=== PATIENT | male | born 1935 | race Caucasian/White ===

== ENCOUNTER 2016-11-06 23:42 | Inpatient (IN) | payer OTHER, BC ==
[2016-11-07] MEDS ORDERED: SODIUM CHLORIDE 0.9% 1000 ML INFUS.BAG IV ONE (00:18)
[2016-11-07] MEDS ORDERED: morphine CARPU-JECT 4 MG/1 ML DISP.SYRIN IVPUSH ONE ×2 (00:31→06:18)
--- NOTE | 2016-11-07 00:31 | PDOC ---
Attending Attestation - Resident Resident Name: Edgar Trejo - HPI HPI: 11/07/16 06:45 Pt presents to the ED complaining of a history of severe atraumatic lower back pain. Denies fever or other associated symptoms. - Physicial Exam PE: 11/07/16 06:53 Neurologically intact. + midback paraspinal tenderness. - Medical Decision Making 11/07/16 06:56 Pt presents to the ED complaining of atraumatic back pain. Initial concern for aortic disease--CT non con that shows evidence of Discitis and osteomyletitis. Case discussed with Dr. Rowe who recommends admission to medicine and 4 sets of blood cultures. Will hold off on antibiotics for now. Will get MRI with and without contrast.
--- NOTE | 2016-11-07 00:46 | PDOC ---
History of Present Illness - General Chief Complaint: Pain, Acute Stated Complaint: BACK PAIN Time Seen by Provider: 11/06/16 23:58 History Source: Patient Exam Limitations: No Limitations - History of Present Illness Initial Comments: 11/07/16 00:36 The patient is a 81M with a PMH of an enlarged prostate, HTN, and HLD who presents to the ED with worsening back pain. The patient has an indwelling huizar catheter secondary to his enlarged prostate and refusal to surgically correct it. The patient states that 3 weeks ago he had his catheter changed and noticed heavy bleeding from his urethra. The urethral bleeding stopped but then he began to notice bleeding from his rectum. He states that both of these issues resolved but today he has back pain that is located in his midline and R side that radiates up to his neck. He describes the pain as a spasm and worsens with movement. Allergies: None Social: Does not smoke, drink, or use recreational drugs Surg: noncontributory Past History - Past Medical History Allergies/Adverse Reactions: Allergies Allergy/AdvReac Type Severity Reaction Status Date / Time No Known Allergies Allergy Verified 11/06/16 23:51 Home Medications: Ambulatory Orders Docusate Sodium [Colace -] 100 mg PO TID capsule 05/27/15 Levofloxacin [Levaquin -] 250 mg PO DAILY #5 tablet 05/27/15 Atorvastatin Ca [Lipitor] 10 mg PO HS 11/07/16 Norvasc - 11/07/16 Plavix - 11/07/16 Anemia: No Asthma: No Cancer: No Cardiac Disorders: No CVA: No COPD: No CHF: No Dementia: No Diabetes: No GI Disorders: No Disorders: No HTN: No Hypercholesterolemia: Yes HIV: Yes (BPH) Liver Disease: No Seizures: No Thyroid Disease: No - Psycho/Social/Smoking Cessation Hx Anxiety: No Suicidal Ideation: No Smoking History: Unknown if ever smoked Have you smoked in the past 12 months: Yes Number of Cigarettes Smoked Daily: 2 If you are a former smoker, when did you quit?: 5 weeks ago Cigars Per Day: 2 Information on smoking cessation initiated: No 'Breaking Loose' booklet given: 11/03/13 Hx Alcohol Use: No Drug/Substance Use Hx: No Substance Use Type: Alcohol Hx Substance Use Treatment: No Review of Systems - Review of Systems Able to Perform ROS?: Yes Is the patient limited Romanian proficient: No Constitutional: No: Chills, Fever Respiratory: No: Shortness of Breath Cardiac (ROS): No: Chest Pain ABD/GI: No: Abdominal Distended, Constipated, Diarrhea, Other (Abd pain) : Yes: Other (Indwelling cath). No: Burning, Dysuria, Discharge, Frequency, Pain, Urgency *Physical Exam - Vital Signs Last Vital Signs Temp Pulse Resp BP Pulse Ox 97.5 F L 104 H 14 154/99 97 11/06/16 23:51 11/06/16 23:51 11/06/16 23:51 11/06/16 23:51 11/06/16 23:51 - Physical Exam General Appearance: Yes: Nourished, Appropriately Dressed, Mild Distress Respiratory/Chest: positive: Lungs Clear, Normal Breath Sounds. negative: Chest Tender, Respiratory Distress Cardiovascular: positive: Regular Rhythm, Regular Rate, S1, S2 Gastrointestinal/Abdominal: positive: Flat, Soft, Protuberent. negative: Tender , Tenderness Male Genitalia: positive: other (Uncircumcised penis with discharge on huizar catheter) Musculoskeletal: positive: CVA Tenderness (R), Muscle Spasm (Nonreproducible). negative: CVA Tenderness (L) Extremity: negative: Swelling, Calf Tenderness Integumentary: positive: Normal Color, Dry, Warm Neurologic: positive: Fully Oriented, Alert, Normal Mood/Affect ED Treatment Course - LABORATORY CBC & Chemistry Diagram: 11/07/16 01:08 11/07/16 01:08 Medical Decision Making - Medical Decision Making 11/07/16 00:48 Patient is a 81M with a PMH of enlarged prostate with an indwelling catheter who presents for 2 days of back spasms which radiates to his neck. The patient has no pulsatile mass in his abdomen and has a tender R CVA. I will send his urine for analysis with basic labs. 11/07/16 02:21 UA is indicative of a UTI. He also has an elevated WBC count. 11/07/16 06:29 CT showed suspicion for osteo. Dr. Laboy was called and will admit the patient to medicine and treat the patient. 11/07/16 07:44 Patient discussed with hospitalist resident, Dr. Mathias and they have accepted admission. *DC/Admit/Observation/Transfer Diagnosis at time of Disposition: Osteomyelitis Qualifiers: Osteomyelitis type: unspecified type Osteomyelitis location: other site Qualified Code(s): M86.9 - Osteomyelitis, unspecified - Discharge Dispostion Condition at time of disposition: Stable Admit: Yes - Attestations Physician Attestion: 11/07/16 07:46 I, Dr. Edgar Trejo, attest that this document has been prepared under my direction and personally reviewed by me in its entirety. I further attest, that it accurately reflects all work, treatment, procedures and medical decision -making performed by me.
[2016-11-07 01:16] LABS: URINE APPEARANCE SLCLOUDY; URINE BILIRUBIN NEGATIVE (NEGATIVE); URINE BLOOD 2+ (NEGATIVE); URINE COLOR DKYELLOW; URINE GLUCOSE (UA) NEGATIVE (NEGATIVE); URINE KETONE 1+ (NEGATIVE); URINE NITRITE POSITIVE (NEGATIVE); URINE UROBILINOGEN NEGATIVE mg/dL (0.2-1.0)
[2016-11-07 01:17] LABS: BASOPHIL 0.2 % (0-2.0); EOSINOPHIL 0.1 % (0-4.5); MCH 28.4 pg (25.7-33.7); MCHC 32.3 g/dl (32.0-35.9); MEAN PLT VOLUME 8.1 fl (7.5-11.1); NEUTROPHILS 90.1 % (42.8-82.8); PLATELET COUNT 324 K/MM3 (134-434); RDW 13.9 % (11.9-15.9); WHITE BLOOD COUNT 13.9 K/mm3 (4.0-10.0)
[2016-11-07 01:25] LABS: URINE LEUK ESTERASE 3+ (NEGATIVE); URINE PROTEIN 1+ (NEGATIVE)
[2016-11-07 01:29] LABS: URINE BACTERIA MODERATE /hpf (NONE SEEN); URINE MUCUS RARE; URINE RBC 9 /hpf (0-3); URINE WBC 231 /hpf (3-5)
[2016-11-07] MEDS ORDERED: morphine CARPU-JECT 4 MG/1 ML DISP.SYRIN ONE ×2 (01:30→06:44)
[2016-11-07 01:44] LABS: ALBUMIN 2.9 g/dl (3.4-5.0); ALK PHOS 78 U/L (45-117); ANION GAP 14 (8-16); BILIRUBIN,TOTAL 1.1 mg/dL (0.2-1.0); CALCIUM 9.3 mg/dL (8.5-10.1); CO2 23 mmol/L (21-32); GLUCOSE,RANDOM 105 mg/dL (74-106); SGOT/AST 14 U/L (15-37); SGPT/ALT 20 U/L (12-78); TOT PROT 7.5 g/dl (6.4-8.2)
[2016-11-07 03:05] LABS: URINE APPEARANCE CLOUDY; URINE BILIRUBIN NEGATIVE (NEGATIVE); URINE BLOOD 2+ (NEGATIVE); URINE COLOR YELLOW; URINE GLUCOSE (UA) NEGATIVE (NEGATIVE); URINE KETONE 1+ (NEGATIVE); URINE NITRITE POSITIVE (NEGATIVE); URINE UROBILINOGEN NEGATIVE mg/dL (0.2-1.0)
[2016-11-07 03:29] LABS: URINE LEUK ESTERASE 1+ (NEGATIVE); URINE PROTEIN 1+ (NEGATIVE)
[2016-11-07 03:37] LABS: URINE BACTERIA MANY /hpf (NONE SEEN); URINE MUCUS RARE; URINE RBC 8 /hpf (0-3); URINE WBC 119 /hpf (3-5)
[2016-11-07] MEDS ORDERED: LEVOFLOXACIN 500 MG IVPB 100 ML IVPB ONE (03:57)
[2016-11-07] MEDS ORDERED: LEVOFLOXACIN 750 MG IVPB 150 ML IVPB ONE (04:21)
[2016-11-07] MEDS ORDERED: VANCOMYCIN 1,250 MG in DEXTROSE 5%-WATER - 250 ML IVPB ONE (06:07)
--- NOTE | 2016-11-07 07:34 | HP ---
CHIEF COMPLAINT: " my back hurts" PCP: None Uro: Dr Flores HISTORY OF PRESENT ILLNESS: This is an 79 yo M with a PMH of BPH (chronic indwelling huizar), prior admission for pseudomonas UTI, HTN, HLD and femoral DVT (previously on Eliquis) , who presents due to lower back pain x 2 w. Patient states that pain started suddenly. It is nonradiating, "spasmic", 8/10, paraspinal on R side and aggravated by movement. He has similar but less intense pain 3 yrs ago when he had a UTI. He states that 2 days ago he developed a "neck spasm" that prevents him from bending his neck to the left with lesser ROM limitation in other directions. He denies f/c, h/a, change in vision, arm pain, leg pain, extremity weakness or numbness. He denies loss of bowel control or difficulty initiating micturation or BM other than usual hesitency due to BPH whihc is treated with indwelling cath. He had a spinal tap once 30 yrs ago bus since then has not had any spinal injections, spinal or andominal surgery, meningitis or known bacteremia. His last abx use was a yr ago when he had a uti. He has not had PSA checked in a long time. He denies pelvic pain or dysuria. He had his indwelling changed 3 w ago followed by several days of hematuria. He also recalls an episode of constipation 3 w ago with painless hematochezia during straining that has resolved with laxatives. He denies abd pain, n/v, weight loss , sob, cough, chest pain. ER course was notable for: (1)labs (2)spine CT (3)levaquin, vanco, morphine, oxycodone, IVF, Neurosur consult Recent Travel: denies PAST MEDICAL HISTORY: as above PAST SURGICAL HISTORY: skull fracture 30 yrs ago Social History: lives at home with sister Smoking: denies Alcohol: denies Drugs: denies Family History: noncontributory. Allergies No Known Allergies Allergy (Verified 11/06/16 23:51) HOME MEDICATIONS: Home Medications Medication Instructions Recorded Docusate Sodium [Colace -] 100 mg PO TID capsule 05/27/15 Levofloxacin [Levaquin -] 250 mg PO DAILY #5 tablet 05/27/15 Atorvastatin Ca [Lipitor] 10 mg PO HS 07/25/17 Norvasc - 11/07/16 Plavix - 11/07/16 REVIEW OF SYSTEMS CONSTITUTIONAL: Absent: fever, chills, weight change HEENT: Absent: rhinorrhea, nasal congestion, throat pain CARDIOVASCULAR: Absent: chest pain, syncope, palpitations RESPIRATORY: Absent: cough, shortness of breath, hemoptysis GASTROINTESTINAL: Absent: abdominal pain, abdominal distension, nausea, vomiting, diarrhea, constipation, melena GENITOURINARY: Absent: dysuri, genital pain MUSCULOSKELETAL: Absent: myalgia, arthralgia, joint swelling SKIN: Absent: rash, itching, pallor HEMATOLOGIC/IMMUNOLOGIC: Absent: easy bleeding, easy bruising, frequent infections ENDOCRINE: Absent: unexplained weight gain, unexplained weight loss NEUROLOGIC: Absent: headache, focal weakness or paresthesias, bladder or bowel incontinence PSYCHIATRIC: Absent: anxiety, depression PHYSICAL EXAMINATION Vital Signs - 24 hr 11/06/16 11/07/16 11/07/16 23:51 04:05 06:30 Temperature 97.5 F L Pulse Rate 104 H Pulse Rate [ 78 85 Apical] Respiratory 14 16 18 Rate Blood Pressure 154/99 Blood Pressure 140/80 138/76 [Left Arm] O2 Sat by Pulse 97 99 99 Oximetry (%) GENERAL: Awake, alert, and fully oriented, in mild distress. HEAD: Normal with no signs of trauma. EYES: Pupils equal, round and reactive to light, extraocular movements intact, sclera anicteric, conjunctiva clear. No lid lag. EARS, NOSE, THROAT: somewhat dry mucous membranes. NECK: limited ROM in every direction. any movement causes paraspinal pain in neck LUNGS: Breath sounds equal, clear to auscultation bilaterally. HEART: Regular rate and rhythm, normal S1 and S2 ABDOMEN: Soft, nontender, mildly distended, normoactive bowel sounds, no guarding, no rebound, no masses. Prostate exam deferred per patient request until pain is better controlled MUSCULOSKELETAL: mild R sided CVA tenderness. UPPER EXTREMITIES: 2+ pulses, warm, well-perfused. No cyanosis. No clubbing. No peripheral edema. LOWER EXTREMITIES: 2+ pulses, warm, well-perfused. No calf tenderness. No periphstrength 5/5 in all extremities, sensation intact. PSYCHIATRIC: Cooperative. Good eye contact. Appropriate mood and affect. SKIN: Warm, dry Laboratory Results - last 24 hr 11/07/16 11/07/16 11/07/16 01:08 01:08 01:08 WBC 13.9 H RBC 4.24 Hgb 12.0 Hct 37.3 MCV 88.0 MCH 28.4 MCHC 32.3 RDW 13.9 Plt Count 324 MPV 8.1 Neutrophils % 90.1 H Lymphocytes % 4.7 L D Monocytes % 4.9 Eosinophils % 0.1 D Basophils % 0.2 Sodium 137 Potassium 3.9 Chloride 100 D Carbon Dioxide 23 Anion Gap 14 BUN 20 H Creatinine 1.0 D Creat Clearance w eGFR > 60 Random Glucose 105 Calcium 9.3 Total Bilirubin 1.1 H D AST 14 L D ALT 20 D Alkaline Phosphatase 78 Total Protein 7.5 Albumin 2.9 L Urine Color Dkyellow Urine Appearance Slcloudy Urine pH 5.0 Urine Protein 1+ H Urine Glucose (UA) Negative Urine Ketones 1+ H Urine Blood 2+ H Urine Nitrite Positive Urine Bilirubin Negative Urine Urobilinogen Negative Ur Leukocyte Esterase 3+ H Urine RBC 9 Urine WBC 231 Ur Epithelial Cells Urine Bacteria Moderate Urine Mucus Rare 11/07/16 02:53 WBC RBC Hgb Hct MCV MCH MCHC RDW Plt Count MPV Neutrophils % Lymphocytes % Monocytes % Eosinophils % Basophils % Sodium Potassium Chloride Carbon Dioxide Anion Gap BUN Creatinine Creat Clearance w eGFR Random Glucose Calcium Total Bilirubin AST ALT Alkaline Phosphatase Total Protein Albumin Urine Color Yellow Urine Appearance Cloudy Urine pH 5.0 Urine Protein 1+ H Urine Glucose (UA) Negative Urine Ketones 1+ H Urine Blood 2+ H Urine Nitrite Positive Urine Bilirubin Negative Urine Urobilinogen Negative Ur Leukocyte Esterase 1+ H D Urine RBC 8 Urine WBC 119 Ur Epithelial Cells Rare Urine Bacteria Many Urine Mucus Rare ASSESSMENT/PLAN: This is an 79 yo M with a PMH of BPH (chronic indwelling huizar), prior admission for pseudomonas UTI, HTN, HLD and femoral DVT (previously on Eliquis) , who presents due to lower back pain x 2 w. Sepsis due to UTI vs spinall osteomyelitis -+ tachycardia, leukocytosis 13.9 with left shift -CRP, ESR p/d -UA indicative of UTI, previpous cultures + pseudomonas and moore sensitive e coli ; f/u urine culture -CT abd/pelvis w/o contrast: new perevertebral soft tissue stranding, suspicious for diskitis/osteomyelitis -some suspicion of prostate CA with mets, check PSA -ID consult -Neurosur consult: requests MRI cervical and lumbar spine w and w/o contrast, 4 blood cultures -patient given broad spectrum coverage with isreal swenson -neurochecks q4h BPH -maintain indwelling HTN -continue lipitor HLD continue norvasc FEN NS @ 75 lytes stable Low Na diet Ana, diet Dispo: med [facility] adm Problem List - Problem (1) Osteomyelitis Code(s): M86.9 - OSTEOMYELITIS, UNSPECIFIED Qualifiers: Osteomyelitis type: unspecified type Osteomyelitis location: other site Qualified Code(s): M86.9 - Osteomyelitis, unspecified (2) BPH (benign prostatic hyperplasia) Code(s): N40.0 - BENIGN PROSTATIC HYPERPLASIA WITHOUT LOWER URINRY TRACT SYMP (3) HTN (hypertension) Code(s): I10 - ESSENTIAL (PRIMARY) HYPERTENSION (4) HLD (hyperlipidemia) Code(s): E78.5 - HYPERLIPIDEMIA, UNSPECIFIED Visit type - Emergency Visit Emergency Visit: Yes ED Registration Date: 11/07/16 Care time: The patient presented to the Emergency Department on the above date and was hospitalized for further evaluation of their emergent condition. - New Patient This patient is new to me today: Yes Date on this admission: 11/07/16 - Critical Care Critical Care patient: No
[2016-11-07] MEDS ORDERED: SODIUM CHLORIDE 1,000 ML IV SCH (08:30)
[2016-11-07] MEDS ORDERED: diazePAM CARPU-JECT 10 MG/2 ML DISP.SYRIN IVPUSH ONE (09:00)
[2016-11-07] MEDS ORDERED: SODIUM CHLORIDE 500 ML IV STA (09:18)
--- NOTE | 2016-11-07 09:27 | PROC ---
Intubation - Intubation Reason for Intubation: Respiratory Failure, Ventilatory Failure Intubation Method: orotracheal Blade used: Mac (Mac 4. Grade 1 with cricoid) Tube Size (cm): 8.0 Tube position @ lip (cm): 22 Tube position confirmed by: Direct visualization, CO2 detector, Breath sounds Breath Sounds after Intubation: equal Remarks: See code record for time of intubation
[2016-11-07] MEDS: PROPOFOL 100 ML IVPB SCH (09:30)
[2016-11-07 09:55] LABS: ARTERIAL BLOOD GAS BASE EXCESS -6.1 meq/l (-2-2); ARTERIAL BLOOD GAS HCO3 18.5 meq/L (22-26); ARTERIAL BLOOD GAS pH 7.34 (7.35-7.45)
[2016-11-07 09:57] LABS: ALLENS TEST POSITIVE; ART PUNCT SITE RIGHT RADIAL; LPM/O2% 100%; MECH. VENT. YES; PT. ON O2? YES; TYPE OF O2 MEC.VENT; VENT RATE 12; VT/PRESS 500
[2016-11-07] MEDS ORDERED: PANTOPRAZOLE SODIUM 40 MG in SODIUM CHLORIDE 100 ML IVPB SCH (10:00)
[2016-11-07] MEDS ORDERED: ENOXAPARIN NA (PORCINE) 30 MG/0.3 ML DISP.SYRIN SQ SCH (10:00)
[2016-11-07] MEDS ORDERED: ENOXAPARIN NA (PORCINE) 40 MG/0.4 ML DISP.SYRIN SQ SCH (10:00)
--- NOTE | 2016-11-07 10:16 | PN ---
Teaching Attending Note Name of Resident: Marly Del Real ATTENDING PHYSICIAN STATEMENT I saw and evaluated the patient. I reviewed the resident's note and discussed the case with the resident. I agree with the resident's findings and plan as documented. SUBJECTIVE: This is an 79 yo M with a PMHx of BPH (chronic indwelling huizar) with prior admission for pseudomonas UTI, HTN, HLD and femoral DVT (previously on Eliquis) , who presents to ED. for lower back pain x 2 weeks. While patient was transported to the floor, patient was coded. Code Blue was announced, code blue team arrived and ACLS protocol followed. Patient was transported to ICU , intubated. OBJECTIVE: Vital Signs Temperature 97.9 F 11/07/16 08:05 Pulse Rate 100 H 11/07/16 08:05 Respiratory Rate 20 11/07/16 10:09 Blood Pressure 152/96 11/07/16 08:05 O2 Sat by Pulse Oximetry (%) 99 11/07/16 08:05 CBCD WBC 13.9 K/mm3 (4.0-10.0) H 11/07/16 01:08 RBC 4.24 M/mm3 (4.00-5.60) 11/07/16 01:08 Hgb 12.0 GM/dL (11.7-16.9) 11/07/16 01:08 Hct 37.3 % (35.4-49) 11/07/16 01:08 MCV 88.0 fl (80-96) 11/07/16 01:08 MCHC 32.3 g/dl (32.0-35.9) 11/07/16 01:08 RDW 13.9 % (11.9-15.9) 11/07/16 01:08 Plt Count 324 K/MM3 (134-434) 11/07/16 01:08 MPV 8.1 fl (7.5-11.1) 11/07/16 01:08 CMP Sodium 137 mmol/L (136-145) 11/07/16 01:08 Potassium 3.9 mmol/L (3.5-5.1) 11/07/16 01:08 Chloride 100 mmol/L (98-107) D 11/07/16 01:08 Carbon Dioxide 23 mmol/L (21-32) 11/07/16 01:08 Anion Gap 14 (8-16) 11/07/16 01:08 BUN 20 mg/dL (7-18) H 11/07/16 01:08 Creatinine 1.0 mg/dL (0.7-1.3) D 11/07/16 01:08 Creat Clearance w eGFR > 60 (>60) 11/07/16 01:08 Random Glucose 105 mg/dL (74-106) 11/07/16 01:08 Calcium 9.3 mg/dL (8.5-10.1) 11/07/16 01:08 Total Bilirubin 1.1 mg/dL (0.2-1.0) H D 11/07/16 01:08 AST 14 U/L (15-37) L D 11/07/16 01:08 ALT 20 U/L (12-78) D 11/07/16 01:08 Alkaline Phosphatase 78 U/L (45-117) 11/07/16 01:08 Total Protein 7.5 g/dl (6.4-8.2) 11/07/16 01:08 Albumin 2.9 g/dl (3.4-5.0) L 11/07/16 01:08 Current Medications Generic Name Dose Route Start Last Admin Trade Name Freq PRN Reason Stop Dose Admin Acetaminophen 650 mg 11/07/16 08:16 Tylenol - PO Q4H PRN FEVER OR PAIN Diazepam 5 mg 11/07/16 08:53 Valium - PO 11/10/16 08:53 Q4H PRN MUSCLE SPASMS Sodium Chloride 1,000 mls @ 75 mls/hr 11/07/16 08:30 Normal Saline - IV ASDIR MARILEE Sodium Chloride 500 mls @ 500 mls/hr 11/07/16 09:18 Normal Saline - IV 11/07/16 10:17 ASDIR STA Propofol 100 mls @ 2.204 mls/hr 11/07/16 09:30 Diprivan - IVPB TITR MARILEE Protocol 5 MCG/KG/MIN Pantoprazole Sodium 100 mls @ 200 mls/hr 11/07/16 10:00 Protonix 40mg Ivpb (Pre-Docked) IVPB DAILY MARILEE Morphine Sulfate 2 mg 11/07/16 08:16 Morphine Injection - IVPUSH Q4H PRN BACK PAIN Home Medications Medication Instructions Recorded Docusate Sodium [Colace -] 100 mg PO TID capsule 02/11/16 Levofloxacin [Levaquin -] 250 mg PO DAILY #5 tablet 05/27/15 Atorvastatin Ca [Lipitor] 10 mg PO HS 11/07/16 Norvasc - 11/07/16 Plavix - 11/07/16 PE: per resident's note CT Abdomen/Pelvis - Soft tissue swelling + Erosive changes of L3-L4 suspicious for osteomyelitis/discitis CT Head non-contrast - Negative for acute pathology, old R cerebellar infarct CXR - Cardiomegaly, possible retrocardiac infiltrate CTA Chest - No pulmonary embolism, difficult visualization of R upper Lobe CT Cervical Spine - Degenerative discogenic disease, no acute pathology ASSESSMENT/PLAN: Pt is an 81yo M with a history of HTN, HLD, Old CVA, DVT (was on Eliquis) , with enlarged prostate with indwelling catheter who presented to the ED with neck and back pain and was found to have sepsis with possible osteomyelitis. # s/p Post Cardiac Arrest x2 with s/p intubation then extubation and was found to have Vfib/Torsades. ACLS protocol followed. seen by ICU and river rafting guide and was started on Amniodarone drip.. Serial troponins were ordered ( 1.29 --> 2.47 --> 6.36) , Echo pending , elevated trops. possible due to defibrillator. # Acute Sepsis due to (UTI vs Osteo), Blood Cx, UCx, CRP, ESR pending, s/p Levaquin 500mg IV in ER. ID on the case # Acute UTI s.p Levaquin follow cultures # Possible Osteomyelitis vs Discitis of L3-L4 , ID on the case- # Paroxysmal Afib - currently in Sinus ; on Lovenox 80mg BID for anticoagulatio # BPH with obstructive uropathy with indwelling huizar catheter for enlarged prostate # Hx of HTN started Carvedilol 3.25mg BID # Elevated Lactic Acid trend # Hx of femoral DVT s/p Eliquis, BLLE U/S Duplex was ordered, check the result # DVT: Lovenox 80mg BID - GI: IV Protonix 40mg QD - Deconditioning: PT requested # Code Status Full Code Sepsis due to UTI vs spinall osteomyelitis -+ tachycardia, leukocytosis 13.9 with left shift -CRP, ESR p/d -UA indicative of UTI, previpous cultures + pseudomonas and moore sensitive e coli ; f/u urine culture -CT abd/pelvis w/o contrast: new perevertebral soft tissue stranding, suspicious for diskitis/osteomyelitis -some suspicion of prostate CA with mets, check PSA -ID consult -Neurosur consult: requests MRI cervical and lumbar spine w and w/o contrast, 4 blood cultures -patient given broad spectrum coverage with vanco, zosyn -neurochecks q4h BPH -maintain indwelling HTN -continue lipitor HLD continue norvasc FEN NS @ 75 lytes stable Low Na diet Ana, diet Dispo: med [facility] adm
[2016-11-07] MEDS ORDERED: MIDAZOLAM HCL 2 MG/2 ML SINGLE DOSE VIAL ONE (10:19)
[2016-11-07 10:21] LABS: BASOPHIL 0.3 % (0-2.0); EOSINOPHIL 0.2 % (0-4.5); MCH 28.8 pg (25.7-33.7); MCHC 32.5 g/dl (32.0-35.9); MEAN CELL VOLUME 88.7 fl (80-96); MEAN PLT VOLUME 7.8 fl (7.5-11.1); NEUTROPHILS 82.5 % (42.8-82.8); PLATELET COUNT 325 K/MM3 (134-434); WHITE BLOOD COUNT 16.3 K/mm3 (4.0-10.0)
--- NOTE | 2016-11-07 10:44 | RAPID ---
Physical Examination Vital Signs: Vital Signs patient was unresponsive w/p pulse. Code 99 was called at around 857 am. unable to obtain vitals right away Findings/Remarks: patient w/o pulse, unresponsive. ACLS started. Constitutional: Yes: Pallor Cardiovascular: Yes: Other (no pulse) Neurological: Yes: Unresponsive Rapid Response - Rapid Response Assessment: patient unresponsive, w/o pulse ACLS started. Rythme determided to be v fib, patient shocked once. pulse check immediately after shock-no pulse, rythm asystole. patient given 1 epi and 1 bicarb. pulse check after 2 min reveals a bounding R femoral pulse, rythm regular, likely sinus. Simultaneously, 1L NS hung up to run. Simultaneoulsy patient intubated by anesthesia. Fingerstick obtained WNL. Patient xferred to ICU. Bedside US of heart done in ICY, patient has severely dilated RV with septum bulging into the LV. Suspect PE given prior history of DVT not on AC currently. Patient woke up with stable neuro status per neurologist. CT head and cooling protocol not indicated. stat cta chest ordered. cbc diff, cmp, lactic acid, abg, echocardiogram, cxr, ct neck ordered. Outcome: patietn regained pulse and woke up. transferred to ICU. further w/u p/d Critical Care Total Critical Care Time (in minutes): 45 Critical Care Statement: The care of this patient involved high complexity decision making to prevent further life threatening deterioration of the patient 's condition and/or to evalute & treat vital organ system(s) failure or risk of failure.
[2016-11-07 10:49] LABS: ALBUMIN 2.4 g/dl (3.4-5.0); ANION GAP 13 (8-16); BILIRUBIN,TOTAL 1.1 mg/dL (0.2-1.0); CO2 22 mmol/L (21-32); CREATININE 1.1 mg/dL (0.7-1.3); GLUCOSE,RANDOM 118 mg/dL (74-106); SGOT/AST 78 U/L (15-37); SGPT/ALT 70 U/L (12-78); TOT PROT 6.7 g/dl (6.4-8.2)
[2016-11-07 11:04] LABS: ALK PHOS 72 U/L (45-117)
[2016-11-07 11:08] LABS: INR 1.5 (0.82-1.09); PHOSPHOROUS 3.9 mg/dL (2.5-4.9); PROTHROMBIN TIME (PATIENT) 16.6 SEC (9.98-11.88)
[2016-11-07 11:11] LABS: TROPONIN I 1.29 ng/ml (0.00-0.05)
--- NOTE | 2016-11-07 11:29 | CONSULT ---
Consult - text type - Consultation Consultation Note: Asked to see this 81 year old male who presented with a 3 week history of progressive back pain which has been incapacitating. He describes difficulty getting to the bathroom and neck spasms. He has a history of BPH and chronic voiding difficulty for which has has a longstanding catheterization. He has a chronic UTI. CT of the Abdomen and Pelvis suggests discitis at the L34 level where there is some erosion of the endplates and streaking of the paraspinal fat. There is no obvious epidural collection and no vacuum phenomenon. There are mild degenerative changes at other levels. The L34 potential discitis findings are not noted on a similar CT done in 2014. Given the neck and back pain as well as possible infection, MRI Cervical and Lumbar would be appropriate to evaluate further. Four sets of blood cultures would remain the best mechanism for identifying the organism involved. If there is no epidural collection, then it should be possible to brace him for comfort and treat with IV antibiotics. Surgical debridement of disc space would typically be for fulminant or unresponsive infection. Stabilization would be considered only if agressive debridement is needed or mechanical instability persists after treatment of infection. Consider ID consultation Will review MRI Cervical & Lumbar Soft Lumbar corset (such as Elizabeth Quickdraw Contour or similar) for comfort Cardiac Events subsequent to my evaluation noted. CT Cervical suggests multilevel spondylosis with nael foraminal narrowing
--- NOTE | 2016-11-07 11:34 | PN ---
Progress Note (short form) - Note Progress Note: ID Consult 81 year old male admitted with worsening back pain. CT reveals L3L4 discitis/ vertebral osteomyelitis Course complicated by cardopulmonary arrest. Presently awake and alert in ICU Imp L3L4 discitis/ vertebral osteomyelitis S/P cardiopulmonary arrest PLAN Cultures obtained Neurosurgical evaluation Will hold antibiotics for now pending possible aspiration Critical care time spent 35min
[2016-11-07] MEDS ORDERED: MIDAZOLAM HCL 2 MG/2 ML SINGLE DOSE VIAL IVPUSH ONE (11:49)
[2016-11-07] MEDS ORDERED: ENOXAPARIN NA (PORCINE) 80 MG/0.8 ML DISP.SYRIN SQ ONE (13:00)
--- NOTE | 2016-11-07 13:00 | EKG ---
Test Reason : Blood Pressure : / mmHG Vent. Rate : 102 BPM Atrial Rate : 102 BPM P-R Int : 212 ms QRS Dur : 092 ms QT Int : 406 ms P-R-T Axes : 054 055 121 degrees QTc Int : 529 ms SINUS TACHYCARDIA WITH 1ST DEGREE A-V BLOCK INFERIOR INFARCT , AGE UNDETERMINED ANTERIOR INFARCT , AGE UNDETERMINED T WAVE ABNORMALITY, CONSIDER LATERAL ISCHEMIA PROLONGED QT ABNORMAL ECG WHEN COMPARED WITH ECG OF 25-MAY-2015 13:51, SIGNIFICANT CHANGES HAVE OCCURRED FOLLOWIUP TRACING IS RECOMMENDED Confirmed by MARY CARMEN GERBER MD ([id number]) on 11/07/2016 1:00:32 PM Referred By: CADENCE AUGUSTIN Confirmed By:MARY CARMEN GERBER MD
--- NOTE | 2016-11-07 13:01 | PN ---
Teaching Attending Note Name of Resident: Eliel Sierra ATTENDING PHYSICIAN STATEMENT I saw and evaluated the patient. I reviewed the resident's note and discussed the case with the resident. I agree with the resident's findings and plan as documented. SUBJECTIVE: Pt seen and examined in the ICU. Briefly, 81yo male with h/o HTN, hyperlipidemia , BPH with chronic indwelling huizar catheter who was admitted for back pain, found to have discitis on CT spine. Admitted to the floor where he became unresponsive, pulseless. Initial rhythm was VFib w/p shock, became asystolic, received epinephrine. ROSC in 8 minutes with good chest compressions. Transferred to the ICU, intubated, awake, following commands, subsequently extubated. OBJECTIVE: Last Vital Signs Temp Pulse Resp BP Pulse Ox 98.3 F 102 H 15 143/85 99 11/07/16 09:25 11/07/16 11:30 11/07/16 11:30 11/07/16 11:30 11/07/16 08:05 Intake & Output 11/04/16 11/05/16 11/06/16 11/07/16 23:59 23:59 23:59 23:59 Weight 162 lb Gen: extubated, breathing nonlabored Heart: tachycardic, regular Lung: decreased breath sounds at the bases Abd: soft, nontender Ext: no edema CBC, BMP 11/07/16 10:00 11/07/16 10:00 Active Medications Acetaminophen (Tylenol -) 650 mg PO Q4H PRN PRN Reason: FEVER OR PAIN Diazepam (Valium -) 5 mg PO Q4H PRN PRN Reason: MUSCLE SPASMS Stop: 11/10/16 08:53 Enoxaparin Sodium (Lovenox -) 80 mg SQ ONCE MARILEE Sodium Chloride (Normal Saline -) 1,000 mls @ 75 mls/hr IV ASDIR MARILEE Propofol (Diprivan -) 100 mls @ 2.204 mls/hr IVPB TITR MARILEE; 5 MCG/KG/MIN PRN Reason: Protocol Pantoprazole Sodium (Protonix 40mg Ivpb (Pre-Docked)) 100 mls @ 200 mls/hr IVPB DAILY MARILEE Morphine Sulfate (Morphine Injection -) 2 mg IVPUSH Q4H PRN PRN Reason: BACK PAIN ASSESSMENT AND PLAN: s/p VFib Cardiopulmonary Arrest r/o KS/Cardiomyopathy +Troponins UTI r/o Sepsis Lactic Acidosis - pt extubated - continue antibiotics - f/u cultures - IVF - trend lactate - cycle cardiac enzymes - echocardiogram - cardiology evaluation - monitor lytes - anticoagulation per cardiology - PE ruled out - check LE dopplers - continue ICU monitoring critical care time spent reviewing chart, evaluating patient and formulating plan 45 min
[2016-11-07] MEDS ORDERED: AMIODARONE HCL 150 MG/3 ML VIAL ONE (13:18)
--- NOTE | 2016-11-07 13:29 | PN ---
Progress Note (short form) - Note Progress Note: CODE 99 While in midconversation with housestaff, pt became unresponsive with ventricular fibrillation on monitor. ACLS immediately initiated with chest compressions. Given epinephrine x 1, shocked x 2 with ROSC into sinus tachycardia. Mental status improved, alert, oriented post code. Did not require intubation. Amiodarone 150mg given, starting amiodarone gtt 1mg/min. Cardiology at bedside. Echocardiogram to be reviewed. Mundo Mariano MD
[2016-11-07] MEDS ORDERED: MAGNESIUM SULF 50% (8.12 MEQ/2 ML-1 GM VIAL) IVPB ONE (13:32)
--- NOTE | 2016-11-07 13:49 | CON.CARD ---
Consult Consult Specialty:: Cardiology Referred by:: Dr. Mundo Mariano Reason for Consultation:: Cardiac evaluation - History of Present Illness Chief Complaint: Cardiac evaluation History of Present Illness: Patient is an 81 year old male with underlying history of paroxysmal atrial fibrillation not on anticoagulation, history of BPH currently admitted with back pain with possible osteomyelitis/discitis of L3-4. He was transferred down to ICU after VF arrest on the floor. He was intubated during the first code and then extubated followed by another episode of VF arrest vs. torsades this afternoon. ACLS protocol was initiated, patient was given Epineprine and then was defibrillated twice and started on Amiodarone drip after a bolus. He is currently awake and alert. He still complains of back spasm. He denies chest pain, shortness of breath. He denies fever or chills at the moment. He denies headache. ECG demonstrates sinus rhythm with T wave abnormality in anterior leads and a small Q wave in inferior lead and a prolonged QT. Cardiology consultation was called for further evaluation. Patient was last seen by our service in 2013. - History Source History Provided By: Patient, Medical Record Limitations to Obtaining History: Clinical Condition - Past Medical History Cardio/Vascular: Yes: AFIB (Paroxysmal Afib episode in ED on arrival yesterday) , HTN Renal/: Yes: BPH, Neurogenic Bladder, Other (OBSTRUCTIVE UROPATHY HYDRONEPHROSIS) Infectious Disease: Yes: Other Additional Medical History: Does not go to a doctor. - Alcohol/Substance Use Hx Alcohol Use: Yes History of Substance Use: reports: None - Smoking History Smoking history: Former smoker Have you smoked in the past 12 months: No Aproximately how many cigarettes per day: 2 If you are a former smoker, when did you quit?: 5 weeks ago - Social History Usual Living Arrangement: Alone ADL: Independent Occupation: retired; plays golf and [employer] Home Medications - Allergies Allergies/Adverse Reactions: Allergies Allergy/AdvReac Type Severity Reaction Status Date / Time No Known Allergies Allergy Verified 11/06/16 23:51 - Home Medications Home Medications: Ambulatory Orders Docusate Sodium [Colace -] 100 mg PO TID capsule 05/27/15 Levofloxacin [Levaquin -] 250 mg PO DAILY #5 tablet 05/27/15 Atorvastatin Ca [Lipitor] 10 mg PO HS 11/07/16 Norvasc - 11/07/16 Plavix - 11/07/16 Family Disease History - Family Disease History Family Disease History: CA: Brother (77 years old, has prostate cancer , s/p "seeds") Review of Systems - Review of Systems Cardiovascular: denies: Chest Pain Respiratory: reports: SOB. denies: Cough, Hemoptysis, Orthopnea, PND Gastrointestinal: denies: Abdominal Pain, Constipation, Diarrhea, Melena, Nausea , Rectal Bleeding, Vomiting Musculoskeletal: reports: Back Pain Neurological: denies: Dizziness, Headache, Seizure, Syncope Vital Signs: Vital Signs Temperature 98.3 F 11/07/16 09:25 Pulse Rate 102 H 11/07/16 11:30 Respiratory Rate 15 11/07/16 11:30 Blood Pressure 143/85 11/07/16 11:30 O2 Sat by Pulse Oximetry (%) 99 11/07/16 08:05 Neck: Yes: Supple Respiratory: Yes: Diminished Gastrointestinal: Yes: Normal Bowel Sounds, Soft. No: Tenderness Cardiovascular: Yes: Regular Rate and Rhythm, Tachycardia JVD: No Carotid Bruit: No PMI: Non-Displaced Heart Sounds: Yes: S1, S2 Edema: No - Other Data Labs, Other Data: CBC, BMP 11/07/16 10:00 11/07/16 10:00 INR, PTT INR 1.50 (0.82-1.09) H 11/07/16 10:00 Troponin, BNP 11/07/16 11/07/16 10:00 10:00 Troponin I 1.29 H* D Cancelled Sinus rhythm with T wave inversion in anterior leads, prolonged QT, small Q in inferior lead Echo: Pending Assessment/Plan 1. Post cardiac arrest with VF or torsades with underlying prolonged QT 2. Paroxysmal AF currently in sinus rhythm 3. History of HTN - on no medications 4. Abnormal ECG suggests CAD +/- LV systolic dysfunction 5. Possible osteomyelitis of L3-4 6. History of BPH and obstructive uropathy PLAN: 1. Continue ICU monitoring 2. Continue Amiodarone drip as per VT protocol (1 mg/min for 6 hours and then 0.5 mg/min). Eventually PO Amiodarone will be needed 3. Monitor for QT prolongation. May give dose of magnesium 4. Transthoracic echocardiography to assess LV/RV and valvular function 5. Serial cardiac enzymes 6. Further cardiac work up is to be followed which may include cardiac catheterization/coronary angiography at some point. 7. Continue with Lovenox Further plans are to follow Prakash Leigh MD
[2016-11-07] MEDS ORDERED: AMIODARONE HCL INJECTION 450 MG in DEXTROSE 5%-WATER - 241 ML IVPB SCH ×2 (14:00→16:56)
[2016-11-07] MEDS: PANTOPRAZOLE SODIUM 100 ML IVPB SCH (14:06)
[2016-11-07] MEDS ORDERED: AMIODARONE HCL 150 MG/3 ML VIAL IVPUSH ONE (14:15)
--- NOTE | 2016-11-07 15:06 | PN ---
Physical Exam: SUBJECTIVE: Patient seen and examined. He was restless when he was brought down from the floors, but now he is resting in NAD. He is s/p one cardiac arrest in the floors and one cardiac arrest in the ICU. OBJECTIVE: Vital Signs Temperature 98.5 F 11/07/16 14:46 Pulse Rate 96 H 11/07/16 14:46 Respiratory Rate 18 11/07/16 14:46 Blood Pressure 106/73 11/07/16 14:46 O2 Sat by Pulse Oximetry (%) 92 L 11/07/16 14:27 GENERAL: The patient is awake, alert, and fully oriented, in no acute distress. HEAD: Normal with no signs of trauma. EYES: extraocular movements intact, sclera anicteric, conjunctiva clear. No ptosis. NECK: Trachea midline, full range of motion, supple. LUNGS: Breath sounds equal, clear to auscultation bilaterally, no wheezes, no crackles, no accessory muscle use. HEART: Regular rate and rhythm, S1, S2 without murmur, rub or gallop. ABDOMEN: Soft, nontender, nondistended, normoactive bowel sounds, no guarding, no rebound. EXTREMITIES: 2+ pulses, warm, well-perfused, no edema. NEUROLOGICAL: Cranial nerves II through X grossly intact. Normal speech, gait not observed. PSYCH: Normal mood, normal affect. SKIN: Warm, dry, normal turgor, no rashes or lesions noted Laboratory Results - last 24 hr 11/07/16 11/07/16 11/07/16 09:11 09:40 10:00 WBC RBC Hgb Hct MCV MCH MCHC RDW Plt Count MPV Neutrophils % Lymphocytes % Monocytes % Eosinophils % Basophils % INR D-Dimer Puncture Site Right radial ABG pH 7.34 L ABG pCO2 at Pt Temp 35.2 D ABG pO2 at Pt Temp 402.0 H* ABG HCO3 18.5 L ABG O2 Sat (Measured) 100.0 H* ABG O2 Content 17.9 ABG Base Excess -6.1 L Mannie Test Positive O2 Delivery Device Mec.vent Oxygen Flow Rate 100% Vent Mode A/c Vent Rate 12 Mechanical Rate Yes PEEP 5.0 Pressure Support Vent 500 Sodium Potassium Chloride Carbon Dioxide Anion Gap BUN Creatinine Creat Clearance w eGFR POC Glucometer 100 Random Glucose Lactic Acid Calcium Phosphorus Magnesium Total Bilirubin AST ALT Alkaline Phosphatase Creatine Kinase Troponin I C-Reactive Protein 16.7 H Total Protein Albumin Blood Type Antibody Screen 11/07/16 11/07/16 11/07/16 10:00 10:00 10:00 WBC 16.3 H RBC 4.07 Hgb 11.7 Hct 36.1 MCV 88.7 MCH 28.8 MCHC 32.5 RDW 14.0 Plt Count 325 MPV 7.8 Neutrophils % 82.5 Lymphocytes % 12.5 D Monocytes % 4.5 Eosinophils % 0.2 D Basophils % 0.3 INR D-Dimer Cancelled Puncture Site ABG pH ABG pCO2 at Pt Temp ABG pO2 at Pt Temp ABG HCO3 ABG O2 Sat (Measured) ABG O2 Content ABG Base Excess Mannie Test O2 Delivery Device Oxygen Flow Rate Vent Mode Vent Rate Mechanical Rate PEEP Pressure Support Vent Sodium Potassium Chloride Carbon Dioxide Anion Gap BUN Creatinine Creat Clearance w eGFR POC Glucometer Random Glucose Lactic Acid 3.9 H* Calcium Phosphorus Magnesium Total Bilirubin AST ALT Alkaline Phosphatase Creatine Kinase Troponin I C-Reactive Protein Total Protein Albumin Blood Type Antibody Screen 11/07/16 11/07/16 11/07/16 10:00 10:00 10:00 WBC RBC Hgb Hct MCV MCH MCHC RDW Plt Count MPV Neutrophils % Lymphocytes % Monocytes % Eosinophils % Basophils % INR D-Dimer Puncture Site ABG pH ABG pCO2 at Pt Temp ABG pO2 at Pt Temp ABG HCO3 ABG O2 Sat (Measured) ABG O2 Content ABG Base Excess Mannie Test O2 Delivery Device Oxygen Flow Rate Vent Mode Vent Rate Mechanical Rate PEEP Pressure Support Vent Sodium 139 Potassium 3.9 Chloride 104 Carbon Dioxide 22 Anion Gap 13 BUN 17 Creatinine 1.1 Creat Clearance w eGFR > 60 POC Glucometer Random Glucose 118 H Lactic Acid Calcium 9.0 Phosphorus 3.9 Cancelled Magnesium 2.0 Cancelled Total Bilirubin 1.1 H AST 78 H D ALT 70 D Alkaline Phosphatase 72 Creatine Kinase 137 Cancelled Troponin I 1.29 H* D Cancelled C-Reactive Protein Total Protein 6.7 Albumin 2.4 L Blood Type B POSITIVE Antibody Screen Negative 11/07/16 11/07/16 11/07/16 10:00 10:21 13:05 WBC RBC Hgb Hct MCV MCH MCHC RDW Plt Count MPV Neutrophils % Lymphocytes % Monocytes % Eosinophils % Basophils % INR 1.50 H D-Dimer Puncture Site ABG pH ABG pCO2 at Pt Temp ABG pO2 at Pt Temp ABG HCO3 ABG O2 Sat (Measured) ABG O2 Content ABG Base Excess Mannie Test O2 Delivery Device Oxygen Flow Rate Vent Mode Vent Rate Mechanical Rate PEEP Pressure Support Vent Sodium Potassium Chloride Carbon Dioxide Anion Gap BUN Creatinine Creat Clearance w eGFR POC Glucometer Random Glucose Lactic Acid Calcium Phosphorus Magnesium Total Bilirubin AST ALT Alkaline Phosphatase Creatine Kinase Troponin I 2.47 H* D C-Reactive Protein Total Protein Albumin Blood Type B POSITIVE Antibody Screen Active Medications Generic Name Dose Route Start Last Admin Trade Name Freq PRN Reason Stop Dose Admin Acetaminophen 650 mg 11/07/16 08:16 Tylenol - PO Q4H PRN FEVER OR PAIN Diazepam 5 mg 11/07/16 08:53 Valium - PO 11/10/16 08:53 Q4H PRN MUSCLE SPASMS Sodium Chloride 1,000 mls @ 75 mls/hr 11/07/16 08:30 11/07/16 13:09 Normal Saline - IV 75 mls/hr ASDIR MARILEE Administration Propofol 100 mls @ 2.204 mls/hr 11/07/16 09:30 11/07/16 09:30 Diprivan - IVPB 2.204 mls/hr TITR MARILEE Administration Protocol 5 MCG/KG/MIN Pantoprazole Sodium 100 mls @ 200 mls/hr 11/07/16 10:00 11/07/16 14:06 Protonix 40mg Ivpb (Pre-Docked) IVPB 200 mls/hr DAILY MARILEE Administration Amiodarone HCl 450 mg/ 250 mls @ 16.66 mls/hr 11/07/16 14:00 Dextrose IVPB TITR MARILEE Protocol 0.5 MG/MIN Morphine Sulfate 2 mg 11/07/16 08:16 Morphine Injection - IVPUSH Q4H PRN BACK PAIN ASSESSMENT/PLAN: 79 yo M with a PMH of BPH (chronic indwelling huizar), prior admission for pseudomonas UTI, HTN, HLD and femoral DVT (previously on Eliquis), who presents due to lower back pain x 2 weeks. Patient arrested on the floors and was brought down to the ICU intubated. He is s/p a second arrest in the ICU. Neuro -A&O x2. -no focal neuro deficits Pulmonary -Patient is s/p arrest w/ history of DVT and right ventricle dilation on bedside ultrasound -CTA was negative for PE -f/u doppler ultrasound of lower extremities Cardiology -s/p cardiac arrest; history of paroxysmal afib and long QT on EKG in ED -post arrest EKG shows possible lateral wall ischemia and 1st degree av block with prolonged QT -f/u echo -management as per cardio -tropes trending up; 1.29 -> 2.47; will follow -f/u echo -Cardiology: -c/w amiodarone drip -Monitor for QT prolongation; may give magnesium FEN -NS @ 75 -lactic acid elevated at 3.9, will monitor -NPO PPTX -Protonix 40mg IV DISPO -continue to monitor in ICU Visit type - Emergency Visit Emergency Visit: Yes ED Registration Date: 11/07/16 Care time: The patient presented to the Emergency Department on the above date and was hospitalized for further evaluation of their emergent condition. - New Patient This patient is new to me today: Yes Date on this admission: 11/07/16 - Critical Care Critical Care patient: Yes Total Critical Care Time (in minutes): 60 Critical Care Statement: The care of this patient involved high complexity decision making to prevent further life threatening deterioration of the patient 's condition and/or to evalute & treat vital organ system(s) failure or risk of failure.
--- NOTE | 2016-11-07 15:34 | CONS ---
DATE OF CONSULTATION: HISTORY: The patient is an 81-year-old male who was evaluated for diskitis and vertebral osteomyelitis. The patient gives a longstanding history of chronic back pain. He sustained an injury in 1956 while in the service in [facility]. He has had chronic back pain, which markedly worsened over the past 1-2 weeks. He described pain in the middle back radiating to the right side. He also reported worsening constipation. He has a history of urinary retention and has an indwelling Heart catheter. He presented to the emergency room where a CAT scan of the abdomen and pelvis was performed and showed evidence of L3-L4 vertebral osteomyelitis and diskitis. Cultures were obtained, and he was empirically given vancomycin and Levaquin. While being transported to his room, the patient suffered a cardiopulmonary arrest. According to the staff, he had ventricular fibrillation and was successfully resuscitated. He was transferred to the intensive care unit. At the present time, he is awake and alert in the ICU. He complains of back spasms. He has no complaints of chest pain, shortness of breath, cough, or sputum production. He denies any recent febrile illness. No recent urinary tract infection, skin infection, or epidural injections. PAST MEDICAL HISTORY: Positive for BPH with chronic indwelling Heart catheter, hypertension, hyperlipidemia, DVT. ALLERGIES: No known allergies. MEDICATIONS: Colace, Levaquin, Lipitor, Norvasc, Plavix. SOCIAL HISTORY: He lives at home. He is a former smoker. No recent hospital admissions. SYSTEMS REVIEW: Neurologic: As per HPI. Cardiac: Negative chest pain or palpitations. Respiratory: Negative cough or sputum production. Gastrointestinal: Positive for constipation. Genitourinary: Positive for BPH, urinary retention, and indwelling Heart catheter. PHYSICAL EXAMINATION: General: He is awake and alert. He complains of back spasms. His breathing is nonlabored. Vital Signs: Temperature 97.9, blood pressure 152/96, pulse 100, regular, respiration 18 per minute. HEENT: Sclerae anicteric. Neck: Supple. Heart: Tachycardic. S1, S2. Lungs: Clear bilaterally. Diminished breath sounds at the bases. Abdomen: Soft. No tenderness elicited. No mass, rebound, or rigidity. Extremities: Negative for edema. IMPRESSION: 1. L3-L4 vertebral osteomyelitis with diskitis. 2. Status post cardiopulmonary arrest successfully resuscitated. 3. Leukocytosis. 4. Urinary tract infection. 5. History of urinary retention with chronic indwelling Heart catheter. Scans reviewed with radiologist. MRI is pending as is neurosurgical evaluation. We will await MRI. At the present time, the patient is not septic or acutely toxic appearing. We will hold antibiotic therapy in view of possible need for percutaneous aspiration of the vertebral space with specimen for appropriate cultures. Continue ICU monitoring. Critical care time spent 35 minutes. Thank you for the kind referral. PRAMOD NELSON M.D. [id number]
--- NOTE | 2016-11-07 15:47 | HP ---
CHIEF COMPLAINT: Back + Neck Pain PCP: Dr. Gonzáles HISTORY OF PRESENT ILLNESS: Pt is an 81yo M with a hx of HTN, HLD, Old CVA, BPH with indwelling huizar, hx of DVT who originall presented to the ER due to progressively worsening neck + back pain. Pts neck pain has been present for 1 week, is dull, located in center of neck, nonradiating. Pt has no neurological symptoms in upper extremities, no headache, no neck stiffness, no prior trauma. Stated that he never had neck pain before. Pt also complains of lower back pain which has been progressively worsening for 3 weeks. Back pain is 8/10, intermittent with spasms , worse with movement, nonradiating. No neurological symptoms in lower extremities, no incontinence, no prior trauma, no abdominal pain. Pt denies fever, chills, chest pain, abdominal pain, SOB and weakness. ER course was notable for: (1) Levaquin 500mg x 1 dose (2) EKG - Sinus tach, 1st degree AVB, T wave inv in anterior leads (unchanged), Q waves inferior leads, and QTc prolongation (529) (3) Labs (4) Abd/Pelvis CT Initial Hospital Course: The patient was transferred to the floors and had cardiac arrest, with Code 99 called at 8:57AM. ACLS was started, and rhythm was notable for Vfib. Patient received 1 shock, 1 epinephrine, 1 bicarb, with ROSC into sinus rhythm in 8 minute. The patient was intubated by anesthesia and transferred to the ICU. The patient was initially combative while intubated and then became limp and unresponsive with a pulse, which lasted for about 1-2 minutes. A stat Head CT noncon was ordered which showed no acute bleeds. Given the history of DVT, a PE was suspected for the initial cause of the cardiac arrest. Stat CTA ordered, negative for PE. The patient was later extubated in the ICU and recovered well, back to baseline mental status. While this H&P was being taken in the ICU, in mid-conversation the patient became unresponsive again with Ventricular Fibrillation with Torsades on the monitor. ACLS was immediately initiated with chest compressions. The patient received 2 shocks, 1 epi, 1 Mag, with ROSC in 2 minutes into sinus tachycardia. The patient did not need to be intubated, and recovered well, with return to baseline mental status. Cardiology was at bedside, and the patient was started on Amniodarone drip, with no further cardiac events. Recent Travel: Denies PAST MEDICAL HISTORY: HTN, HLD, Old CVA, BPH with indwelling huizar (changed by PCP every 4 weeks), Hx of DVT, BPH with indwelling huizar: states that his PCP changes the catheter every 4 weeks. PAST SURGICAL HISTORY: None Social History: Smoking: Pt states that he smoked cigars for 60 years. He quit a year ago Alcohol: Pt states he drinks about a bottle of red wine a week. He also drinks beer occasionally. Drugs: Pt denies drug use. Family History: Pt's father suffered from emphysema and of lung cancer. Pt has a sister and many brothers. Patient lives in the same duplex as his sister. Allergies No Known Allergies Allergy (Verified 11/06/16 23:51) HOME MEDICATIONS: Home Medications Medication Instructions Recorded Docusate Sodium [Colace -] 100 mg PO TID capsule 05/27/15 Levofloxacin [Levaquin -] 250 mg PO DAILY #5 tablet 05/27/15 Atorvastatin Ca [Lipitor] 10 mg PO HS 11/07/16 Norvasc - 11/07/16 Plavix - 11/07/16 REVIEW OF SYSTEMS CONSTITUTIONAL: Absent: fever, chills, diaphoresis, generalized weakness, malaise, loss of appetite, weight change HEENT: Absent: rhinorrhea, nasal congestion, throat pain, throat swelling, difficulty swallowing, mouth swelling, ear pain, eye pain, visual changes CARDIOVASCULAR: Absent: chest pain, syncope, palpitations, irregular heart rate, lightheadedness , peripheral edema RESPIRATORY: Absent: cough, shortness of breath, dyspnea with exertion, orthopnea, wheezing, stridor, hemoptysis GASTROINTESTINAL: Absent: abdominal pain, abdominal distension, nausea, vomiting, diarrhea, constipation, melena, hematochezia GENITOURINARY: Absent: dysuria, frequency, urgency, hesitancy, hematuria, flank pain, genital pain MUSCULOSKELETAL: Absent: myalgia, arthralgia, joint swelling Present: back pain, neck pain SKIN: Absent: rash, itching, pallor HEMATOLOGIC/IMMUNOLOGIC: Absent: easy bleeding, easy bruising, lymphadenopathy, frequent infections ENDOCRINE: Absent: unexplained weight gain, unexplained weight loss, heat intolerance, cold intolerance NEUROLOGIC: Absent: headache, focal weakness or paresthesias, unsteady gait, seizure, mental status changes, bladder or bowel incontinence Present: dizziness PSYCHIATRIC: Absent: anxiety, depression, suicidal or homicidal ideation, hallucinations. PHYSICAL EXAMINATION Vital Signs - 24 hr 11/07/16 11/07/16 11/07/16 08:05 09:25 09:45 Temperature 97.9 F 98.3 F Pulse Rate 128 H 113 H Pulse Rate [ 100 H Apical] Respiratory 18 21 19 Rate Blood Pressure 154/94 116/95 Blood Pressure 152/96 [Left Arm] O2 Sat by Pulse 99 Oximetry (%) 11/07/16 11/07/16 11/07/16 10:09 11:30 13:00 Temperature Pulse Rate 102 H 98 H Pulse Rate [ Apical] Respiratory 20 15 32 H Rate Blood Pressure 143/85 125/95 Blood Pressure [Left Arm] O2 Sat by Pulse Oximetry (%) 11/07/16 11/07/16 14:00 14:27 Temperature 98.5 F Pulse Rate 97 H Pulse Rate [ Apical] Respiratory 23 Rate Blood Pressure 114/83 Blood Pressure [Left Arm] O2 Sat by Pulse 92 L Oximetry (%) GENERAL: Awake, alert, and fully oriented, in no acute distress. HEENT: PERRLA, EOMi, Moist mucous membranes LUNGS: CTABL, mild bilateral crackles, no wheezing, no use of accessory muscles HEART: Irregular rate and rhythm, normal S1 and S2 without murmur, rub or gallop. ABDOMEN: Soft, nontender, not distended, normoactive bowel sounds, no guarding, no rebound, no masses. MUSCULOSKELETAL: Normal range of motion at all joints. No bony deformities or tenderness. No CVA tenderness. 2+ pulses, no edema NEUROLOGICAL: Cranial nerves II-XII intact. Normal speech. Normal gait. PSYCHIATRIC: Cooperative. Good eye contact. Appropriate mood and affect. Laboratory Results - last 24 hr 11/07/16 11/07/16 11/07/16 09:11 09:40 10:00 WBC RBC Hgb Hct MCV MCH MCHC RDW Plt Count MPV Neutrophils % Lymphocytes % Monocytes % Eosinophils % Basophils % INR D-Dimer Puncture Site Right radial ABG pH 7.34 L ABG pCO2 at Pt Temp 35.2 D ABG pO2 at Pt Temp 402.0 H* ABG HCO3 18.5 L ABG O2 Sat (Measured) 100.0 H* ABG O2 Content 17.9 ABG Base Excess -6.1 L Mannie Test Positive O2 Delivery Device Mec.vent Oxygen Flow Rate 100% Vent Mode A/c Vent Rate 12 Mechanical Rate Yes PEEP 5.0 Pressure Support Vent 500 Sodium Potassium Chloride Carbon Dioxide Anion Gap BUN Creatinine Creat Clearance w eGFR POC Glucometer 100 Random Glucose Lactic Acid Calcium Phosphorus Magnesium Total Bilirubin AST ALT Alkaline Phosphatase Creatine Kinase Troponin I C-Reactive Protein 16.7 H Total Protein Albumin Blood Type Antibody Screen 11/07/16 11/07/16 11/07/16 10:00 10:00 10:00 WBC 16.3 H RBC 4.07 Hgb 11.7 Hct 36.1 MCV 88.7 MCH 28.8 MCHC 32.5 RDW 14.0 Plt Count 325 MPV 7.8 Neutrophils % 82.5 Lymphocytes % 12.5 D Monocytes % 4.5 Eosinophils % 0.2 D Basophils % 0.3 INR D-Dimer Cancelled Puncture Site ABG pH ABG pCO2 at Pt Temp ABG pO2 at Pt Temp ABG HCO3 ABG O2 Sat (Measured) ABG O2 Content ABG Base Excess Mannie Test O2 Delivery Device Oxygen Flow Rate Vent Mode Vent Rate Mechanical Rate PEEP Pressure Support Vent Sodium Potassium Chloride Carbon Dioxide Anion Gap BUN Creatinine Creat Clearance w eGFR POC Glucometer Random Glucose Lactic Acid 3.9 H* Calcium Phosphorus Magnesium Total Bilirubin AST ALT Alkaline Phosphatase Creatine Kinase Troponin I C-Reactive Protein Total Protein Albumin Blood Type Antibody Screen 11/07/16 11/07/16 11/07/16 10:00 10:00 10:00 WBC RBC Hgb Hct MCV MCH MCHC RDW Plt Count MPV Neutrophils % Lymphocytes % Monocytes % Eosinophils % Basophils % INR D-Dimer Puncture Site ABG pH ABG pCO2 at Pt Temp ABG pO2 at Pt Temp ABG HCO3 ABG O2 Sat (Measured) ABG O2 Content ABG Base Excess Mannie Test O2 Delivery Device Oxygen Flow Rate Vent Mode Vent Rate Mechanical Rate PEEP Pressure Support Vent Sodium 139 Potassium 3.9 Chloride 104 Carbon Dioxide 22 Anion Gap 13 BUN 17 Creatinine 1.1 Creat Clearance w eGFR > 60 POC Glucometer Random Glucose 118 H Lactic Acid Calcium 9.0 Phosphorus 3.9 Cancelled Magnesium 2.0 Cancelled Total Bilirubin 1.1 H AST 78 H D ALT 70 D Alkaline Phosphatase 72 Creatine Kinase 137 Cancelled Troponin I 1.29 H* D Cancelled C-Reactive Protein Total Protein 6.7 Albumin 2.4 L Blood Type B POSITIVE Antibody Screen Negative 11/07/16 11/07/16 11/07/16 10:00 10:21 13:05 WBC RBC Hgb Hct MCV MCH MCHC RDW Plt Count MPV Neutrophils % Lymphocytes % Monocytes % Eosinophils % Basophils % INR 1.50 H D-Dimer Puncture Site ABG pH ABG pCO2 at Pt Temp ABG pO2 at Pt Temp ABG HCO3 ABG O2 Sat (Measured) ABG O2 Content ABG Base Excess Mannie Test O2 Delivery Device Oxygen Flow Rate Vent Mode Vent Rate Mechanical Rate PEEP Pressure Support Vent Sodium Potassium Chloride Carbon Dioxide Anion Gap BUN Creatinine Creat Clearance w eGFR POC Glucometer Random Glucose Lactic Acid Calcium Phosphorus Magnesium Total Bilirubin AST ALT Alkaline Phosphatase Creatine Kinase Troponin I 2.47 H* D C-Reactive Protein Total Protein Albumin Blood Type B POSITIVE Antibody Screen IMAGING: CT Abdomen/Pelvis - Soft tissue swelling + Erosive changes of L3-L4 suspicious for osteomyelitis/discitis CT Head noncon - Negative for acute pathology, 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 He was admitted for sepsis secondary to possible osteomyelitis vs UTI. After the patient was transferred from the ER, he had two episodes of cardiac arrest with ACLS performance and ROSC and to baseline mental status. # Post Cardiac Arrest w/ Vfib and Torsades - Pt had 2 episodes of cardiac arrest, doing well now on Amniodarone drip as per protocol (1mg/min for 6 hours --> 0.5mg/min) - EKG shows QTc prolongation (529) - no home meds, but patient was given a dose of IV Levaquin 500mg in ER - Echo pending - Serial troponins trending up (1.29 --> 2.47 --> 6.36) - could be due to post- ACLS vs ACS (EKG shows Q waves inferior leads) - Cardiology consulted Dr. Prakash Leigh # Sepsis - Pt presented with tachycardia, leukocytosis (13.9), and two likely sources of infection (UTI vs Osteo) - Blood Cx, UCx, CRP, ESR pending - Pt received dose of Levaquin 500mg IV in ER - ID consult placed, will hold antibiotics for pending aspiration of spine # UTI - Pt's UA on admission showed 2+ blood, 1+ leuk esterase, +nitrate, +many bacteria - Previous cultures showed pseudomonas + moore sensitive E.Coli - As per ID, will hold antibiotics for pending aspiration of spine - F/u urine cultures # Possible Osteomyelitis vs Discitis of L3-L4 - CT of abd/pelvis was notable for findings soft tissue swelling + erosive changes of L3-L4 suspicious for osteo/discitis - MRI of spine to follow of Lumbar + Cervical Spine w/ and w/o contrast - Neurosurgery consult - Morphine 2mg IVPush Q4PRN for pain - Neuro checks Q4H # Paroxysmal Afib - currently in Sinus - Pt placed on Lovenox 80mg BID for anticoagulation - Continuous repairing calibrator # BPH with obstructive uropathy - Pt has indwelling huizar catheter for enlarged prostate - Will check PSA to r/o prostate cancer # Hx of HTN - Pt on no medications, started on Carvedilol 3.25mg BID - SBP 130-150s + DBP 70s-90s # Elevated Lactic Acid - Was taken after first round of ACLS, could be reactive - F/u repeat level # Hyperglycemia - 118 - Pt has no history of diabetes - Will continue to monitor # Hx of femoral DVT - According to chart, pt completed treatment course w/ Eliquis, will confirm with PCP tomorrow - BLLE U/S Duplex was ordered, f/u # FEN - Fluids: IV NS at 75mL/hr - Electrolytes: No abnormalities, will monitor - Nutrition: NPO for possible procedure # Prophylaxis - DVT: Lovenox 80mg BID - GI: IV Protonix 40mg QD - Deconditioning: PT requested # Code Status - Full Code # Home Med Rec - Patient denies taking any prescription medications - Will call pharmacy tomorrow to confirm Dr. Marly Del Real PGY-1 Internal Medicine Visit type - Emergency Visit Emergency Visit: Yes ED Registration Date: 11/07/16 Care time: The patient presented to the Emergency Department on the above date and was hospitalized for further evaluation of their emergent condition. - New Patient This patient is new to me today: Yes Date on this admission: 11/09/16 - Critical Care Critical Care patient: Yes Total Critical Care Time (in minutes): 55 Critical Care Statement: The care of this patient involved high complexity decision making to prevent further life threatening deterioration of the patient 's condition and/or to evalute & treat vital organ system(s) failure or risk of failure.
[2016-11-07] MEDS: morphine CARPU-JECT 2 MG/1 ML DISP.SYRIN IVPUSH PRN (16:51)
[2016-11-07] MEDS: ACETAMINOPHEN 325 MG TABLET (FP) PO PRN (20:45)
[2016-11-07] MEDS: diazePAM 5 MG TABLET PO PRN (20:46)
[2016-11-07] MEDS: CARVEDILOL 3.125 MG TABLET (FP) PO SCH (21:27)
[2016-11-07] MEDS ORDERED: ENOXAPARIN NA (PORCINE) 80 MG/0.8 ML DISP.SYRIN SQ SCH (22:00)
[2016-11-08] MEDS: ACETAMINOPHEN 325 MG TABLET (FP) PO PRN (01:50)
[2016-11-08] MEDS: diazePAM 5 MG TABLET PO PRN (01:51)
[2016-11-08] MEDS ORDERED: FUROSEMIDE 40 MG/4 ML INJECTABLE VIAL IVPUSH ONE ×2 (06:22→17:00)
[2016-11-08 06:34] LABS: MCH 28.5 pg (25.7-33.7); MCHC 32.5 g/dl (32.0-35.9); MEAN CELL VOLUME 87.7 fl (80-96); MEAN PLT VOLUME 8.2 fl (7.5-11.1); PLATELET COUNT 240 K/MM3 (134-434); WHITE BLOOD COUNT 18.7 K/mm3 (4.0-10.0)
[2016-11-08 06:41] LABS: ARTERIAL BLD GAS O2 SATURATION 95.1 % (90-98.9); ARTERIAL BLOOD GAS BASE EXCESS -3.6 meq/l (-2-2); ARTERIAL BLOOD GAS HCO3 20.7 meq/L (22-26); ARTERIAL BLOOD GAS PO2 78.7 mmHg (68-100); ARTERIAL BLOOD GAS pH 7.37 (7.35-7.45)
[2016-11-08 06:42] LABS: ALLENS TEST POSITIVE; ART PUNCT SITE RIGHT RADIAL; LPM/O2% 40%; PT. ON O2? YES; TYPE OF O2 VENTIMASK
--- NOTE | 2016-11-08 06:51 | HOSP ---
Physical Examination Vital Signs: Vital Signs Temperature 97.4 F L 11/08/16 02:00 Pulse Rate 81 11/08/16 02:00 Respiratory Rate 18 11/08/16 02:00 Blood Pressure 143/82 11/08/16 02:00 O2 Sat by Pulse Oximetry (%) 100 11/07/16 21:00 Labs: CBC, BMP 11/07/16 10:00 11/07/16 10:00 Hospitalist Encounter Assessment: Notified by RN that patient is having shortness of breath When I reached there patient was in moderate respiratory distress and reporting that he has "fluids in his lungs". Patient was on a ventimask saturating at 99 % but with labored breathing. Patient states having spasms in his back but reports that it is chronic. He denies any chest pain or palpitations. STAT IV LASIX given and EKG showed no changes and within 5 minutes he was calmer and respiratory rate was in the 20's once he was informed about the EKG results. VITALS: BP: 146/111 HR: 90-92 02 SAT: 99% on Ventimask RR: 30 PHYSICAL EXAM: LUNGS: Mild expiratory wheezing with crackles throughout lung bases bilaterally CHEST: RRR. No murmurs appreciated ABDOMEN: Soft, distended, nontender A&P Fluid Overload likely secondary to IV Fluids and CHF Exacerbation -Chest X-RAY STAT -ABG STAT -LASIX 40MG IV PUSH STAT -Discontinue IV FLUIDS -ECHO to be done in the morning -EKG ordered, which showed 87 BPM with Q waves in leads II, III, aVF and t-wave inversion in the lateral leads, no changes from prior EKG on 11/07/16 -Repeat Troponins -Will endorse to day medical team Visit type - Emergency Visit Emergency Visit: No - New Patient This patient is new to me today: Yes Date on this admission: 11/10/16 - Critical Care Critical Care patient: Yes Total Critical Care Time (in minutes): 45 Critical Care Statement: The care of this patient involved high complexity decision making to prevent further life threatening deterioration of the patient 's condition and/or to evalute & treat vital organ system(s) failure or risk of failure.
--- NOTE | 2016-11-08 07:04 | PN ---
Progress Note, Physician Chief Complaint: ICU ID followup for this 81 year old male with cardiac arrest. Currently alert in respiratory distress He complains of back pain and cervical pain. Now positive blood culture gram positive cocci clusters many bottles ! Denies chest pain Remains afebrile - Current Medication List Current Medications: Active Medications Acetaminophen (Tylenol -) 650 mg PO Q4H PRN PRN Reason: FEVER OR PAIN Last Admin: 11/08/16 01:50 Dose: 650 mg Carvedilol (Coreg -) 3.125 mg PO BID [facility] Last Admin: 11/07/16 21:27 Dose: 3.125 mg Diazepam (Valium -) 5 mg PO Q4H PRN PRN Reason: MUSCLE SPASMS Stop: 11/10/16 08:53 Last Admin: 11/08/16 01:51 Dose: 5 mg Enoxaparin Sodium (Lovenox -) 80 mg SQ BID [facility] Last Admin: 11/07/16 21:26 Dose: 80 mg Sodium Chloride (Normal Saline -) 1,000 mls @ 75 mls/hr IV ASDIR [facility] Last Admin: 11/07/16 13:09 Dose: 75 mls/hr Propofol (Diprivan -) 100 mls @ 2.204 mls/hr IVPB TITR MARILEE; 5 MCG/KG/MIN PRN Reason: Protocol Last Admin: 11/07/16 09:30 Dose: 2.204 mls/hr Pantoprazole Sodium (Protonix 40mg Ivpb (Pre-Docked)) 100 mls @ 200 mls/hr IVPB DAILY [facility] Last Admin: 11/07/16 14:06 Dose: 200 mls/hr Amiodarone HCl 450 mg/ (Dextrose) 250 mls @ 33.33 mls/hr IVPB TITR MARILEE; 1 MG/ MIN PRN Reason: Protocol Last Admin: 11/07/16 14:30 Dose: 33.33 mls/hr Lisinopril (Prinivil) 10 mg PO DAILY [facility] Morphine Sulfate (Morphine Injection -) 2 mg IVPUSH Q4H PRN PRN Reason: BACK PAIN Last Admin: 11/07/16 16:51 Dose: 2 mg - Objective Vital Signs: Vital Signs Temperature 97.4 F L 11/08/16 02:00 Pulse Rate 81 11/08/16 02:00 Respiratory Rate 18 11/08/16 02:00 Blood Pressure 143/82 11/08/16 02:00 O2 Sat by Pulse Oximetry (%) 100 11/07/16 21:00 Constitutional: Yes: Well Nourished, Moderate Distress Eyes: Yes: Other (no petechiae). No: Conjunctiva Clear Neck: Yes: WNL, Supple Cardiovascular: Yes: Regular Rate and Rhythm, S1, S2. No: Murmur Respiratory: Yes: WNL, Regular, CTA Bilaterally, Diminished Gastrointestinal: Yes: WNL, Normal Bowel Sounds, Soft, Distention. No: Splenomegaly, Tenderness, Tenderness, Rebound Edema: No Labs: CBC, BMP 11/08/16 05:25 INR, PTT INR 1.50 (0.82-1.09) H 11/07/16 10:00 Problem List - Problems (1) Osteomyelitis Code(s): M86.9 - OSTEOMYELITIS, UNSPECIFIED Qualifiers: Osteomyelitis type: unspecified type Osteomyelitis location: other site Qualified Code(s): M86.9 - Osteomyelitis, unspecified (2) Bacteremia due to Staphylococcus Code(s): R78.81 - BACTEREMIA (3) Discitis Code(s): M46.40 - DISCITIS, UNSPECIFIED, SITE UNSPECIFIED Assessment/Plan Microbiology 11/07/16 07:20 Blood - Peripheral Venous Blood Culture - Preliminary Pending Organism 11/07/16 07:20 Blood - Peripheral Venous Blood Culture - Preliminary Pending Organism Laboratory Tests 11/07/16 11/07/16 11/07/16 02:53 10:00 10:00 WBC Hgb Plt Count ESR 100 H INR ABG pH ABG pCO2 at Pt Temp ABG pO2 at Pt Temp Oxygen Flow Rate BUN 17 Creatinine 1.1 Total Bilirubin 1.1 H ALT 70 D Troponin I Urine WBC 119 Urine Bacteria Many 11/07/16 11/07/16 11/08/16 10:00 18:00 05:25 WBC 18.7 H Hgb 12.0 Plt Count 240 D ESR INR 1.50 H ABG pH ABG pCO2 at Pt Temp ABG pO2 at Pt Temp Oxygen Flow Rate BUN Creatinine Total Bilirubin ALT Troponin I 6.36 H* D Urine WBC Urine Bacteria 11/08/16 11/08/16 05:25 06:29 WBC Hgb Plt Count ESR INR ABG pH 7.37 ABG pCO2 at Pt Temp 36.7 ABG pO2 at Pt Temp 78.7 D Oxygen Flow Rate 40% BUN Pending Creatinine Pending Total Bilirubin ALT Troponin I Urine WBC Urine Bacteria Assessment Sepsis syndrome Gram positive bacteremia ruling out endocarditis staph 2D neg vegetations Recurrent urinary infection Disciitis L3 L4 S/P cardiac arrest prolonged QT Fluid overload/respiratory distress Plan Repeat blood cultures Vancomycin 1.5gr now with vanco level in am to decide further dosing Add Ceftazidime for urinary gram neg coverage MRI imaging complete spine when stable 38 minutes spent reviewing care Susan PETERSON
[2016-11-08 07:07] LABS: ANION GAP 12 (8-16); CALCIUM 8.8 mg/dL (8.5-10.1); CO2 25 mmol/L (21-32); MAGNESIUM 2.3 mg/dL (1.8-2.4)
[2016-11-08 07:10] LABS: CREATININE 1.5 mg/dL (0.7-1.3); GLUCOSE,RANDOM 148 mg/dL (74-106); PHOSPHOROUS 4.4 mg/dL (2.5-4.9)
[2016-11-08 07:54] LABS: TROPONIN I 15.3 ng/ml (0.00-0.05)
[2016-11-08] MEDS ORDERED: VANCOMYCIN 1,500 MG in DEXTROSE 5%-WATER - 500 ML IVPB ONE (09:00)
[2016-11-08] MEDS ORDERED: HEPARIN NA (PORCINE) 5,000 UNITS/ML 1ML VIAL IVPUSH PRN ×2 (09:55)
[2016-11-08] MEDS ORDERED: cefTAZidime PENTAHYDRATE 1 GM/50ML PRE-DOCKED (RESTRICTED TO ID) IVPB SCH (10:00)
[2016-11-08] MEDS ORDERED: HEPARIN - 25,000 UNIT in SODIUM CHLORIDE 495 ML IV SCH (10:00)
[2016-11-08] MEDS ORDERED: ASPIRIN 325 MG TABLET PO ONE (10:08)
[2016-11-08] MEDS ORDERED: CLOPIDOGREL BISULFATE 300 MG TABLET PO ONE (10:08)
[2016-11-08] MEDS ORDERED: HEPARIN INFUSION - 500 ML IVPB ONE (10:23)
[2016-11-08] MEDS: CARVEDILOL 3.125 MG TABLET (FP) PO SCH (10:25)
[2016-11-08] MEDS: LISINOPRIL 10 MG TABLET (FP) PO SCH (10:25)
[2016-11-08] MEDS: PANTOPRAZOLE SODIUM 100 ML IVPB SCH (10:25)
[2016-11-08] MEDS: MAGNESIUM OXIDE 400 MG TABLET (FP) PO SCH ×2 (10:26→21:26)
[2016-11-08] MEDS ORDERED: ASPIRIN COATED 81 MG TABLET.EC PO SCH (11:00)
--- NOTE | 2016-11-08 11:01 | PN ---
Progress Note, Physician History of Present Illness: Dyspneic due to volume overload overnight improved with diuresis.Extubated on 40 % VM, denies chest pain. - Current Medication List Current Medications: Active Medications Acetaminophen (Tylenol -) 650 mg PO Q4H PRN PRN Reason: FEVER OR PAIN Last Admin: 11/08/16 01:50 Dose: 650 mg Aspirin (Ecotrin -) 81 mg PO DAILY [facility] Carvedilol (Coreg -) 12.5 mg PO BID [facility] Clopidogrel Bisulfate (Plavix -) 75 mg PO DAILY [facility] Diazepam (Valium -) 5 mg PO Q4H PRN PRN Reason: MUSCLE SPASMS Stop: 11/10/16 08:53 Last Admin: 11/08/16 01:51 Dose: 5 mg Furosemide (Lasix Injection -) 40 mg IVPUSH DAILY [facility] Heparin Sodium (Porcine) (Heparin -) 1,000 unit IVPUSH PRN PRN PRN Reason: Heparin Heparin Sodium (Porcine) (Heparin -) 5,000 unit IVPUSH PRN PRN PRN Reason: Heparin Propofol (Diprivan -) 100 mls @ 2.204 mls/hr IVPB TITR [facility]; 5 MCG/KG/MIN PRN Reason: Protocol Last Admin: 11/07/16 09:30 Dose: 2.204 mls/hr Pantoprazole Sodium (Protonix 40mg Ivpb (Pre-Docked)) 100 mls @ 200 mls/hr IVPB DAILY [facility] Last Admin: 11/08/16 10:25 Dose: 200 mls/hr Ceftazidime 1 gm/ Dextrose 100 mls @ 200 mls/hr IVPB Q8H-IV [facility] Heparin Sodium (Porcine) 25, (000 unit/ Sodium Chloride) 500 mls @ 20 mls/hr IV TITR [facility]; 1,000 UNIT/HR PRN Reason: Protocol Lisinopril (Prinivil) 10 mg PO DAILY [facility] Last Admin: 11/08/16 10:25 Dose: 10 mg Magnesium Oxide (Mag-Ox -) 400 mg PO BID [facility] Last Admin: 11/08/16 10:26 Dose: 400 mg Morphine Sulfate (Morphine Injection -) 2 mg IVPUSH Q4H PRN PRN Reason: BACK PAIN Last Admin: 11/07/16 16:51 Dose: 2 mg - Objective Vital Signs: Vital Signs Temperature 97.4 F L 11/08/16 06:00 Pulse Rate 85 11/08/16 10:23 Respiratory Rate 28 H 11/08/16 09:00 Blood Pressure 121/52 11/08/16 08:00 O2 Sat by Pulse Oximetry (%) 97 11/08/16 10:23 Constitutional: Yes: No Distress, Calm Neck: Yes: Supple Cardiovascular: Yes: Regular Rate and Rhythm, Murmur (2/6 SM) Respiratory: Yes: Regular, Diminished, On Venti-Mask, Rhonchi Gastrointestinal: Yes: Soft, Hypoactive Bowel Sounds Edema: No Labs: CBC, BMP 11/08/16 05:25 11/08/16 05:25 INR, PTT INR 1.50 (0.82-1.09) H 11/07/16 10:00 - ....Imaging EKG: Report Reviewed (Tele: Li barrera EKG: NSR @ 81 1st deg AVB QTc 462 msec) Problem List - Problems (1) Bacteremia due to Staphylococcus Code(s): R78.81 - BACTEREMIA (2) Discitis Code(s): M46.40 - DISCITIS, UNSPECIFIED, SITE UNSPECIFIED Qualifiers: Spinal region: lumbar Qualified Code(s): M46.46 - Discitis, unspecified, lumbar region (3) HLD (hyperlipidemia) Code(s): E78.5 - HYPERLIPIDEMIA, UNSPECIFIED Qualifiers: Hyperlipidemia type: pure hypercholesterolemia Qualified Code(s): E78.00 - Pure hypercholesterolemia, unspecified; E78.0 - Pure hypercholesterolemia (4) HTN (hypertension) Code(s): I10 - ESSENTIAL (PRIMARY) HYPERTENSION Qualifiers: Hypertension type: essential hypertension Qualified Code(s): I10 - Essential (primary) hypertension (5) Osteomyelitis Code(s): M86.9 - OSTEOMYELITIS, UNSPECIFIED Qualifiers: Osteomyelitis type: unspecified type Osteomyelitis location: other site Qualified Code(s): M86.9 - Osteomyelitis, unspecified (6) Acute renal failure Code(s): N17.9 - ACUTE KIDNEY FAILURE, UNSPECIFIED Qualifiers: Acute renal failure type: unspecified Qualified Code(s): N17.9 - Acute kidney failure, unspecified (7) Leukocytosis Code(s): D72.829 - ELEVATED WHITE BLOOD CELL COUNT, UNSPECIFIED (8) Paroxysmal atrial fibrillation Code(s): I48.0 - PAROXYSMAL ATRIAL FIBRILLATION (9) 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 transplanted heart: [place] heart Associated angina: without angina Qualified Code(s): I25.10 - Atherosclerotic heart disease of [place] coronary artery without angina pectoris (11) NSTEMI (non-ST elevated myocardial infarction) Code(s): I21.4 - NON-ST ELEVATION (NSTEMI) MYOCARDIAL INFARCTION (12) Severe mitral regurgitation Code(s): I34.0 - NONRHEUMATIC MITRAL (VALVE) INSUFFICIENCY (13) Acute respiratory failure with hypoxia Code(s): J96.01 - ACUTE RESPIRATORY FAILURE WITH HYPOXIA (14) Acute on chronic systolic ACC/AHA stage C congestive heart failure Code(s): I50.23 - ACUTE ON CHRONIC SYSTOLIC (CONGESTIVE) HEART FAILURE Assessment/Plan 11/08/2016 Transthoracic echocardiography: Dilated LV with severe LV dysfunction with anterior AK, apex dyskinetic, IVS below midventricular level thin and dyskinetic, inferolarteral severe HK, posterior AK, normal RV size and fxn, severe MR, mod TR, mild to mod AR 1. Post cardiac arrest torsades de pointes with underlying prolonged QT post Levaquin for UTI 2. Acute hypoxic respiratory failure 3. Acute on chronic systolic failure with underlying severe MR 4. CAD, NSTEMI 5. Paroxysmal AF currently in sinus rhythm 6. HTN/HCVD 7. Disciitis and possible osteomyelitis of L3-4 with MSSA bacteremia 8. GUZMAN due to hemodynamic alterations 9. History of BPH and obstructive uropathy 10. Previous DVT post Eliquis PLAN: 1. D/c Amiodarone, replete Mg to maintain Mg>2.5 with monitor for QT prolongation, avoid QT prolonging agents 2. Trend cardiac enzymes to document peak 3. IV diuresis with monitor diuretic response, renal fxn and electrolytes 4. Abx per C&S, MRI spine when able, f/u surveillance cx 5. ASA 81 qd, Plavix 75 qd, heparin gtt pending trops peak, agree with increase carvedilol 12.5 bid, lisinopril 10 qd, start Aldactone 25 qd once renal fxn stablizes eventual drop ASA and resume Eliquis given h/o PAF->SR 6. GI prophylaxis, further cardiac work up is to be followed which may include cardiac catheterization/coronary angiography at some point once sepsis clears
[2016-11-08] MEDS: CEFTAZIDIME PENTAHYDRATE 1 GM in DEXTROSE 5%-WATER - 100 ML IVPB SCH ×2 (11:12→18:33)
[2016-11-08] MEDS: CLOPIDOGREL BISULFATE 75 MG TABLET (FP) PO SCH (11:16)
--- NOTE | 2016-11-08 11:51 | PN ---
Teaching Attending Note Name of Resident: Eliel Sierra ATTENDING PHYSICIAN STATEMENT I saw and evaluated the patient. I reviewed the resident's note and discussed the case with the resident. I agree with the resident's findings and plan as documented. SUBJECTIVE: Pt seen and examined in the ICU. No further Vfib episodes on amiodarone gtt. Blood cultures growing presumptive MSSA. No fevers or chills. OBJECTIVE: Last Vital Signs Temp Pulse Resp BP Pulse Ox 97.4 F L 85 28 H 121/52 97 11/08/16 06:00 11/08/16 10:23 11/08/16 09:00 11/08/16 08:00 11/08/16 10:23 Intake & Output 11/05/16 11/06/16 11/07/16 11/08/16 23:59 23:59 23:59 23:59 Intake Total 1007 950 Output Total 375 300 Balance 632 650 Weight 162 lb 162 lb Gen: tachypneic with speaking Heart: RRR Lung: scattered rhonchi Abd: soft, nontender Ext: no edema, cool extremities CBC, BMP 11/08/16 05:25 11/08/16 05:25 Troponin, BNP 11/07/16 11/07/16 11/08/16 13:05 18:00 06:00 Troponin I 2.47 H* D 6.36 H* D 15.30 H* D Active Medications Acetaminophen (Tylenol -) 650 mg PO Q4H PRN PRN Reason: FEVER OR PAIN Last Admin: 11/08/16 01:50 Dose: 650 mg Aspirin (Ecotrin -) 81 mg PO DAILY [facility] Last Admin: 11/08/16 11:16 Dose: 81 mg Carvedilol (Coreg -) 12.5 mg PO BID [facility] Clopidogrel Bisulfate (Plavix -) 75 mg PO DAILY [facility] Last Admin: 11/08/16 11:16 Dose: 75 mg Diazepam (Valium -) 5 mg PO Q4H PRN PRN Reason: MUSCLE SPASMS Stop: 11/10/16 08:53 Last Admin: 11/08/16 01:51 Dose: 5 mg Furosemide (Lasix Injection -) 40 mg IVPUSH DAILY [facility] Furosemide (Lasix Injection -) 40 mg IVPUSH ONCE ONE Stop: 11/08/16 17:01 Heparin Sodium (Porcine) (Heparin -) 1,000 unit IVPUSH PRN PRN PRN Reason: Heparin Heparin Sodium (Porcine) (Heparin -) 5,000 unit IVPUSH PRN PRN PRN Reason: Heparin Propofol (Diprivan -) 100 mls @ 2.204 mls/hr IVPB TITR [facility]; 5 MCG/KG/MIN PRN Reason: Protocol Last Admin: 11/07/16 09:30 Dose: 2.204 mls/hr Pantoprazole Sodium (Protonix 40mg Ivpb (Pre-Docked)) 100 mls @ 200 mls/hr IVPB DAILY [facility] Last Admin: 11/08/16 10:25 Dose: 200 mls/hr Ceftazidime 1 gm/ Dextrose 100 mls @ 200 mls/hr IVPB Q8H-IV [facility] Last Admin: 11/08/16 11:12 Dose: 200 mls/hr Heparin Sodium (Porcine) 25, (000 unit/ Sodium Chloride) 500 mls @ 20 mls/hr IV TITR [facility]; 1,000 UNIT/HR PRN Reason: Protocol Lisinopril (Prinivil) 10 mg PO DAILY [facility] Last Admin: 11/08/16 10:25 Dose: 10 mg Magnesium Oxide (Mag-Ox -) 400 mg PO BID [facility] Last Admin: 11/08/16 10:26 Dose: 400 mg Morphine Sulfate (Morphine Injection -) 2 mg IVPUSH Q4H PRN PRN Reason: BACK PAIN Last Admin: 11/07/16 16:51 Dose: 2 mg ASSESSMENT AND PLAN: s/p VFib Cardiopulmonary Arrest/Prolonged QT Acute NSTEMI/CAD/+Troponins Acute on Chronic Systolic Heart Failure Severe Mitral Regurgitation Acute Kidney Injury UTI MSSA Bacteremia Osteomyelitis/Discitis Sepsis Lactic Acidosis - ASA, plavix - beta malvin, statin - afterload reduction once renal failure stable - continue to trend cardiac enzymes to document peak - keep K >4, Mg >2 - continue antibiotics - f/u cultures - IV lasix - monitor urine output, creatinine - trend lactate - anticoagulation per cardiology - continue ICU monitoring critical care time spent in reviewing chart, evaluating patient and formulating plan 36 min
--- NOTE | 2016-11-08 12:57 | EKG ---
Test Reason : Blood Pressure : / mmHG Vent. Rate : 081 BPM Atrial Rate : 081 BPM P-R Int : 236 ms QRS Dur : 098 ms QT Int : 398 ms P-R-T Axes : 060 023 108 degrees QTc Int : 462 ms SINUS RHYTHM WITH 1ST DEGREE A-V BLOCK INFERIOR INFARCT (CITED ON OR BEFORE 07-NOV-2016) CANNOT RULE OUT ANTERIOR INFARCT (CITED ON OR BEFORE 07-NOV-2016) ABNORMAL ECG WHEN COMPARED WITH ECG OF 07-NOV-2016 12:52, QT HAS SHORTENED Confirmed by DANDY PETERSON, MARIA ELENA ([id number]) on 11/08/2016 12:57:10 PM Referred By: Shivam ZAMORANO Confirmed By:MARIA ELENA DORMAN MD
[2016-11-08 13:51] LABS: INR 1.55 (0.82-1.09); PROTHROMBIN TIME (PATIENT) 17.2 SEC (9.98-11.88)
[2016-11-08 13:54] LABS: ACTIVATED PTT 38.4 SECONDS (26.9-34.4)
--- NOTE | 2016-11-08 13:59 | PN ---
Physical Exam: SUBJECTIVE: Patient seen and examined OBJECTIVE: Vital Signs Temperature 97.4 F L 11/08/16 06:00 Pulse Rate 83 11/08/16 12:00 Respiratory Rate 31 H 11/08/16 12:00 Blood Pressure 126/81 11/08/16 12:00 O2 Sat by Pulse Oximetry (%) 97 11/08/16 10:23 GENERAL: The patient is awake, alert, and fully oriented, in no acute distress. HEAD: Normal with no signs of trauma. EYES: extraocular movements intact, sclera anicteric, conjunctiva clear. No ptosis. NECK: Trachea midline, full range of motion, supple, JVD observed. LUNGS: Breath sounds equal, clear to auscultation bilaterally, no wheezes, no crackles, no accessory muscle use. HEART: Regular rate and rhythm, S1, S2 without murmur, rub or gallop. ABDOMEN: Soft, nontender, nondistended, normoactive bowel sounds, no guarding, no rebound, no hepatosplenomegaly, no masses. NEUROLOGICAL: Cranial nerves II through X grossly intact. Normal speech, gait not observed. PSYCH: Normal mood, normal affect. SKIN: Warm, dry, normal turgor, no rashes or lesions noted Laboratory Results - last 24 hr 11/07/16 11/07/16 11/07/16 10:00 10:00 13:05 WBC RBC Hgb Hct MCV MCH MCHC RDW Plt Count MPV ESR 100 H Puncture Site ABG pH ABG pCO2 at Pt Temp ABG pO2 at Pt Temp ABG HCO3 ABG O2 Sat (Measured) ABG O2 Content ABG Base Excess Mannie Test O2 Delivery Device Oxygen Flow Rate PEEP Sodium Potassium Chloride Carbon Dioxide Anion Gap BUN Creatinine Random Glucose Lactic Acid Calcium Phosphorus Magnesium Creatine Kinase CK-MB (CK-2) CK-MB (CK-2) Rel Index Troponin I 2.47 H* D Prostate Specific Ag 12.20 H D 11/07/16 11/08/16 11/08/16 18:00 05:25 05:25 WBC 18.7 H RBC 4.20 Hgb 12.0 Hct 36.8 MCV 87.7 MCH 28.5 MCHC 32.5 RDW 14.0 Plt Count 240 D MPV 8.2 ESR Puncture Site ABG pH ABG pCO2 at Pt Temp ABG pO2 at Pt Temp ABG HCO3 ABG O2 Sat (Measured) ABG O2 Content ABG Base Excess Mannie Test O2 Delivery Device Oxygen Flow Rate PEEP Sodium 140 Potassium 4.1 Chloride 103 Carbon Dioxide 25 Anion Gap 12 BUN 27 H D Creatinine 1.5 H D Random Glucose 148 H D Lactic Acid Calcium 8.8 Phosphorus 4.4 Magnesium 2.3 Creatine Kinase CK-MB (CK-2) CK-MB (CK-2) Rel Index Troponin I 6.36 H* D Prostate Specific Ag 11/08/16 11/08/16 11/08/16 05:25 06:00 06:00 WBC RBC Hgb Hct MCV MCH MCHC RDW Plt Count MPV ESR Puncture Site ABG pH ABG pCO2 at Pt Temp ABG pO2 at Pt Temp ABG HCO3 ABG O2 Sat (Measured) ABG O2 Content ABG Base Excess Mannie Test O2 Delivery Device Oxygen Flow Rate PEEP Sodium Potassium Chloride Carbon Dioxide Anion Gap BUN Creatinine Random Glucose Lactic Acid 2.2 H* Calcium Phosphorus Magnesium Creatine Kinase 381 H D CK-MB (CK-2) 34.974 H CK-MB (CK-2) Rel Index Cancelled Troponin I 15.30 H* D Prostate Specific Ag 11/08/16 11/08/16 06:29 12:30 WBC RBC Hgb Hct MCV MCH MCHC RDW Plt Count MPV ESR Puncture Site Right radial ABG pH 7.37 ABG pCO2 at Pt Temp 36.7 ABG pO2 at Pt Temp 78.7 D ABG HCO3 20.7 L ABG O2 Sat (Measured) 95.1 ABG O2 Content 16.4 ABG Base Excess -3.6 L Mannie Test Positive O2 Delivery Device Ventimask Oxygen Flow Rate 40% PEEP 0.0 Sodium Potassium Chloride Carbon Dioxide Anion Gap BUN Creatinine Random Glucose Lactic Acid Calcium Phosphorus Magnesium Creatine Kinase CK-MB (CK-2) CK-MB (CK-2) Rel Index Troponin I 12.09 H* Prostate Specific Ag Active Medications Generic Name Dose Route Start Last Admin Trade Name Freq PRN Reason Stop Dose Admin Acetaminophen 650 mg 11/07/16 08:16 11/08/16 01:50 Tylenol - PO 650 mg Q4H PRN Administration FEVER OR PAIN Aspirin 81 mg 11/08/16 11:00 11/08/16 11:16 Ecotrin - PO 81 mg DAILY [facility] Administration Carvedilol 12.5 mg 11/08/16 22:00 Coreg - PO BID [facility] Clopidogrel Bisulfate 75 mg 11/08/16 11:00 11/08/16 11:16 Plavix - PO 75 mg DAILY [facility] Administration Diazepam 5 mg 11/07/16 08:53 11/08/16 01:51 Valium - PO 11/10/16 08:53 5 mg Q4H PRN Administration MUSCLE SPASMS Furosemide 40 mg 11/09/16 10:00 Lasix Injection - IVPUSH DAILY [facility] Furosemide 40 mg 11/08/16 17:00 Lasix Injection - IVPUSH 11/08/16 17:01 ONCE ONE Heparin Sodium (Porcine) 1,000 unit 11/08/16 09:55 Heparin - IVPUSH PRN PRN Heparin Heparin Sodium (Porcine) 5,000 unit 11/08/16 09:55 Heparin - IVPUSH PRN PRN Heparin Propofol 100 mls @ 2.204 mls/hr 11/07/16 09:30 11/07/16 09:30 Diprivan - IVPB 2.204 mls/hr TITR [facility] Administration Protocol 5 MCG/KG/MIN Pantoprazole Sodium 100 mls @ 200 mls/hr 11/07/16 10:00 11/08/16 10:25 Protonix 40mg Ivpb (Pre-Docked) IVPB 200 mls/hr DAILY [facility] Administration Ceftazidime 1 gm/ Dextrose 100 mls @ 200 mls/hr 11/08/16 10:00 11/08/16 11:12 IVPB 200 mls/hr Q8H-IV [facility] Administration Heparin Sodium (Porcine) 25, 500 mls @ 20 mls/hr 11/08/16 10:00 000 unit/ Sodium Chloride IV TITR [facility] Protocol 1,000 UNIT/HR Lisinopril 10 mg 11/08/16 10:00 11/08/16 10:25 Prinivil PO 10 mg DAILY [facility] Administration Magnesium Oxide 400 mg 11/08/16 10:00 11/08/16 10:26 Mag-Ox - PO 400 mg BID [facility] Administration Morphine Sulfate 2 mg 11/07/16 08:16 11/07/16 16:51 Morphine Injection - IVPUSH 2 mg Q4H PRN Administration BACK PAIN ASSESSMENT/PLAN: 79 yo M with a PMH of BPH (chronic indwelling huizar), prior admission for pseudomonas UTI, HTN, HLD and femoral DVT (previously on Eliquis), who presents due to lower back pain x 2 weeks. Patient arrested on the floors and was brought down to the ICU intubated. He is s/p a second arrest in the ICU. Neuro -A&O x2. -no focal neuro deficits Pulmonary -SOB 2/2 fluid overload -s/p 40 of lasix overnight -Lasix 40mg IV daily -CXR: vascular congestion and effusions on right side -d/c fluids -monitor fluid and pulmonary status Cardiology -s/p cardiac arrest; history of paroxysmal afib and long QT on EKG in ED -QT closing (529 -> 462) -tropes peaked at 15, now trending down to 12. will monitor daily. -echo shows global severe wall motion abnormalities and left sided volume overload w/ severe MR -ASA 81 PO -Plavix 300mg PO -carvedilol increased to 12.5 PO bid -amiodarone drip d/c'd as per cardio, will monitor for QT prolongation -replete mag to maintain >2.5 -hepatrin gtt -HTN -lisinopril 10 daily -aldactone 25 daily when renal fxn stabilizes Hematology -Blood Cx growing presumptive MSSA in all bottles -f/u repeat BCx -received 1.5g vancomycin; will check vanco trough in AM -ceftazidime 1gm IV Q8H FEN -no fluids indicated at this time -will monitor lytes -full liquid diet PPTX -Protonix 40mg IV DISPO -continue to monitor in ICU Problem List - Problems (1) Acute on chronic systolic ACC/AHA stage C congestive heart failure Code(s): I50.23 - ACUTE ON CHRONIC SYSTOLIC (CONGESTIVE) HEART FAILURE (2) Bacteremia due to Staphylococcus Code(s): R78.81 - BACTEREMIA (3) Coronary artery disease Code(s): I25.10 - ATHSCL HEART DISEASE OF [place] CORONARY ARTERY W/O ANG PCTRS Qualifiers: Coronary Disease-Associated Artery/Lesion type: [place] artery [place] vs. transplanted heart: [place] heart Associated angina: without angina Qualified Code(s): I25.10 - Atherosclerotic heart disease of [place] coronary artery without angina pectoris (4) Discitis Code(s): M46.40 - DISCITIS, UNSPECIFIED, SITE UNSPECIFIED Qualifiers: Spinal region: lumbar Qualified Code(s): M46.46 - Discitis, unspecified, lumbar region (5) HLD (hyperlipidemia) Code(s): E78.5 - HYPERLIPIDEMIA, UNSPECIFIED Qualifiers: Hyperlipidemia type: pure hypercholesterolemia Qualified Code(s): E78.00 - Pure hypercholesterolemia, unspecified; E78.0 - Pure hypercholesterolemia (6) HTN (hypertension) Code(s): I10 - ESSENTIAL (PRIMARY) HYPERTENSION Qualifiers: Hypertension type: essential hypertension Qualified Code(s): I10 - Essential (primary) hypertension (7) Paroxysmal atrial fibrillation Code(s): I48.0 - PAROXYSMAL ATRIAL FIBRILLATION (8) Severe mitral regurgitation Code(s): I34.0 - NONRHEUMATIC MITRAL (VALVE) INSUFFICIENCY (9) Acute renal failure Code(s): N17.9 - ACUTE KIDNEY FAILURE, UNSPECIFIED Qualifiers: Acute renal failure type: unspecified Qualified Code(s): N17.9 - Acute kidney failure, unspecified Visit type - Emergency Visit Emergency Visit: Yes ED Registration Date: 11/07/16 Care time: The patient presented to the Emergency Department on the above date and was hospitalized for further evaluation of their emergent condition. - New Patient This patient is new to me today: No - Critical Care Critical Care patient: Yes Total Critical Care Time (in minutes): 40 Critical Care Statement: The care of this patient involved high complexity decision making to prevent further life threatening deterioration of the patient 's condition and/or to evalute & treat vital organ system(s) failure or risk of failure.
[2016-11-08] MEDS: PROPOFOL 100 ML IVPB SCH (14:36)
--- NOTE | 2016-11-08 14:47 | CONSULT ---
Consult - text type - Consultation Consultation Note: Patient seen in Neurosurgical Followup today. He looks reasonably well given his 2 cardiac events from yesterday. Blood cultures noted to be positive. Bracing for comfort and a course of IV antibiotics would be reasonable treatment for his L34 discitis. MRI Cervical & Lumbar may help evaluate further and potentially yield an explanation for his neck spasms. No acute Neurosurgical Intervention indicated or planned. Will review MRI when obtained with the understanding that the patient may not be immediately medically stable to undergo such examination. If further imaging and lack of response to antibiotics suggest debridement of the L34 disc is warranted, this can be considered. Furthermore, if mechanical instability persists/progresses and does not respond to bracing, stabilization can be considered. Will follow clinical course and further imaging.
--- NOTE | 2016-11-08 15:02 | PN ---
Teaching Attending Note Name of Resident: Marly Del Real ATTENDING PHYSICIAN STATEMENT I saw and evaluated the patient. I reviewed the resident's note and discussed the case with the resident. I agree with the resident's findings and plan as documented. SUBJECTIVE: no fever or chills, has no CP at time of interview at 10 am . he reported few sharp pains which lasted 2 seconds over night . also reported exertional CP in past contto have lower back pain . no weakness or numbness/tingling OBJECTIVE: NAD , Awake and alert , and cooperative HEENT: NC, AT, MMM, EOMI. CV: RRR, no murmurs appreciated , has JVD Lungs : fine crackles at R base . Ext: 1+ pitting edema on feet. DP 1+ and radial pulse 1+ b/l . ASSESSMENT AND PLAN: 81 y/o man with h/o HTN, HLD, CVA, BPH with chronic indwelling foleyc atheter and h/o DVT who presented with back and neck pain , developed cardiac arrest ( VF, and [place] ) x 2 on day of admission. He was found to be bacteremic as well 1- S/P Cardiac arrest, VF and [place]: on back ground of prolonged Qt. EKGs reviewed, and rhythm strips were reviewed. case was d/W Dr. Sosa - dc Amiodarone due to prolonged QT interval - increase coreg to 12.5 and monitor BP , can increase further if tolerated - monitor electrolytes - start Mg 400 mg BID 2- NSTEMI: trop peaked at 15. Echo with multiple WMA indicating CAD , also has low EF - coreg as above - initiate asa and plavix, no need for load per card - switch Lovenox to heparin gtt due to worsening renal failure - need cardiac cath eventually 3- Acute systolic heart failure . - received lasix last night. - start 40 mg of IV lasix with I&O monitoring - cont BB , AN dACEI 4-Severe sepsis G+ bacteremia : with coagulase positive Staph, likely MSSA . bactermeia could be from presumptive discitis or have seeded into disk - echo showed no vegetations , but that does not r/o endocarditis completely . will d/w SWATHI with card - cont vanco - follow repeat blood cx - MRI of spine , when pt is stable , and pending improvement in his renal function 5- Complicated UTI : Urine cx with non lactose fermenting G- Rods. - cont ceftazidime - follow final cx - will contact his urologist for recs on changing Heart 6- DVT PX , on heparin ICU level of care Critical Care Total Critical Care Time (in minutes): 50 Critical Care Statement: The care of this patient involved high complexity decision making to prevent further life threatening deterioration of the patient 's condition and/or to evalute & treat vital organ system(s) failure or risk of failure.
--- NOTE | 2016-11-08 15:06 | CONSULT ---
Consultation: REQUESTING PROVIDER: Dr. Mathias CONSULT REQUEST: We have been asked to medically evaluate this patient for back pain/neck spasm. 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 He was found to be septic with MSSA bacteremia with L3-L4 discitis/osteomyelitis on CT scan, currently on IV vancomycin and ceftazadime. Hospital course thus far has been complicated by acute NSTEMI, 2 episodes of cardiac arrest secondary to ventricular fibrillation with QT prolongation and underlying paraoxsymal atrial fibrillation. He is s/p intubation, currently extubated in ICU awake alert. Patient states that his neck spasms and back pain have improved. His range of motion is very restricted due to pain. He denies any other focal neurological deficits. He denies weakness or paresthesias, fever , chills. PMH: HTN, HLD, hx DVT, BPH with chronic indwelling catheter REVIEW OF SYSTEMS: CONSTITUTIONAL: Absent: fever, chills, diaphoresis, generalized weakness, malaise, loss of appetite, weight change HEENT: Absent: rhinorrhea, nasal congestion, throat pain, throat swelling, difficulty swallowing, mouth swelling, ear pain, eye pain, visual changes CARDIOVASCULAR: Absent: chest pain, syncope, palpitations, irregular heart rate, lightheadedness , peripheral edema RESPIRATORY: Absent: cough, shortness of breath, dyspnea with exertion, orthopnea, wheezing, stridor, hemoptysis GASTROINTESTINAL: Absent: abdominal pain, abdominal distension, nausea, vomiting, diarrhea, constipation, melena, hematochezia GENITOURINARY: Absent: dysuria, frequency, urgency, hesitancy, hematuria, flank pain, genital pain MUSCULOSKELETAL: Positive: back pain, neck pain Absent: myalgia, arthralgia, joint swelling SKIN: Absent: rash, itching, pallor HEMATOLOGIC/IMMUNOLOGIC: Absent: easy bleeding, easy bruising, lymphadenopathy, frequent infections ENDOCRINE: Absent: unexplained weight gain, unexplained weight loss, heat intolerance, cold intolerance NEUROLOGIC: Absent: headache, focal weakness or paresthesias, dizziness, unsteady gait, seizure, mental status changes, bladder or bowel incontinence PSYCHIATRIC: Absent: anxiety, depression, suicidal or homicidal ideation, hallucinations. PHYSICAL EXAMINATION Vital Signs - 24 hr 11/07/16 11/07/16 11/07/16 16:00 16:22 18:00 Temperature 97.6 F Pulse Rate 83 80 Respiratory 19 19 Rate Blood Pressure 115/77 112/80 O2 Sat by Pulse 100 Oximetry (%) 11/07/16 11/07/16 11/07/16 20:00 21:00 22:00 Temperature 98.2 F 98.2 F Pulse Rate 66 63 Respiratory 24 24 18 Rate Blood Pressure 107/73 102/74 O2 Sat by Pulse 100 Oximetry (%) 11/08/16 11/08/16 11/08/16 00:00 02:00 04:00 Temperature 97.4 F L Pulse Rate 63 81 70 Respiratory 18 18 22 Rate Blood Pressure 109/74 143/82 113/73 O2 Sat by Pulse Oximetry (%) 11/08/16 11/08/16 11/08/16 06:00 08:00 09:00 Temperature 97.4 F L Pulse Rate 88 86 Respiratory 28 H 22 28 H Rate Blood Pressure 129/82 121/52 O2 Sat by Pulse Oximetry (%) 11/08/16 11/08/16 11/08/16 10:00 10:23 12:00 Temperature Pulse Rate 81 85 83 Respiratory 22 31 H Rate Blood Pressure 121/95 126/81 O2 Sat by Pulse 97 Oximetry (%) GENERAL: Awake, alert, and fully oriented, slitting up in bed, is slightly short of breath when talking, in pain with slight movement HEAD: Normal with no signs of trauma. EYES: Pupils equal, round and reactive to light, extraocular movements intact, sclera anicteric, conjunctiva clear. No lid lag. EARS, NOSE, THROAT: Ears normal, nares patent, oropharynx clear without exudates. Dry mucous membranes. NECK: limited range of motion due to pain, supple without lymphadenopathy LUNGS: decreased breath sounds No wheezes, and no crackles. HEART: distant heart sound, Regular rate and rhythm, normal S1 and S2 without murmur, rub or gallop. ABDOMEN: Soft, nontender, not distended, normoactive bowel sounds, no guarding, MUSCULOSKELETAL: very limited range of motion of back, No bony deformities, slight tenderness to palpation of neck, unable to asses back bony tenderness, patient unable to lean forward due to pain. UPPER EXTREMITIES: 2+ pulses, warm, well-perfused. No cyanosis. No clubbing. Cap refill <2 seconds. No peripheral edema. LOWER EXTREMITIES: 2+ pulses, warm, well-perfused. No calf tenderness. 1+ pitting edema. NEUROLOGICAL: Cranial nerves II-XII intact. Normal speech. gait not observed PSYCHIATRIC: Cooperative. Good eye contact. Appropriate mood and affect. SKIN: Warm, dry, normal turgor, no rashes or lesions noted. CBCD WBC 18.7 K/mm3 (4.0-10.0) H 11/08/16 05:25 RBC 4.20 M/mm3 (4.00-5.60) 11/08/16 05:25 Hgb 12.0 GM/dL (11.7-16.9) 11/08/16 05:25 Hct 36.8 % (35.4-49) 11/08/16 05:25 MCV 87.7 fl (80-96) 11/08/16 05:25 MCHC 32.5 g/dl (32.0-35.9) 11/08/16 05:25 RDW 14.0 % (11.9-15.9) 11/08/16 05:25 Plt Count 240 K/MM3 (134-434) D 11/08/16 05:25 MPV 8.2 fl (7.5-11.1) 11/08/16 05:25 CMP Sodium 140 mmol/L (136-145) 11/08/16 05:25 Potassium 4.1 mmol/L (3.5-5.1) 11/08/16 05:25 Chloride 103 mmol/L (98-107) 11/08/16 05:25 Carbon Dioxide 25 mmol/L (21-32) 11/08/16 05:25 Anion Gap 12 (8-16) 11/08/16 05:25 BUN 27 mg/dL (7-18) H D 11/08/16 05:25 Creatinine 1.5 mg/dL (0.7-1.3) H D 11/08/16 05:25 Creat Clearance w eGFR > 60 (>60) 11/07/16 10:00 Random Glucose 148 mg/dL (74-106) H D 11/08/16 05:25 Calcium 8.8 mg/dL (8.5-10.1) 11/08/16 05:25 Total Bilirubin 1.1 mg/dL (0.2-1.0) H 11/07/16 10:00 AST 78 U/L (15-37) H D 11/07/16 10:00 ALT 70 U/L (12-78) D 11/07/16 10:00 Alkaline Phosphatase 72 U/L (45-117) 11/07/16 10:00 Total Protein 6.7 g/dl (6.4-8.2) 11/07/16 10:00 Albumin 2.4 g/dl (3.4-5.0) L 11/07/16 10:00 CARDIAC ENZYMES Creatine Kinase 381 IU/L (39-308) H D 11/08/16 06:00 Troponin I 12.09 ng/ml (0.00-0.05) H* 11/08/16 12:30 Active Medications Generic Name Dose Route Start Last Admin Trade Name Freq PRN Reason Stop Dose Admin Acetaminophen 650 mg 11/07/16 08:16 11/08/16 01:50 Tylenol - PO 650 mg Q4H PRN Administration FEVER OR PAIN Aspirin 81 mg 11/08/16 11:00 11/08/16 11:16 Ecotrin - PO 81 mg DAILY [facility] Administration Carvedilol 12.5 mg 11/08/16 22:00 Coreg - PO BID [facility] Clopidogrel Bisulfate 75 mg 11/08/16 11:00 11/08/16 11:16 Plavix - PO 75 mg DAILY [facility] Administration Diazepam 5 mg 11/07/16 08:53 11/08/16 01:51 Valium - PO 11/10/16 08:53 5 mg Q4H PRN Administration MUSCLE SPASMS Furosemide 40 mg 11/09/16 10:00 Lasix Injection - IVPUSH DAILY [facility] Furosemide 40 mg 11/08/16 17:00 Lasix Injection - IVPUSH 11/08/16 17:01 ONCE ONE Heparin Sodium (Porcine) 1,000 unit 11/08/16 09:55 Heparin - IVPUSH PRN PRN Heparin Heparin Sodium (Porcine) 5,000 unit 11/08/16 09:55 Heparin - IVPUSH PRN PRN Heparin Propofol 100 mls @ 2.204 mls/hr 11/07/16 09:30 11/08/16 14:36 Diprivan - IVPB Not Given TITR [facility] Protocol 5 MCG/KG/MIN Pantoprazole Sodium 100 mls @ 200 mls/hr 11/07/16 10:00 11/08/16 10:25 Protonix 40mg Ivpb (Pre-Docked) IVPB 200 mls/hr DAILY [facility] Administration Ceftazidime 1 gm/ Dextrose 100 mls @ 200 mls/hr 11/08/16 10:00 11/08/16 11:12 IVPB 200 mls/hr Q8H-IV [facility] Administration Heparin Sodium (Porcine) 25, 500 mls @ 20 mls/hr 11/08/16 10:00 11/08/16 14:34 000 unit/ Sodium Chloride IV 20 mls/hr TITR [facility] Administration Protocol 1,000 UNIT/HR Lisinopril 10 mg 11/08/16 10:00 11/08/16 10:25 Prinivil PO 10 mg DAILY [facility] Administration Magnesium Oxide 400 mg 11/08/16 10:00 11/08/16 10:26 Mag-Ox - PO 400 mg BID [facility] Administration Morphine Sulfate 2 mg 11/07/16 08:16 11/07/16 16:51 Morphine Injection - IVPUSH 2 mg Q4H PRN Administration BACK PAIN ASSESSMENT/PLAN: Sepsis secondary to L3L4 discitits/Osteomyelitis with MSSA bacteremia Acute NSTEMI Ventricular Fibrillation, prolonged QT Acute on Chronic Systolic Heart Failure Severe Mitral Regurgitation VFib Cardiopulmonary Arrest/Prolonged QT Acute NSTEMI/CAD/+Troponins Complicated UTI Acute Kidney Injury Dispo: We will continue to follow the patient. Thank you for this consultative opportunity. Plan: -continue IV antibiotics vancomycin and ceftazadime as per ID -ESR, Crp -Cervical and Lumbar MRI when stable -tsh, b12 Visit type - Emergency Visit Emergency Visit: No - New Patient This patient is new to me today: Yes Date on this admission: 11/09/16 - Critical Care Critical Care patient: Yes Total Critical Care Time (in minutes): 35 Critical Care Statement: The care of this patient involved high complexity decision making to prevent further life threatening deterioration of the patient 's condition and/or to evalute & treat vital organ system(s) failure or risk of failure.
[2016-11-08] MEDS ORDERED: PT OWN MED DRAWER 7, Y5N ONE ×2 (16:40→20:55)
[2016-11-08 17:01] LABS: URINE MARIJUANA THC NEGATIVE ng/ml (CUTOFF=50)
[2016-11-08] MEDS: morphine CARPU-JECT 2 MG/1 ML DISP.SYRIN IVPUSH PRN (20:12)
--- NOTE | 2016-11-08 20:17 | PN ---
Physical Exam: SUBJECTIVE: Patient seen and examined this AM. Was acuetly SOB during the night , responded well to lasix push. States no CP, no SOB, no fevers, no chills. Still complains of neck and back pain with spasms. OBJECTIVE: Vital Signs Period Temp Pulse Resp BP Sys/Roche Pulse Ox Last 24 Hr 97.4 F-98.2 F 63-105 18-31 102-143/52-95 97-100 GENERAL: Awake, alert, and fully oriented, in no acute distress. HEENT: PERRLA, EOMi, Moist mucous membranes, JVD noted. LUNGS: Basilar bilateral crackles, mild expiratory wheezing, no use of accessory muscles HEART: Irregular rate and rhythm, normal S1 and S2 without murmur, rub or gallop. ABDOMEN: Soft, nontender, not distended, normoactive bowel sounds, no guarding, no rebound, no masses. MUSCULOSKELETAL: Normal range of motion at all joints. No bony deformities or tenderness. No CVA tenderness. 2+ pulses in upper extremities and tibial, 1+ dorsalis pedis, no edema NEUROLOGICAL: Cranial nerves II-XII intact. No facial droop. Sensation was equal and intact in face and body bilaterally, muscle strength 5/5 in all extremities, reflexes 2+ in upper, 1+ in lower, vibration sensation intact, FTN test intact. Normal speech. Laboratory Results - last 24 hr 11/07/16 11/08/16 11/08/16 10:00 05:25 05:25 WBC 18.7 H RBC 4.20 Hgb 12.0 Hct 36.8 MCV 87.7 MCH 28.5 MCHC 32.5 RDW 14.0 Plt Count 240 D MPV 8.2 INR PTT (Actin FS) Puncture Site ABG pH ABG pCO2 at Pt Temp ABG pO2 at Pt Temp ABG HCO3 ABG O2 Sat (Measured) ABG O2 Content ABG Base Excess Mannie Test O2 Delivery Device Oxygen Flow Rate PEEP Sodium 140 Potassium 4.1 Chloride 103 Carbon Dioxide 25 Anion Gap 12 BUN 27 H D Creatinine 1.5 H D Random Glucose 148 H D Lactic Acid Calcium 8.8 Phosphorus 4.4 Magnesium 2.3 Creatine Kinase CK-MB (CK-2) CK-MB (CK-2) Rel Index Troponin I Prostate Specific Ag 12.20 H D Ur Random Sodium Ur Random Potassium Ur Random Chloride Opiates Screen Methadone Screen Barbiturate Screen Phencyclidine Screen Ur Amphetamines Screen MDMA (Ecstasy) Screen Benzodiazepines Screen Cocaine Screen U Marijuana (THC) Screen 11/08/16 11/08/16 11/08/16 05:25 06:00 06:00 WBC RBC Hgb Hct MCV MCH MCHC RDW Plt Count MPV INR PTT (Actin FS) Puncture Site ABG pH ABG pCO2 at Pt Temp ABG pO2 at Pt Temp ABG HCO3 ABG O2 Sat (Measured) ABG O2 Content ABG Base Excess Mannie Test O2 Delivery Device Oxygen Flow Rate PEEP Sodium Potassium Chloride Carbon Dioxide Anion Gap BUN Creatinine Random Glucose Lactic Acid 2.2 H* Calcium Phosphorus Magnesium Creatine Kinase 381 H D CK-MB (CK-2) 34.974 H CK-MB (CK-2) Rel Index Cancelled Troponin I 15.30 H* D Prostate Specific Ag Ur Random Sodium Ur Random Potassium Ur Random Chloride Opiates Screen Methadone Screen Barbiturate Screen Phencyclidine Screen Ur Amphetamines Screen MDMA (Ecstasy) Screen Benzodiazepines Screen Cocaine Screen U Marijuana (THC) Screen 11/08/16 11/08/16 11/08/16 06:29 11:52 11:52 WBC RBC Hgb Hct MCV MCH MCHC RDW Plt Count MPV INR PTT (Actin FS) Puncture Site Right radial ABG pH 7.37 ABG pCO2 at Pt Temp 36.7 ABG pO2 at Pt Temp 78.7 D ABG HCO3 20.7 L ABG O2 Sat (Measured) 95.1 ABG O2 Content 16.4 ABG Base Excess -3.6 L Mannie Test Positive O2 Delivery Device Ventimask Oxygen Flow Rate 40% PEEP 0.0 Sodium Potassium Chloride Carbon Dioxide Anion Gap BUN Creatinine Random Glucose Lactic Acid Calcium Phosphorus Magnesium Creatine Kinase CK-MB (CK-2) CK-MB (CK-2) Rel Index Troponin I Prostate Specific Ag Ur Random Sodium 45 Ur Random Potassium 46.4 Ur Random Chloride 88 Opiates Screen Positive Methadone Screen Negative Barbiturate Screen Negative Phencyclidine Screen Negative Ur Amphetamines Screen Negative MDMA (Ecstasy) Screen Negative Benzodiazepines Screen Positive Cocaine Screen Negative U Marijuana (THC) Screen Negative 11/08/16 11/08/16 12:30 12:30 WBC RBC Hgb Hct MCV MCH MCHC RDW Plt Count MPV INR 1.55 H PTT (Actin FS) 38.4 H Puncture Site ABG pH ABG pCO2 at Pt Temp ABG pO2 at Pt Temp ABG HCO3 ABG O2 Sat (Measured) ABG O2 Content ABG Base Excess Mannie Test O2 Delivery Device Oxygen Flow Rate PEEP Sodium Potassium Chloride Carbon Dioxide Anion Gap BUN Creatinine Random Glucose Lactic Acid Calcium Phosphorus Magnesium Creatine Kinase CK-MB (CK-2) CK-MB (CK-2) Rel Index Troponin I 12.09 H* Prostate Specific Ag Ur Random Sodium Ur Random Potassium Ur Random Chloride Opiates Screen Methadone Screen Barbiturate Screen Phencyclidine Screen Ur Amphetamines Screen MDMA (Ecstasy) Screen Benzodiazepines Screen Cocaine Screen U Marijuana (THC) Screen Active Medications Generic Name Dose Route Start Last Admin Trade Name Freq PRN Reason Stop Dose Admin Acetaminophen 650 mg 11/07/16 08:16 11/08/16 01:50 Tylenol - PO 650 mg Q4H PRN Administration FEVER OR PAIN Aspirin 81 mg 11/08/16 11:00 11/08/16 11:16 Ecotrin - PO 81 mg DAILY [facility] Administration Carvedilol 12.5 mg 11/08/16 22:00 Coreg - PO BID [facility] Clopidogrel Bisulfate 75 mg 11/08/16 11:00 11/08/16 11:16 Plavix - PO 75 mg DAILY [facility] Administration Diazepam 5 mg 11/07/16 08:53 11/08/16 01:51 Valium - PO 11/10/16 08:53 5 mg Q4H PRN Administration MUSCLE SPASMS Furosemide 40 mg 11/09/16 10:00 Lasix Injection - IVPUSH DAILY [facility] Heparin Sodium (Porcine) 1,000 unit 11/08/16 09:55 Heparin - IVPUSH PRN PRN Heparin Heparin Sodium (Porcine) 5,000 unit 11/08/16 09:55 11/08/16 14:00 Heparin - IVPUSH 5,000 unit PRN PRN Administration Heparin Ceftazidime 1 gm/ Dextrose 100 mls @ 200 mls/hr 11/08/16 10:00 11/08/16 18:33 IVPB 200 mls/hr Q8H-IV [facility] Administration Heparin Sodium (Porcine) 25, 500 mls @ 20 mls/hr 11/08/16 10:00 11/08/16 14:34 000 unit/ Sodium Chloride IV 20 mls/hr TITR [facility] Administration Protocol 1,000 UNIT/HR Lisinopril 10 mg 11/08/16 10:00 11/08/16 10:25 Prinivil PO 10 mg DAILY [facility] Administration Magnesium Oxide 400 mg 11/08/16 10:00 11/08/16 10:26 Mag-Ox - PO 400 mg BID [facility] Administration Morphine Sulfate 2 mg 11/07/16 08:16 11/07/16 16:51 Morphine Injection - IVPUSH 2 mg Q4H PRN Administration BACK PAIN IMAGING: CT Abdomen/Pelvis - Soft tissue swelling + Erosive changes of L3-L4 suspicious for osteomyelitis/discitis CT Head noncon - Negative for acute pathology, 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 He was admitted for sepsis secondary to possible osteomyelitis vs UTI. After the patient was transferred from the ER, he had two episodes of cardiac arrest with ACLS performance and ROSC and to baseline mental status. # Post Cardiac Arrest w/ Vfib and Torsades - Pt had 2 episodes of cardiac arrest with EKG showing QTc prolongation (529), doing well now, d/c'd Amniodarone drip due to risk of QT prolongation - Pt on Magnesium 400mg BID # NSTEMI - Serial troponins trending up (1.29 --> 2.47 --> 6.36 --> 15.3 --> 12.09) - EKG shows Q waves inferior leads and t wave inversions in lateral leads - Pt started on ASA 81mg + Plavix 75mg + heparin drip - Pt unable to be cathed now bc of bacteremia, will need cath eventually # Systolic CHF - EF 24% - Echo shows severe wall motion abnormalities and hypokinesis, EF 24% - Pt was SOB last night with lung crackles and CXR showing pulmonary congestion --> received IV Lasix 40mg push, will continue on Lasix 40mg QD - Increased carvedilol dosage from 3.25mg BID --> 12.5mg PO BID # Severe Sepsis - Pt presented with tachycardia, leukocytosis (13.9), high lactic acid, and two likely sources of infection (UTI vs Osteo) - Blood Cx show gram positive cocci likely MSSA - Possible that osteo/discitis seeded into blood causing bacteremia, possible that bacteremia from unknown source seeded to bone - Echo negative for vegetations, no clinical signs of endocarditis - ID initiated Vancomycin 1.5g and will dose based on levels # UTI - complicated - Pt has indwelling huizar, UA on admission showed leuk esterase, +nitrate, + many bacteria - UCx grew lactose fermenting GNB, Group D strep, Entero - not cause of bacteremia - ID initiated Ceftazidine 1g Q8 # Possible Osteomyelitis vs Discitis of L3-L4 - CT of abd/pelvis was notable for findings soft tissue swelling + erosive changes of L3-L4 suspicious for osteo/discitis - MRI of spine to follow of Lumbar + Cervical Spine w/ and w/o contrast pending - Neurosurgery consult - Morphine 2mg IVPush Q4PRN + Tylenol 650mg Q4 for pain - Neuro checks Q4H # Paroxysmal Afib - currently in Sinus - Pt was on Lovenox --> switched to heparin drip - Continuous shipyard laborer # BPH with obstructive uropathy - Pt has indwelling huizar catheter for enlarged prostate # Hx of HTN - Pt on Carvedilol 12.5mg PO BID - SBP 130-150s + DBP 70s-90s # Elevated Lactic Acid - Was taken after first round of ACLS, could be reactive - F/u repeat level # Hx of femoral DVT - BLLE dopplers were negative # FEN - Fluids: None - Electrolytes: No abnormalities, will monitor - Nutrition: NPO for possible procedure # Prophylaxis - DVT: Heparin drip - GI: IV Protonix 40mg QD - Deconditioning: PT requested # Code Status - Full Code # Home Med Rec - Patient denies taking any prescription medications Dr. Marly Del Real PGY-1 Internal Medicine Visit type - Emergency Visit Emergency Visit: No - New Patient This patient is new to me today: No - Critical Care Critical Care patient: No - Discharge Referral Referred to [facility] No
--- NOTE | 2016-11-08 20:33 | CONSULT ---
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 PMH sig for HTN, TIA and urinary retention on lasix, lisinopril, carvedilol and clopidogrel. Came to ER with c/o increasing low back pain x 3-4 days, without radiation, increased by walking. In ER he suffered a cardiorespiratory arrest but was rapidly resuscitated. CT of head (reviewed): Moderate, diffuse atrophy, ex vacuo hydrocephalus and scattered microvascular changes. TIW=438 mm/hr. WBC=18.7 K Urinary GJL=258 CT of abdomen/pelvis reveals osteomyelitis/discitis at L3L4 Blood cultures + Staph aureus WALLACE: No bruits, No head trauma. Neg SLR. Mod LS palp tenderness. Heart in situ. NEURO: Awake, alert, cooperative but confused. Ox "home", "I know I am not in a hospital". September,. Trump, Recalls 0/3 @3 mins CN II-XII: Normal Motor. No drift or tremor. Normal strength inclusing all leg groups. Normal reflexes. Toes downgoing Coord: No FTN dystaxia Sensory: Feels vib, touch in feet. IMP: Moderately severe, B/L cerebral dysfunction (OMS, Chronic features). May have some residual effects of anoxia and of toxic-metabolic encephalopathy but probably has underlying OMS. L3L4 discitis- probably not the primary site of infection-usually due to seeding from sepsis from other site. SUGGEST: Continue broad spectrum antibiotic coverage. Will probably need a pic- line for long-term Rx. Echocardiogram to R/O SBE. MRI of LS spine. Check B12, TSH, RPR. Follow ESR, CRP Thank you very much, Ronald Brito MD
[2016-11-08] MEDS: CARVEDILOL 12.5 MG TABLET (FP) PO SCH (21:26)
[2016-11-08] MEDS ORDERED: CARVEDILOL 6.25 MG TABLET (FP) PO SCH (22:00)
[2016-11-08 23:49] LABS: TROPONIN I 9.36 ng/ml (0.00-0.05)
[2016-11-09] MEDS ORDERED: PT OWN MED DRAWER 7, Y5N ONE ×3 (02:42→21:35)
[2016-11-09] MEDS: CEFTAZIDIME PENTAHYDRATE 1 GM in DEXTROSE 5%-WATER - 100 ML IVPB SCH ×2 (02:44→09:29)
[2016-11-09] MEDS: morphine CARPU-JECT 2 MG/1 ML DISP.SYRIN IVPUSH PRN ×2 (05:24→19:17)
--- NOTE | 2016-11-09 06:27 | PN ---
Physical Exam: SUBJECTIVE: Patient seen and examined this AM. Pt still complains of back and neck pain. Pt took more breaths in between words, but doesnt complain of SOB or CP. No fevers, no chills. Immediate memory is worse today than yesterday, but responds otherwise appropriately. OBJECTIVE: Vital Signs Period Temp Pulse Resp BP Sys/Roche Pulse Ox Last 24 Hr 97.5 F-97.6 F 81-109 20-44 87-127/52-95 97-98 GENERAL: Awake, alert, and oriented x2. HEENT: PERRLA, EOMi, Moist mucous membranes, JVD noted. LUNGS: Basilar bilateral crackles, mild expiratory wheezing, no use of accessory muscles HEART: Irregular rate and rhythm, normal S1 and S2 without murmur, rub or gallop. ABDOMEN: Soft, nontender, not distended, normoactive bowel sounds, no guarding, no rebound, no masses. MUSCULOSKELETAL: Normal range of motion at all joints. No bony deformities or tenderness. No CVA tenderness. 2+ pulses in upper extremities and tibial, 1+ dorsalis pedis, no edema NEUROLOGICAL: Cranial nerves II-XII intact. No facial droop. Sensation was equal and intact in face and body bilaterally, muscle strength 5/5 in all extremities, reflexes 2+ in upper, 1+ in lower, vibration sensation intact, FTN test intact. Pt is forgetful at times during the conversation, needs repetition , change from yesterday. Laboratory Results - last 24 hr 11/08/16 11/08/16 11/08/16 05:25 05:25 05:25 WBC 18.7 H RBC 4.20 Hgb 12.0 Hct 36.8 MCV 87.7 MCH 28.5 MCHC 32.5 RDW 14.0 Plt Count 240 D MPV 8.2 INR PTT (Actin FS) Puncture Site ABG pH ABG pCO2 at Pt Temp ABG pO2 at Pt Temp ABG HCO3 ABG O2 Sat (Measured) ABG O2 Content ABG Base Excess Mannie Test O2 Delivery Device Oxygen Flow Rate PEEP Sodium 140 Potassium 4.1 Chloride 103 Carbon Dioxide 25 Anion Gap 12 BUN 27 H D Creatinine 1.5 H D Random Glucose 148 H D Lactic Acid 2.2 H* Calcium 8.8 Phosphorus 4.4 Magnesium 2.3 Creatine Kinase CK-MB (CK-2) CK-MB (CK-2) Rel Index Troponin I Ur Random Sodium Ur Random Potassium Ur Random Chloride Opiates Screen Methadone Screen Barbiturate Screen Phencyclidine Screen Ur Amphetamines Screen MDMA (Ecstasy) Screen Benzodiazepines Screen Cocaine Screen U Marijuana (THC) Screen 11/08/16 11/08/16 11/08/16 06:00 06:00 06:29 WBC RBC Hgb Hct MCV MCH MCHC RDW Plt Count MPV INR PTT (Actin FS) Puncture Site Right radial ABG pH 7.37 ABG pCO2 at Pt Temp 36.7 ABG pO2 at Pt Temp 78.7 D ABG HCO3 20.7 L ABG O2 Sat (Measured) 95.1 ABG O2 Content 16.4 ABG Base Excess -3.6 L Mannie Test Positive O2 Delivery Device Ventimask Oxygen Flow Rate 40% PEEP 0.0 Sodium Potassium Chloride Carbon Dioxide Anion Gap BUN Creatinine Random Glucose Lactic Acid Calcium Phosphorus Magnesium Creatine Kinase 381 H D CK-MB (CK-2) 34.974 H CK-MB (CK-2) Rel Index Cancelled Troponin I 15.30 H* D Ur Random Sodium Ur Random Potassium Ur Random Chloride Opiates Screen Methadone Screen Barbiturate Screen Phencyclidine Screen Ur Amphetamines Screen MDMA (Ecstasy) Screen Benzodiazepines Screen Cocaine Screen U Marijuana (THC) Screen 11/08/16 11/08/16 11/08/16 11:52 11:52 12:30 WBC RBC Hgb Hct MCV MCH MCHC RDW Plt Count MPV INR PTT (Actin FS) Puncture Site ABG pH ABG pCO2 at Pt Temp ABG pO2 at Pt Temp ABG HCO3 ABG O2 Sat (Measured) ABG O2 Content ABG Base Excess Mannie Test O2 Delivery Device Oxygen Flow Rate PEEP Sodium Potassium Chloride Carbon Dioxide Anion Gap BUN Creatinine Random Glucose Lactic Acid Calcium Phosphorus Magnesium Creatine Kinase CK-MB (CK-2) CK-MB (CK-2) Rel Index Troponin I 12.09 H* Ur Random Sodium 45 Ur Random Potassium 46.4 Ur Random Chloride 88 Opiates Screen Positive Methadone Screen Negative Barbiturate Screen Negative Phencyclidine Screen Negative Ur Amphetamines Screen Negative MDMA (Ecstasy) Screen Negative Benzodiazepines Screen Positive Cocaine Screen Negative U Marijuana (THC) Screen Negative 11/08/16 11/08/16 11/08/16 12:30 19:30 22:00 WBC RBC Hgb Hct MCV MCH MCHC RDW Plt Count MPV INR 1.55 H PTT (Actin FS) 38.4 H 50.6 H D Puncture Site ABG pH ABG pCO2 at Pt Temp ABG pO2 at Pt Temp ABG HCO3 ABG O2 Sat (Measured) ABG O2 Content ABG Base Excess Mannie Test O2 Delivery Device Oxygen Flow Rate PEEP Sodium Potassium Chloride Carbon Dioxide Anion Gap BUN Creatinine Random Glucose Lactic Acid Calcium Phosphorus Magnesium Creatine Kinase 231 D CK-MB (CK-2) CK-MB (CK-2) Rel Index Troponin I 9.36 H* Ur Random Sodium Ur Random Potassium Ur Random Chloride Opiates Screen Methadone Screen Barbiturate Screen Phencyclidine Screen Ur Amphetamines Screen MDMA (Ecstasy) Screen Benzodiazepines Screen Cocaine Screen U Marijuana (THC) Screen Active Medications Generic Name Dose Route Start Last Admin Trade Name Freq PRN Reason Stop Dose Admin Acetaminophen 650 mg 11/07/16 08:16 11/08/16 01:50 Tylenol - PO 650 mg Q4H PRN Administration FEVER OR PAIN Aspirin 81 mg 11/08/16 11:00 11/08/16 11:16 Ecotrin - PO 81 mg DAILY [facility] Administration Carvedilol 12.5 mg 11/08/16 22:00 11/08/16 21:26 Coreg - PO 12.5 mg BID [facility] Administration Clopidogrel Bisulfate 75 mg 11/08/16 11:00 11/08/16 11:16 Plavix - PO 75 mg DAILY [facility] Administration Diazepam 5 mg 11/07/16 08:53 11/08/16 01:51 Valium - PO 11/10/16 08:53 5 mg Q4H PRN Administration MUSCLE SPASMS Furosemide 40 mg 11/09/16 10:00 Lasix Injection - IVPUSH DAILY [facility] Heparin Sodium (Porcine) 1,000 unit 11/08/16 09:55 Heparin - IVPUSH PRN PRN Heparin Heparin Sodium (Porcine) 5,000 unit 11/08/16 09:55 11/08/16 14:00 Heparin - IVPUSH 5,000 unit PRN PRN Administration Heparin Ceftazidime 1 gm/ Dextrose 100 mls @ 200 mls/hr 11/08/16 10:00 11/09/16 02:44 IVPB 200 mls/hr Q8H-IV [facility] Administration Heparin Sodium (Porcine) 25, 500 mls @ 20 mls/hr 11/08/16 10:00 11/08/16 21:41 000 unit/ Sodium Chloride IV 1,000 unit/hr TITR [facility] Titration Protocol 1,000 UNIT/HR Lisinopril 10 mg 11/08/16 10:00 11/08/16 10:25 Prinivil PO 10 mg DAILY [facility] Administration Magnesium Oxide 400 mg 11/08/16 10:00 11/08/16 21:26 Mag-Ox - PO 400 mg BID [facility] Administration Morphine Sulfate 2 mg 11/07/16 08:16 11/09/16 05:24 Morphine Injection - IVPUSH 2 mg Q4H PRN Administration BACK PAIN ASSESSMENT/PLAN: IMAGING: CT Abdomen/Pelvis - Soft tissue swelling + Erosive changes of L3-L4 suspicious for osteomyelitis/discitis CT Head noncon - Negative for acute pathology, 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 He was admitted for sepsis secondary to possible osteomyelitis vs UTI. After the patient was transferred from the ER, he had two episodes of cardiac arrest with ACLS performance and ROSC and to baseline mental status. # Post Cardiac Arrest w/ Vfib and Torsades - Pt had EKG showing QTc prolongation (529), on Magnesium 400mg BID - Mg level today 2.5 - Pt has had total of 3 cardiac arrests, with ROSC - Today pt found to have MAP in 50s, then had asystole without pulse, ACLS started, patient intubated and ROSC after 10 minutes, now in Afib. IJ Central line placed, started on Dopamine - EKG shows STEMi in II, III, avF - likely from septic shock, Qtc 371 - F/u CXR, CBC, CMP, Mg, Phos, Lactic acid, Troponins # NSTEMI - Pt initially presented with elevated troponins without EKG changes, trops were trending down, placed on ASA/plavix/heparin/no statin due to high LFTs - New EKG shows possible ST elevations, f/u stat repeat EKG - Pt unable to be cathed now bc of bacteremia, will need cath eventually # Systolic CHF - EF 24% - Echo shows severe wall motion abnormalities and hypokinesis, EF 24% - MAP decreased from 75 --> 66 --> 57, started on dopamine 5mcg/kg/min - Hold Lasix 40mg QD today, reassess tomorrow - Increased carvedilol dosage from 3.25mg BID --> 6.25 PO BID # Bacteremia w/ Osteo vs Discitis of L3-L4 - Pt presented in severe sepsis with tachycardia, leukocytosis (13.9), + blood cultures, high lactic acid - Blood cultures growing MSSA - pt received 1.5g Vanco, now started on Nafcillin 2g Q4IV - Bacteremia likely seeded into spine to cause osteo/discitis detected on CT - MRI of L + C Spine w/ contrast can r/o abscess but d/c'd due to elevated GFR ( 22.8 cc/min) - No surgical intervention as per Neurosurg - Morphine 2mg IVPush Q4PRN + Tylenol 650mg Q4 for pain - Neuro checks Q4H # UTI - complicated - Pt has indwelling huizar, UA on admission showed leuk esterase, +nitrate, + many bacteria - UCx grew lactose fermenting GNB, Group D strep, Entero - not cause of bacteremia - Continue Ceftazidine 1g Q8 # GUZMAN - Pt BUN and Cr elevated today 44/2.6 - Likely from hypoperfusion + medication sfx - Avoid nephrotoxic medications, d/c'd lisinopril, held lasix - FeUrea 6.7% suggests prerenal, renal consulted states high suspicion for ATN given arrests - Renal US shows no obstruction # Paroxysmal Afib - currently in Sinus - Pt was on Lovenox --> switched to heparin drip - Continuous surveillance system monitor # BPH with obstructive uropathy - Pt has indwelling huizar catheter for enlarged prostate # Elevated PSA - Could be due to BPH, or prostate cancer # Hx of HTN - now low BP - Pt on lower dose of Carvedilol 6.25 mg PO BID - MAP decreased from 75 --> 66 --> 57, started on dopamine 5mcg/kg/min # Elevated Lactic Acid - Was taken after first round of ACLS, could be reactive - F/u repeat level # Hx of femoral DVT - BLLE dopplers were negative # FEN - Fluids: None - Electrolytes: No abnormalities, will monitor - Nutrition: NPO for possible procedure # Prophylaxis - DVT: Heparin drip - GI: IV Protonix 40mg QD - Deconditioning: PT requested # Code Status - Full Code # Home Med Rec - Patient denies taking any prescription medications Dr. Marly Del Real PGY-1 Internal Medicine Visit type - Emergency Visit Emergency Visit: No - New Patient This patient is new to me today: No - Critical Care Critical Care patient: Yes Total Critical Care Time (in minutes): 60 Critical Care Statement: The care of this patient involved high complexity decision making to prevent further life threatening deterioration of the patient 's condition and/or to evalute & treat vital organ system(s) failure or risk of failure.
[2016-11-09 06:52] LABS: BASOPHIL 0.2 % (0-2.0); MCH 28.2 pg (25.7-33.7); MCHC 32.3 g/dl (32.0-35.9); MEAN CELL VOLUME 87.3 fl (80-96); MEAN PLT VOLUME 9.1 fl (7.5-11.1); NEUTROPHILS 87.8 % (42.8-82.8); PLATELET COUNT 195 K/MM3 (134-434); RDW 14.2 % (11.9-15.9)
--- NOTE | 2016-11-09 07:08 | PN ---
Progress Note, Physician Chief Complaint: ID Multiple positive blood cultures as noted now MSSA Got vancomycin dose yesterday He is confused but does not localize any complaints He is still dyspneic but able to lay down which he couldn't do - Current Medication List Current Medications: Active Medications Acetaminophen (Tylenol -) 650 mg PO Q4H PRN PRN Reason: FEVER OR PAIN Last Admin: 11/08/16 01:50 Dose: 650 mg Aspirin (Ecotrin -) 81 mg PO DAILY [facility] Last Admin: 11/08/16 11:16 Dose: 81 mg Carvedilol (Coreg -) 12.5 mg PO BID [facility] Last Admin: 11/08/16 21:26 Dose: 12.5 mg Clopidogrel Bisulfate (Plavix -) 75 mg PO DAILY [facility] Last Admin: 11/08/16 11:16 Dose: 75 mg Diazepam (Valium -) 5 mg PO Q4H PRN PRN Reason: MUSCLE SPASMS Stop: 11/10/16 08:53 Last Admin: 11/08/16 01:51 Dose: 5 mg Furosemide (Lasix Injection -) 40 mg IVPUSH DAILY [facility] Heparin Sodium (Porcine) (Heparin -) 1,000 unit IVPUSH PRN PRN PRN Reason: Heparin Heparin Sodium (Porcine) (Heparin -) 5,000 unit IVPUSH PRN PRN PRN Reason: Heparin Last Admin: 11/08/16 14:00 Dose: 5,000 unit Ceftazidime 1 gm/ Dextrose 100 mls @ 200 mls/hr IVPB Q8H-IV [facility] Last Admin: 11/09/16 02:44 Dose: 200 mls/hr Heparin Sodium (Porcine) 25, (000 unit/ Sodium Chloride) 500 mls @ 20 mls/hr IV TITR [facility]; 1,000 UNIT/HR PRN Reason: Protocol Last Titration: 11/08/16 21:41 Dose: 1,000 unit/hr Lisinopril (Prinivil) 10 mg PO DAILY [facility] Last Admin: 11/08/16 10:25 Dose: 10 mg Magnesium Oxide (Mag-Ox -) 400 mg PO BID [facility] Last Admin: 11/08/16 21:26 Dose: 400 mg Morphine Sulfate (Morphine Injection -) 2 mg IVPUSH Q4H PRN PRN Reason: BACK PAIN Last Admin: 11/09/16 05:24 Dose: 2 mg - Objective Vital Signs: Vital Signs Temperature 97.6 F 11/09/16 02:00 Pulse Rate 94 H 11/09/16 06:00 Respiratory Rate 25 H 11/09/16 06:00 Blood Pressure 94/65 11/09/16 06:00 O2 Sat by Pulse Oximetry (%) 98 11/08/16 20:41 Constitutional: Yes: Mild Distress Eyes: Yes: Conjunctiva Clear, Other (NO petechiae) Cardiovascular: Yes: S1, S2 Respiratory: Yes: WNL, Regular, CTA Bilaterally Gastrointestinal: Yes: WNL, Normal Bowel Sounds, Soft. No: Tenderness, Tenderness, Rebound Extremities: No: Cold, Cool, Cyanosis Edema: No Labs: INR, PTT INR 1.55 (0.82-1.09) H 11/08/16 12:30 Problem List - Problems (1) Osteomyelitis Code(s): M86.9 - OSTEOMYELITIS, UNSPECIFIED Qualifiers: Osteomyelitis type: unspecified type Osteomyelitis location: other site Qualified Code(s): M86.9 - Osteomyelitis, unspecified (2) Bacteremia due to Staphylococcus Code(s): R78.81 - BACTEREMIA (3) Discitis Code(s): M46.40 - DISCITIS, UNSPECIFIED, SITE UNSPECIFIED Qualifiers: Spinal region: lumbar Qualified Code(s): M46.46 - Discitis, unspecified, lumbar region Assessment/Plan Microbiology 11/08/16 08:20 Blood - Peripheral Venous Blood Culture - Preliminary Pending Organism 11/08/16 08:16 Blood - Peripheral Venous Blood Culture - Preliminary Pending Organism 11/07/16 07:20 Blood - Peripheral Venous Blood Culture - Preliminary Presumptive Mssa (Pbp2a Neg) 11/07/16 07:20 Blood - Peripheral Venous Blood Culture - Preliminary Presumptive Mssa (Pbp2a Neg) 11/07/16 01:08 Urine - Urine Heart Urine Culture - Preliminary Lactose Fermenting Neg Bacilli Group D Strep Or Entero Coccus Laboratory Tests 11/07/16 11/08/16 11/09/16 10:00 05:25 05:15 WBC 18.7 H Pending Hgb 12.0 Pending Hct Pending Plt Count 240 D Pending ESR 100 H Assessment MSSA bacteremia source unknown E Coli enterococcal UTI Sepsis Spinal ostemyelitis L3 L4 Heart failure S/P code QT prolongation Leukocytosis ? collection Plan Await imaging MRI to rule out other sites of infection in the spine Nafcillin for now though may be able to use Cefazolin to treat bacteremia and UTI Repeat blood cultures tomorrow Critical care time spent 40 minutes Susan PETERSON
[2016-11-09 08:28] LABS: ALBUMIN 2.4 g/dl (3.4-5.0); ANION GAP 12 (8-16); BILIRUBIN,TOTAL 0.9 mg/dL (0.2-1.0); CO2 23 mmol/L (21-32); CREATININE 2.6 mg/dL (0.7-1.3); GLUCOSE,RANDOM 122 mg/dL (74-106); MAGNESIUM 2.5 mg/dL (1.8-2.4); SGOT/AST 82 U/L (15-37); SGPT/ALT 86 U/L (12-78); TOT PROT 6.6 g/dl (6.4-8.2)
[2016-11-09 08:29] LABS: ALK PHOS 68 U/L (45-117)
[2016-11-09] MEDS: ACETAMINOPHEN 325 MG TABLET (FP) PO PRN ×2 (09:22→13:57)
[2016-11-09] MEDS: CARVEDILOL 12.5 MG TABLET (FP) PO SCH (09:22)
[2016-11-09] MEDS: MAGNESIUM OXIDE 400 MG TABLET (FP) PO SCH (09:22)
[2016-11-09] MEDS: CLOPIDOGREL BISULFATE 75 MG TABLET (FP) PO SCH (09:27)
[2016-11-09] MEDS: LISINOPRIL 10 MG TABLET (FP) PO SCH (09:29)
[2016-11-09] MEDS ORDERED: CARVEDILOL 12.5 MG TABLET (FP) PO SCH ×2 (09:44→22:00)
[2016-11-09] MEDS ORDERED: FUROSEMIDE 40 MG/4 ML INJECTABLE VIAL IVPUSH SCH ×2 (10:00)
--- NOTE | 2016-11-09 10:40 | PN ---
Progress Note, Physician History of Present Illness: Dyspnea improving with diuresis, now on NC, denies chest pain. - Current Medication List Current Medications: Active Medications Acetaminophen (Tylenol -) 650 mg PO Q4H PRN PRN Reason: FEVER OR PAIN Last Admin: 11/09/16 09:22 Dose: 650 mg Aspirin (Ecotrin -) 81 mg PO DAILY [facility] Last Admin: 11/08/16 11:16 Dose: 81 mg Carvedilol (Coreg -) 6.25 mg PO BID [facility] Clopidogrel Bisulfate (Plavix -) 75 mg PO DAILY [facility] Last Admin: 11/09/16 09:27 Dose: 75 mg Diazepam (Valium -) 5 mg PO Q4H PRN PRN Reason: MUSCLE SPASMS Stop: 11/10/16 08:53 Last Admin: 11/08/16 01:51 Dose: 5 mg Furosemide (Lasix Injection -) 40 mg IVPUSH DAILY [facility] Heparin Sodium (Porcine) (Heparin -) 1,000 unit IVPUSH PRN PRN PRN Reason: Heparin Heparin Sodium (Porcine) (Heparin -) 5,000 unit IVPUSH PRN PRN PRN Reason: Heparin Last Admin: 11/08/16 14:00 Dose: 5,000 unit Ceftazidime 1 gm/ Dextrose 100 mls @ 200 mls/hr IVPB Q8H-IV [facility] Last Admin: 11/09/16 09:29 Dose: 200 mls/hr Heparin Sodium (Porcine) 25, (000 unit/ Sodium Chloride) 500 mls @ 20 mls/hr IV TITR [facility]; 1,000 UNIT/HR PRN Reason: Protocol Last Titration: 11/08/16 21:41 Dose: 1,000 unit/hr Nafcillin Sodium 2 gm/ (Dextrose) 100 mls @ 100 mls/hr IVPB Q4H-IV [facility] PRN Reason: Protocol Magnesium Oxide (Mag-Ox -) 400 mg PO BID [facility] Last Admin: 11/09/16 09:22 Dose: 400 mg Morphine Sulfate (Morphine Injection -) 2 mg IVPUSH Q4H PRN PRN Reason: BACK PAIN Last Admin: 11/09/16 05:24 Dose: 2 mg - Objective Vital Signs: Vital Signs Temperature 97.6 F 11/09/16 02:00 Pulse Rate 94 H 11/09/16 06:00 Respiratory Rate 25 H 11/09/16 08:50 Blood Pressure 94/65 11/09/16 06:00 O2 Sat by Pulse Oximetry (%) 98 11/09/16 08:50 Constitutional: Yes: No Distress, Calm Neck: Yes: Supple Cardiovascular: Yes: Regular Rate and Rhythm, Murmur (2/6 SM) Respiratory: Yes: Regular, Diminished, On Nasal O2 Gastrointestinal: Yes: Normal Bowel Sounds, Soft Edema: No Labs: CBC, BMP 11/09/16 05:15 11/09/16 05:15 INR, PTT INR 1.55 (0.82-1.09) H 11/08/16 12:30 - ....Imaging EKG: Report Reviewed (SR@85 1st deg AVB QTc 518 msec) Problem List - Problems (1) Bacteremia due to Staphylococcus Code(s): R78.81 - BACTEREMIA (2) Discitis Code(s): M46.40 - DISCITIS, UNSPECIFIED, SITE UNSPECIFIED Qualifiers: Spinal region: lumbar Qualified Code(s): M46.46 - Discitis, unspecified, lumbar region (3) HLD (hyperlipidemia) Code(s): E78.5 - HYPERLIPIDEMIA, UNSPECIFIED Qualifiers: Hyperlipidemia type: pure hypercholesterolemia Qualified Code(s): E78.00 - Pure hypercholesterolemia, unspecified; E78.0 - Pure hypercholesterolemia (4) HTN (hypertension) Code(s): I10 - ESSENTIAL (PRIMARY) HYPERTENSION Qualifiers: Hypertension type: essential hypertension Qualified Code(s): I10 - Essential (primary) hypertension (5) Osteomyelitis Code(s): M86.9 - OSTEOMYELITIS, UNSPECIFIED Qualifiers: Osteomyelitis type: unspecified type Osteomyelitis location: other site Qualified Code(s): M86.9 - Osteomyelitis, unspecified (6) Acute renal failure Code(s): N17.9 - ACUTE KIDNEY FAILURE, UNSPECIFIED Qualifiers: Acute renal failure type: unspecified Qualified Code(s): N17.9 - Acute kidney failure, unspecified (7) Leukocytosis Code(s): D72.829 - ELEVATED WHITE BLOOD CELL COUNT, UNSPECIFIED (8) Paroxysmal atrial fibrillation Code(s): I48.0 - PAROXYSMAL ATRIAL FIBRILLATION (9) 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 transplanted heart: [place] heart Associated angina: without angina Qualified Code(s): I25.10 - Atherosclerotic heart disease of [place] coronary artery without angina pectoris (11) NSTEMI (non-ST elevated myocardial infarction) Code(s): I21.4 - NON-ST ELEVATION (NSTEMI) MYOCARDIAL INFARCTION (12) Severe mitral regurgitation Code(s): I34.0 - NONRHEUMATIC MITRAL (VALVE) INSUFFICIENCY (13) Acute respiratory failure with hypoxia Code(s): J96.01 - ACUTE RESPIRATORY FAILURE WITH HYPOXIA (14) Acute on chronic systolic ACC/AHA stage C congestive heart failure Code(s): I50.23 - ACUTE ON CHRONIC SYSTOLIC (CONGESTIVE) HEART FAILURE Assessment/Plan 11/08/2016 Transthoracic echocardiography: Dilated LV with severe LV dysfunction with anterior AK, apex dyskinetic, IVS below midventricular level thin and dyskinetic, inferolarteral severe HK, posterior AK, normal RV size and fxn, severe MR, mod TR, mild to mod AR 1. Post cardiac arrest torsades de pointes with underlying prolonged QT post Levaquin for E. coli/enterococcal UTI 2. Acute hypoxic respiratory failure 3. Acute on chronic systolic failure with underlying severe MR 4. CAD, NSTEMI 5. Paroxysmal AF currently in sinus rhythm 6. HTN/HCVD 7. Disciitis and possible osteomyelitis of L3-4 with MSSA bacteremia 8. GUZMAN due to hemodynamic alterations 9. History of BPH and obstructive uropathy 10. Previous DVT post Eliquis PLAN: 1. Replete Mg to maintain Mg>2.5 with monitor for QT prolongation, avoid QT prolonging agents, K>4.5 2. Cardiac enzymes have peaked 3. IV diuresis with monitor diuretic response, renal fxn and electrolytes 4. Abx per C&S, MRI spine when able, f/u surveillance cx 5. D/c ASA 81 qd, continue Plavix 75 qd, heparin gtt->Eliquis 2.5 bid, uptitrate carvedilol 12.5 bid as hemodynamics tolerate. Lisinopril 10 qd and Aldactone 25 qd held pending renal fxn stabilization 6. GI prophylaxis, further cardiac work up is to be followed which may include cardiac catheterization/coronary angiography at some point once sepsis clears
[2016-11-09] MEDS: NAFCILLIN - 2 GM in DEXTROSE 5%-WATER - 100 ML IVPB SCH ×4 (11:00→21:36)
--- NOTE | 2016-11-09 11:06 | PN ---
Teaching Attending Note Name of Resident: Eliel Sierra ATTENDING PHYSICIAN STATEMENT I saw and evaluated the patient. I reviewed the resident's note and discussed the case with the resident. I agree with the resident's findings and plan as documented. SUBJECTIVE: Pt seen and examined in the ICU. No further arrhythmias. Some chest pain reproducible with palpation. Breathing improving. OBJECTIVE: Last Vital Signs Temp Pulse Resp BP Pulse Ox 99.1 F 85 19 96/69 98 11/09/16 10:00 11/09/16 10:00 11/09/16 10:00 11/09/16 10:00 11/09/16 08:50 Intake & Output 11/06/16 11/07/16 11/08/16 11/09/16 23:59 23:59 23:59 23:59 Intake Total 1007 950 340 Output Total 375 900 150 Balance 632 50 190 Weight 162 lb 162 lb 200 lb 2 oz Gen: less tachypneic, more somnolent today Heart: RRR, +systolic murmur Lung: decreased breath sounds at the bases Abd: soft, nontender Ext: no edema, cool to touch CBC, BMP 11/09/16 05:15 11/09/16 05:15 Active Medications Acetaminophen (Tylenol -) 650 mg PO Q4H PRN PRN Reason: FEVER OR PAIN Last Admin: 11/09/16 09:22 Dose: 650 mg Apixaban (Eliquis -) 2.5 mg PO BID [facility] Carvedilol (Coreg -) 12.5 mg PO BID [facility] Clopidogrel Bisulfate (Plavix -) 75 mg PO DAILY [facility] Last Admin: 11/09/16 09:27 Dose: 75 mg Diazepam (Valium -) 5 mg PO Q4H PRN PRN Reason: MUSCLE SPASMS Stop: 11/10/16 08:53 Last Admin: 11/08/16 01:51 Dose: 5 mg Furosemide (Lasix Injection -) 40 mg IVPUSH DAILY [facility] Ceftazidime 1 gm/ Dextrose 100 mls @ 200 mls/hr IVPB Q8H-IV [facility] Last Admin: 11/09/16 09:29 Dose: 200 mls/hr Nafcillin Sodium 2 gm/ (Dextrose) 100 mls @ 100 mls/hr IVPB Q4H-IV [facility] PRN Reason: Protocol Magnesium Oxide (Mag-Ox -) 400 mg PO DAILY [facility] Morphine Sulfate (Morphine Injection -) 2 mg IVPUSH Q4H PRN PRN Reason: BACK PAIN Last Admin: 11/09/16 05:24 Dose: 2 mg ASSESSMENT AND PLAN: s/p VFib Cardiopulmonary Arrest/Prolonged QT Acute NSTEMI/CAD/+Troponins Acute on Chronic Systolic Heart Failure Severe Mitral Regurgitation Acute Kidney Injury UTI MSSA Bacteremia Osteomyelitis/Discitis Sepsis Lactic Acidosis - ASA, plavix - beta malvin, statin - afterload reduction as BP tolerates - keep K >4, Mg >2 - continue antibiotics - repeat cultures tomorrow for surveillance - hold lasix today - monitor urine output, creatinine - trend lactate - anticoagulation per cardiology - continue ICU monitoring critical care time spent in reviewing chart, evaluating patient and formulating plan 36 min
--- NOTE | 2016-11-09 11:15 | PN ---
Physical Exam: SUBJECTIVE: Patient seen and examined. He states his breathing is better today. He continues to complain of "spasms and pain" over his chest and spine. he required 2 doses of morphine overnight. No cardiac events. OBJECTIVE: Vital Signs Temperature 99.1 F 11/09/16 10:00 Pulse Rate 85 11/09/16 10:00 Respiratory Rate 19 11/09/16 10:00 Blood Pressure 96/69 11/09/16 10:00 O2 Sat by Pulse Oximetry (%) 98 11/09/16 08:50 GENERAL: The patient is awake, alert, and fully oriented, in no acute distress. HEAD: Normal with no signs of trauma. EYES: extraocular movements intact, sclera anicteric, conjunctiva clear. No ptosis. NECK: Trachea midline, full range of motion, supple, JVD observed. LUNGS: Breath sounds equal, wheezes bilaterally, no crackles, no accessory muscle use. HEART: Regular rate and rhythm, S1, S2 heard. Systolic murmur. no rub or gallop. ABDOMEN: Soft, nontender, nondistended, normoactive bowel sounds, no guarding, no rebound, no hepatosplenomegaly, no masses. EXTREMITIES: 2+ pulses, warm, well-perfused, no edema. MUSCULOSKELETAL: tenderness to palpation over chest and back NEUROLOGICAL: Cranial nerves II through X grossly intact. Normal speech, gait not observed. SKIN: Warm, dry, normal turgor, no rashes or lesions noted Laboratory Results - last 24 hr 11/08/16 11/08/16 11/08/16 11:52 11:52 12:30 WBC RBC Hgb Hct MCV MCH MCHC RDW Plt Count MPV Neutrophils % Lymphocytes % Monocytes % Eosinophils % Basophils % INR PTT (Actin FS) Sodium Potassium Chloride Carbon Dioxide Anion Gap BUN Creatinine Creat Clearance w eGFR Random Glucose Lactic Acid Calcium Magnesium Total Bilirubin AST ALT Alkaline Phosphatase Creatine Kinase Creatine Kinase Index CK-MB (CK-2) CK-MB (CK-2) Rel Index Troponin I 12.09 H* Total Protein Albumin Ur Random Sodium 45 Ur Random Potassium 46.4 Ur Random Chloride 88 Random Vancomycin Opiates Screen Positive Methadone Screen Negative Barbiturate Screen Negative Phencyclidine Screen Negative Ur Amphetamines Screen Negative MDMA (Ecstasy) Screen Negative Benzodiazepines Screen Positive Cocaine Screen Negative U Marijuana (THC) Screen Negative 11/08/16 11/08/16 11/08/16 12:30 19:30 22:00 WBC RBC Hgb Hct MCV MCH MCHC RDW Plt Count MPV Neutrophils % Lymphocytes % Monocytes % Eosinophils % Basophils % INR 1.55 H PTT (Actin FS) 38.4 H 50.6 H D Sodium Potassium Chloride Carbon Dioxide Anion Gap BUN Creatinine Creat Clearance w eGFR Random Glucose Lactic Acid Calcium Magnesium Total Bilirubin AST ALT Alkaline Phosphatase Creatine Kinase 231 D Creatine Kinase Index 2.9 CK-MB (CK-2) 6.704 H CK-MB (CK-2) Rel Index Troponin I 9.36 H* Total Protein Albumin Ur Random Sodium Ur Random Potassium Ur Random Chloride Random Vancomycin Opiates Screen Methadone Screen Barbiturate Screen Phencyclidine Screen Ur Amphetamines Screen MDMA (Ecstasy) Screen Benzodiazepines Screen Cocaine Screen U Marijuana (THC) Screen 11/08/16 11/09/16 11/09/16 22:00 05:15 05:15 WBC 16.0 H RBC 3.76 L Hgb 10.6 L D Hct 32.8 L MCV 87.3 MCH 28.2 MCHC 32.3 RDW 14.2 Plt Count 195 MPV 9.1 D Neutrophils % 87.8 H Lymphocytes % 6.0 L D Monocytes % 6.0 Eosinophils % 0.0 D Basophils % 0.2 INR PTT (Actin FS) Sodium Potassium Chloride Carbon Dioxide Anion Gap BUN Creatinine Creat Clearance w eGFR Random Glucose Lactic Acid Calcium Magnesium Total Bilirubin AST ALT Alkaline Phosphatase Creatine Kinase Creatine Kinase Index CK-MB (CK-2) CK-MB (CK-2) Rel Index Cancelled Troponin I Total Protein Albumin Ur Random Sodium Ur Random Potassium Ur Random Chloride Random Vancomycin 15.225 Opiates Screen Methadone Screen Barbiturate Screen Phencyclidine Screen Ur Amphetamines Screen MDMA (Ecstasy) Screen Benzodiazepines Screen Cocaine Screen U Marijuana (THC) Screen 11/09/16 11/09/16 11/09/16 05:15 05:15 05:15 WBC RBC Hgb Hct MCV MCH MCHC RDW Plt Count MPV Neutrophils % Lymphocytes % Monocytes % Eosinophils % Basophils % INR PTT (Actin FS) Sodium 138 Potassium 4.4 Chloride 103 Carbon Dioxide 23 Anion Gap 12 BUN 44 H D Creatinine 2.6 H D Creat Clearance w eGFR 23.75 Random Glucose 122 H Lactic Acid 2.1 H* Calcium 9.0 Magnesium 2.5 H Total Bilirubin 0.9 AST 82 H ALT 86 H D Alkaline Phosphatase 68 Creatine Kinase Creatine Kinase Index CK-MB (CK-2) CK-MB (CK-2) Rel Index Troponin I 8.80 H* Total Protein 6.6 Albumin 2.4 L Ur Random Sodium Ur Random Potassium Ur Random Chloride Random Vancomycin Opiates Screen Methadone Screen Barbiturate Screen Phencyclidine Screen Ur Amphetamines Screen MDMA (Ecstasy) Screen Benzodiazepines Screen Cocaine Screen U Marijuana (THC) Screen 11/09/16 05:15 WBC RBC Hgb Hct MCV MCH MCHC RDW Plt Count MPV Neutrophils % Lymphocytes % Monocytes % Eosinophils % Basophils % INR PTT (Actin FS) 63.4 H Sodium Potassium Chloride Carbon Dioxide Anion Gap BUN Creatinine Creat Clearance w eGFR Random Glucose Lactic Acid Calcium Magnesium Total Bilirubin AST ALT Alkaline Phosphatase Creatine Kinase Creatine Kinase Index CK-MB (CK-2) CK-MB (CK-2) Rel Index Troponin I Total Protein Albumin Ur Random Sodium Ur Random Potassium Ur Random Chloride Random Vancomycin Opiates Screen Methadone Screen Barbiturate Screen Phencyclidine Screen Ur Amphetamines Screen MDMA (Ecstasy) Screen Benzodiazepines Screen Cocaine Screen U Marijuana (THC) Screen Active Medications Generic Name Dose Route Start Last Admin Trade Name Freq PRN Reason Stop Dose Admin Acetaminophen 650 mg 11/07/16 08:16 11/09/16 09:22 Tylenol - PO 650 mg Q4H PRN Administration FEVER OR PAIN Apixaban 2.5 mg 11/09/16 22:00 Eliquis - PO BID MARILEE Carvedilol 12.5 mg 11/09/16 11:00 Coreg - PO BID MARILEE Clopidogrel Bisulfate 75 mg 11/08/16 11:00 11/09/16 09:27 Plavix - PO 75 mg DAILY MARILEE Administration Diazepam 5 mg 11/07/16 08:53 11/08/16 01:51 Valium - PO 11/10/16 08:53 5 mg Q4H PRN Administration MUSCLE SPASMS Furosemide 40 mg 11/09/16 10:00 Lasix Injection - IVPUSH DAILY MARILEE Ceftazidime 1 gm/ Dextrose 100 mls @ 200 mls/hr 11/08/16 10:00 11/09/16 09:29 IVPB 200 mls/hr Q8H-IV MARILEE Administration Nafcillin Sodium 2 gm/ 100 mls @ 100 mls/hr 11/09/16 10:00 Dextrose IVPB Q4H-IV MARILEE Protocol Magnesium Oxide 400 mg 11/10/16 10:00 Mag-Ox - PO DAILY [facility] Morphine Sulfate 2 mg 11/07/16 08:16 11/09/16 05:24 Morphine Injection - IVPUSH 2 mg Q4H PRN Administration BACK PAIN ASSESSMENT/PLAN: 79 yo M with a PMH of BPH (chronic indwelling huizar), prior admission for pseudomonas UTI, HTN, HLD and femoral DVT (previously on Eliquis), who presents due to lower back pain x 2 weeks. Patient arrested on the floors and was brought down to the ICU intubated. He is s/p a second arrest in the ICU. Neuro -A&O x2. -no focal neuro deficits Pulmonary -SOB 2/2 fluid overload -improved today -held morning lasix; will change to prn if patient requires it -cxr today shows improvement in effusions -monitor fluid and pulmonary status Cardiology -s/p cardiac arrest; history of paroxysmal afib and long QT on EKG in ED -QT longer today (529 -> 462 -> 518) -tropes contniuing to trend down (12-> 9.3 -> 8.80). will monitor daily. -ASA D/C'd as per cardio -Plavix 75mg PO -carvedilol 12.5 PO bid -replete mag to maintain >2.5; is 2.5 today -cardio changed heparin gtt to eliquis 2.5mg BID -HTN -held lisinopril 10 daily as renal fxn is worsening and BP is lower today Hematology -Blood Cx growing MSSA in all bottles - repeat BCx w/ same results -UCx growing citrobacter freundii and staph spp. -naficillin 2g q4h -will repeat blood cx in AM RENAL -BUN and creatinine trending up (27-> 44 and 1.5 ->2.6) -lisinopril held -f/u u/s of the kidneys -f/u ultrasound of abdomen and pelvis FEN -no fluids indicated at this time -will monitor lytes -full liquid diet PPTX -Protonix 40mg IV DISPO -continue to monitor in ICU Problem List - Problems (1) Acute on chronic systolic ACC/AHA stage C congestive heart failure Code(s): I50.23 - ACUTE ON CHRONIC SYSTOLIC (CONGESTIVE) HEART FAILURE (2) Bacteremia due to Staphylococcus Code(s): R78.81 - BACTEREMIA (3) Coronary artery disease Code(s): I25.10 - ATHSCL HEART DISEASE OF [place] CORONARY ARTERY W/O ANG PCTRS Qualifiers: Coronary Disease-Associated Artery/Lesion type: [place] artery [place] vs. transplanted heart: [place] heart Associated angina: without angina Qualified Code(s): I25.10 - Atherosclerotic heart disease of [place] coronary artery without angina pectoris (4) Discitis Code(s): M46.40 - DISCITIS, UNSPECIFIED, SITE UNSPECIFIED Qualifiers: Spinal region: lumbar Qualified Code(s): M46.46 - Discitis, unspecified, lumbar region (5) HLD (hyperlipidemia) Code(s): E78.5 - HYPERLIPIDEMIA, UNSPECIFIED Qualifiers: Hyperlipidemia type: pure hypercholesterolemia Qualified Code(s): E78.00 - Pure hypercholesterolemia, unspecified; E78.0 - Pure hypercholesterolemia (6) HTN (hypertension) Code(s): I10 - ESSENTIAL (PRIMARY) HYPERTENSION Qualifiers: Hypertension type: essential hypertension Qualified Code(s): I10 - Essential (primary) hypertension (7) Paroxysmal atrial fibrillation Code(s): I48.0 - PAROXYSMAL ATRIAL FIBRILLATION (8) Severe mitral regurgitation Code(s): I34.0 - NONRHEUMATIC MITRAL (VALVE) INSUFFICIENCY (9) Acute renal failure Code(s): N17.9 - ACUTE KIDNEY FAILURE, UNSPECIFIED Qualifiers: Acute renal failure type: unspecified Qualified Code(s): N17.9 - Acute kidney failure, unspecified Visit type - Emergency Visit Emergency Visit: Yes ED Registration Date: 11/07/16 Care time: The patient presented to the Emergency Department on the above date and was hospitalized for further evaluation of their emergent condition. - New Patient This patient is new to me today: No - Critical Care Critical Care patient: Yes Total Critical Care Time (in minutes): 35 Critical Care Statement: The care of this patient involved high complexity decision making to prevent further life threatening deterioration of the patient 's condition and/or to evalute & treat vital organ system(s) failure or risk of failure.
--- NOTE | 2016-11-09 11:50 | EKG ---
Test Reason : Blood Pressure : / mmHG Vent. Rate : 085 BPM Atrial Rate : 085 BPM P-R Int : 356 ms QRS Dur : 096 ms QT Int : 436 ms P-R-T Axes : -19 066 130 degrees QTc Int : 518 ms SINUS RHYTHM WITH 1ST DEGREE A-V BLOCK INFERIOR INFARCT (CITED ON OR BEFORE 07-NOV-2016) ANTERIOR INFARCT (CITED ON OR BEFORE 07-NOV-2016) T WAVE ABNORMALITY, CONSIDER LATERAL ISCHEMIA PROLONGED QT ABNORMAL ECG WHEN COMPARED WITH ECG OF 08-NOV-2016 09:15, T WAVE INVERSION MORE EVIDENT IN ANTERIOR LEADS Confirmed by RAMIREZ TURNER MD ([id number]) on 11/09/2016 11:50:28 AM Referred By: CADENCE ALVARENGA Confirmed By:RAMIREZ TURNER MD
--- NOTE | 2016-11-09 13:42 | PN ---
Teaching Attending Note Name of Resident: Marly Del Real ATTENDING PHYSICIAN STATEMENT I saw and evaluated the patient. I reviewed the resident's note and discussed the case with the resident. I agree with the resident's findings and plan as documented. SUBJECTIVE: no fever or chills , has no SOB but his anterior chest pain is preventing him from taking deep breath. he has pain in lower sternal area that is sharp and intermittent , and worse with pressing on it OBJECTIVE: NAD , Awake and alert , and cooperative . Knows his location , claims he can't think of date and age due to his pain HEENT: NC, AT, MMM, EOMI. CV: RRR, no murmurs appreciated, has JVD Lungs : clear lungs today . poor inspiratory effort Ext: no edema on LE Abd /; soft, NT, ND , NL BS DP 1+ and radial pulse 1+ b/l . Huizar in ASSESSMENT AND PLAN: 81 y/o man with h/o HTN, HLD, CVA, BPH with chronic indwelling foleyc atheter and h/o DVT who presented with back and neck pain , developed cardiac arrest ( VF, and Torsade [place] ) x 2 on day of admission. He was found to be bacteremic as well 1- S/P Cardiac arrest, VF and Torsades: on back ground of prolonged Qt. repeat EKG this am with worsening QTC prolongation: 518 . - cont coreg ( decrease dose due to hypotension and to avoid bradycardia and further prolongation of QTC) this was d/w Dr. Sosa - cont mag oxide - monitor electrolytes - might need temporary transvenous pacing if Torsade recurs or if QTC cont to worsen ( but he is bacteremic ). instead if recurres, might need dopamine gtt ( D/W Dr. Sosa ) 2- NSTEMI: trop peaked at 15. Echo with multiple WMA indicating CAD , also has low EF - coreg as above - cont plavix , asa was stopped - switched to eliquis but did not get any dose yet, will place back on heparin gtt due to worsening renal failure. Card agrees - need cardiac cath eventually, but bacteremic now 3- Acute systolic heart failure . - hold lasix and ACEI due to hypotension and worsening GUZMAN 4-Severe sepsis with MSSA bacteremia : - D/W card , will need SWATHI as blood cx is not clearing - abx changed to naficilin - repeat cx in am - hold off MRI of spine ,as GFR is 23 to avoid risk of nephrogenic systemic fibrosis 5- Complicated UTI : Urine cx reviewed - ZOsyn - follow final cx - will get urology to change huizar 6-GUZMAN : multifactorial, due to hypoperfusion form cardiac arrest , then hypotension last night and diuresis can't r/o ATN. HE is getting oligouric - urine electrolytes to calculate Fe Urea. - renal US - urine sediment . -consult renal as oligouric - hold lasix and ACEI 7-DVT PX , on heparin
[2016-11-09] MEDS ORDERED: HEPARIN NA (PORCINE) 5,000 UNITS/ML 1ML VIAL IVPUSH PRN ×2 (13:43)
[2016-11-09] MEDS ORDERED: SODIUM CHLORIDE 250 ML IV STA (15:03)
[2016-11-09 15:34] LABS: INR 1.66 (0.82-1.09); PROTHROMBIN TIME (PATIENT) 18.4 SEC (9.98-11.88)
--- NOTE | 2016-11-09 15:35 | EKG ---
Test Reason : Blood Pressure : / mmHG Vent. Rate : 066 BPM Atrial Rate : 066 BPM P-R Int : 318 ms QRS Dur : 094 ms QT Int : 474 ms P-R-T Axes : 039 052 136 degrees QTc Int : 496 ms SINUS RHYTHM WITH 1ST DEGREE A-V BLOCK WITH PREMATURE ATRIAL COMPLEXES INFERIOR INFARCT (CITED ON OR BEFORE 07-NOV-2016) ANTERIOR INFARCT (CITED ON OR BEFORE 07-NOV-2016) ABNORMAL ECG WHEN COMPARED WITH ECG OF 09-NOV-2016 08:42, PREMATURE ATRIAL COMPLEXES ARE NOW PRESENT SERIAL CHANGES OF ANTERIOR INFARCT PRESENT Confirmed by RAMIREZ TURNER MD ([id number]) on 11/09/2016 3:35:26 PM Referred By: DELL VEGA Confirmed By:RAMIREZ TURNER MD
[2016-11-09] MEDS ORDERED: DOPAMINE 400 MG/D5W - 250 ML IVPB SCH (15:45)
[2016-11-09] MEDS ORDERED: DOBUTAMINE 250 MG/D5W - 250 ML ONE (16:15)
[2016-11-09] MEDS ORDERED: DOPamine HCL 400 MG/10 ML VIAL ONE (16:16)
[2016-11-09] MEDS ORDERED: MIDAZOLAM HCL 5 MG/1 ML Single Dose Vial ONE (17:00)
--- NOTE | 2016-11-09 17:05 | RAPID ---
<Torie Solis - Last Filed: 11/09/16 17:08> Physical Examination Labs: CBC, BMP 11/09/16 05:15 11/09/16 05:15 Rapid Response - Rapid Response Assessment: Code 99 was called at 4:33 pm in ICU bed 2. ICU team immediately started the CPR. Rapid response team reached. Patient was initially bradycardic to 30's before code team arrived . When we arrived, patient was in asystole. ACLS protocol was started with 1 mg atropine then 3 epinephrine, 1 amp of bicarbonate was given. In the meantime, anesthesiologist intubated him to protect the airways. Code lasted for about 10mins. Patient started breathing spontaneously, pulse was around 53 beats per minute, irregularly irregular pulse. Central line is being placed by the anesthesiogist. Plan is to start Levophed and versed. As the patient is likely in septic shock Pending central line placement. Patient is started on Dopamine through peripheral line. Rhythm after restoring the pulse was afib with HR between 50-110 bpm. BP-95 systolic mmHg; saturation was around 70's. Patient was placed on ventilator Dr. Sosa at bedside. Case was discussed with Dr. Mariano. Agree with management. Will check EKG, CXR, CBC, CMP, Mg, Phos, Lactic acid, Troponins. Family member was called but there was no answer. Will call again. <Rina Blevins - Last Filed: 11/09/16 17:14> Physical Examination Vital Signs: Critical Care Total Critical Care Time (in minutes): 40 Critical Care Statement: The care of this patient involved high complexity decision making to prevent further life threatening deterioration of the patient 's condition and/or to evalute & treat vital organ system(s) failure or risk of failure.
[2016-11-09 17:08] VITALS: BMI 26.0
--- NOTE | 2016-11-09 17:08 | CON.NEP ---
Consult Consult Specialty:: Nephrology (Tor/Valerio) Referred by:: Dr. 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 Pt Cr was 1 on initial presentation and marsha to 2.6 following the first 2 arrests. Pt was non- oliguric as of 11/08. MAP BP was stable but pt became more hypotensive early this am. No hypokalmeia or hypomagnesemia noted. Pt with mild lactic acidosis. Pt currently intubated and on Dopamine for BP maintenance. - History Source History Provided By: Medical Record Limitations to Obtaining History: Clinical Condition - Past Medical History Cardio/Vascular: Yes: AFIB (Paroxysmal Afib episode in ED on arrival yesterday) , HTN Renal/: Yes: BPH, Neurogenic Bladder, Other (OBSTRUCTIVE UROPATHY HYDRONEPHROSIS) Infectious Disease: Yes: Other Additional Medical History: Does not go to a doctor. - Alcohol/Substance Use Hx Alcohol Use: Yes (wine or beer few times a week) History of Substance Use: reports: None - Smoking History Smoking history: Former smoker Have you smoked in the past 12 months: Yes Aproximately how many cigarettes per day: 2 If you are a former smoker, when did you quit?: jan 2016 - Social History Usual Living Arrangement: Alone ADL: Independent Occupation: retired; plays golf and [employer] Home Medications - Allergies Allergies/Adverse Reactions: Allergies Allergy/AdvReac Type Severity Reaction Status Date / Time No Known Allergies Allergy Verified 11/06/16 23:51 - Home Medications Home Medications: Ambulatory Orders NK [No Known Home Medication] 11/08/16 Family Disease History - Family Disease History Family Disease History: [place]: Brother (77 years old, has prostate cancer , s/p "seeds") Review of Systems Unable to obtain ROS, reason: pt intubated Nephrology Consult - Height Height: 5 ft 6 in - Weight Weight: 161 lb 3.2 oz - BMI Body Mass Index (BMI): 26.0 - Lab Results CBC,BMP: CBC, BMP 11/09/16 05:15 11/09/16 05:15 Anion Gap: Anion Gap Anion Gap 12 (8-16) 11/09/16 05:15 - Imaging Chest X-ray: Report Reviewed Cat Scan: Report Reviewed - Physical Examination Vital Signs: Vital Signs Temperature 99.0 F 11/09/16 14:00 Pulse Rate 72 11/09/16 14:00 Respiratory Rate 16 11/09/16 14:00 Blood Pressure 74/55 11/09/16 14:00 O2 Sat by Pulse Oximetry (%) 98 11/09/16 08:50 Constitutional: Yes: Other (intubated) Neck: Yes: Supple (no JVD) Cardiovascular: Yes: Regular Rate and Rhythm, S1, S2. No: Murmur, Rub Respiratory: Yes: Regular, Mechanically Ventilated. No: Rales, Rhonchi, Wheezes Gastrointestinal: Yes: Normal Bowel Sounds, Soft Renal/: No: Anuria, Bladder Distention, CVA Tenderness - Left, CVA Tenderness - Right Edema: No Problem List - Problems (1) Acute respiratory failure with hypoxia Code(s): J96.01 - ACUTE RESPIRATORY FAILURE WITH HYPOXIA (2) BPH (benign prostatic hyperplasia) Code(s): N40.0 - BENIGN PROSTATIC HYPERPLASIA WITHOUT LOWER URINRY TRACT SYMP (3) Bacteremia due to Staphylococcus Code(s): R78.81 - BACTEREMIA (4) HTN (hypertension) Code(s): I10 - ESSENTIAL (PRIMARY) HYPERTENSION Qualifiers: Hypertension type: essential hypertension Qualified Code(s): I10 - Essential (primary) hypertension (5) NSTEMI (non-ST elevated myocardial infarction) Code(s): I21.4 - NON-ST ELEVATION (NSTEMI) MYOCARDIAL INFARCTION (6) Cardiac arrest Code(s): I46.9 - CARDIAC ARREST, CAUSE UNSPECIFIED Assessment/Plan 81 year old gentleman with PMhx of Hypertension, P-Afib not on A/C, BPH, 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 #Non-oliguric acute renal failure in setting of Sepsis/Bactermia with Cardiac Arrest x 3 Urine studies (FeNa and FeUrea) done earlier today show preserved tubular function but high suspsion for ATN given subsequent arrest Renal US showed asymetric kidneys which were seen on prior admission but this time no evidence of obstruction would trend strict I and O with Heart catheter would hold Lasix at this time as pt is s/p arrest and would want to maintain hemodynamic and electrolyte stability repeat BMP this evening with goal K > 4 and Mg > 2 given torsades no acute indication for GRAIN ELEVATOR MAN Maintain MAP > 65 #Cardiac Arrest/Torsades Cardiac follow up ICU Level care Respiratory support with Vent Strict monitoring of electrolytes #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
[2016-11-09] MEDS ORDERED: MIDAZOLAM HCL 5 MG/1 ML Single Dose Vial IVPUSH ONE (17:44)
--- NOTE | 2016-11-09 18:10 | CON.GU ---
Consult - History of Present Illness History of Present Illness: 81 yo male well known to me with h/o BPH and urinary retention. managed with chronic indwelling huizar that gets changed monthly in the office. Has had recurrent utis in the past as well as orchitis. Has adamantly refused TURP on multiple occassions in the past. Now admitted with sepsis, back pain, evidence of osteomyelitis of the spine. Urine and blood cultures positive - Past Medical History Cardio/Vascular: Yes: AFIB (Paroxysmal Afib episode in ED on arrival yesterday) , HTN Renal/: Yes: BPH, Neurogenic Bladder, Other (OBSTRUCTIVE UROPATHY HYDRONEPHROSIS) Infectious Disease: Yes: Other Additional Medical History: Does not go to a doctor. - Alcohol/Substance Use Hx Alcohol Use: Yes (wine or beer few times a week) History of Substance Use: reports: None - Smoking History Smoking history: Former smoker Have you smoked in the past 12 months: Yes Aproximately how many cigarettes per day: 2 If you are a former smoker, when did you quit?: jan 2016 - Social History Usual Living Arrangement: Alone ADL: Independent Occupation: retired; plays [email or web address] and [employer] Home Medications - Allergies Allergies/Adverse Reactions: Allergies Allergy/AdvReac Type Severity Reaction Status Date / Time No Known Allergies Allergy Verified 11/06/16 23:51 - Home Medications Home Medications: Ambulatory Orders NK [No Known Home Medication] 11/08/16 Family Disease History - Family Disease History Family Disease History: CA: Brother (77 years old, has prostate cancer , s/p "seeds") Physical Exam- Vital Signs: Vital Signs Temperature 99.0 F 11/09/16 14:00 Pulse Rate 99 H 11/09/16 17:30 Respiratory Rate 18 11/09/16 17:30 Blood Pressure 149/107 11/09/16 17:30 O2 Sat by Pulse Oximetry (%) 100 11/09/16 17:22 Renal/: Yes: Huizar Present (urine grossly clear) Labs: CBC, BMP 11/09/16 05:15 11/09/16 05:15 Problem List - Problems (1) Urinary retention due to benign prostatic hyperplasia Assessment/Plan: huizar draining clear urine, cont huizar drainage. abx as per ID. Elevated psa is secondary to the uti Code(s): N40.1 - BENIGN PROSTATIC HYPERPLASIA WITH LOWER URINARY TRACT SYMP R33.8 - OTHER RETENTION OF URINE
[2016-11-09 18:22] LABS: BASOPHIL 0.1 % (0-2.0); MCH 27.8 pg (25.7-33.7); MCHC 31.4 g/dl (32.0-35.9); MEAN CELL VOLUME 88.5 fl (80-96); NEUTROPHILS 85.5 % (42.8-82.8); PLATELET COUNT 194 K/MM3 (134-434); RDW 14.3 % (11.9-15.9); WHITE BLOOD COUNT 12.4 K/mm3 (4.0-10.0)
[2016-11-09 18:34] LABS: ALLENS TEST POSITIVE; ART PUNCT SITE RIGHT RADIAL; ARTERIAL BLD GAS O2 SATURATION 93.5 % (90-98.9); ARTERIAL BLOOD GAS BASE EXCESS -4.7 meq/l (-2-2); ARTERIAL BLOOD GAS pH 7.36 (7.35-7.45); PT. ON O2? YES
[2016-11-09 18:35] LABS: LPM/O2% 100%; MECH. VENT. YES; TYPE OF O2 MEC.VENT; VENT RATE 12; VT/PRESS 500
[2016-11-09 18:37] LABS: ARTERIAL BLOOD GAS HCO3 19.5 meq/L (22-26)
--- NOTE | 2016-11-09 18:37 | PN ---
Progress Note (short form) - Note Progress Note: Responded to Code 99 in ICU, Dr. Givens intubated patient with MAC4, 7.5ETT, with BSEB and +EtCO2. After the intubation and cardiac resuscitation of patient , I was asked to place a triple lumen catheter. Sterile precautions were used to place line in Right IJ, using ultrasound guidance. No complications with procedure. After line placement, OG tube placed with gastric contents noted when suction hooked up.
[2016-11-09 18:44] LABS: ALBUMIN 1.9 g/dl (3.4-5.0); ANION GAP 16 (8-16); BILIRUBIN,TOTAL 1.1 mg/dL (0.2-1.0); CALCIUM 8.6 mg/dL (8.5-10.1); CO2 21 mmol/L (21-32); CREATININE 3.4 mg/dL (0.7-1.3); GLUCOSE,RANDOM 177 mg/dL (74-106); MAGNESIUM 2.5 mg/dL (1.8-2.4); SGOT/AST 80 U/L (15-37); SGPT/ALT 95 U/L (12-78); TOT PROT 5.7 g/dl (6.4-8.2)
[2016-11-09] MEDS: HEPARIN - 25,000 UNIT in SODIUM CHLORIDE 495 ML IV SCH ×2 (18:51→20:58)
[2016-11-09] MEDS: PIPERACILLIN/TAZOB 2.25 GM 50 ML IVPB SCH (18:56)
[2016-11-09 18:58] LABS: ALK PHOS 60 U/L (45-117)
[2016-11-09 19:01] LABS: TROPONIN I 5.85 ng/ml (0.00-0.05)
[2016-11-09] MEDS ORDERED: HEPARIN INFUSION - 500 ML IVPB ONE (20:18)
[2016-11-09] MEDS: DOPAMINE 400 MG/D5W - 250 ML IVPB SCH (20:57)
[2016-11-09] MEDS: MIDAZOLAM 100 MG in SODIUM CHLORIDE 100 ML IVPB SCH (20:57)
[2016-11-09] MEDS: CARVEDILOL 6.25 MG TABLET (FP) PO SCH (21:27)
[2016-11-09] MEDS ORDERED: APIXABAN 2.5 MG TABLET PO SCH (22:00)
[2016-11-09] MEDS ORDERED: NOREPINEPHRINE BITARTRATE 4 MG/4 ML ML IV ONE (23:58)
[2016-11-10] MEDS: NOREPINEPHRINE BITARTRATE 8,000 MCG in DEXTROSE 5%-WATER - 492 ML IV SCH ×2 (00:12→12:24)
[2016-11-10] MEDS: morphine CARPU-JECT 2 MG/1 ML DISP.SYRIN IVPUSH PRN (00:14)
[2016-11-10] MEDS: NAFCILLIN - 2 GM in DEXTROSE 5%-WATER - 100 ML IVPB SCH ×6 (01:46→22:45)
[2016-11-10] MEDS: PIPERACILLIN/TAZOB 2.25 GM 50 ML IVPB SCH ×3 (01:48→17:17)
--- NOTE | 2016-11-10 06:07 | PN ---
Physical Exam: SUBJECTIVE: Patient seen and examined this AM. Intubated A/C, responsive, able to open eyes, but sleepy, unable to hold conversation. No acute events overnight. OBJECTIVE: Vital Signs Period Temp Pulse Resp BP Sys/Roche Pulse Ox Last 24 Hr 96.2 F-99.1 F 58-102 5-29 72-149/50-107 98-100 A/C Vent Settings: Patients TV 455 with RR 15; PEEP 5 GENERAL: Intubated, responsive, able to open eyes, but sleepy, unable to hold conversation HEENT: PERRLA, Moist mucous membranes, less JVD noted today. LUNGS: Intubated, no audible wheezes, anterior lung garcia clear, no use of accessory muscles HEART: Irregular rate and rhythm, normal S1 and S2 without murmur, rub or gallop. ABDOMEN: Soft, nontender, not distended, normoactive bowel sounds, no guarding, no rebound, no masses. MUSCULOSKELETAL: No bony deformities or tenderness. 2+ pulses in upper extremities and tibial, 1+ dorsalis pedis, no edema, wrist restraints present NEUROLOGICAL: Neuro exam was difficult to obtain bc of sedation. No facial droop. PERRLA. Laboratory Results - last 24 hr 11/08/16 11/08/16 11/09/16 22:00 22:00 05:15 WBC RBC Hgb Hct MCV MCH MCHC RDW Plt Count MPV Neutrophils % Lymphocytes % Monocytes % Eosinophils % Basophils % INR PTT (Actin FS) Puncture Site ABG pH ABG pCO2 at Pt Temp ABG pO2 at Pt Temp ABG HCO3 ABG O2 Sat (Measured) ABG O2 Content ABG Base Excess Mannie Test O2 Delivery Device Oxygen Flow Rate Vent Mode Vent Rate Mechanical Rate PEEP Pressure Support Vent Sodium Potassium Chloride Carbon Dioxide Anion Gap BUN Creatinine Creat Clearance w eGFR Random Glucose Lactic Acid Calcium Phosphorus Magnesium Total Bilirubin AST ALT Alkaline Phosphatase Creatine Kinase 231 D Creatine Kinase Index 2.9 CK-MB (CK-2) 6.704 H CK-MB (CK-2) Rel Index Cancelled Troponin I 9.36 H* Total Protein Albumin U Random Total Protein Ur Random Sodium Ur Random Potassium Ur Random Chloride Ur Random Urea Nitrogn Urine Creatinine Random Vancomycin 15.225 11/09/16 11/09/16 11/09/16 05:15 05:15 05:15 WBC 16.0 H RBC 3.76 L Hgb 10.6 L D Hct 32.8 L MCV 87.3 MCH 28.2 MCHC 32.3 RDW 14.2 Plt Count 195 MPV 9.1 D Neutrophils % 87.8 H Lymphocytes % 6.0 L D Monocytes % 6.0 Eosinophils % 0.0 D Basophils % 0.2 INR PTT (Actin FS) Puncture Site ABG pH ABG pCO2 at Pt Temp ABG pO2 at Pt Temp ABG HCO3 ABG O2 Sat (Measured) ABG O2 Content ABG Base Excess Mannie Test O2 Delivery Device Oxygen Flow Rate Vent Mode Vent Rate Mechanical Rate PEEP Pressure Support Vent Sodium 138 Potassium 4.4 Chloride 103 Carbon Dioxide 23 Anion Gap 12 BUN 44 H D Creatinine 2.6 H D Creat Clearance w eGFR 23.75 Random Glucose 122 H Lactic Acid Calcium 9.0 Phosphorus Magnesium 2.5 H Total Bilirubin 0.9 AST 82 H ALT 86 H D Alkaline Phosphatase 68 Creatine Kinase Creatine Kinase Index CK-MB (CK-2) CK-MB (CK-2) Rel Index Troponin I 8.80 H* Total Protein 6.6 Albumin 2.4 L U Random Total Protein Ur Random Sodium Ur Random Potassium Ur Random Chloride Ur Random Urea Nitrogn Urine Creatinine Random Vancomycin 11/09/16 11/09/16 11/09/16 05:15 05:15 11:00 WBC RBC Hgb Hct MCV MCH MCHC RDW Plt Count MPV Neutrophils % Lymphocytes % Monocytes % Eosinophils % Basophils % INR PTT (Actin FS) 63.4 H Puncture Site ABG pH ABG pCO2 at Pt Temp ABG pO2 at Pt Temp ABG HCO3 ABG O2 Sat (Measured) ABG O2 Content ABG Base Excess Mannie Test O2 Delivery Device Oxygen Flow Rate Vent Mode Vent Rate Mechanical Rate PEEP Pressure Support Vent Sodium Potassium Chloride Carbon Dioxide Anion Gap BUN Creatinine Creat Clearance w eGFR Random Glucose Lactic Acid 2.1 H* Calcium Phosphorus Magnesium Total Bilirubin AST ALT Alkaline Phosphatase Creatine Kinase Creatine Kinase Index CK-MB (CK-2) CK-MB (CK-2) Rel Index Troponin I Total Protein Albumin U Random Total Protein Ur Random Sodium Ur Random Potassium Ur Random Chloride Ur Random Urea Nitrogn Urine Creatinine 259.0 Random Vancomycin 11/09/16 11/09/16 11/09/16 11:00 14:30 14:30 WBC RBC Hgb Hct MCV MCH MCHC RDW Plt Count MPV Neutrophils % Lymphocytes % Monocytes % Eosinophils % Basophils % INR 1.66 H PTT (Actin FS) 35.8 H D Puncture Site ABG pH ABG pCO2 at Pt Temp ABG pO2 at Pt Temp ABG HCO3 ABG O2 Sat (Measured) ABG O2 Content ABG Base Excess Mannie Test O2 Delivery Device Oxygen Flow Rate Vent Mode Vent Rate Mechanical Rate PEEP Pressure Support Vent Sodium Potassium Chloride Carbon Dioxide Anion Gap BUN Creatinine Creat Clearance w eGFR Random Glucose Lactic Acid Calcium Phosphorus Magnesium Total Bilirubin AST ALT Alkaline Phosphatase Creatine Kinase Creatine Kinase Index CK-MB (CK-2) CK-MB (CK-2) Rel Index Troponin I Total Protein Albumin U Random Total Protein 168 H Ur Random Sodium 11 Ur Random Potassium 45.3 Ur Random Chloride 21 Ur Random Urea Nitrogn 293 Urine Creatinine 259.0 Random Vancomycin 11/09/16 11/09/16 11/09/16 18:00 18:00 18:00 WBC 12.4 H RBC 3.66 L Hgb 10.2 L Hct 32.4 L MCV 88.5 MCH 27.8 MCHC 31.4 L RDW 14.3 Plt Count 194 MPV 9.0 Neutrophils % 85.5 H Lymphocytes % 8.2 D Monocytes % 6.2 Eosinophils % 0.0 Basophils % 0.1 INR PTT (Actin FS) Puncture Site ABG pH ABG pCO2 at Pt Temp ABG pO2 at Pt Temp ABG HCO3 ABG O2 Sat (Measured) ABG O2 Content ABG Base Excess Mannie Test O2 Delivery Device Oxygen Flow Rate Vent Mode Vent Rate Mechanical Rate PEEP Pressure Support Vent Sodium 139 Potassium 4.2 Chloride 102 Carbon Dioxide 21 Anion Gap 16 BUN 60 H D Creatinine 3.4 H D Creat Clearance w eGFR 17.43 Random Glucose 177 H D Lactic Acid 5.0 H* Calcium 8.6 Phosphorus Magnesium 2.5 H Total Bilirubin 1.1 H D AST 80 H ALT 95 H Alkaline Phosphatase 60 Creatine Kinase 209 Creatine Kinase Index 5.1 H CK-MB (CK-2) 10.687 H CK-MB (CK-2) Rel Index Troponin I 5.85 H* D Total Protein 5.7 L Albumin 1.9 L D U Random Total Protein Ur Random Sodium Ur Random Potassium Ur Random Chloride Ur Random Urea Nitrogn Urine Creatinine Random Vancomycin 11/09/16 11/09/16 11/09/16 18:00 18:00 18:20 WBC RBC Hgb Hct MCV MCH MCHC RDW Plt Count MPV Neutrophils % Lymphocytes % Monocytes % Eosinophils % Basophils % INR PTT (Actin FS) Puncture Site Right radial ABG pH 7.36 ABG pCO2 at Pt Temp 35.3 ABG pO2 at Pt Temp 76.0 ABG HCO3 19.5 L ABG O2 Sat (Measured) 93.5 ABG O2 Content 14.9 L ABG Base Excess -4.7 L Mannie Test Positive O2 Delivery Device Mec.vent Oxygen Flow Rate 100% Vent Mode A/c Vent Rate 12 Mechanical Rate Yes PEEP 5.0 Pressure Support Vent 500 Sodium Potassium Chloride Carbon Dioxide Anion Gap BUN Creatinine Creat Clearance w eGFR Random Glucose Lactic Acid Calcium Phosphorus 7.1 H D Magnesium Total Bilirubin AST ALT Alkaline Phosphatase Creatine Kinase Creatine Kinase Index CK-MB (CK-2) CK-MB (CK-2) Rel Index Cancelled Troponin I Total Protein Albumin U Random Total Protein Ur Random Sodium Ur Random Potassium Ur Random Chloride Ur Random Urea Nitrogn Urine Creatinine Random Vancomycin 11/09/16 22:50 WBC RBC Hgb Hct MCV MCH MCHC RDW Plt Count MPV Neutrophils % Lymphocytes % Monocytes % Eosinophils % Basophils % INR PTT (Actin FS) 49.8 H D Puncture Site ABG pH ABG pCO2 at Pt Temp ABG pO2 at Pt Temp ABG HCO3 ABG O2 Sat (Measured) ABG O2 Content ABG Base Excess Mannie Test O2 Delivery Device Oxygen Flow Rate Vent Mode Vent Rate Mechanical Rate PEEP Pressure Support Vent Sodium Potassium Chloride Carbon Dioxide Anion Gap BUN Creatinine Creat Clearance w eGFR Random Glucose Lactic Acid Calcium Phosphorus Magnesium Total Bilirubin AST ALT Alkaline Phosphatase Creatine Kinase Creatine Kinase Index CK-MB (CK-2) CK-MB (CK-2) Rel Index Troponin I Total Protein Albumin U Random Total Protein Ur Random Sodium Ur Random Potassium Ur Random Chloride Ur Random Urea Nitrogn Urine Creatinine Random Vancomycin Active Medications Generic Name Dose Route Start Last Admin Trade Name Freq PRN Reason Stop Dose Admin Acetaminophen 650 mg 11/07/16 08:16 11/09/16 13:57 Tylenol - PO 650 mg Q4H PRN Administration FEVER OR PAIN Carvedilol 6.25 mg 11/09/16 22:00 11/09/16 21:27 Coreg - PO Not Given BID MARILEE Clopidogrel Bisulfate 75 mg 11/08/16 11:00 11/09/16 09:27 Plavix - PO 75 mg DAILY MARILEE Administration Furosemide 40 mg 11/09/16 10:00 Lasix Injection - IVPUSH DAILY MARILEE Heparin Sodium (Porcine) 1,000 unit 11/09/16 13:43 11/10/16 00:17 Heparin - IVPUSH 1,000 unit PRN PRN Administration Heparin Heparin Sodium (Porcine) 5,000 unit 11/09/16 13:43 Heparin - IVPUSH PRN PRN Heparin Nafcillin Sodium 2 gm/ 100 mls @ 100 mls/hr 11/09/16 10:00 11/10/16 01:46 Dextrose IVPB 100 mls/hr Q4H-IV MARILEE Administration Protocol Piperacillin Sod/Tazobactam Sod 50 mls @ 100 mls/hr 11/09/16 18:00 11/10/16 01: 48 Zosyn 2.25gm Ivpb (Pre-Docked) IVPB 100 mls/hr Q8H-IV MARILEE Administration Protocol Heparin Sodium (Porcine) 25, 500 mls @ 20 mls/hr 11/09/16 14:30 11/10/16 00:17 000 unit/ Sodium Chloride IV 1,100 unit/hr TITR MARILEE Titration Protocol 1,000 UNIT/HR Midazolam HCl 100 mg/ Sodium 100 mls @ 1 mls/hr 11/09/16 17:00 11/10/16 00:21 Chloride IVPB 1 mg/hr TITR AMRILEE Titration Protocol 1 MG/HR Dopamine HCl/Dextrose 250 mls @ 13.71 mls/hr 11/09/16 19:16 11/10/16 01:52 Dopamine 400 Mg/D5w - IVPB 5 mcg/kg/min TITR MARILEE Titration Protocol 5 MCG/KG/MIN Norepinephrine Bitartrate 8, 500 mls @ 18.75 mls/hr 11/09/16 23:30 11/10/16 00: 12 000 mcg/ Dextrose IV 37.5 mls/hr TITR MARILEE Administration Protocol 5 MCG/MIN Magnesium Oxide 400 mg 11/10/16 10:00 Mag-Ox - PO DAILY MARILEE Morphine Sulfate 2 mg 11/07/16 08:16 11/10/16 00:14 Morphine Injection - IVPUSH 2 mg Q4H PRN Administration BACK PAIN IMAGING: CT Abdomen/Pelvis - Soft tissue swelling + Erosive changes of L3-L4 suspicious for osteomyelitis/discitis CT Head noncon - Negative for acute pathology, 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 He was found in severe sepsis with tachycardia, leukocytosis (13.9), positive blood cultures, and high lactic acid. After the patient was transferred from the ER, he had three episodes of cardiac arrest with ACLS performance and ROSC, and is currently in the ICU for close monitoring. # Post Cardiac Arrest w/ Vfib and Torsades - Pt has had total of 3 cardiac arrests, with ROSC. Likely due to septic shock - IJ Central line placed, started on Dopamine 13.7 (5mcg/kg/min) + Levophed 37.5 (5mcg/min) + Versed 1mg/hr - Latest EKG continues to show prolonged QTc again 550, on Magnesium 400mg BID - F/u serial EKG, F/u Mg # Severe Sepsis w/ Bacteremia +MSSA - Caused by either UTI (Ucx +staph aureus) vs endocarditis vs idiopathic - Blood cultures growing MSSA - now started on Nafcillin 2g Q4IV + Zosyn 2.25 Q8 IV - Rising leukocytosis, lactic acid resolved - Pts Urologist (Dr. Flores) to change huizar tmrw # Osteomyelitis vs Discitis - Likely caused by seeding of bacteremia to spine - MRI of L + C Spine on hold due to elevated GFR (22.8 cc/min) - No surgical intervention as per Neurosurg - Morphine 2mg IVPush Q4PRN + Tylenol 650mg Q4 for pain - Neuro checks Q4H # NSTEMI - Troponins increasing without ST changes, due to NSTEMI + post-ACLS - Placed on plavix + heparin drip, unable to be cathed due to bacteremia, will need eventually - F/u serial EKGs # GUZMAN - Pt BUN and Cr rising 74/3.7, likely from hypoperfusion due to sepsis, low UOP - Since MAP now >100s, will continue lasix 40mg PO QD to increase UOP - Avoid nephrotoxic medications, d/c'd lisinopril - FeUrea 6.7% also correlates with prerenal, lab called to spin urine for casts for possible ATN - Renal US shows no obstruction # Systolic CHF - EF 24% - Echo shows severe wall motion abnormalities and hypokinesis, EF 24% - Pts MAP was low yesterday, started on Levophed started on dopamine 13.7 (5mcg/ kg/min) + Levophed 37.5 (5mcg/min) - Since MAP has returned to >100s, will continue lasix 40mg QD - D/c'd carvedilol - Assess volume status daily - Strict Is and Os # Paroxysmal Afib - currently in Afib - Pt on heparin drip - Continuous rn cardiac rehab # BPH with obstructive uropathy - Pt has indwelling huizar catheter for enlarged prostate bc pt refused TURP in past - Pt has elevated PSA known to urologist # Hx of femoral DVT - BLLE dopplers were negative # FEN - Fluids: None - Electrolytes: No abnormalities, will monitor - Nutrition: NPO # Prophylaxis - DVT: Heparin drip - GI: IV Protonix 40mg QD - Deconditioning: PT ordered, but will wait till pt recovers from critical condition # Code Status - Family spoke to ICU Medicine residents two times, informed about arrests, decision is for pt to remain Full Code Dr. Marly Del Real PGY-1 Internal Medicine Visit type - Emergency Visit Emergency Visit: No - New Patient This patient is new to me today: No - Critical Care Critical Care patient: Yes Total Critical Care Time (in minutes): 40 Critical Care Statement: The care of this patient involved high complexity decision making to prevent further life threatening deterioration of the patient 's condition and/or to evalute & treat vital organ system(s) failure or risk of failure. - Discharge Referral Referred to [facility] Med P.C.: No
[2016-11-10] MEDS ORDERED: PT OWN MED DRAWER 7, Y5N ONE ×4 (06:12→23:57)
[2016-11-10 06:24] LABS: MCH 27.9 pg (25.7-33.7); MEAN CELL VOLUME 87.1 fl (80-96); PLATELET COUNT 262 K/MM3 (134-434); RDW 14.1 % (11.9-15.9); WHITE BLOOD COUNT 19.5 K/mm3 (4.0-10.0)
--- NOTE | 2016-11-10 06:54 | PN ---
Progress Note, Physician Chief Complaint: ID Nafcillin & Pip Tazobactam Since yesterday now intubated Code 99 called during the day - Current Medication List Current Medications: Active Medications Acetaminophen (Tylenol -) 650 mg PO Q4H PRN PRN Reason: FEVER OR PAIN Last Admin: 11/09/16 13:57 Dose: 650 mg Carvedilol (Coreg -) 6.25 mg PO BID MARILEE Last Admin: 11/09/16 21:27 Dose: Not Given Clopidogrel Bisulfate (Plavix -) 75 mg PO DAILY MARILEE Last Admin: 11/09/16 09:27 Dose: 75 mg Furosemide (Lasix Injection -) 40 mg IVPUSH DAILY MARILEE Heparin Sodium (Porcine) (Heparin -) 1,000 unit IVPUSH PRN PRN PRN Reason: Heparin Last Admin: 11/10/16 00:17 Dose: 1,000 unit Heparin Sodium (Porcine) (Heparin -) 5,000 unit IVPUSH PRN PRN PRN Reason: Heparin Nafcillin Sodium 2 gm/ (Dextrose) 100 mls @ 100 mls/hr IVPB Q4H-IV MARILEE PRN Reason: Protocol Last Admin: 11/10/16 06:13 Dose: 100 mls/hr Piperacillin Sod/Tazobactam Sod (Zosyn 2.25gm Ivpb (Pre-Docked)) 50 mls @ 100 mls/hr IVPB Q8H-IV MARILEE PRN Reason: Protocol Last Admin: 11/10/16 01:48 Dose: 100 mls/hr Heparin Sodium (Porcine) 25, (000 unit/ Sodium Chloride) 500 mls @ 20 mls/hr IV TITR MARILEE; 1,000 UNIT/HR PRN Reason: Protocol Last Titration: 11/10/16 00:17 Dose: 1,100 unit/hr Midazolam HCl 100 mg/ Sodium (Chloride) 100 mls @ 1 mls/hr IVPB TITR MARILEE; 1 MG/ HR PRN Reason: Protocol Last Titration: 11/10/16 00:21 Dose: 1 mg/hr Dopamine HCl/Dextrose (Dopamine 400 Mg/D5w -) 250 mls @ 13.71 mls/hr IVPB TITR MARILEE; 5 MCG/KG/MIN PRN Reason: Protocol Last Titration: 11/10/16 01:52 Dose: 5 mcg/kg/min Norepinephrine Bitartrate 8, (000 mcg/ Dextrose) 500 mls @ 18.75 mls/hr IV TITR MARILEE; 5 MCG/MIN PRN Reason: Protocol Last Admin: 11/10/16 00:12 Dose: 37.5 mls/hr Magnesium Oxide (Mag-Ox -) 400 mg PO DAILY MARILEE Morphine Sulfate (Morphine Injection -) 2 mg IVPUSH Q4H PRN PRN Reason: BACK PAIN Last Admin: 11/10/16 00:14 Dose: 2 mg - Objective Vital Signs: Vital Signs Temperature 96.2 F L 11/10/16 02:00 Pulse Rate 69 11/10/16 04:00 Respiratory Rate 22 11/10/16 05:15 Blood Pressure 121/86 11/10/16 04:00 O2 Sat by Pulse Oximetry (%) 100 11/09/16 21:00 Constitutional: Yes: Other (Intubated) Cardiovascular: Yes: S1, S2 Respiratory: Yes: WNL, Regular, CTA Bilaterally, Rhonchi Gastrointestinal: Yes: WNL, Normal Bowel Sounds, Soft. No: Tenderness Extremities: No: Cold, Cool, Cyanosis Edema: No Labs: CBC, BMP 11/10/16 05:15 INR, PTT INR 1.66 (0.82-1.09) H 11/09/16 14:30 Problem List - Problems (1) Osteomyelitis Code(s): M86.9 - OSTEOMYELITIS, UNSPECIFIED Qualifiers: Osteomyelitis type: unspecified type Osteomyelitis location: other site Qualified Code(s): M86.9 - Osteomyelitis, unspecified (2) Bacteremia due to Staphylococcus Code(s): R78.81 - BACTEREMIA (3) Discitis Code(s): M46.40 - DISCITIS, UNSPECIFIED, SITE UNSPECIFIED Qualifiers: Spinal region: lumbar Qualified Code(s): M46.46 - Discitis, unspecified, lumbar region (4) Cardiac arrest due to other underlying condition Code(s): I46.8 - CARDIAC ARREST DUE TO OTHER UNDERLYING CONDITION Assessment/Plan Microbiology 11/07/16 07:20 Blood - Peripheral Venous Blood Culture - Final Staphylococcus Aureus 11/07/16 07:20 Blood - Peripheral Venous Blood Culture - Final Staphylococcus Aureus 11/08/16 08:20 Blood - Peripheral Venous Blood Culture - Preliminary Staphylococcus Latex Coag Pos 11/08/16 08:16 Blood - Peripheral Venous Blood Culture - Preliminary Pending Organism 11/07/16 01:08 Urine - Urine Heart Urine Culture - Preliminary Citrobacter Freundii Complex Staphylococcus Latex Coag Pos Laboratory Tests 11/09/16 11/10/16 11/10/16 18:00 05:15 05:15 WBC 19.5 H D Hgb 11.1 L Hct 34.6 L Plt Count 262 D BUN 60 H D Pending Creatinine 3.4 H D Pending Troponin I 5.85 H* D Assessment Now post code 99 ( again) Multiorgan failure Heart failure MSSA bacteremia endocarditis remains a possibility( severe valvular heart disease) Acute renal failure Citrobacter urinary tract infection ( MSSA in culture as well) NSTSMI Plan Prognosis poor Continue current antibiotics Repeat the blood cultures to see if bacteremia clearing IF persistant could substitiute Ertepenem for some possible synergy MSSA in blood. ( See reference Antimicrobial Agents and Chemotherapy MSSA synergy with Ertepenem Feb 2016) Critical care time spent YES 40 minutes Susan PETERSON
[2016-11-10 07:13] LABS: ANION GAP 15 (8-16); CALCIUM 8.5 mg/dL (8.5-10.1); CO2 24 mmol/L (21-32); CREATININE 3.5 mg/dL (0.7-1.3); GLUCOSE,RANDOM 161 mg/dL (74-106)
[2016-11-10] MEDS: CARVEDILOL 6.25 MG TABLET (FP) PO SCH (09:33)
[2016-11-10] MEDS: MAGNESIUM OXIDE 400 MG TABLET (FP) PO SCH (09:46)
[2016-11-10] MEDS: CLOPIDOGREL BISULFATE 75 MG TABLET (FP) PO SCH (09:46)
--- NOTE | 2016-11-10 10:02 | PN ---
Progress Note, Physician History of Present Illness: Intubated after bradycardic and asystolic arrest. Currently maintained on double pressors. - Current Medication List Current Medications: Active Medications Acetaminophen (Tylenol -) 650 mg PO Q4H PRN PRN Reason: FEVER OR PAIN Last Admin: 11/09/16 13:57 Dose: 650 mg Clopidogrel Bisulfate (Plavix -) 75 mg PO DAILY MARILEE Last Admin: 11/10/16 09:46 Dose: 75 mg Furosemide (Lasix Injection -) 40 mg IVPUSH DAILY MARILEE Last Admin: 11/10/16 09:34 Dose: Not Given Heparin Sodium (Porcine) (Heparin -) 1,000 unit IVPUSH PRN PRN PRN Reason: Heparin Last Admin: 11/10/16 00:17 Dose: 1,000 unit Heparin Sodium (Porcine) (Heparin -) 5,000 unit IVPUSH PRN PRN PRN Reason: Heparin Nafcillin Sodium 2 gm/ (Dextrose) 100 mls @ 100 mls/hr IVPB Q4H-IV MARILEE PRN Reason: Protocol Last Admin: 11/10/16 09:46 Dose: 100 mls/hr Piperacillin Sod/Tazobactam Sod (Zosyn 2.25gm Ivpb (Pre-Docked)) 50 mls @ 100 mls/hr IVPB Q8H-IV MARILEE PRN Reason: Protocol Last Admin: 11/10/16 09:46 Dose: 100 mls/hr Heparin Sodium (Porcine) 25, (000 unit/ Sodium Chloride) 500 mls @ 20 mls/hr IV TITR MARILEE; 1,000 UNIT/HR PRN Reason: Protocol Last Titration: 11/10/16 08:35 Dose: 1,100 unit/hr Midazolam HCl 100 mg/ Sodium (Chloride) 100 mls @ 1 mls/hr IVPB TITR MARILEE; 1 MG/ HR PRN Reason: Protocol Last Titration: 11/10/16 07:00 Dose: 0.5 mg/hr Dopamine HCl/Dextrose (Dopamine 400 Mg/D5w -) 250 mls @ 13.71 mls/hr IVPB TITR MARILEE; 5 MCG/KG/MIN PRN Reason: Protocol Last Titration: 11/10/16 01:52 Dose: 5 mcg/kg/min Norepinephrine Bitartrate 8, (000 mcg/ Dextrose) 500 mls @ 18.75 mls/hr IV TITR MARILEE; 5 MCG/MIN PRN Reason: Protocol Last Admin: 11/10/16 00:12 Dose: 37.5 mls/hr Magnesium Oxide (Mag-Ox -) 400 mg PO DAILY MARILEE Last Admin: 11/10/16 09:46 Dose: 400 mg Morphine Sulfate (Morphine Injection -) 2 mg IVPUSH Q4H PRN PRN Reason: BACK PAIN Last Admin: 11/10/16 00:14 Dose: 2 mg - Objective Vital Signs: Vital Signs Temperature 96.2 F L 11/10/16 02:00 Pulse Rate 82 11/10/16 06:00 Respiratory Rate 15 11/10/16 07:12 Blood Pressure 112/80 11/10/16 06:00 O2 Sat by Pulse Oximetry (%) 100 11/09/16 21:00 Cardiovascular: Yes: Regular Rate and Rhythm, Murmur (2/6 SM) Respiratory: Yes: Intubated, Mechanically Ventilated, Rhonchi Gastrointestinal: Yes: Soft, Hypoactive Bowel Sounds Edema: No Labs: CBC, BMP 11/10/16 05:15 11/10/16 05:15 INR, PTT INR 1.66 (0.82-1.09) H 11/09/16 14:30 - ....Imaging Chest X-ray: Report Reviewed (NAD) EKG: Report Reviewed (Tele: PAF->SR) Problem List - Problems (1) Bacteremia due to Staphylococcus Code(s): R78.81 - BACTEREMIA (2) Discitis Code(s): M46.40 - DISCITIS, UNSPECIFIED, SITE UNSPECIFIED Qualifiers: Spinal region: lumbar Qualified Code(s): M46.46 - Discitis, unspecified, lumbar region (3) HLD (hyperlipidemia) Code(s): E78.5 - HYPERLIPIDEMIA, UNSPECIFIED Qualifiers: Hyperlipidemia type: pure hypercholesterolemia Qualified Code(s): E78.00 - Pure hypercholesterolemia, unspecified; E78.0 - Pure hypercholesterolemia (4) HTN (hypertension) Code(s): I10 - ESSENTIAL (PRIMARY) HYPERTENSION Qualifiers: Hypertension type: essential hypertension Qualified Code(s): I10 - Essential (primary) hypertension (5) Osteomyelitis Code(s): M86.9 - OSTEOMYELITIS, UNSPECIFIED Qualifiers: Osteomyelitis type: unspecified type Osteomyelitis location: other site Qualified Code(s): M86.9 - Osteomyelitis, unspecified (6) Acute renal failure Code(s): N17.9 - ACUTE KIDNEY FAILURE, UNSPECIFIED Qualifiers: Acute renal failure type: unspecified Qualified Code(s): N17.9 - Acute kidney failure, unspecified (7) Leukocytosis Code(s): D72.829 - ELEVATED WHITE BLOOD CELL COUNT, UNSPECIFIED (8) Paroxysmal atrial fibrillation Code(s): I48.0 - PAROXYSMAL ATRIAL FIBRILLATION (9) 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 transplanted heart: [place] heart Associated angina: without angina Qualified Code(s): I25.10 - Atherosclerotic heart disease of [place] coronary artery without angina pectoris (11) NSTEMI (non-ST elevated myocardial infarction) Code(s): I21.4 - NON-ST ELEVATION (NSTEMI) MYOCARDIAL INFARCTION (12) Severe mitral regurgitation Code(s): I34.0 - NONRHEUMATIC MITRAL (VALVE) INSUFFICIENCY (13) Acute respiratory failure with hypoxia Code(s): J96.01 - ACUTE RESPIRATORY FAILURE WITH HYPOXIA (14) Acute on chronic systolic ACC/AHA stage C congestive heart failure Code(s): I50.23 - ACUTE ON CHRONIC SYSTOLIC (CONGESTIVE) HEART FAILURE (15) Cardiac arrest Code(s): I46.9 - CARDIAC ARREST, CAUSE UNSPECIFIED (16) Septic shock due to Gram positive bacteria Code(s): A41.89 - OTHER SPECIFIED SEPSIS R65.21 - SEVERE SEPSIS WITH SEPTIC SHOCK Assessment/Plan 11/08/2016 Transthoracic echocardiography: Dilated LV with severe LV dysfunction with anterior AK, apex dyskinetic, IVS below midventricular level thin and dyskinetic, inferolarteral severe HK, posterior AK, normal RV size and fxn, severe MR, mod TR, mild to mod AR 1. Post cardiac arrest torsades de pointes with underlying prolonged QT post Levaquin for E. coli/enterococcal UTI and then bradycardic/asystolic arrest 2. Acute hypoxic respiratory failure 3. Acute on chronic systolic failure with underlying severe MR 4. CAD, NSTEMI 5. Paroxysmal AF currently in sinus rhythm 6. HTN/HCVD 7. Disciitis and possible osteomyelitis of L3-4 with MSSA bacteremia/septic shock 8. GUZMAN due to hemodynamic alterations 9. Shock liver 10. History of BPH and obstructive uropathy 11. Previous DVT post Eliquis PLAN: 1. Replete Mg to maintain Mg>2.5 with monitor for QT prolongation, avoid QT prolonging agents, K>4.5 2. Trend LFTs, wean pressors to maintain MAP>65 3. IV diuresis to keep even with monitor renal fxn and electrolytes 4. Abx per C&S, MRI spine when able, f/u surveillance cx 5. Continue Plavix 75 qd and heparin gtt. Lisinopril 10 qd, carvedilol and Aldactone 25 qd held pending hemodynamic and renal fxn stabilization 6. GI prophylaxis, further cardiac work up is to be followed which may include cardiac catheterization/coronary angiography at some point once sepsis clears
--- NOTE | 2016-11-10 11:10 | PN ---
Progress Note (short form) - Note Progress Note: Renal follow up for GUZMAN Pt seen and examined in the ICU intubated on 60% FiO12 On Dopamine and Levophed Urine output is poor MAP have been at goal Vital Signs Temperature 96.2 F L 11/10/16 02:00 Pulse Rate 82 11/10/16 06:00 Respiratory Rate 14 11/10/16 09:25 Blood Pressure 112/80 11/10/16 06:00 O2 Sat by Pulse Oximetry (%) 100 11/09/16 21:00 Intake & Output 11/07/16 11/08/16 11/09/16 11/10/16 23:59 23:59 23:59 23:59 Intake Total 1007 950 820 956 Output Total 375 900 201 200 Balance 632 50 619 756 Weight 162 lb 161 lb 3.2 oz 161 lb 3.2 oz 161 lb Gen: Intubated via ET Tube CVS: RRR, No M/R Lungs: CTA, no rales, wheeze Abd: Obese, NT/ND Ext: Trace LE edema CBC, BMP 11/10/16 05:15 11/10/16 05:15 Current Medications Acetaminophen (Tylenol -) 650 mg PO Q4H PRN PRN Reason: FEVER OR PAIN Last Admin: 11/09/16 13:57 Dose: 650 mg Clopidogrel Bisulfate (Plavix -) 75 mg PO DAILY [facility] Last Admin: 11/10/16 09:46 Dose: 75 mg Furosemide (Lasix Injection -) 40 mg IVPUSH DAILY [facility] Last Admin: 11/10/16 09:34 Dose: Not Given Heparin Sodium (Porcine) (Heparin -) 1,000 unit IVPUSH PRN PRN PRN Reason: Heparin Last Admin: 11/10/16 00:17 Dose: 1,000 unit Heparin Sodium (Porcine) (Heparin -) 5,000 unit IVPUSH PRN PRN PRN Reason: Heparin Nafcillin Sodium 2 gm/ (Dextrose) 100 mls @ 100 mls/hr IVPB Q4H-IV [facility] PRN Reason: Protocol Last Admin: 11/10/16 09:46 Dose: 100 mls/hr Piperacillin Sod/Tazobactam Sod (Zosyn 2.25gm Ivpb (Pre-Docked)) 50 mls @ 100 mls/hr IVPB Q8H-IV [facility] PRN Reason: Protocol Last Admin: 11/10/16 10:45 Dose: 100 mls/hr Heparin Sodium (Porcine) 25, (000 unit/ Sodium Chloride) 500 mls @ 20 mls/hr IV TITR [facility]; 1,000 UNIT/HR PRN Reason: Protocol Last Titration: 11/10/16 08:35 Dose: 1,100 unit/hr Midazolam HCl 100 mg/ Sodium (Chloride) 100 mls @ 1 mls/hr IVPB TITR [facility]; 1 MG/ HR PRN Reason: Protocol Last Titration: 11/10/16 07:00 Dose: 0.5 mg/hr Dopamine HCl/Dextrose (Dopamine 400 Mg/D5w -) 250 mls @ 13.71 mls/hr IVPB TITR [facility]; 5 MCG/KG/MIN PRN Reason: Protocol Last Titration: 11/10/16 01:52 Dose: 5 mcg/kg/min Norepinephrine Bitartrate 8, (000 mcg/ Dextrose) 500 mls @ 18.75 mls/hr IV TITR [facility]E; 5 MCG/MIN PRN Reason: Protocol Last Admin: 11/10/16 00:12 Dose: 37.5 mls/hr Magnesium Oxide (Mag-Ox -) 400 mg PO DAILY [facility] Last Admin: 11/10/16 09:46 Dose: 400 mg Morphine Sulfate (Morphine Injection -) 2 mg IVPUSH Q4H PRN PRN Reason: BACK PAIN Last Admin: 11/10/16 00:14 Dose: 2 mg A/P 81 year old gentleman with PMhx of Hypertension, P-Afib not on A/C, BPH, 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 #oliguric acute renal failure in setting of Sepsis/Bactermia with Cardiac Arrest x 3 BUN/Cr continues to worsen, which is expected s/p cardiac arrest yesterday No acute indication for FRAUD REPRESENTATIVE at this time Keep MAP > 65 Trend urine output, pt is oliguric now Continue IV Lasix, will need to titrate up dose (i.e. 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 Continue Abx as per ID/Primary Trend Vanco levels Pt with guarded prognosis will follow Devan Luo DO Problem List - Problems (1) Acute respiratory failure with hypoxia Code(s): J96.01 - ACUTE RESPIRATORY FAILURE WITH HYPOXIA (2) BPH (benign prostatic hyperplasia) Code(s): N40.0 - BENIGN PROSTATIC HYPERPLASIA WITHOUT LOWER URINRY TRACT SYMP (3) Bacteremia due to Staphylococcus Code(s): R78.81 - BACTEREMIA (4) HTN (hypertension) Code(s): I10 - ESSENTIAL (PRIMARY) HYPERTENSION Qualifiers: Hypertension type: essential hypertension Qualified Code(s): I10 - Essential (primary) hypertension (5) NSTEMI (non-ST elevated myocardial infarction) Code(s): I21.4 - NON-ST ELEVATION (NSTEMI) MYOCARDIAL INFARCTION (6) Cardiac arrest Code(s): I46.9 - CARDIAC ARREST, CAUSE UNSPECIFIED
--- NOTE | 2016-11-10 11:12 | PN ---
Teaching Attending Note Name of Resident: Eliel Sierra ATTENDING PHYSICIAN STATEMENT I saw and evaluated the patient. I reviewed the resident's note and discussed the case with the resident. I agree with the resident's findings and plan as documented. SUBJECTIVE: Patient seen and examined in the ICU. Decompensated overnight. Edy -> Asystole -> CPR. Now intubated and sedated and on NE/Dopamine for hemodynamic support. AC Mode of vent, 60% FiO2. Noted worsening renal failure OBJECTIVE: Intake & Output 11/07/16 11/08/16 11/09/16 11/10/16 23:59 23:59 23:59 23:59 Intake Total 1007 950 820 956 Output Total 375 900 201 200 Balance 632 50 619 756 Weight 162 lb 161 lb 3.2 oz 161 lb 3.2 oz 161 lb Last Vital Signs Temp Pulse Resp BP Pulse Ox 96.2 F L 82 14 112/80 100 11/10/16 02:00 11/10/16 06:00 11/10/16 09:25 11/10/16 06:00 11/09/16 21:00 Active Medications Acetaminophen (Tylenol -) 650 mg PO Q4H PRN PRN Reason: FEVER OR PAIN Last Admin: 11/09/16 13:57 Dose: 650 mg Clopidogrel Bisulfate (Plavix -) 75 mg PO DAILY [facility] Last Admin: 11/10/16 09:46 Dose: 75 mg Furosemide (Lasix Injection -) 40 mg IVPUSH DAILY [facility] Last Admin: 11/10/16 09:34 Dose: Not Given Heparin Sodium (Porcine) (Heparin -) 1,000 unit IVPUSH PRN PRN PRN Reason: Heparin Last Admin: 11/10/16 00:17 Dose: 1,000 unit Heparin Sodium (Porcine) (Heparin -) 5,000 unit IVPUSH PRN PRN PRN Reason: Heparin Nafcillin Sodium 2 gm/ (Dextrose) 100 mls @ 100 mls/hr IVPB Q4H-IV [facility] PRN Reason: Protocol Last Admin: 11/10/16 09:46 Dose: 100 mls/hr Piperacillin Sod/Tazobactam Sod (Zosyn 2.25gm Ivpb (Pre-Docked)) 50 mls @ 100 mls/hr IVPB Q8H-IV [facility] PRN Reason: Protocol Last Admin: 11/10/16 10:45 Dose: 100 mls/hr Heparin Sodium (Porcine) 25, (000 unit/ Sodium Chloride) 500 mls @ 20 mls/hr IV TITR [facility]; 1,000 UNIT/HR PRN Reason: Protocol Last Titration: 11/10/16 08:35 Dose: 1,100 unit/hr Midazolam HCl 100 mg/ Sodium (Chloride) 100 mls @ 1 mls/hr IVPB TITR [facility]; 1 MG/ HR PRN Reason: Protocol Last Titration: 11/10/16 07:00 Dose: 0.5 mg/hr Dopamine HCl/Dextrose (Dopamine 400 Mg/D5w -) 250 mls @ 13.71 mls/hr IVPB TITR [facility]; 5 MCG/KG/MIN PRN Reason: Protocol Last Titration: 11/10/16 01:52 Dose: 5 mcg/kg/min Norepinephrine Bitartrate 8, (000 mcg/ Dextrose) 500 mls @ 18.75 mls/hr IV TITR [facility]; 5 MCG/MIN PRN Reason: Protocol Last Admin: 11/10/16 00:12 Dose: 37.5 mls/hr Magnesium Oxide (Mag-Ox -) 400 mg PO DAILY [facility] Last Admin: 11/10/16 09:46 Dose: 400 mg Morphine Sulfate (Morphine Injection -) 2 mg IVPUSH Q4H PRN PRN Reason: BACK PAIN Last Admin: 11/10/16 00:14 Dose: 2 mg Gen: Intubated and sedated Heart: RRR, +systolic murmur Lung: decreased breath sounds at the bases Abd: soft, nontender Ext: no edema, cool to touch Laboratory Results - last 24 hr 11/09/16 11/09/16 11/09/16 11:00 11:00 14:30 WBC RBC Hgb Hct MCV MCH MCHC RDW Plt Count MPV Neutrophils % Lymphocytes % Monocytes % Eosinophils % Basophils % INR 1.66 H PTT (Actin FS) Puncture Site ABG pH ABG pCO2 at Pt Temp ABG pO2 at Pt Temp ABG HCO3 ABG O2 Sat (Measured) ABG O2 Content ABG Base Excess Mannie Test O2 Delivery Device Oxygen Flow Rate Vent Mode Vent Rate Mechanical Rate PEEP Pressure Support Vent Sodium Potassium Chloride Carbon Dioxide Anion Gap BUN Creatinine Creat Clearance w eGFR Random Glucose Lactic Acid Calcium Phosphorus Magnesium Total Bilirubin Direct Bilirubin AST ALT Alkaline Phosphatase Creatine Kinase Creatine Kinase Index CK-MB (CK-2) CK-MB (CK-2) Rel Index Troponin I Total Protein Albumin U Random Total Protein 168 H Ur Random Sodium 11 Ur Random Potassium 45.3 Ur Random Chloride 21 Ur Random Urea Nitrogn 293 Urine Creatinine 259.0 259.0 11/09/16 11/09/16 11/09/16 14:30 18:00 18:00 WBC 12.4 H RBC 3.66 L Hgb 10.2 L Hct 32.4 L MCV 88.5 MCH 27.8 MCHC 31.4 L RDW 14.3 Plt Count 194 MPV 9.0 Neutrophils % 85.5 H Lymphocytes % 8.2 D Monocytes % 6.2 Eosinophils % 0.0 Basophils % 0.1 INR PTT (Actin FS) 35.8 H D Puncture Site ABG pH ABG pCO2 at Pt Temp ABG pO2 at Pt Temp ABG HCO3 ABG O2 Sat (Measured) ABG O2 Content ABG Base Excess Mannie Test O2 Delivery Device Oxygen Flow Rate Vent Mode Vent Rate Mechanical Rate PEEP Pressure Support Vent Sodium 139 Potassium 4.2 Chloride 102 Carbon Dioxide 21 Anion Gap 16 BUN 60 H D Creatinine 3.4 H D Creat Clearance w eGFR 17.43 Random Glucose 177 H D Lactic Acid Calcium 8.6 Phosphorus Magnesium 2.5 H Total Bilirubin 1.1 H D Direct Bilirubin AST 80 H ALT 95 H Alkaline Phosphatase 60 Creatine Kinase 209 Creatine Kinase Index 5.1 H CK-MB (CK-2) 10.687 H CK-MB (CK-2) Rel Index Troponin I 5.85 H* D Total Protein 5.7 L Albumin 1.9 L D U Random Total Protein Ur Random Sodium Ur Random Potassium Ur Random Chloride Ur Random Urea Nitrogn Urine Creatinine 11/09/16 11/09/16 11/09/16 18:00 18:00 18:00 WBC RBC Hgb Hct MCV MCH MCHC RDW Plt Count MPV Neutrophils % Lymphocytes % Monocytes % Eosinophils % Basophils % INR PTT (Actin FS) Puncture Site ABG pH ABG pCO2 at Pt Temp ABG pO2 at Pt Temp ABG HCO3 ABG O2 Sat (Measured) ABG O2 Content ABG Base Excess Mannie Test O2 Delivery Device Oxygen Flow Rate Vent Mode Vent Rate Mechanical Rate PEEP Pressure Support Vent Sodium Potassium Chloride Carbon Dioxide Anion Gap BUN Creatinine Creat Clearance w eGFR Random Glucose Lactic Acid 5.0 H* Calcium Phosphorus 7.1 H D Magnesium Total Bilirubin Direct Bilirubin AST ALT Alkaline Phosphatase Creatine Kinase Creatine Kinase Index CK-MB (CK-2) CK-MB (CK-2) Rel Index Cancelled Troponin I Total Protein Albumin U Random Total Protein Ur Random Sodium Ur Random Potassium Ur Random Chloride Ur Random Urea Nitrogn Urine Creatinine 11/09/16 11/09/16 11/10/16 18:20 22:50 05:15 WBC 19.5 H D RBC 3.97 L Hgb 11.1 L Hct 34.6 L MCV 87.1 MCH 27.9 MCHC 32.0 RDW 14.1 Plt Count 262 D MPV 9.0 Neutrophils % Lymphocytes % Monocytes % Eosinophils % Basophils % INR PTT (Actin FS) 49.8 H D Puncture Site Right radial ABG pH 7.36 ABG pCO2 at Pt Temp 35.3 ABG pO2 at Pt Temp 76.0 ABG HCO3 19.5 L ABG O2 Sat (Measured) 93.5 ABG O2 Content 14.9 L ABG Base Excess -4.7 L Mannie Test Positive O2 Delivery Device Mec.vent Oxygen Flow Rate 100% Vent Mode A/c Vent Rate 12 Mechanical Rate Yes PEEP 5.0 Pressure Support Vent 500 Sodium Potassium Chloride Carbon Dioxide Anion Gap BUN Creatinine Creat Clearance w eGFR Random Glucose Lactic Acid Calcium Phosphorus Magnesium Total Bilirubin Direct Bilirubin AST ALT Alkaline Phosphatase Creatine Kinase Creatine Kinase Index CK-MB (CK-2) CK-MB (CK-2) Rel Index Troponin I Total Protein Albumin U Random Total Protein Ur Random Sodium Ur Random Potassium Ur Random Chloride Ur Random Urea Nitrogn Urine Creatinine 11/10/16 11/10/16 11/10/16 05:15 05:15 08:00 WBC RBC Hgb Hct MCV MCH MCHC RDW Plt Count MPV Neutrophils % Lymphocytes % Monocytes % Eosinophils % Basophils % INR PTT (Actin FS) 51.4 H Puncture Site ABG pH ABG pCO2 at Pt Temp ABG pO2 at Pt Temp ABG HCO3 ABG O2 Sat (Measured) ABG O2 Content ABG Base Excess Mannie Test O2 Delivery Device Oxygen Flow Rate Vent Mode Vent Rate Mechanical Rate PEEP Pressure Support Vent Sodium 137 Potassium 4.0 Chloride 98 Carbon Dioxide 24 Anion Gap 15 BUN 72 H Creatinine 3.5 H Creat Clearance w eGFR Random Glucose 161 H Lactic Acid 1.8 Calcium 8.5 Phosphorus Magnesium Total Bilirubin Direct Bilirubin AST ALT Alkaline Phosphatase Creatine Kinase Creatine Kinase Index CK-MB (CK-2) CK-MB (CK-2) Rel Index Troponin I Total Protein Albumin U Random Total Protein Ur Random Sodium Ur Random Potassium Ur Random Chloride Ur Random Urea Nitrogn Urine Creatinine 11/10/16 08:42 WBC RBC Hgb Hct MCV MCH MCHC RDW Plt Count MPV Neutrophils % Lymphocytes % Monocytes % Eosinophils % Basophils % INR PTT (Actin FS) Puncture Site ABG pH ABG pCO2 at Pt Temp ABG pO2 at Pt Temp ABG HCO3 ABG O2 Sat (Measured) ABG O2 Content ABG Base Excess Mannie Test O2 Delivery Device Oxygen Flow Rate Vent Mode Vent Rate Mechanical Rate PEEP Pressure Support Vent Sodium Potassium Chloride Carbon Dioxide Anion Gap BUN Creatinine Creat Clearance w eGFR Random Glucose Lactic Acid Calcium Phosphorus Magnesium Total Bilirubin Cancelled Direct Bilirubin Cancelled AST Cancelled ALT Cancelled Alkaline Phosphatase Cancelled Creatine Kinase Creatine Kinase Index CK-MB (CK-2) CK-MB (CK-2) Rel Index Troponin I Total Protein Cancelled Albumin Cancelled U Random Total Protein Ur Random Sodium Ur Random Potassium Ur Random Chloride Ur Random Urea Nitrogn Urine Creatinine ASSESSMENT AND PLAN: s/p VFib Cardiopulmonary Arrest/Prolonged QT Acute NSTEMI/CAD/+Troponins Acute Respiratory Failure Acute on Chronic Systolic Heart Failure Severe Mitral Regurgitation Acute Kidney Injury UTI MSSA Bacteremia Osteomyelitis/Discitis Sepsis Lactic Acidosis - ASA, plavix - beta malvin, statin - afterload reduction as BP tolerates - keep K >4, Mg >2 - ABX per ID - Lasix - monitor urine output, creatinine - anticoagulation per cardiology - continue ICU monitoring Dr Sandhu critical care time spent in reviewing chart, evaluating patient and formulating plan 36 min
[2016-11-10 11:15] LABS: TROPONIN I 8.46 ng/ml (0.00-0.05)
[2016-11-10] MEDS ORDERED: NOREPINEPHRINE BITARTRATE 4 MG/4 ML ML IV ONE ×2 (12:19→23:55)
[2016-11-10 12:38] LABS: ALBUMIN 2.1 g/dl (3.4-5.0); ALK PHOS 74 U/L (45-117); BILIRUBIN,DIRECT 1.4 mg/dL (0.0-0.2); BILIRUBIN,TOTAL 2.2 mg/dL (0.2-1.0); SGOT/AST 137 U/L (15-37); SGPT/ALT 178 U/L (12-78); TOT PROT 6.4 g/dl (6.4-8.2)
[2016-11-10 15:04] LABS: ANION GAP 15 (8-16); CALCIUM 8.2 mg/dL (8.5-10.1); CO2 22 mmol/L (21-32); CREATININE 3.7 mg/dL (0.7-1.3); GLUCOSE,RANDOM 139 mg/dL (74-106)
--- NOTE | 2016-11-10 15:44 | PN ---
Teaching Attending Note Name of Resident: Marly Del Real ATTENDING PHYSICIAN STATEMENT I saw and evaluated the patient. I reviewed the resident's note and discussed the case with the resident. I agree with the resident's findings and plan as documented. SUBJECTIVE: no events over night OBJECTIVE: intubated and sedated at time of eval9:30 am CV: RRR, no murmurs appreciated, has JVD ( improved ) Lungs: clear lungs anteriorly Ext: no edema on LE Abd ; soft, NT, ND , NL BS DP 1+ and radial pulse 1+ b/l . Huizar in ASSESSMENT AND PLAN: 81 y/o man with h/o HTN, HLD, CVA, BPH with chronic indwelling foleyc atheter and h/o DVT who presented with back and neck pain . Hospitalization esd complicated by cardiac arrest x3 ( VF, Torsade [place], asystole ) . He was found to be bacteremic as well 1- S/P Cardiac arrest, VF, Torsades and asystole. Prolonged QTc . cardiogenic Vs septic shock repeat EKG with QTC of 511 -dc coreg due to hypotension - cont mag oxide - monitor electrolytes - might need temporary transvenous pacing if Torsade recurs or if QTC cont to worsen - cont vent support , might be able to extubate . - cont dopamine gtt and levophed. taper as tolerated to keep MAP > 65 2- NSTEMI: trop peaked at 15. Now climbing up again after cardiac arrest. EKG this am with new inversion in T wave in V,4,5,6 - dc coreg - cont plavix - need cardiac cath eventually, but bacteremic now - follow trop to peak again - heparin gtt 3- Acute systolic heart failure . - COnt to hold ACEI , due to hypotension - diuresis was d/w Dr. Luo, no urgency in acute diuresis , but eventually he will become volume overloaded withhis renal failure and all the dripps. diuresis is OK frm renal stand point as long as his MAP > 65 ( now on pressors ) 4-Severe sepsis with MSSA bacteremia : - D/W card , will need SWATHI as blood cx is not clearing - Cont Abx -cx repeated - hold off MRI of spine ,as GFR is < 30 to avoid risk of nephrogenic systemic fibrosis 5- Complicated UTI : MSSA and G- - ZOsyn - will ASk urology to change huizar 6-Oligouric GUZMAN : multifactorial, due to hypoperfusion form cardiac arrest , and hypotension can't r/o ATN. - d/w Dr. Luo, as above - might need HD this admission if no improvement 7-DVT PX , on heparin poor prognosis CCT 45 min
[2016-11-10 16:51] LABS: URINE APPEARANCE SLCLOUDY; URINE BILIRUBIN NEGATIVE (NEGATIVE); URINE BLOOD 1+ (NEGATIVE); URINE COLOR YELLOW; URINE GLUCOSE (UA) NEGATIVE (NEGATIVE); URINE KETONE NEGATIVE (NEGATIVE); URINE NITRITE NEGATIVE (NEGATIVE); URINE UROBILINOGEN NEGATIVE mg/dL (0.2-1.0)
[2016-11-10 17:03] LABS: URINE LEUK ESTERASE 2+ (NEGATIVE); URINE PROTEIN 1+ (NEGATIVE)
[2016-11-10] MEDS ORDERED: HEPARIN INFUSION - 500 ML IVPB ONE (17:15)
[2016-11-10] MEDS: HEPARIN - 25,000 UNIT in SODIUM CHLORIDE 495 ML IV SCH (17:18)
[2016-11-10] MEDS: MIDAZOLAM 100 MG in SODIUM CHLORIDE 100 ML IVPB SCH (17:19)
[2016-11-10 17:36] LABS: URINE BACTERIA MODERATE /hpf (NONE SEEN); URINE RBC 3 /hpf (0-3); URINE WBC 74 /hpf (3-5)
[2016-11-10 17:37] LABS: URINE HYALINE CAST 5 /lpf
[2016-11-10] MEDS: DOPAMINE 400 MG/D5W - 250 ML IVPB SCH (19:15)
[2016-11-10] MEDS ORDERED: DOPAMINE 400 MG/D5W - 250 ML IVPB ONE (19:41)
[2016-11-11] MEDS ORDERED: SODIUM CHLORIDE 1,000 ML IV STA (00:01)
[2016-11-11] MEDS: PIPERACILLIN/TAZOB 2.25 GM 50 ML IVPB SCH (02:45)
[2016-11-11] MEDS: NAFCILLIN - 2 GM in DEXTROSE 5%-WATER - 100 ML IVPB SCH ×6 (02:55→21:46)
[2016-11-11] MEDS ORDERED: PT OWN MED DRAWER 7, Y5N ONE ×4 (05:33→21:44)
[2016-11-11] MEDS: NOREPINEPHRINE BITARTRATE 8,000 MCG in DEXTROSE 5%-WATER - 492 ML IV SCH (06:05)
[2016-11-11 06:52] LABS: MCHC 32.5 g/dl (32.0-35.9); MEAN PLT VOLUME 9.5 fl (7.5-11.1); PLATELET COUNT 283 K/MM3 (134-434); RDW 14.3 % (11.9-15.9); WHITE BLOOD COUNT 14.8 K/mm3 (4.0-10.0)
[2016-11-11] MEDS: MIDAZOLAM 100 MG in SODIUM CHLORIDE 100 ML IVPB SCH (07:00)
[2016-11-11 07:53] LABS: ALBUMIN 1.5 g/dl (3.4-5.0); ALK PHOS 60 U/L (45-117); ANION GAP 16 (8-16); BILIRUBIN,TOTAL 2.2 mg/dL (0.2-1.0); CALCIUM 7.4 mg/dL (8.5-10.1); CO2 22 mmol/L (21-32); CREATININE 4.1 mg/dL (0.7-1.3); GLUCOSE,RANDOM 158 mg/dL (74-106); PHOSPHOROUS 6.4 mg/dL (2.5-4.9); SGOT/AST 94 U/L (15-37); SGPT/ALT 109 U/L (12-78); TOT PROT 5.3 g/dl (6.4-8.2)
--- NOTE | 2016-11-11 07:54 | PN ---
Teaching Attending Note Name of Resident: Torie Solis ATTENDING PHYSICIAN STATEMENT I saw and evaluated the patient. I reviewed the resident's note and discussed the case with the resident. I agree with the resident's findings and plan as documented. SUBJECTIVE: no events over night . OBJECTIVE: intubated and sedated but does not look comfortable CV: RRR, no murmurs appreciated, has JVD ( improved ) Lungs: clear lungs anteriorly Ext: no edema on LE Abd ; soft, NT, ND , NL BS DP 1+ and radial pulse 1+ b/l . Heart in ASSESSMENT AND PLAN: 81 y/o man with h/o HTN, HLD, CVA, BPH with chronic indwelling foleyc atheter and h/o DVT who presented with back and neck pain . Hospitalization esd complicated by cardiac arrest x3 ( VF, Torsade [place], asystole ) . He was found to be bacteremic as well 1- S/P Cardiac arrest, VF, Torsades and asystole. Prolonged QTc . cardiogenic Vs septic shock QTC yestrday afternoon 550. - cont mag oxide - repeat electrolytes - cont vent support 500/12/5/60% - cont dopamine gtt and levophed.keep MAP> 65. - add fentanyl fro adequate sedation 2- NSTEMI: trop peaked at 15. Now climbing up again after last cardiac arrest. - cont plavix - need cardiac cath eventually, but bacteremic now - follow trop to peak again - heparin gtt - repeat EKG 3- Acute systolic heart failure . - Cont to hold ACEI , due to hypotension - lasix 40 mg IV daily . I&O + 1700 yesterday and 1400 cc this am already. 4-Severe sepsis with MSSA bacteremia : bacteremia is not clearing - will need SWATHI as blood cx is not clearing - Cont Abx . Ertapenem might be added - will repeat blood cx tomorrow - hold off MRI of spine ,as GFR is < 30 to avoid risk of nephrogenic systemic fibrosis 5- Complicated UTI : MSSA and G- - ZOsyn - Foely to be changed by Uro today 6-Oligouric GUZMAN : multifactorial, due to hypoperfusion form cardiac arrest , and hypotension can't r/o ATN. - might need HD this admission if no improvement . Keep MAP > 65 7-DVT PX , on heparin poor prognosis CCT 35 min
--- NOTE | 2016-11-11 08:22 | PN ---
Progress Note (short form) - Note Progress Note: remains intubated urine grossly clear cultures positive previous huizar removed and new 20Fr huizar placed under sterile conditions- irrigates easily Problem List - Problems (1) Urinary retention due to benign prostatic hyperplasia Code(s): N40.1 - BENIGN PROSTATIC HYPERPLASIA WITH LOWER URINARY TRACT SYMP R33.8 - OTHER RETENTION OF URINE
--- NOTE | 2016-11-11 08:27 | PN ---
Physical Exam: SUBJECTIVE: Patient seen and examined at bed side. Sedated and on mechanical ventilation : A/c mode settings @ 12/500/60/5. OBJECTIVE: Vital Signs Period Temp Pulse Resp BP Sys/Roche Pulse Ox Last 24 Hr 97.1 F-98.4 F 62-100 13-28 86-136/50-90 100-100 GENERAL: The patient is sedated and on mechanical ventilation. HEAD: Normal with no signs of trauma. EYES: PERRL, No pallor or icterus. ENT: Ears normal, moist mucous membranes. NECK: Trachea midline, JVD +. LUNGS: B/L coarse breath sounds. HEART: Irregularly irregular rate and rhythm, S1, S2 without murmur. ABDOMEN: Soft, nondistended, normoactive bowel sounds, no guarding, no rebound, no hepatosplenomegaly, no masses. EXTREMITIES: 2+ pulses, warm, well-perfused, no edema. GENITALIA: Swollen +, huizar in place, NEUROLOGICAL: Sedated and intubated. SKIN: Warm, dry, normal turgor, no rashes or lesions noted Laboratory Results - last 24 hr 11/10/16 11/10/16 11/10/16 05:15 08:00 08:42 WBC RBC Hgb Hct MCV MCH MCHC RDW Plt Count MPV Sodium 137 Potassium 4.0 Chloride 98 Carbon Dioxide 24 Anion Gap 15 BUN 72 H Creatinine 3.5 H Creat Clearance w eGFR Random Glucose 161 H Lactic Acid 1.8 Calcium 8.5 Phosphorus Magnesium Total Bilirubin 2.2 H D Cancelled Direct Bilirubin 1.4 H D Cancelled AST 137 H D Cancelled ALT 178 H D Cancelled Alkaline Phosphatase 74 D Cancelled Creatine Kinase Creatine Kinase Index CK-MB (CK-2) CK-MB (CK-2) Rel Index Troponin I Total Protein 6.4 Cancelled Albumin 2.1 L Cancelled Urine Color Urine Appearance Urine pH Ur Specific [place] Urine Protein Urine Glucose (UA) Urine Ketones Urine Blood Urine Nitrite Urine Bilirubin Urine Urobilinogen Ur Leukocyte Esterase Urine RBC Urine WBC Ur Epithelial Cells Amorphous Urates Urine Bacteria Hyaline Casts Ur Random Sodium Ur Random Urea Nitrogn Urine Creatinine 11/10/16 11/10/16 11/10/16 09:55 09:55 13:45 WBC RBC Hgb Hct MCV MCH MCHC RDW Plt Count MPV Sodium 136 Potassium 3.7 Chloride 99 Carbon Dioxide 22 Anion Gap 15 BUN 73 H Creatinine 3.7 H Creat Clearance w eGFR Random Glucose 139 H Lactic Acid Calcium 8.2 L Phosphorus Magnesium Total Bilirubin Direct Bilirubin AST ALT Alkaline Phosphatase Creatine Kinase 321 H Creatine Kinase Index Cancelled CK-MB (CK-2) Cancelled CK-MB (CK-2) Rel Index Cancelled Troponin I 8.46 H* D Total Protein Albumin Urine Color Urine Appearance Urine pH Ur Specific [place] Urine Protein Urine Glucose (UA) Urine Ketones Urine Blood Urine Nitrite Urine Bilirubin Urine Urobilinogen Ur Leukocyte Esterase Urine RBC Urine WBC Ur Epithelial Cells Amorphous Urates Urine Bacteria Hyaline Casts Ur Random Sodium Ur Random Urea Nitrogn Urine Creatinine 11/10/16 11/10/16 11/10/16 16:09 16:30 16:30 WBC RBC Hgb Hct MCV MCH MCHC RDW Plt Count MPV Sodium Potassium Chloride Carbon Dioxide Anion Gap BUN Creatinine Creat Clearance w eGFR Random Glucose Lactic Acid Calcium Phosphorus Magnesium 2.8 H Total Bilirubin Direct Bilirubin AST ALT Alkaline Phosphatase Creatine Kinase Creatine Kinase Index CK-MB (CK-2) CK-MB (CK-2) Rel Index Troponin I Total Protein Albumin Urine Color Urine Appearance Urine pH Ur Specific [place] Urine Protein Urine Glucose (UA) Urine Ketones Urine Blood Urine Nitrite Urine Bilirubin Urine Urobilinogen Ur Leukocyte Esterase Urine RBC Urine WBC Ur Epithelial Cells Amorphous Urates Urine Bacteria Hyaline Casts Ur Random Sodium Ur Random Urea Nitrogn 380 Urine Creatinine 77.6 11/10/16 11/10/16 11/11/16 16:30 16:30 05:20 WBC 14.8 H RBC 4.45 Hgb 12.4 D Hct 38.2 MCV 86.0 MCH 28.0 MCHC 32.5 RDW 14.3 Plt Count 283 MPV 9.5 Sodium Potassium Chloride Carbon Dioxide Anion Gap BUN Creatinine Creat Clearance w eGFR Random Glucose Lactic Acid Calcium Phosphorus Magnesium Total Bilirubin Direct Bilirubin AST ALT Alkaline Phosphatase Creatine Kinase Creatine Kinase Index CK-MB (CK-2) CK-MB (CK-2) Rel Index Troponin I Total Protein Albumin Urine Color Yellow Urine Appearance Slcloudy Urine pH 5.0 Ur Specific [place] 1.015 Urine Protein 1+ H Urine Glucose (UA) Negative Urine Ketones Negative Urine Blood 1+ H Urine Nitrite Negative Urine Bilirubin Negative Urine Urobilinogen Negative Ur Leukocyte Esterase 2+ H Urine RBC 3 Urine WBC 74 Ur Epithelial Cells Rare Amorphous Urates Moderate Urine Bacteria Moderate Hyaline Casts 5 Ur Random Sodium 30 Ur Random Urea Nitrogn Urine Creatinine 11/11/16 11/11/16 05:20 05:20 WBC RBC Hgb Hct MCV MCH MCHC RDW Plt Count MPV Sodium 134 L Potassium 3.4 L Chloride 96 L Carbon Dioxide 22 Anion Gap 16 BUN 76 H Creatinine 4.1 H Creat Clearance w eGFR 14.04 Random Glucose 158 H Lactic Acid Calcium 7.4 L Phosphorus 6.4 H Magnesium Total Bilirubin 2.2 H Direct Bilirubin AST 94 H D ALT 109 H D Alkaline Phosphatase 60 Creatine Kinase 328 H Creatine Kinase Index CK-MB (CK-2) CK-MB (CK-2) Rel Index Troponin I 36.00 H* D Total Protein 5.3 L Albumin 1.5 L D Urine Color Urine Appearance Urine pH Ur Specific [place] Urine Protein Urine Glucose (UA) Urine Ketones Urine Blood Urine Nitrite Urine Bilirubin Urine Urobilinogen Ur Leukocyte Esterase Urine RBC Urine WBC Ur Epithelial Cells Amorphous Urates Urine Bacteria Hyaline Casts Ur Random Sodium Ur Random Urea Nitrogn Urine Creatinine Active Medications Generic Name Dose Route Start Last Admin Trade Name Freq PRN Reason Stop Dose Admin Acetaminophen 650 mg 11/07/16 08:16 11/09/16 13:57 Tylenol - PO 650 mg Q4H PRN Administration FEVER OR PAIN Clopidogrel Bisulfate 75 mg 11/08/16 11:00 11/10/16 09:46 Plavix - PO 75 mg DAILY MARILEE Administration Heparin Sodium (Porcine) 1,000 unit 11/09/16 13:43 11/10/16 00:17 Heparin - IVPUSH 1,000 unit PRN PRN Administration Heparin Heparin Sodium (Porcine) 5,000 unit 11/09/16 13:43 Heparin - IVPUSH PRN PRN Heparin Nafcillin Sodium 2 gm/ 100 mls @ 100 mls/hr 11/09/16 10:00 11/11/16 06:05 Dextrose IVPB 100 mls/hr Q4H-IV MARILEE Administration Protocol Piperacillin Sod/Tazobactam Sod 50 mls @ 100 mls/hr 11/09/16 18:00 11/11/16 02: 45 Zosyn 2.25gm Ivpb (Pre-Docked) IVPB 100 mls/hr Q8H-IV MARILEE Administration Protocol Heparin Sodium (Porcine) 25, 500 mls @ 20 mls/hr 11/09/16 14:30 11/10/16 17:18 000 unit/ Sodium Chloride IV 22 mls/hr TITR MARILEE Administration Protocol 1,000 UNIT/HR Midazolam HCl 100 mg/ Sodium 100 mls @ 1 mls/hr 11/09/16 17:00 11/10/16 17:19 Chloride IVPB Not Given TITR MARILEE Protocol 1 MG/HR Dopamine HCl/Dextrose 250 mls @ 13.71 mls/hr 11/09/16 19:16 11/10/16 19:15 Dopamine 400 Mg/D5w - IVPB 13.71 mls/hr TITR MARILEE Administration Protocol 5 MCG/KG/MIN Norepinephrine Bitartrate 8, 500 mls @ 18.75 mls/hr 11/09/16 23:30 11/11/16 06: 05 000 mcg/ Dextrose IV Not Given TITR MARILEE Protocol 5 MCG/MIN Fentanyl 500 mcg/ Dextrose 100 mls @ 15 mls/hr 11/11/16 07:45 IJ TITR MARILEE 75 MCG/HR Magnesium Oxide 400 mg 11/10/16 10:00 11/10/16 09:46 Mag-Ox - PO 400 mg DAILY MARILEE Administration Morphine Sulfate 2 mg 11/07/16 08:16 11/10/16 00:14 Morphine Injection - IVPUSH 2 mg Q4H PRN Administration BACK PAIN ASSESSMENT/PLAN: Patient is an 81 year old Male with a significant past medical history of HTN, HLD, Old CVA, Enlarged Prostate with chronic indwelling huizar, Hx of DVT who presented to the ER with neck and back pain admitted for evaluation of Severe sepsis and cardiac arrest now in mechanical ventilation. . # Post Cardiac Arrest w/ Vfib and Torsades. Likely cardiogenic shock vs septic shock. En route from ER to the floors, he coded (VF) was intubated and extubated for a short period. Coded the second time (wasn't intubated). Had a third cardiac arrest was in asystole and has been intubated on mechanical ventilation. Currently he is on Dopamine @ 5mcg; Levophed 7mcg; Versed @ 4mcg. Plan is to start Fentanyl Awaiting repeat EKG # NSTEMI Troponin increased from 8--->36, stat EKG On Heparin drip, Plavix 75mg Cardiology to be informed about the rise of troponin. # Severe Sepsis with Bacteremia +MSSA Most likely bacteremia seeded in the urine causing UTI. Second set of blood cultures are positive, pending org Continue Nafcilllin 2gm Q4H, changed Zosyn to Ertapenem 0.5 gm daily. Huizar changed today 11/11/2016 # Osteomyelitis vs Discitis Unable to perform MRI of spine to confirm osteomyelitis due to acute renal failure On antibiotics. # Acute Kidney Injury Likely due to septic shock FeUrea-24 % Urine output since midnight is about 600mls today. Strict output monitoring Avoid nephrotoxic drugs Since patient has good urine output today, lasix on hold. If patient becomes oliguric, then trial of lasix can be done, as long as MAP> 65 d/w Dr. Luo. # Systolic CHF - EF 24% Clinically doesn't look volume overloaded, only trace pitting edema MAP maintained above 65, on pressors Strict I's and O's # Paroxysmal Afib - rate controlled On heparin drip, monitor H/H and any signs of bleeding # BPH with obstructive uropathy Has chronic huizar since patient didn't want to undergo TURP. Huizar changed today by Dr. Flores. PSA 15- needs workup for prostate cancer, once stable. # FEN Not on any IV Fluids Electrolytes to be monitored Nutrition: NPO # Prophylaxis For DVT on Heparin drip For GI: IV Protonix 40mg daily Needs PT eval once extubated. # Code Status-Full Code as per family # Dispo: Admitted in the ICU. Duration of stay unknown at this time. Illness, Investigation and Plan of care explained to the patients sister in law. They verbalized understanding. Case seen and discussed with Dr. Blevins. Visit type - Emergency Visit Emergency Visit: Yes ED Registration Date: 11/07/16 Care time: The patient presented to the Emergency Department on the above date and was hospitalized for further evaluation of their emergent condition. - New Patient This patient is new to me today: No - Critical Care Critical Care patient: Yes Total Critical Care Time (in minutes): 35 Critical Care Statement: The care of this patient involved high complexity decision making to prevent further life threatening deterioration of the patient 's condition and/or to evalute & treat vital organ system(s) failure or risk of failure.
--- NOTE | 2016-11-11 08:39 | PN ---
Progress Note (short form) - Note Progress Note: event noted chart reviewed huizar just changed coded 3 times since admission last was asystole requiring intubation currently intubated Vital Signs Period Temp Pulse Resp BP Sys/Roche Pulse Ox Last 24 Hr 97.1 F-98.4 F 62-100 13-28 86-136/50-90 100-100 intubated orally fi02 60% cor-rrr lungs decreased bs at bases abd soft,nt ext no edema huizar CBC, BMP 11/11/16 05:20 11/11/16 05:20 Microbiology 11/08/16 08:16 Blood - Peripheral Venous Blood Culture - Final Staphylococcus Latex Coag Pos 11/10/16 08:12 Blood - Peripheral Venous Blood Culture - Preliminary Pending Organism 11/10/16 08:30 Blood - Peripheral Venous Blood Culture - Preliminary Pending Organism 11/07/16 01:08 Urine - Urine Huizar Urine Culture - Preliminary Citrobacter Freundii Complex Staphylococcus Aureus 11/08/16 08:20 Blood - Peripheral Venous Blood Culture - Preliminary Staphylococcus Aureus 11/07/16 07:20 Blood - Peripheral Venous Blood Culture - Final Staphylococcus Aureus 11/07/16 07:20 Blood - Peripheral Venous Blood Culture - Final Staphylococcus Aureus no cxray today-to be ordered Current Medications Acetaminophen (Tylenol -) 650 mg PO Q4H PRN PRN Reason: FEVER OR PAIN Last Admin: 11/09/16 13:57 Dose: 650 mg Clopidogrel Bisulfate (Plavix -) 75 mg PO DAILY MARILEE Last Admin: 11/10/16 09:46 Dose: 75 mg Heparin Sodium (Porcine) (Heparin -) 1,000 unit IVPUSH PRN PRN PRN Reason: Heparin Last Admin: 11/10/16 00:17 Dose: 1,000 unit Heparin Sodium (Porcine) (Heparin -) 5,000 unit IVPUSH PRN PRN PRN Reason: Heparin Nafcillin Sodium 2 gm/ (Dextrose) 100 mls @ 100 mls/hr IVPB Q4H-IV MARILEE PRN Reason: Protocol Last Admin: 11/11/16 06:05 Dose: 100 mls/hr Piperacillin Sod/Tazobactam Sod (Zosyn 2.25gm Ivpb (Pre-Docked)) 50 mls @ 100 mls/hr IVPB Q8H-IV MARILEE PRN Reason: Protocol Last Admin: 11/11/16 02:45 Dose: 100 mls/hr Heparin Sodium (Porcine) 25, (000 unit/ Sodium Chloride) 500 mls @ 20 mls/hr IV TITR MARILEE; 1,000 UNIT/HR PRN Reason: Protocol Last Admin: 11/10/16 17:18 Dose: 22 mls/hr Midazolam HCl 100 mg/ Sodium (Chloride) 100 mls @ 1 mls/hr IVPB TITR MARILEE; 1 MG/ HR PRN Reason: Protocol Last Admin: 11/10/16 17:19 Dose: Not Given Dopamine HCl/Dextrose (Dopamine 400 Mg/D5w -) 250 mls @ 13.71 mls/hr IVPB TITR MARILEE; 5 MCG/KG/MIN PRN Reason: Protocol Last Admin: 11/10/16 19:15 Dose: 13.71 mls/hr Norepinephrine Bitartrate 8, (000 mcg/ Dextrose) 500 mls @ 18.75 mls/hr IV TITR MARILEE; 5 MCG/MIN PRN Reason: Protocol Last Admin: 11/11/16 06:05 Dose: Not Given Fentanyl 500 mcg/ Dextrose 100 mls @ 15 mls/hr IJ TITR MARILEE PRN Reason: 75 MCG/HR Last Admin: 11/11/16 08:45 Dose: 15 mls/hr Magnesium Oxide (Mag-Ox -) 400 mg PO DAILY MARILEE Last Admin: 11/10/16 09:46 Dose: 400 mg Morphine Sulfate (Morphine Injection -) 2 mg IVPUSH Q4H PRN PRN Reason: BACK PAIN Last Admin: 11/10/16 00:14 Dose: 2 mg a/p s/p cardiac arrest multiorgan failure persistent MSSA bacteremia, cannot r/o endocarditis vertebral osteomyelitis chf with severe MR cad/nstemi-elevated troponin sebastian bph with chronic huizar UTI continue nafcillin substitute ertapenem for zosyn overall prognosis grim 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
[2016-11-11] MEDS: FENTANYL INJECTION 500 MCG in DEXTROSE 5%-WATER - 90 ML IJ SCH (08:45)
--- NOTE | 2016-11-11 08:59 | PN ---
Progress Note (short form) - Note Progress Note: Renal follow up for GUZMAN Pt seen and examined in the ICU remains intubated on 60% FIO2 on Dopamine and Levophed Urine output improved overnight ~600cc no Lasix was given Vital Signs Temperature 98 F 11/11/16 05:00 Pulse Rate 63 11/11/16 05:00 Respiratory Rate 15 11/11/16 07:29 Blood Pressure 104/61 11/11/16 05:00 O2 Sat by Pulse Oximetry (%) 100 11/10/16 22:00 Intake & Output 11/08/16 11/09/16 11/10/16 11/11/16 23:59 23:59 23:59 23:59 Intake Total 562 166 3784.8 2024.0 Output Total 900 201 300 600 Balance 50 619 1792.8 1424.0 Weight 161 lb 3.2 oz 161 lb 3.2 oz 161 lb 167 lb 2 oz Gen: Intubated via ET Tube CVS: RRR, No M/R Lungs: CTA, no rales, wheeze Abd: Obese, NT/ND Ext: Trace LE edema CBC, BMP 11/11/16 05:20 11/11/16 05:20 Current Medications Acetaminophen (Tylenol -) 650 mg PO Q4H PRN PRN Reason: FEVER OR PAIN Last Admin: 11/09/16 13:57 Dose: 650 mg Clopidogrel Bisulfate (Plavix -) 75 mg PO DAILY MARILEE Last Admin: 11/10/16 09:46 Dose: 75 mg Heparin Sodium (Porcine) (Heparin -) 1,000 unit IVPUSH PRN PRN PRN Reason: Heparin Last Admin: 11/10/16 00:17 Dose: 1,000 unit Heparin Sodium (Porcine) (Heparin -) 5,000 unit IVPUSH PRN PRN PRN Reason: Heparin Nafcillin Sodium 2 gm/ (Dextrose) 100 mls @ 100 mls/hr IVPB Q4H-IV MARILEE PRN Reason: Protocol Last Admin: 11/11/16 06:05 Dose: 100 mls/hr Heparin Sodium (Porcine) 25, (000 unit/ Sodium Chloride) 500 mls @ 20 mls/hr IV TITR MARILEE; 1,000 UNIT/HR PRN Reason: Protocol Last Admin: 11/10/16 17:18 Dose: 22 mls/hr Midazolam HCl 100 mg/ Sodium (Chloride) 100 mls @ 1 mls/hr IVPB TITR MARILEE; 1 MG/ HR PRN Reason: Protocol Last Admin: 11/10/16 17:19 Dose: Not Given Dopamine HCl/Dextrose (Dopamine 400 Mg/D5w -) 250 mls @ 13.71 mls/hr IVPB TITR MARILEE; 5 MCG/KG/MIN PRN Reason: Protocol Last Admin: 11/10/16 19:15 Dose: 13.71 mls/hr Norepinephrine Bitartrate 8, (000 mcg/ Dextrose) 500 mls @ 18.75 mls/hr IV TITR MARILEE; 5 MCG/MIN PRN Reason: Protocol Last Admin: 11/11/16 06:05 Dose: Not Given Fentanyl 500 mcg/ Dextrose 100 mls @ 15 mls/hr IJ TITR MARILEE PRN Reason: 75 MCG/HR Last Admin: 11/11/16 08:45 Dose: 15 mls/hr Ertapenem 0.5 gm/ Sodium (Chloride) 50 mls @ 50 mls/hr IVPB DAILY MARILEE PRN Reason: Protocol Magnesium Oxide (Mag-Ox -) 400 mg PO DAILY MARILEE Last Admin: 11/10/16 09:46 Dose: 400 mg Morphine Sulfate (Morphine Injection -) 2 mg IVPUSH Q4H PRN PRN Reason: BACK PAIN Last Admin: 11/10/16 00:14 Dose: 2 mg A/P 81 year old gentleman with PMhx of Hypertension, P-Afib not on A/C, BPH, 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 #oliguric acute renal failure in setting of Sepsis/Bactermia with Cardiac Arrest x 3 BUN/Cr uptrending but pt is non non-oliguric FeNa was indeterminate, FeUrea was 24% indicting preserved tubular function Pt with good urine output over the last 6 hours, would hold Lasix and montior UO and volume status No hyperkalemia, overt uremia, acidosis or volume overload to warrent dialysis at this time keep MAP> 65 using pressers maintain CVP 10-12 Trend BUN/Cr #Cardiac Arrest/Torsades Cardiac follow up ICU Level care Respiratory support with Vent Strict monitoring of electrolytes #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 Continue Abx as per ID #Hyperphospahtemia secondary to renal failure no binders indicating as pt is not being fed Pt with guarded prognosis will follow Devan Luo DO Problem List - Problems (1) Acute respiratory failure with hypoxia Code(s): J96.01 - ACUTE RESPIRATORY FAILURE WITH HYPOXIA (2) BPH (benign prostatic hyperplasia) Code(s): N40.0 - BENIGN PROSTATIC HYPERPLASIA WITHOUT LOWER URINRY TRACT SYMP (3) Bacteremia due to Staphylococcus Code(s): R78.81 - BACTEREMIA (4) HTN (hypertension) Code(s): I10 - ESSENTIAL (PRIMARY) HYPERTENSION Qualifiers: Qualified Code(s): I10 - Essential (primary) hypertension (5) NSTEMI (non-ST elevated myocardial infarction) Code(s): I21.4 - NON-ST ELEVATION (NSTEMI) MYOCARDIAL INFARCTION (6) Cardiac arrest Code(s): I46.9 - CARDIAC ARREST, CAUSE UNSPECIFIED
[2016-11-11] MEDS ORDERED: HEPARIN INFUSION - 500 ML IVPB ONE (09:19)
[2016-11-11] MEDS: MAGNESIUM OXIDE 400 MG TABLET (FP) PO SCH (09:24)
[2016-11-11] MEDS: CLOPIDOGREL BISULFATE 75 MG TABLET (FP) PO SCH (09:24)
[2016-11-11] MEDS: PANTOPRAZOLE SODIUM 100 ML IVPB SCH (09:25)
[2016-11-11 09:29] LABS: MAGNESIUM 2.7 mg/dL (1.8-2.4)
[2016-11-11] MEDS: ERTAPENEM SODIUM 0.5 GM in SODIUM CHLORIDE 50 ML IVPB SCH (10:38)
[2016-11-11 12:26] LABS: TROPONIN I 27.58 ng/ml (0.00-0.05)
--- NOTE | 2016-11-11 12:38 | PN ---
Progress Note (short form) - Note Progress Note: PULM/CRITICAL CARE FOLLOW UP: SUBJECTIVE: Patient seen and examined in the ICU. Troponin trending down Remains on Levo 7mcg/min and Dopa 5mcg/kg/min GUZMAN worse Sedated, but awakens and follows commands Cultures persistently positive OBJECTIVE: Current Medications Acetaminophen (Tylenol -) 650 mg PO Q4H PRN PRN Reason: FEVER OR PAIN Last Admin: 11/09/16 13:57 Dose: 650 mg Clopidogrel Bisulfate (Plavix -) 75 mg PO DAILY MARILEE Last Admin: 11/11/16 09:24 Dose: 75 mg Heparin Sodium (Porcine) (Heparin -) 1,000 unit IVPUSH PRN PRN PRN Reason: Heparin Last Admin: 11/10/16 00:17 Dose: 1,000 unit Heparin Sodium (Porcine) (Heparin -) 5,000 unit IVPUSH PRN PRN PRN Reason: Heparin Nafcillin Sodium 2 gm/ (Dextrose) 100 mls @ 100 mls/hr IVPB Q4H-IV MARILEE PRN Reason: Protocol Last Admin: 11/11/16 09:24 Dose: 100 mls/hr Heparin Sodium (Porcine) 25, (000 unit/ Sodium Chloride) 500 mls @ 20 mls/hr IV TITR MARILEE; 1,000 UNIT/HR PRN Reason: Protocol Last Titration: 11/11/16 08:59 Dose: 1,100 unit/hr Midazolam HCl 100 mg/ Sodium (Chloride) 100 mls @ 1 mls/hr IVPB TITR MARILEE; 1 MG/ HR PRN Reason: Protocol Last Admin: 11/10/16 17:19 Dose: Not Given Dopamine HCl/Dextrose (Dopamine 400 Mg/D5w -) 250 mls @ 13.71 mls/hr IVPB TITR MARILEE; 5 MCG/KG/MIN PRN Reason: Protocol Last Admin: 11/10/16 19:15 Dose: 13.71 mls/hr Norepinephrine Bitartrate 8, (000 mcg/ Dextrose) 500 mls @ 18.75 mls/hr IV TITR MARILEE; 5 MCG/MIN PRN Reason: Protocol Last Admin: 11/11/16 06:05 Dose: Not Given Fentanyl 500 mcg/ Dextrose 100 mls @ 15 mls/hr IJ TITR MARILEE PRN Reason: 75 MCG/HR Last Admin: 11/11/16 08:45 Dose: 15 mls/hr Ertapenem 0.5 gm/ Sodium (Chloride) 50 mls @ 100 mls/hr IVPB DAILY MARILEE PRN Reason: Protocol Last Admin: 11/11/16 10:38 Dose: 100 mls/hr Pantoprazole Sodium (Protonix 40mg Ivpb (Pre-Docked)) 100 mls @ 200 mls/hr IVPB DAILY [facility] Last Admin: 11/11/16 09:25 Dose: 200 mls/hr Magnesium Oxide (Mag-Ox -) 400 mg PO DAILY [facility] Last Admin: 11/11/16 09:24 Dose: 400 mg Morphine Sulfate (Morphine Injection -) 2 mg IVPUSH Q4H PRN PRN Reason: BACK PAIN Last Admin: 11/10/16 00:14 Dose: 2 mg Vital Signs Temp 98 F 11/11/16 05:00 Pulse 60 11/11/16 10:26 Resp 12 11/11/16 12:17 BP 104/61 11/11/16 05:00 Pulse Ox 100 11/11/16 10:26 Intake & Output 11/10/16 11/11/16 11/11/16 18:59 06:59 18:59 Intake Total 1136.8 2024.0 Output Total 100 600 Balance 1036.8 1424.0 Weight 75.807 kg Intake: IV 786.8 1774.0 Heparin - 25,000 Unit In 256 264 Normal Saline - 495 ml @ 1,000 UNIT/HR 20 mls/hr IV TITR MARILEE Rx#: [id number] Versed - 100 mg In Normal 8 30 Saline - 100 ml @ 1 MG/ HR 1 mls/hr IVPB TITR MARILEE Rx#:[id number] Dopamine 400 mg/D5w - 250 300 164.4 ml @ 5 MCG/KG/MIN 13.71 mls/hr IVPB TITR MARILEE Rx#: [id number] Levophed - 8,000 Mcg In 222.8 315.6 D5w - 492 ml @ 5 MCG/MIN 18.75 mls/hr IV TITR MARILEE Rx#:[id number] Normal Saline - 1,000 ml 1000 @ 1000 mls/hr IV ASDIR STA Rx#:[id number] IVPB 350 250 Oral 0 Output: Urine 100 600 Heart 100 600 Other: Voiding Method Indwelling Catheter Indwelling Catheter Bowel Movement No No Weight Measurement Method Built in Bedscale EXAM: neuro: sedated, but awakens and intermittently follows commands HEENT: PERRL, anicteric, orally intubated lungs: poor air movement heart: irregular abd: soft, non-tender ext: no edema, cool skin: warm, dry CBC, BMP 11/11/16 05:20 11/11/16 05:20 ASSESSMENT AND PLAN: s/p VFib Cardiopulmonary Arrest/Prolonged QT Acute NSTEMI/CAD/+Troponins Acute Respiratory Failure Acute on Chronic Systolic Heart Failure Severe Mitral Regurgitation Acute Kidney Injury UTI MSSA Bacteremia Osteomyelitis/Discitis Sepsis Lactic Acidosis - ASA, Plavix, Statin, Heparin - Trend Troponin - Cardiology follow up - keep K >4, Mg >2 - ABX per ID - Too unstable for SWATHI - monitor urine output, creatinine - GOC discussions - continue ICU monitoring Critically Ill - 45min [place] Pulm/Critical Care [employer] [id number]
--- NOTE | 2016-11-11 13:07 | PN ---
Progress Note, Physician Chief Complaint: Events noted Now intubated on mechanical ventilator Sedated and on multiple pressors History of Present Illness: Patient was seen and examined in ICU. Mechanical ventilation. Chart was reviewed Discussed in detail with his brothers on bedside regarding is critical status Elevated troponins and rising with ECG changes. Remains on multiple pressors and intermittently hypotensive. Positive blood cultures - Current Medication List Current Medications: Active Medications Acetaminophen (Tylenol -) 650 mg PO Q4H PRN PRN Reason: FEVER OR PAIN Last Admin: 11/09/16 13:57 Dose: 650 mg Clopidogrel Bisulfate (Plavix -) 75 mg PO DAILY MARILEE Last Admin: 11/11/16 09:24 Dose: 75 mg Heparin Sodium (Porcine) (Heparin -) 1,000 unit IVPUSH PRN PRN PRN Reason: Heparin Last Admin: 11/10/16 00:17 Dose: 1,000 unit Heparin Sodium (Porcine) (Heparin -) 5,000 unit IVPUSH PRN PRN PRN Reason: Heparin Nafcillin Sodium 2 gm/ (Dextrose) 100 mls @ 100 mls/hr IVPB Q4H-IV MARILEE PRN Reason: Protocol Last Admin: 11/11/16 09:24 Dose: 100 mls/hr Heparin Sodium (Porcine) 25, (000 unit/ Sodium Chloride) 500 mls @ 20 mls/hr IV TITR MARILEE; 1,000 UNIT/HR PRN Reason: Protocol Last Titration: 11/11/16 08:59 Dose: 1,100 unit/hr Midazolam HCl 100 mg/ Sodium (Chloride) 100 mls @ 1 mls/hr IVPB TITR MARILEE; 1 MG/ HR PRN Reason: Protocol Last Admin: 11/10/16 17:19 Dose: Not Given Dopamine HCl/Dextrose (Dopamine 400 Mg/D5w -) 250 mls @ 13.71 mls/hr IVPB TITR MARILEE; 5 MCG/KG/MIN PRN Reason: Protocol Last Admin: 11/10/16 19:15 Dose: 13.71 mls/hr Norepinephrine Bitartrate 8, (000 mcg/ Dextrose) 500 mls @ 18.75 mls/hr IV TITR MARILEE; 5 MCG/MIN PRN Reason: Protocol Last Admin: 11/11/16 06:05 Dose: Not Given Fentanyl 500 mcg/ Dextrose 100 mls @ 15 mls/hr IJ TITR MARILEE PRN Reason: 75 MCG/HR Last Admin: 11/11/16 08:45 Dose: 15 mls/hr Ertapenem 0.5 gm/ Sodium (Chloride) 50 mls @ 100 mls/hr IVPB DAILY MARILEE PRN Reason: Protocol Last Admin: 11/11/16 10:38 Dose: 100 mls/hr Pantoprazole Sodium (Protonix 40mg Ivpb (Pre-Docked)) 100 mls @ 200 mls/hr IVPB DAILY MARILEE Last Admin: 11/11/16 09:25 Dose: 200 mls/hr Magnesium Oxide (Mag-Ox -) 400 mg PO DAILY MARILEE Last Admin: 11/11/16 09:24 Dose: 400 mg Morphine Sulfate (Morphine Injection -) 2 mg IVPUSH Q4H PRN PRN Reason: BACK PAIN Last Admin: 11/10/16 00:14 Dose: 2 mg - Objective Vital Signs: Vital Signs Temperature 98 F 11/11/16 05:00 Pulse Rate 60 11/11/16 10:26 Respiratory Rate 12 11/11/16 12:17 Blood Pressure 104/61 11/11/16 05:00 O2 Sat by Pulse Oximetry (%) 100 11/11/16 10:26 Cardiovascular: Yes: Regular Rate and Rhythm, S1, S2 Respiratory: Yes: Diminished, Mechanically Ventilated Gastrointestinal: Yes: Tenderness (Grimaces with palpation) Edema: No Additional Findings/Remarks: 11/08/2016 Transthoracic echocardiography: Dilated LV with severe LV dysfunction with anterior AK, apex dyskinetic, IVS below midventricular level thin and dyskinetic, inferolarteral severe HK, posterior AK, normal RV size and function , severe MR, moderate TR, mild to moderate AR Labs: CBC, BMP 11/11/16 05:20 11/11/16 05:20 INR, PTT INR 1.66 (0.82-1.09) H 11/09/16 14:30 Laboratory Results - last 24 hr 11/10/16 11/10/16 11/10/16 09:55 13:45 16:09 WBC RBC Hgb Hct MCV MCH MCHC RDW Plt Count MPV PTT (Actin FS) Sodium 136 Potassium 3.7 Chloride 99 Carbon Dioxide 22 Anion Gap 15 BUN 73 H Creatinine 3.7 H Creat Clearance w eGFR Random Glucose 139 H Calcium 8.2 L Phosphorus Magnesium 2.8 H Total Bilirubin AST ALT Alkaline Phosphatase Creatine Kinase 321 H Creatine Kinase Index Cancelled CK-MB (CK-2) Cancelled Troponin I 8.46 H* D Total Protein Albumin Urine Color Urine Appearance Urine pH Ur Specific [place] Urine Protein Urine Glucose (UA) Urine Ketones Urine Blood Urine Nitrite Urine Bilirubin Urine Urobilinogen Ur Leukocyte Esterase Urine RBC Urine WBC Ur Epithelial Cells Amorphous Urates Urine Bacteria Hyaline Casts Ur Random Sodium Ur Random Urea Nitrogn Urine Creatinine 11/10/16 11/11/16 11/11/16 16:30 05:20 05:20 WBC 14.8 H RBC 4.45 Hgb 12.4 D Hct 38.2 MCV 86.0 MCH 28.0 MCHC 32.5 RDW 14.3 Plt Count 283 MPV 9.5 PTT (Actin FS) 67.0 H D Sodium Potassium Chloride Carbon Dioxide Anion Gap BUN Creatinine Creat Clearance w eGFR Random Glucose Calcium Phosphorus Magnesium Total Bilirubin AST ALT Alkaline Phosphatase Creatine Kinase Creatine Kinase Index CK-MB (CK-2) Troponin I Total Protein Albumin Urine Color Yellow Urine Appearance Slcloudy Urine pH 5.0 Ur Specific [place] 1.015 Urine Protein 1+ H Urine Glucose (UA) Negative Urine Ketones Negative Urine Blood 1+ H Urine Nitrite Negative Urine Bilirubin Negative Urine Urobilinogen Negative Ur Leukocyte Esterase 2+ H Urine RBC 3 Urine WBC 74 Ur Epithelial Cells Rare Amorphous Urates Moderate Urine Bacteria Moderate Hyaline Casts 5 Ur Random Sodium Ur Random Urea Nitrogn Urine Creatinine 11/11/16 11/11/16 11/11/16 05:20 05:20 09:00 WBC RBC Hgb Hct MCV MCH MCHC RDW Plt Count MPV PTT (Actin FS) Sodium 134 L Potassium 3.4 L Chloride 96 L Carbon Dioxide 22 Anion Gap 16 BUN 76 H Creatinine 4.1 H Creat Clearance w eGFR 14.04 Random Glucose 158 H Calcium 7.4 L Phosphorus 6.4 H Magnesium 2.7 H Cancelled Total Bilirubin 2.2 H AST 94 H D ALT 109 H D Alkaline Phosphatase 60 Creatine Kinase 328 H Creatine Kinase Index 7.0 H* CK-MB (CK-2) 23.107 H Troponin I 36.00 H* D Total Protein 5.3 L Albumin 1.5 L D Urine Color Urine Appearance Urine pH Ur Specific [place] Urine Protein Urine Glucose (UA) Urine Ketones Urine Blood Urine Nitrite Urine Bilirubin Urine Urobilinogen Ur Leukocyte Esterase Urine RBC Urine WBC Ur Epithelial Cells Amorphous Urates Urine Bacteria Hyaline Casts Ur Random Sodium Ur Random Urea Nitrogn Urine Creatinine 11/11/16 11:00 WBC RBC Hgb Hct MCV MCH MCHC RDW Plt Count MPV PTT (Actin FS) Sodium Potassium Chloride Carbon Dioxide Anion Gap BUN Creatinine Creat Clearance w eGFR Random Glucose Calcium Phosphorus Magnesium Total Bilirubin AST ALT Alkaline Phosphatase Creatine Kinase 251 Creatine Kinase Index 6.5 H* CK-MB (CK-2) 16.516 H Troponin I 27.58 H* Total Protein Albumin Urine Color Urine Appearance Urine pH Ur Specific [place] Urine Protein Urine Glucose (UA) Urine Ketones Urine Blood Urine Nitrite Urine Bilirubin Urine Urobilinogen Ur Leukocyte Esterase Urine RBC Urine WBC Ur Epithelial Cells Amorphous Urates Urine Bacteria Hyaline Casts Ur Random Sodium Ur Random Urea Nitrogn Urine Creatinine Problem List - Problems (1) Acute on chronic systolic ACC/AHA stage C congestive heart failure Code(s): I50.23 - ACUTE ON CHRONIC SYSTOLIC (CONGESTIVE) HEART FAILURE (2) Acute respiratory failure with hypoxia Code(s): J96.01 - ACUTE RESPIRATORY FAILURE WITH HYPOXIA (3) Bacteremia due to Staphylococcus Code(s): R78.81 - BACTEREMIA (4) Cardiac arrest Code(s): I46.9 - CARDIAC ARREST, CAUSE UNSPECIFIED (5) Coronary artery disease Code(s): I25.10 - ATHSCL HEART DISEASE OF [place] CORONARY ARTERY W/O ANG PCTRS Qualifiers: Coronary Disease-Associated Artery/Lesion type: [place] artery [place] vs. transplanted heart: [place] heart Associated angina: without angina Qualified Code(s): I25.10 - Atherosclerotic heart disease of [place] coronary artery without angina pectoris (6) Discitis Code(s): M46.40 - DISCITIS, UNSPECIFIED, SITE UNSPECIFIED Qualifiers: Spinal region: lumbar Qualified Code(s): M46.46 - Discitis, unspecified, lumbar region (7) HLD (hyperlipidemia) Code(s): E78.5 - HYPERLIPIDEMIA, UNSPECIFIED Qualifiers: Hyperlipidemia type: pure hypercholesterolemia Qualified Code(s): E78.00 - Pure hypercholesterolemia, unspecified; E78.0 - Pure hypercholesterolemia (8) HTN (hypertension) Code(s): I10 - ESSENTIAL (PRIMARY) HYPERTENSION Qualifiers: Hypertension type: essential hypertension Qualified Code(s): I10 - Essential (primary) hypertension (9) 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 Code(s): Z92.29 - PERSONAL HISTORY OF OTHER DRUG THERAPY (10) NSTEMI (non-ST elevated myocardial infarction) Code(s): I21.4 - NON-ST ELEVATION (NSTEMI) MYOCARDIAL INFARCTION (11) Osteomyelitis Code(s): M86.9 - OSTEOMYELITIS, UNSPECIFIED Qualifiers: Osteomyelitis type: unspecified type Osteomyelitis location: other site Qualified Code(s): M86.9 - Osteomyelitis, unspecified (12) Paroxysmal atrial fibrillation Code(s): I48.0 - PAROXYSMAL ATRIAL FIBRILLATION (13) Septic shock due to Gram positive bacteria Code(s): A41.89 - OTHER SPECIFIED SEPSIS R65.21 - SEVERE SEPSIS WITH SEPTIC SHOCK (14) Severe mitral regurgitation Code(s): I34.0 - NONRHEUMATIC MITRAL (VALVE) INSUFFICIENCY (15) DVT (deep venous thrombosis) Code(s): I82.409 - ACUTE EMBOLISM AND THOMBOS UNSP DEEP VN UNSP LOWER EXTREMITY (16) Severe sepsis with acute organ dysfunction Code(s): A41.9 - SEPSIS, UNSPECIFIED ORGANISM R65.20 - SEVERE SEPSIS WITHOUT SEPTIC SHOCK Assessment/Plan 1. Post cardiac arrest torsades de pointes with underlying prolonged QT post Levaquin for E. coli/enterococcal UTI and then bradycardic/asystolic arrest 2. Acute hypoxic respiratory failure on mechanical ventilator 3. Acute on chronic systolic failure with underlying severe MR 4. CAD with NSTEMI - rise in troponin 5. Paroxysmal AF currently in sinus rhythm 6. HTN/HCVD 7. Disciitis and possible osteomyelitis of L3-4 with MSSA bacteremia/septic shock 8. GUZMAN due to hemodynamic alterations 9. Shock liver 10. History of BPH and obstructive uropathy 11. Previous DVT post Eliquis PLAN: 1. Replete Mg to maintain Mg>2.5 with monitor for QT prolongation, avoid QT prolonging agents and keep K>4.5 2. Trend LFTs, wean pressors to maintain MAP>65. Trend troponins 3. IV diuresis to keep even with monitor renal function and electrolytes 4. Continue antibiotics. MRI spine when feasible and continue to follow as per ID input 5. Continue Plavix 75 qd and heparin drip. Lisinopril, Carvedilol and Aldactone are held pending hemodynamic and renal fxn stabilization 6. GI prophylaxis, further cardiac work up is to be followed which may include cardiac catheterization/coronary angiography at some point once sepsis and currentl hemodynamics improve. 7. Repeat Echocardiography on Sunday Prognosis: CRITICAL Further plans are to follow. Discussed with his brothers in detail and spoke with the resident on service Prakash Leigh MD
[2016-11-11] MEDS: HEPARIN - 25,000 UNIT in SODIUM CHLORIDE 495 ML IV SCH (14:35)
[2016-11-11] MEDS: DOPAMINE 400 MG/D5W - 250 ML IVPB SCH (21:47)
[2016-11-12] MEDS ORDERED: NOREPINEPHRINE BITARTRATE 4 MG/4 ML ML IV ONE ×2 (00:50→18:21)
[2016-11-12] MEDS ORDERED: KCL 10 MEQ IVPB 100 ML IVPB SCH (01:00)
[2016-11-12] MEDS: NOREPINEPHRINE BITARTRATE 8,000 MCG in DEXTROSE 5%-WATER - 492 ML IV SCH ×3 (01:03→23:55)
[2016-11-12] MEDS: NAFCILLIN - 2 GM in DEXTROSE 5%-WATER - 100 ML IVPB SCH ×6 (02:00→22:25)
[2016-11-12 06:19] LABS: MCH 28.3 pg (25.7-33.7); MCHC 33.3 g/dl (32.0-35.9); MEAN CELL VOLUME 84.9 fl (80-96); MEAN PLT VOLUME 9.2 fl (7.5-11.1); PLATELET COUNT 328 K/MM3 (134-434); RDW 14.6 % (11.9-15.9); WHITE BLOOD COUNT 13.7 K/mm3 (4.0-10.0)
[2016-11-12 06:57] LABS: ALBUMIN 1.3 g/dl (3.4-5.0); ANION GAP 16 (8-16); BILIRUBIN,TOTAL 2.8 mg/dL (0.2-1.0); CALCIUM 7.1 mg/dL (8.5-10.1); CO2 21 mmol/L (21-32); CREATININE 4.4 mg/dL (0.7-1.3); GLUCOSE,RANDOM 119 mg/dL (74-106); MAGNESIUM 2.6 mg/dL (1.8-2.4); PHOSPHOROUS 7.1 mg/dL (2.5-4.9); SGOT/AST 53 U/L (15-37); SGPT/ALT 95 U/L (12-78); TOT PROT 5.4 g/dl (6.4-8.2)
[2016-11-12 07:13] LABS: ALK PHOS 62 U/L (45-117); CPK 144 IU/L (39-308)
[2016-11-12] MEDS: FENTANYL INJECTION 500 MCG in DEXTROSE 5%-WATER - 90 ML IJ SCH (07:45)
--- NOTE | 2016-11-12 07:59 | PN ---
Progress Note (short form) - Note Progress Note: Renal follow up for GUZMAN Pt seen and examined in the ICU intubated and sedated on Levo 9mcg and Dopamine 7mcg good urine output on heparin gtt Vital Signs Temperature 98.8 F 11/12/16 06:28 Pulse Rate 72 11/12/16 07:28 Respiratory Rate 12 11/12/16 07:31 Blood Pressure 85/38 11/12/16 07:28 O2 Sat by Pulse Oximetry (%) 100 11/11/16 13:24 Intake & Output 11/09/16 11/10/16 11/11/16 11/12/16 23:59 23:59 23:59 23:59 Intake Total 820 2092.8 3394.8 1010 Output Total 806 532 7961 350 Balance 619 1792.8 2119.8 660 Weight 161 lb 3.2 oz 161 lb 167 lb 2 oz 172 lb 13.478 oz Gen: Intubated via ET Tube CVS: RRR, No M/R Lungs: CTA, no rales, wheeze Abd: Obese, NT/ND Ext: Trace LE edema CBC, BMP 11/12/16 05:20 11/12/16 05:20 Laboratory Tests 11/09/16 11/09/16 11/10/16 05:15 05:15 16:09 Sodium Potassium Chloride Anion Gap BUN Creatinine Lactic Acid 2.1 H* Calcium 9.0 Phosphorus Magnesium 2.5 H 2.8 H Total Bilirubin Albumin 11/11/16 11/12/16 05:20 05:20 Sodium 131 L Potassium 3.6 Chloride 94 L Anion Gap 16 BUN 79 H Creatinine 4.4 H Lactic Acid Calcium 7.4 L 7.1 L Phosphorus 6.4 H 7.1 H Magnesium 2.6 H Total Bilirubin 2.2 H Albumin 1.5 L D 1.3 L Current Medications Acetaminophen (Tylenol -) 650 mg PO Q4H PRN PRN Reason: FEVER OR PAIN Last Admin: 11/09/16 13:57 Dose: 650 mg Clopidogrel Bisulfate (Plavix -) 75 mg PO DAILY MARILEE Last Admin: 11/11/16 09:24 Dose: 75 mg Heparin Sodium (Porcine) (Heparin -) 1,000 unit IVPUSH PRN PRN PRN Reason: Heparin Last Admin: 11/10/16 00:17 Dose: 1,000 unit Heparin Sodium (Porcine) (Heparin -) 5,000 unit IVPUSH PRN PRN PRN Reason: Heparin Nafcillin Sodium 2 gm/ (Dextrose) 100 mls @ 100 mls/hr IVPB Q4H-IV MARILEE PRN Reason: Protocol Last Admin: 11/12/16 05:47 Dose: 100 mls/hr Heparin Sodium (Porcine) 25, (000 unit/ Sodium Chloride) 500 mls @ 20 mls/hr IV TITR MARILEE; 1,000 UNIT/HR PRN Reason: Protocol Last Admin: 11/11/16 14:35 Dose: 22 mls/hr Midazolam HCl 100 mg/ Sodium (Chloride) 100 mls @ 1 mls/hr IVPB TITR MARILEE; 1 MG/ HR PRN Reason: Protocol Last Admin: 11/11/16 07:00 Dose: 4 mls/hr Dopamine HCl/Dextrose (Dopamine 400 Mg/D5w -) 250 mls @ 13.71 mls/hr IVPB TITR MARILEE; 5 MCG/KG/MIN PRN Reason: Protocol Last Admin: 11/11/16 21:47 Dose: 16.452 mls/hr Norepinephrine Bitartrate 8, (000 mcg/ Dextrose) 500 mls @ 18.75 mls/hr IV TITR MARILEE; 5 MCG/MIN PRN Reason: Protocol Last Admin: 11/12/16 01:03 Dose: 26.25 mls/hr Fentanyl 500 mcg/ Dextrose 100 mls @ 15 mls/hr IJ TITR MARILEE PRN Reason: 75 MCG/HR Last Admin: 11/11/16 08:45 Dose: 15 mls/hr Ertapenem 0.5 gm/ Sodium (Chloride) 50 mls @ 100 mls/hr IVPB DAILY MARILEE PRN Reason: Protocol Last Admin: 11/11/16 10:38 Dose: 100 mls/hr Pantoprazole Sodium (Protonix 40mg Ivpb (Pre-Docked)) 100 mls @ 200 mls/hr IVPB DAILY MARILEE Last Admin: 11/11/16 09:25 Dose: 200 mls/hr Magnesium Oxide (Mag-Ox -) 400 mg PO DAILY MARILEE Last Admin: 11/11/16 09:24 Dose: 400 mg Morphine Sulfate (Morphine Injection -) 2 mg IVPUSH Q4H PRN PRN Reason: BACK PAIN Last Admin: 11/10/16 00:14 Dose: 2 mg A/P 81 year old gentleman with PMhx of Hypertension, P-Afib not on A/C, BPH, 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 #Non-oliguric acute renal failure in setting of Sepsis/Bactermia with Cardiac Arrest x 3 BUN/Cr still up trending but pt maintaining good urine output no indication for WOOD CHOPPER at this time CXR showing findings of congestion (pt with low albumin so likely 3rd spacing) would maintaining O2 sat no acute indication for diuresis at this time but if pulmonary congestion worsens would give IV lasix (80mg IV) maintain electrolytes as per cardiology recs (K ~4.5, Mg ~2.5) Dose all meds for GFR < 15 #Cardiac Arrest/Torsades Cardiac follow up ICU Level care Respiratory support with Vent Strict monitoring of electrolytes #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 Continue Abx as per ID SWATHI not possible as pt is on multiple pressers #Hyperphospahtemia secondary to renal failure no binders indicating as pt is not being fed Pt with guarded prognosis will follow Devan Luo DO Problem List - Problems (1) Acute respiratory failure with hypoxia Code(s): J96.01 - ACUTE RESPIRATORY FAILURE WITH HYPOXIA (2) BPH (benign prostatic hyperplasia) Code(s): N40.0 - BENIGN PROSTATIC HYPERPLASIA WITHOUT LOWER URINRY TRACT SYMP (3) Bacteremia due to Staphylococcus Code(s): R78.81 - BACTEREMIA (4) HTN (hypertension) Code(s): I10 - ESSENTIAL (PRIMARY) HYPERTENSION Qualifiers: Hypertension type: essential hypertension Qualified Code(s): I10 - Essential (primary) hypertension (5) NSTEMI (non-ST elevated myocardial infarction) Code(s): I21.4 - NON-ST ELEVATION (NSTEMI) MYOCARDIAL INFARCTION (6) Cardiac arrest Code(s): I46.9 - CARDIAC ARREST, CAUSE UNSPECIFIED
--- NOTE | 2016-11-12 08:11 | PN ---
Progress Note (short form) - Note Progress Note: remains sedated and intubated continues on levophed and dopamine Vital Signs Period Temp Pulse Resp BP Sys/Roche Pulse Ox Last 24 Hr 97.4 F-98.8 F 59-73 12-15 80-117/38-75 100-100 cor-rrr lungs decreased bs at bases abd soft,nt ext no edema CBC, BMP 11/12/16 05:20 a/p s/p cardiac arrest multiorgan failure persistent MSSA bacteremia, cannot r/o endocarditis vertebral osteomyelitis- chf with severe MR cad/nstemi-elevated troponin sebastian bph with chronic huizar UTI repeat blood cultures sent today if lefts continue to rise will switch from nafcillin to cefazolin continue ertapenem, overall prognosis grim
[2016-11-12 08:34] LABS: METAMYELOCYTE 1 % (0-2); PLATELET ESTIMATE ADEQUATE (NORMAL)
[2016-11-12] MEDS: CLOPIDOGREL BISULFATE 75 MG TABLET (FP) PO SCH (10:00)
[2016-11-12] MEDS: MAGNESIUM OXIDE 400 MG TABLET (FP) PO SCH (10:05)
--- NOTE | 2016-11-12 10:09 | PN ---
Progress Note (short form) - Note Progress Note: SUBJECTIVE: Patient seen and examined in the ICU. 24HR: -remains on pressors 9 Levo and inotrope -still moderately sedated in sunus with occ PVC -no fever -trop peaked and now downtrending OBJECTIVE: Active Medications Acetaminophen (Tylenol -) 650 mg PO Q4H PRN PRN Reason: FEVER OR PAIN Last Admin: 11/09/16 13:57 Dose: 650 mg Clopidogrel Bisulfate (Plavix -) 75 mg PO DAILY [facility]E Last Admin: 11/11/16 09:24 Dose: 75 mg Heparin Sodium (Porcine) (Heparin -) 1,000 unit IVPUSH PRN PRN PRN Reason: Heparin Last Admin: 11/10/16 00:17 Dose: 1,000 unit Heparin Sodium (Porcine) (Heparin -) 5,000 unit IVPUSH PRN PRN PRN Reason: Heparin Nafcillin Sodium 2 gm/ (Dextrose) 100 mls @ 100 mls/hr IVPB Q4H-IV [facility]E PRN Reason: Protocol Last Admin: 11/12/16 05:47 Dose: 100 mls/hr Heparin Sodium (Porcine) 25, (000 unit/ Sodium Chloride) 500 mls @ 20 mls/hr IV TITR MAR[facility]E; 1,000 UNIT/HR PRN Reason: Protocol Last Admin: 11/11/16 14:35 Dose: 22 mls/hr Midazolam HCl 100 mg/ Sodium (Chloride) 100 mls @ 1 mls/hr IVPB TITR MAR[facility]E; 1 MG/ HR PRN Reason: Protocol Last Admin: 11/11/16 07:00 Dose: 4 mls/hr Dopamine HCl/Dextrose (Dopamine 400 Mg/D5w -) 250 mls @ 13.71 mls/hr IVPB TITR MAR[facility]E; 5 MCG/KG/MIN PRN Reason: Protocol Last Admin: 11/11/16 21:47 Dose: 16.452 mls/hr Norepinephrine Bitartrate 8, (000 mcg/ Dextrose) 500 mls @ 18.75 mls/hr IV TITR MAR[facility]E; 5 MCG/MIN PRN Reason: Protocol Last Admin: 11/12/16 01:03 Dose: 26.25 mls/hr Fentanyl 500 mcg/ Dextrose 100 mls @ 15 mls/hr IJ TITR [facility]E PRN Reason: 75 MCG/HR Last Admin: 11/11/16 08:45 Dose: 15 mls/hr Ertapenem 0.5 gm/ Sodium (Chloride) 50 mls @ 100 mls/hr IVPB DAILY [facility]E PRN Reason: Protocol Last Admin: 11/11/16 10:38 Dose: 100 mls/hr Pantoprazole Sodium (Protonix 40mg Ivpb (Pre-Docked)) 100 mls @ 200 mls/hr IVPB DAILY [facility] Last Admin: 11/11/16 09:25 Dose: 200 mls/hr Magnesium Oxide (Mag-Ox -) 400 mg PO DAILY [facility] Last Admin: 11/11/16 09:24 Dose: 400 mg Morphine Sulfate (Morphine Injection -) 2 mg IVPUSH Q4H PRN PRN Reason: BACK PAIN Last Admin: 11/10/16 00:14 Dose: 2 mg Laboratory Last Values WBC 13.7 K/mm3 (4.0-10.0) H 11/12/16 05:20 RBC 4.78 M/mm3 (4.00-5.60) 11/12/16 05:20 Hgb 13.5 GM/dL (11.7-16.9) 11/12/16 05:20 Hct 40.6 % (35.4-49) 11/12/16 05:20 MCV 84.9 fl (80-96) 11/12/16 05:20 MCH 28.3 pg (25.7-33.7) 11/12/16 05:20 MCHC 33.3 g/dl (32.0-35.9) 11/12/16 05:20 RDW 14.6 % (11.9-15.9) 11/12/16 05:20 Plt Count 328 K/MM3 (134-434) 11/12/16 05:20 MPV 9.2 fl (7.5-11.1) 11/12/16 05:20 Neutrophils % 72.0 % (42.8-82.8) 11/12/16 05:20 Lymphocytes % 16.0 % (8-40) D 11/12/16 05:20 Monocytes % 6.0 % (3.8-10.2) 11/12/16 05:20 Eosinophils % 4.0 % (0-4.5) D 11/12/16 05:20 Basophils % 0.1 % (0-2.0) 11/09/16 18:00 Metamyelocytes 1 % (0-2) D 11/12/16 05:20 Nucleated RBCs 1 % (0-0) H 11/12/16 05:20 Differential Comment Manual diff done 11/12/16 05:20 Reactive Lymphocytes 1 % (0-80) 11/12/16 05:20 Platelet Estimate Adequate (NORMAL) 11/12/16 05:20 ESR 100 mm/hr (0-20) H 11/07/16 10:00 INR 1.66 (0.82-1.09) H 11/09/16 14:30 PTT (Actin FS) 83.4 SECONDS (26.9-34.4) H 11/12/16 05:20 D-Dimer Cancelled 11/07/16 10:00 Puncture Site Right radial 11/09/16 18:20 ABG pH 7.36 (7.35-7.45) 11/09/16 18:20 ABG pCO2 at Pt Temp 35.3 mmHg (35-45) 11/09/16 18:20 ABG pO2 at Pt Temp 76.0 mmHg (68-100) 11/09/16 18:20 ABG HCO3 19.5 meq/L (22-26) L 11/09/16 18:20 ABG O2 Sat (Measured) 93.5 % (90-98.9) 11/09/16 18:20 ABG O2 Content 14.9 % vol (15-22) L 11/09/16 18:20 ABG Base Excess -4.7 meq/l (-2-2) L 11/09/16 18:20 Mannie Test Positive 11/09/16 18:20 O2 Delivery Device Mec.vent 11/09/16 18:20 Oxygen Flow Rate 100% 11/09/16 18:20 Vent Mode A/c 11/09/16 18:20 Vent Rate 12 11/09/16 18:20 Mechanical Rate Yes 11/09/16 18:20 PEEP 5.0 cmH2O 11/09/16 18:20 Pressure Support Vent 500 11/09/16 18:20 Sodium 131 mmol/L (136-145) L 11/12/16 05:20 Potassium 3.6 mmol/L (3.5-5.1) 11/12/16 05:20 Chloride 94 mmol/L (98-107) L 11/12/16 05:20 Carbon Dioxide 21 mmol/L (21-32) 11/12/16 05:20 Anion Gap 16 (8-16) 11/12/16 05:20 BUN 79 mg/dL (7-18) H 11/12/16 05:20 Creatinine 4.4 mg/dL (0.7-1.3) H 11/12/16 05:20 Creat Clearance w eGFR 12.94 (>60) 11/12/16 05:20 POC Glucometer 100 UNITS (()) 11/07/16 09:11 Random Glucose 119 mg/dL (74-106) H D 11/12/16 05:20 Lactic Acid 1.8 mmol/L (0.4-2.0) 11/10/16 08:00 Calcium 7.1 mg/dL (8.5-10.1) L 11/12/16 05:20 Phosphorus 7.1 mg/dL (2.5-4.9) H 11/12/16 05:20 Magnesium 2.6 mg/dL (1.8-2.4) H 11/12/16 05:20 Total Bilirubin 2.8 mg/dL (0.2-1.0) H D 11/12/16 05:20 Direct Bilirubin Cancelled 11/10/16 08:42 AST 53 U/L (15-37) H D 11/12/16 05:20 ALT 95 U/L (12-78) H 11/12/16 05:20 Alkaline Phosphatase 62 U/L (45-117) 11/12/16 05:20 Creatine Kinase 144 IU/L (39-308) 11/12/16 05:20 Creatine Kinase Index 6.5 % (0.0-5.0) H* 11/11/16 11:00 CK-MB (CK-2) 16.516 ng/mL (0.5-3.6) H 11/11/16 11:00 CK-MB (CK-2) Rel Index Cancelled 11/08/16 06:00 Troponin I 19.90 ng/ml (0.00-0.05) H* 11/12/16 05:20 C-Reactive Protein 16.7 MG/DL (0.00-0.3) H 11/07/16 10:00 Total Protein 5.4 g/dl (6.4-8.2) L 11/12/16 05:20 Albumin 1.3 g/dl (3.4-5.0) L 11/12/16 05:20 Prostate Specific Ag 12.20 ng/ml (0.0-4.0) H D 11/07/16 10:00 Urine Color Yellow 11/10/16 16:30 Urine Appearance Slcloudy 11/10/16 16:30 Urine pH 5.0 (5.0-8.0) 11/10/16 16:30 Ur Specific [place] 1.015 (1.005-1.025) 11/10/16 16:30 Urine Protein 1+ (NEGATIVE) H 11/10/16 16:30 Urine Glucose (UA) Negative (NEGATIVE) 11/10/16 16:30 Urine Ketones Negative (NEGATIVE) 11/10/16 16:30 Urine Blood 1+ (NEGATIVE) H 11/10/16 16:30 Urine Nitrite Negative (NEGATIVE) 11/10/16 16:30 Urine Bilirubin Negative (NEGATIVE) 11/10/16 16:30 Urine Urobilinogen Negative mg/dL (0.2-1.0) 11/10/16 16:30 Ur Leukocyte Esterase 2+ (NEGATIVE) H 11/10/16 16:30 Urine RBC 3 /hpf (0-3) 11/10/16 16:30 Urine WBC 74 /hpf (3-5) 11/10/16 16:30 Ur Epithelial Cells Rare /hpf (FEW) 11/10/16 16:30 Amorphous Urates Moderate /hpf (NONE SEEN) 11/10/16 16:30 Urine Bacteria Moderate /hpf (NONE SEEN) 11/10/16 16:30 Hyaline Casts 5 /lpf 11/10/16 16:30 Urine Mucus Rare 11/07/16 02:53 U Random Total Protein 168 mg/dl (5-11.9) H 11/09/16 11:00 Ur Random Sodium 30 MMOL/L 11/10/16 16:30 Ur Random Potassium 45.3 MMOL/L 11/09/16 11:00 Ur Random Chloride 21 MMOL/L 11/09/16 11:00 Ur Random Urea Nitrogn 380 mg/dL 11/10/16 16:30 Urine Creatinine 77.6 mg/dL (20-370) 11/10/16 16:30 Random Vancomycin 15.225 ug/ml 11/09/16 05:15 Opiates Screen Positive ng/ml (UPNACI=789) 11/08/16 11:52 Methadone Screen Negative ng/ml (BCPDSQ=028) 11/08/16 11:52 Barbiturate Screen Negative ng/ml (IHWUYB=386) 11/08/16 11:52 Phencyclidine Screen Negative ng/ml (CUTOFF=25) 11/08/16 11:52 Ur Amphetamines Screen Negative ng/ml (OPKGKE=040) 11/08/16 11:52 MDMA (Ecstasy) Screen Negative ng/ml (SZLSYP=564) 11/08/16 11:52 Benzodiazepines Screen Positive ng/ml (ANNNPY=696) 11/08/16 11:52 Cocaine Screen Negative ng/ml (KDZWWT=558) 11/08/16 11:52 U Marijuana (THC) Screen Negative ng/ml (CUTOFF=50) 11/08/16 11:52 Blood Type B POSITIVE 11/07/16 10:21 Antibody Screen Negative 11/07/16 10:00 Troponin, BNP 11/11/16 11/11/16 11/12/16 11:00 15:01 05:20 Troponin I 27.58 H* 23.42 H* 19.90 H* Vital Signs Temp 98.8 F 11/12/16 06:28 Pulse 72 11/12/16 07:28 Resp 12 11/12/16 07:31 BP 85/38 11/12/16 07:28 Pulse Ox 100 11/11/16 13:24 Intake & Output 11/11/16 11/11/16 11/12/16 11:59 23:59 11:59 Intake Total 2024.0 1370.8 1010 Output Total 600 675 350 Balance 1424.0 695.8 660 Weight 75.807 kg 78.4 kg Intake: IV 1774.0 820.8 910 Heparin - 25,000 Unit In 264 264 220 Normal Saline - 495 ml @ 1,000 UNIT/HR 20 mls/hr IV TITR [facility]E Rx#: [id number] Versed - 100 mg In Normal 30 48 40 Saline - 100 ml @ 1 MG/ HR 1 mls/hr IVPB TITR [facility]E Rx#:[id number] Dopamine 400 mg/D5w - 250 164.4 163.2 250 ml @ 5 MCG/KG/MIN 13.71 mls/hr IVPB TITR [facility]E Rx#: [id number] Levophed - 8,000 Mcg In 315.6 315.6 350 D5w - 492 ml @ 5 MCG/MIN 18.75 mls/hr IV TITR [facility] Rx#:[id number] Normal Saline - 1,000 ml 1000 @ 1000 mls/hr IV ASDIR STA Rx#:[id number] FEntanyl 30 50 IVPB 250 550 100 Oral 0 Output: Urine 600 675 350 Heart 600 675 350 Other: Voiding Method Indwelling Catheter Indwelling Catheter Indwelling Catheter Bowel Movement No No No Weight Measurement Method Built in Bedscale Built in Bedscale EXAM: neuro: sedated, but awakens and intermittently follows simple commands HEENT: PERRL, anicteric, orally intubated lungs: poor air movement, diminished bases heart: irregular abd: soft, non-tender ext: no edema, cool, dependent edema in UE skin: warm, dry, intact ASSESSMENT AND PLAN: s/p VFib Cardiopulmonary Arrest/Prolonged QT Acute NSTEMI/CAD/+Troponins Acute Respiratory Failure Acute on Chronic Systolic Heart Failure Severe Mitral Regurgitation Acute Kidney Injury UTI MSSA Bacteremia Osteomyelitis/Discitis Sepsis Lactic Acidosis - ASA, Plavix, Statin, Heparin - Trend Troponin, has peaked - Cardiology follow up, appreciate - keep K >4, Mg >2 - ABX per ID - Too unstable for SWATHI - monitor urine output, creatinine - GOC discussions with family - continue ICU monitoring Critically Ill - 45min Piyush Jacinto [facility] [id number]
[2016-11-12] MEDS: ERTAPENEM SODIUM 0.5 GM in SODIUM CHLORIDE 50 ML IVPB SCH (10:20)
[2016-11-12] MEDS: PANTOPRAZOLE SODIUM 100 ML IVPB SCH (11:00)
--- NOTE | 2016-11-12 11:02 | PN ---
Progress Note, Physician Chief Complaint: Events noted Remains intubated on mechanical ventilator Sedated and on multiple pressors History of Present Illness: Patient was seen and examined in ICU. Mechanical ventilation. Chart was reviewed Discussed in detail with his brother again Elevated troponins - trending down Remains on multiple pressors - hypotensive - sedated Positive blood cultures - Current Medication List Current Medications: Active Medications Acetaminophen (Tylenol -) 650 mg PO Q4H PRN PRN Reason: FEVER OR PAIN Last Admin: 11/09/16 13:57 Dose: 650 mg Clopidogrel Bisulfate (Plavix -) 75 mg PO DAILY [facility] Last Admin: 11/11/16 09:24 Dose: 75 mg Heparin Sodium (Porcine) (Heparin -) 1,000 unit IVPUSH PRN PRN PRN Reason: Heparin Last Admin: 11/10/16 00:17 Dose: 1,000 unit Heparin Sodium (Porcine) (Heparin -) 5,000 unit IVPUSH PRN PRN PRN Reason: Heparin Nafcillin Sodium 2 gm/ (Dextrose) 100 mls @ 100 mls/hr IVPB Q4H-IV [facility]E PRN Reason: Protocol Last Admin: 11/12/16 05:47 Dose: 100 mls/hr Heparin Sodium (Porcine) 25, (000 unit/ Sodium Chloride) 500 mls @ 20 mls/hr IV TITR MARILEE; 1,000 UNIT/HR PRN Reason: Protocol Last Admin: 11/11/16 14:35 Dose: 22 mls/hr Midazolam HCl 100 mg/ Sodium (Chloride) 100 mls @ 1 mls/hr IVPB TITR MARILEE; 1 MG/ HR PRN Reason: Protocol Last Admin: 11/11/16 07:00 Dose: 4 mls/hr Dopamine HCl/Dextrose (Dopamine 400 Mg/D5w -) 250 mls @ 13.71 mls/hr IVPB TITR MARILEE; 5 MCG/KG/MIN PRN Reason: Protocol Last Admin: 11/11/16 21:47 Dose: 16.452 mls/hr Norepinephrine Bitartrate 8, (000 mcg/ Dextrose) 500 mls @ 18.75 mls/hr IV TITR MARILEE; 5 MCG/MIN PRN Reason: Protocol Last Admin: 11/12/16 01:03 Dose: 26.25 mls/hr Fentanyl 500 mcg/ Dextrose 100 mls @ 15 mls/hr IJ TITR [facility]E PRN Reason: 75 MCG/HR Last Admin: 11/11/16 08:45 Dose: 15 mls/hr Ertapenem 0.5 gm/ Sodium (Chloride) 50 mls @ 100 mls/hr IVPB DAILY [facility] PRN Reason: Protocol Last Admin: 11/11/16 10:38 Dose: 100 mls/hr Pantoprazole Sodium (Protonix 40mg Ivpb (Pre-Docked)) 100 mls @ 200 mls/hr IVPB DAILY [facility] Last Admin: 11/11/16 09:25 Dose: 200 mls/hr Magnesium Oxide (Mag-Ox -) 400 mg PO DAILY [facility] Last Admin: 11/11/16 09:24 Dose: 400 mg Morphine Sulfate (Morphine Injection -) 2 mg IVPUSH Q4H PRN PRN Reason: BACK PAIN Last Admin: 11/10/16 00:14 Dose: 2 mg - Objective Vital Signs: Vital Signs Temperature 98.8 F 11/12/16 06:28 Pulse Rate 72 11/12/16 07:28 Respiratory Rate 12 11/12/16 07:31 Blood Pressure 85/38 11/12/16 07:28 O2 Sat by Pulse Oximetry (%) 100 11/11/16 13:24 Cardiovascular: Yes: Regular Rate and Rhythm, S1, S2 Respiratory: Yes: Diminished, Mechanically Ventilated, Rhonchi Gastrointestinal: Yes: Normal Bowel Sounds, Soft. No: Tenderness Edema: No Labs: CBC, BMP 11/12/16 05:20 Problem List - Problems (1) Acute on chronic systolic ACC/AHA stage C congestive heart failure Code(s): I50.23 - ACUTE ON CHRONIC SYSTOLIC (CONGESTIVE) HEART FAILURE (2) Acute respiratory failure with hypoxia Code(s): J96.01 - ACUTE RESPIRATORY FAILURE WITH HYPOXIA (3) Bacteremia due to Staphylococcus Code(s): R78.81 - BACTEREMIA (4) Cardiac arrest Code(s): I46.9 - CARDIAC ARREST, CAUSE UNSPECIFIED (5) Coronary artery disease Code(s): I25.10 - ATHSCL HEART DISEASE OF [place] CORONARY ARTERY W/O ANG PCTRS Qualifiers: Coronary Disease-Associated Artery/Lesion type: [place] artery [place] vs. transplanted heart: [place] heart Associated angina: without angina Qualified Code(s): I25.10 - Atherosclerotic heart disease of [place] coronary artery without angina pectoris (6) Discitis Code(s): M46.40 - DISCITIS, UNSPECIFIED, SITE UNSPECIFIED Qualifiers: Spinal region: lumbar Qualified Code(s): M46.46 - Discitis, unspecified, lumbar region (7) HLD (hyperlipidemia) Code(s): E78.5 - HYPERLIPIDEMIA, UNSPECIFIED Qualifiers: Hyperlipidemia type: pure hypercholesterolemia Qualified Code(s): E78.00 - Pure hypercholesterolemia, unspecified; E78.0 - Pure hypercholesterolemia (8) HTN (hypertension) Code(s): I10 - ESSENTIAL (PRIMARY) HYPERTENSION Qualifiers: Hypertension type: essential hypertension Qualified Code(s): I10 - Essential (primary) hypertension (9) 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 Code(s): Z92.29 - PERSONAL HISTORY OF OTHER DRUG THERAPY (10) NSTEMI (non-ST elevated myocardial infarction) Code(s): I21.4 - NON-ST ELEVATION (NSTEMI) MYOCARDIAL INFARCTION (11) Osteomyelitis Code(s): M86.9 - OSTEOMYELITIS, UNSPECIFIED Qualifiers: Osteomyelitis type: unspecified type Osteomyelitis location: other site Qualified Code(s): M86.9 - Osteomyelitis, unspecified (12) Paroxysmal atrial fibrillation Code(s): I48.0 - PAROXYSMAL ATRIAL FIBRILLATION (13) Septic shock due to Gram positive bacteria Code(s): A41.89 - OTHER SPECIFIED SEPSIS R65.21 - SEVERE SEPSIS WITH SEPTIC SHOCK (14) Severe mitral regurgitation Code(s): I34.0 - NONRHEUMATIC MITRAL (VALVE) INSUFFICIENCY (15) Acute renal failure Code(s): N17.9 - ACUTE KIDNEY FAILURE, UNSPECIFIED Qualifiers: Acute renal failure type: unspecified Qualified Code(s): N17.9 - Acute kidney failure, unspecified (16) DVT (deep venous thrombosis) Code(s): I82.409 - ACUTE EMBOLISM AND THOMBOS UNSP DEEP VN UNSP LOWER EXTREMITY (17) Severe sepsis with acute organ dysfunction Code(s): A41.9 - SEPSIS, UNSPECIFIED ORGANISM R65.20 - SEVERE SEPSIS WITHOUT SEPTIC SHOCK Assessment/Plan 1. Post cardiac arrest torsades de pointes with underlying prolonged QT post Levaquin for E. coli/enterococcal UTI and then bradycardic/asystolic arrest 2. Acute hypoxic respiratory failure on mechanical ventilator 3. Acute on chronic systolic failure with underlying severe MR 4. CAD with NSTEMI - rise in troponin 5. Paroxysmal AF currently in sinus rhythm 6. HTN/HCVD 7. Disciitis and possible osteomyelitis of L3-4 with MSSA bacteremia/septic shock 8. GUZMAN due to hemodynamic alterations 9. Shock liver 10. History of BPH and obstructive uropathy 11. Previous DVT post Eliquis PLAN: 1. Monitor Mg level and supplement as needed - monitor for QT prolongation, avoid QT prolonging agents and keep K>4.5 2. Trend LFTs, wean pressors to maintain MAP>65. Trend troponins - coming down 3. IV diuresis as needed with monitor renal function and electrolytes 4. Continue antibiotics. MRI spine when feasible and continue to follow as per ID input 5. Continue Plavix 75 qd and heparin drip. Lisinopril, Carvedilol and Aldactone are held pending hemodynamic and renal function stabilization 6. GI prophylaxis, further cardiac work up is to be followed which may include cardiac catheterization/coronary angiography at some point once sepsis and currentl hemodynamics improve. 7. Repeat Echocardiography on Sunday Prognosis: CRITICAL Further plans are to follow. Prakash Leigh MD
[2016-11-12] MEDS: HEPARIN - 25,000 UNIT in SODIUM CHLORIDE 495 ML IV SCH (13:55)
[2016-11-12] MEDS: MIDAZOLAM 100 MG in SODIUM CHLORIDE 100 ML IVPB SCH ×2 (15:47→23:54)
--- NOTE | 2016-11-12 16:18 | PN ---
Progress Note (short form) - Note Progress Note: Subjective: no events over night . Objective: Vital Signs: Last Vital Signs Temp Pulse Resp BP Pulse Ox 98.8 F 70 12 85/38 100 11/12/16 06:28 11/12/16 10:00 11/12/16 14:24 11/12/16 07:28 11/12/16 10:00 Intake & Output 11/09/16 11/10/16 11/11/16 11/12/16 23:59 23:59 23:59 23:59 Intake Total 820 2092.8 3394.8 1010 Output Total 389 222 0168 750 Balance 619 1792.8 2119.8 260 Weight 161 lb 3.2 oz 161 lb 167 lb 2 oz 172 lb 13.478 oz Laboratory Results - last 24 hr 11/12/16 11/12/16 11/12/16 05:20 05:20 05:20 WBC 13.7 H RBC 4.78 Hgb 13.5 Hct 40.6 MCV 84.9 MCH 28.3 MCHC 33.3 RDW 14.6 Plt Count 328 MPV 9.2 Neutrophils % 72.0 Lymphocytes % 16.0 D Monocytes % 6.0 Eosinophils % 4.0 D Metamyelocytes 1 D Nucleated RBCs 1 H Differential Comment Manual diff done Reactive Lymphocytes 1 Platelet Estimate Adequate PTT (Actin FS) 83.4 H Sodium Cancelled Potassium Cancelled Chloride Cancelled Carbon Dioxide Cancelled Anion Gap Cancelled BUN Cancelled Creatinine Cancelled Creat Clearance w eGFR Cancelled Random Glucose Cancelled Calcium Cancelled Phosphorus Cancelled Magnesium Cancelled Total Bilirubin Cancelled AST Cancelled ALT Cancelled Alkaline Phosphatase Cancelled Creatine Kinase Troponin I Total Protein Cancelled Albumin Cancelled 11/12/16 05:20 WBC RBC Hgb Hct MCV MCH MCHC RDW Plt Count MPV Neutrophils % Lymphocytes % Monocytes % Eosinophils % Metamyelocytes Nucleated RBCs Differential Comment Reactive Lymphocytes Platelet Estimate PTT (Actin FS) Sodium 131 L Potassium 3.6 Chloride 94 L Carbon Dioxide 21 Anion Gap 16 BUN 79 H Creatinine 4.4 H Creat Clearance w eGFR 12.94 Random Glucose 119 H D Calcium 7.1 L Phosphorus 7.1 H Magnesium 2.6 H Total Bilirubin 2.8 H D AST 53 H D ALT 95 H Alkaline Phosphatase 62 Creatine Kinase 144 Troponin I 19.90 H* Total Protein 5.4 L Albumin 1.3 L Physical Exam: intubated and sedated . comfortable CV: RRR, no murmurs appreciated, No JVD today Lungs: clear lungs anteriorly Ext: no edema on LE Abd ; soft, NT, ND , NL BS DP 1+ and radial pulse 1+ b/l . Heart in ASSESSMENT AND PLAN: 81 y/o man with h/o HTN, HLD, CVA, BPH with chronic indwelling foleyc atheter and h/o DVT who presented with back and neck pain . Hospitalization esd complicated by cardiac arrest x3 ( VF, [place], asystole ) . He was found to be bacteremic as well 1- S/P Cardiac arrest, VF, Torsades and asystole. Prolonged QTc . cardiogenic Vs septic shock 2- NSTEMI 3- Acute systolic heart failure . 4- -Severe sepsis with MSSA bacteremia. concern for endocarditis 5- Complicated UTI : MSSA and Citrobacter Freundii 6- GUZMAN : can't r/o ATN Plan : - cont mag oxide - cont vent support - cont dopamine gtt and levophed.keep MAP> 65. - Cont sedation - cont plavix - need cardiac cath eventually, but bacteremic now - heparin gtt - Cont to hold ACEI , due to GUZMAN - Hold diuresis - cont ertapenem and Naficillin - Monitor I&O - hold off MRI of spine ,as GFR is < 30 to avoid risk of nephrogenic systemic fibrosis . Unstable intubated now CCT 30 min Visit type - Emergency Visit Emergency Visit: Yes ED Registration Date: 11/07/16 Care time: The patient presented to the Emergency Department on the above date and was hospitalized for further evaluation of their emergent condition. - New Patient This patient is new to me today: No - Critical Care Critical Care patient: Yes Total Critical Care Time (in minutes): 30 Critical Care Statement: The care of this patient involved high complexity decision making to prevent further life threatening deterioration of the patient 's condition and/or to evalute & treat vital organ system(s) failure or risk of failure.
[2016-11-12] MEDS: DOPAMINE 400 MG/D5W - 250 ML IVPB SCH ×2 (17:03→23:53)
--- NOTE | 2016-11-12 18:19 | EKG ---
Test Reason : Blood Pressure : / mmHG Vent. Rate : 065 BPM Atrial Rate : 065 BPM P-R Int : 260 ms QRS Dur : 124 ms QT Int : 434 ms P-R-T Axes : 029 -02 091 degrees QTc Int : 451 ms SINUS RHYTHM WITH 1ST DEGREE A-V BLOCK WITH OCCASIONAL PREMATURE VENTRICULAR COMPLEXES AND PREMATURE ATRIAL COMPLEXES INFERIOR INFARCT (CITED ON OR BEFORE 07-NOV-2016) ANTERIOR INFARCT (CITED ON OR BEFORE 07-NOV-2016) PROLONGED QTc ABNORMAL ECG WHEN COMPARED WITH ECG OF 10-NOV-2016 11:43, APPEARANCE OF VPBs PROLONGATION OF QTc Confirmed by MARY CARMEN GERBER MD ([id number]) on 11/12/2016 6:18:56 PM Referred By: Annmarie RIVERA Confirmed By:MARY CARMEN GERBER MD
[2016-11-12] MEDS ORDERED: PT OWN MED DRAWER 7, Y5N ONE ×2 (21:13→22:12)
[2016-11-13] MEDS: NAFCILLIN - 2 GM in DEXTROSE 5%-WATER - 100 ML IVPB SCH ×6 (02:00→22:19)
[2016-11-13] MEDS ORDERED: NOREPINEPHRINE BITARTRATE 4 MG/4 ML ML IV ONE ×2 (03:50→16:25)
[2016-11-13 06:10] LABS: BASOPHIL 0.2 % (0-2.0); EOSINOPHIL 1.5 % (0-4.5); MCH 27.8 pg (25.7-33.7); MCHC 32.4 g/dl (32.0-35.9); MEAN CELL VOLUME 85.6 fl (80-96); MEAN PLT VOLUME 9.2 fl (7.5-11.1); NEUTROPHILS 77.1 % (42.8-82.8); PLATELET COUNT 290 K/MM3 (134-434); RDW 14.7 % (11.9-15.9); WHITE BLOOD COUNT 13.7 K/mm3 (4.0-10.0)
[2016-11-13 07:12] LABS: ALBUMIN 1.2 g/dl (3.4-5.0); ALK PHOS 61 U/L (45-117); ANION GAP 19 (8-16); BILIRUBIN,TOTAL 3.5 mg/dL (0.2-1.0); CO2 20 mmol/L (21-32); CREATININE 4.5 mg/dL (0.7-1.3); GLUCOSE,RANDOM 141 mg/dL (74-106); MAGNESIUM 2.6 mg/dL (1.8-2.4); PHOSPHOROUS 7.4 mg/dL (2.5-4.9); SGOT/AST 33 U/L (15-37); SGPT/ALT 68 U/L (12-78); TOT PROT 4.9 g/dl (6.4-8.2)
--- NOTE | 2016-11-13 07:34 | PN ---
Physical Exam: SUBJECTIVE: Patient seen and examined this AM. Pt is sedated, unable to be woken up from sleep. Pt on Dopamine 8, Levophed 11. Tele overnight notable for + PVCs, MAP remained above 65 throughout. Notable for mild bleeding from urethra, nurse states that bleeding started since catheter change on Sunday. OBJECTIVE: Vital Signs Period Temp Pulse Resp BP Sys/Roche Pulse Ox Last 24 Hr 98 F-99.7 F 69-103 10-16 60-116/39-76 97-100 GENERAL: Intubated, sedated, unable to arouse HEENT: PERRLA, Moist mucous membranes, +JVD LUNGS: Intubated, no audible wheezes, anterior lung garcia clear, no use of accessory muscles HEART: Regular rate, rhythm, normal S1 and S2 without murmur, rub or gallop. ABDOMEN: Soft, nontender, not distended, hypoactive bowel sounds, no guarding, no rebound, no masses. MSK: UE nonpitting edema, No bony deformities or tenderness. 2+ pulses in upper extremities and tibial, 1+ dorsalis pedis, no edema - Minimal dried blood from huizar NEUROLOGICAL: Neuro exam was difficult to obtain bc of sedation. No facial droop. PERRLA. Laboratory Results - last 24 hr 11/12/16 11/12/16 11/12/16 05:20 05:20 05:20 WBC 13.7 H RBC 4.78 Hgb 13.5 Hct 40.6 MCV 84.9 MCH 28.3 MCHC 33.3 RDW 14.6 Plt Count 328 MPV 9.2 Neutrophils % 72.0 Lymphocytes % 16.0 D Monocytes % 6.0 Eosinophils % 4.0 D Basophils % Metamyelocytes 1 D Nucleated RBCs 1 H Differential Comment Manual diff done Reactive Lymphocytes 1 Platelet Estimate Adequate PTT (Actin FS) 83.4 H Sodium 131 L Potassium 3.6 Chloride 94 L Carbon Dioxide 21 Anion Gap 16 BUN 79 H Creatinine 4.4 H Creat Clearance w eGFR 12.94 Random Glucose 119 H D Calcium 7.1 L Phosphorus 7.1 H Magnesium 2.6 H Total Bilirubin 2.8 H D AST 53 H D ALT 95 H Alkaline Phosphatase 62 Creatine Kinase 144 Troponin I 19.90 H* Total Protein 5.4 L Albumin 1.3 L 11/13/16 11/13/16 05:15 05:15 WBC 13.7 H RBC 4.72 Hgb 13.1 Hct 40.4 MCV 85.6 MCH 27.8 MCHC 32.4 RDW 14.7 Plt Count 290 MPV 9.2 Neutrophils % 77.1 Lymphocytes % 9.6 D Monocytes % 11.6 H D Eosinophils % 1.5 Basophils % 0.2 Metamyelocytes Nucleated RBCs Differential Comment Reactive Lymphocytes Platelet Estimate PTT (Actin FS) 91.9 H Sodium Potassium Chloride Carbon Dioxide Anion Gap BUN Creatinine Creat Clearance w eGFR Random Glucose Calcium Phosphorus Magnesium Total Bilirubin AST ALT Alkaline Phosphatase Creatine Kinase Troponin I Total Protein Albumin Active Medications Generic Name Dose Route Start Last Admin Trade Name Freq PRN Reason Stop Dose Admin Acetaminophen 650 mg 11/07/16 08:16 11/09/16 13:57 Tylenol - PO 650 mg Q4H PRN Administration FEVER OR PAIN Clopidogrel Bisulfate 75 mg 11/08/16 11:00 11/12/16 10:00 Plavix - PO Not Given DAILY [facility]E Heparin Sodium (Porcine) 1,000 unit 11/09/16 13:43 11/10/16 00:17 Heparin - IVPUSH 1,000 unit PRN PRN Administration Heparin Heparin Sodium (Porcine) 5,000 unit 11/09/16 13:43 Heparin - IVPUSH PRN PRN Heparin Nafcillin Sodium 2 gm/ 100 mls @ 100 mls/hr 11/09/16 10:00 11/13/16 06:33 Dextrose IVPB 100 mls/hr Q4H-IV [facility]E Administration Protocol Heparin Sodium (Porcine) 25, 500 mls @ 20 mls/hr 11/09/16 14:30 11/12/16 13:55 000 unit/ Sodium Chloride IV 21 mls/hr TITR MAR[facility]E Administration Protocol 1,000 UNIT/HR Midazolam HCl 100 mg/ Sodium 100 mls @ 1 mls/hr 11/09/16 17:00 11/12/16 23:54 Chloride IVPB 4 mls/hr TITR [facility]E Administration Protocol 1 MG/HR Dopamine HCl/Dextrose 250 mls @ 13.71 mls/hr 11/09/16 19:16 11/12/16 23:53 Dopamine 400 Mg/D5w - IVPB 21.936 mls/hr TITR MARILEE Administration Protocol 5 MCG/KG/MIN Norepinephrine Bitartrate 8, 500 mls @ 18.75 mls/hr 11/09/16 23:30 11/12/16 23: 55 000 mcg/ Dextrose IV 45 mls/hr TITR MAR[facility]E Administration Protocol 5 MCG/MIN Fentanyl 500 mcg/ Dextrose 100 mls @ 15 mls/hr 11/11/16 07:45 11/12/16 07:45 IJ Not Given TITR MARILEE 75 MCG/HR Ertapenem 0.5 gm/ Sodium 50 mls @ 100 mls/hr 11/11/16 10:00 11/12/16 10:20 Chloride IVPB 100 mls/hr DAILY [facility] Administration Protocol Pantoprazole Sodium 100 mls @ 200 mls/hr 11/11/16 10:00 11/12/16 11:00 Protonix 40mg Ivpb (Pre-Docked) IVPB 200 mls/hr DAILY [facility] Administration Magnesium Oxide 400 mg 11/10/16 10:00 11/12/16 10:05 Mag-Ox - PO Not Given DAILY [facility] ASSESSMENT/PLAN: Pt is an 81yo M with a history of HTN, HLD, Old CVA, BPH with chronic indwelling huizar, Hx of DVT who presented to the ER with neck and back pain + severe sepsis (tachy, WBC 13.9, + cultures, high LA). After the patient was transferred from the ER, he had three episodes of cardiac arrests with ACLS performance and ROSC, and is currently in the ICU for close monitoring. # Post Cardiac Arrest w/ Vfib and Torsades - Initial arrests due to long QTc, latest likely due to septic shock - IJ line, Dopamine (8 mcg/kg/min) + Levophed (11 mcg/min) - Continue Mag Oxide - Keep MAP >65 - F/u serial EKG - Keep Mg >2.5 - Versed 4mcg/min + fentanyl (75mg/kg) # NSTEMI - Trops peaked to 15, peaked again after last arrest to 36 - EKG shows no new changes - On Plavix 75 + Heparin gtt, no cath due to bacteremia - F/u serial EKGs + QTc # Severe Sepsis w/ Persistent MSSA Bacteremia - Persistent MSSA - Repeat Echo cannot r/o vegetations, cannot r/o endocarditis - Nafcillin 2g Q4IV + Ertapenem IV 0.5gm QD # Osteomyelitis vs Discitis - Seeding from bacteremia - MRI of L + C Spine on hold, GFR <15, risk of nephrogenic sclerosis - No neurosurgical intervention - Morphine 2mg + Tylenol PRN for pain # GUZMAN nonoliguric - Likely from septic shock - FeUrea 24% likely prerenal - Continue to monitor for progression into ATN - UOP improved, nonoliguric - Strict Is and Os - Likely causing hyperPO4 - Avoid nephrotoxic medications, d/c'd lisinopril # Severe Systolic CHF - EF 24% - Echo shows severe wall motion abnormalities and hypokinesis - Pt now on 2 pressors, f/u MAP, keep >65 - D/c'd carvedilol - Will hold lasix 40mg QD until oliguric or overloaded # Paroxysmal Afib - currently in Afib - Pt on heparin drip - Continuous campus monitor # BPH with obstructive uropathy - Pt has indwelling huizar catheter for enlarged prostate bc pt refused TURP in past - Huizar changed on 11/[address] Flores. - Pt has elevated PSA known to urologist # Hx of femoral DVT - BLLE dopplers were negative # FEN - Fluids: None - Electrolytes: Monitor - Nutrition: NPO # Prophylaxis - DVT: Heparin drip - GI: IV Protonix 40mg QD - Deconditioning: PT ordered, but will wait till pt recovers from critical condition # Code Status - Full Code Visit type - Emergency Visit Emergency Visit: No - New Patient This patient is new to me today: No - Critical Care Critical Care patient: No
--- NOTE | 2016-11-13 07:36 | PN ---
Progress Note, Physician Chief Complaint: ID 81 year old male with sepsis and shock post cardiac arrest Staphylococcal sepsis Levophed & Dopamine now Intubated Antibiotic include combination of Ertepenem and Nafcillin Last set of blood cultures no growth but still not final - Current Medication List Current Medications: Active Medications Acetaminophen (Tylenol -) 650 mg PO Q4H PRN PRN Reason: FEVER OR PAIN Last Admin: 11/09/16 13:57 Dose: 650 mg Clopidogrel Bisulfate (Plavix -) 75 mg PO DAILY [facility]E Last Admin: 11/12/16 10:00 Dose: Not Given Heparin Sodium (Porcine) (Heparin -) 1,000 unit IVPUSH PRN PRN PRN Reason: Heparin Last Admin: 11/10/16 00:17 Dose: 1,000 unit Heparin Sodium (Porcine) (Heparin -) 5,000 unit IVPUSH PRN PRN PRN Reason: Heparin Nafcillin Sodium 2 gm/ (Dextrose) 100 mls @ 100 mls/hr IVPB Q4H-IV [facility]E PRN Reason: Protocol Last Admin: 11/13/16 06:33 Dose: 100 mls/hr Heparin Sodium (Porcine) 25, (000 unit/ Sodium Chloride) 500 mls @ 20 mls/hr IV TITR MARILEE; 1,000 UNIT/HR PRN Reason: Protocol Last Admin: 11/12/16 13:55 Dose: 21 mls/hr Midazolam HCl 100 mg/ Sodium (Chloride) 100 mls @ 1 mls/hr IVPB TITR MAR[facility]E; 1 MG/ HR PRN Reason: Protocol Last Admin: 11/12/16 23:54 Dose: 4 mls/hr Dopamine HCl/Dextrose (Dopamine 400 Mg/D5w -) 250 mls @ 13.71 mls/hr IVPB TITR MARILEE; 5 MCG/KG/MIN PRN Reason: Protocol Last Admin: 11/12/16 23:53 Dose: 21.936 mls/hr Norepinephrine Bitartrate 8, (000 mcg/ Dextrose) 500 mls @ 18.75 mls/hr IV TITR MARILEE; 5 MCG/MIN PRN Reason: Protocol Last Admin: 11/12/16 23:55 Dose: 45 mls/hr Fentanyl 500 mcg/ Dextrose 100 mls @ 15 mls/hr IJ TITR MARILEE PRN Reason: 75 MCG/HR Last Admin: 11/12/16 07:45 Dose: Not Given Ertapenem 0.5 gm/ Sodium (Chloride) 50 mls @ 100 mls/hr IVPB DAILY [facility] PRN Reason: Protocol Last Admin: 11/12/16 10:20 Dose: 100 mls/hr Pantoprazole Sodium (Protonix 40mg Ivpb (Pre-Docked)) 100 mls @ 200 mls/hr IVPB DAILY [facility] Last Admin: 11/12/16 11:00 Dose: 200 mls/hr Magnesium Oxide (Mag-Ox -) 400 mg PO DAILY [facility] Last Admin: 11/12/16 10:05 Dose: Not Given - Objective Vital Signs: Vital Signs Temperature 99.3 F 11/13/16 06:00 Pulse Rate 79 11/13/16 07:00 Respiratory Rate 12 11/13/16 07:00 Blood Pressure 98/65 11/13/16 07:00 O2 Sat by Pulse Oximetry (%) 100 11/12/16 10:00 Constitutional: Yes: Other (Intubated multiple pressors) Neck: Yes: Supple, Other (Central line) Cardiovascular: Yes: Regular Rate and Rhythm, S1, S2. No: Murmur Respiratory: Yes: WNL, Regular, CTA Bilaterally, Rhonchi. No: Rales Gastrointestinal: Yes: WNL, Normal Bowel Sounds, Soft. No: Splenomegaly, Tenderness, Tenderness, Rebound Edema: Yes (Hands) Labs: CBC, BMP 11/13/16 05:15 INR, PTT INR 1.66 (0.82-1.09) H 11/09/16 14:30 Problem List - Problems (1) Osteomyelitis Code(s): M86.9 - OSTEOMYELITIS, UNSPECIFIED Qualifiers: Osteomyelitis type: unspecified type Osteomyelitis location: other site Qualified Code(s): M86.9 - Osteomyelitis, unspecified (2) Bacteremia due to Staphylococcus Code(s): R78.81 - BACTEREMIA (3) Discitis Code(s): M46.40 - DISCITIS, UNSPECIFIED, SITE UNSPECIFIED Qualifiers: Spinal region: lumbar Qualified Code(s): M46.46 - Discitis, unspecified, lumbar region (4) Cardiac arrest due to other underlying condition Code(s): I46.8 - CARDIAC ARREST DUE TO OTHER UNDERLYING CONDITION Assessment/Plan Microbiology 11/10/16 08:30 Blood - Peripheral Venous Blood Culture - Final Presumptive Mssa (Pbp2a Neg) 11/10/16 08:12 Blood - Peripheral Venous Blood Culture - Final Presumptive Mssa (Pbp2a Neg) 11/08/16 08:20 Blood - Peripheral Venous Blood Culture - Final Staphylococcus Aureus 11/08/16 08:16 Blood - Peripheral Venous Blood Culture - Final Staphylococcus Latex Coag Pos 11/07/16 07:20 Blood - Peripheral Venous Blood Culture - Final Staphylococcus Aureus 11/07/16 07:20 Blood - Peripheral Venous Blood Culture - Final Staphylococcus Aureus 11/07/16 01:08 Urine - Urine Heart Urine Culture - Final Citrobacter Freundii Complex Staphylococcus Aureus 11/12/16 05:20 Blood - Peripheral Venous Blood Culture - Preliminary NO GROWTH OBTAINED AFTER 24 HOURS, INCUBATION TO CONTINUE FOR 4 DAYS. 11/12/16 05:20 Blood - Peripheral Venous Blood Culture - Preliminary NO GROWTH OBTAINED AFTER 24 HOURS, INCUBATION TO CONTINUE FOR 4 DAYS. Laboratory Tests 11/12/16 11/13/16 05:20 05:15 WBC 13.7 H Hgb 13.1 Plt Count 290 Neutrophils % 77.1 Eosinophils % 1.5 BUN 79 H Creatinine 4.4 H Creat Clearance w eGFR 12.94 Total Bilirubin 2.8 H D AST 53 H D ALT 95 H Alkaline Phosphatase 62 Troponin I 19.90 H* Assessment Stapylococcal bacteremia with sepsis MSSA bacteremia Cardiopulmonary arrest Elevated TNI Vertebral osteomyelitis Possible osteomyelitis Acute renal failure Plan Continue current antibiotic as ordered Elevated LFT secondary shock ADjustment for Cr Cl Ertepenem Repeat sputum and urine c/s ? secondary infection Prognosis poor Critical care time spent managing above and discussing with resident 38 minutes Susan PETERSON
[2016-11-13 08:57] LABS: CALCIUM 6.4 mg/dL (8.5-10.1)
--- NOTE | 2016-11-13 09:28 | PN ---
Progress Note, Physician History of Present Illness: Remains sedated on mechanical ventilation in SR. Currently maintained on double pressors. - Current Medication List Current Medications: Active Medications Acetaminophen (Tylenol -) 650 mg PO Q4H PRN PRN Reason: FEVER OR PAIN Last Admin: 11/09/16 13:57 Dose: 650 mg Clopidogrel Bisulfate (Plavix -) 75 mg PO DAILY [facility] Last Admin: 11/12/16 10:00 Dose: Not Given Heparin Sodium (Porcine) (Heparin -) 1,000 unit IVPUSH PRN PRN PRN Reason: Heparin Last Admin: 11/10/16 00:17 Dose: 1,000 unit Heparin Sodium (Porcine) (Heparin -) 5,000 unit IVPUSH PRN PRN PRN Reason: Heparin Nafcillin Sodium 2 gm/ (Dextrose) 100 mls @ 100 mls/hr IVPB Q4H-IV [facility]E PRN Reason: Protocol Last Admin: 11/13/16 06:33 Dose: 100 mls/hr Heparin Sodium (Porcine) 25, (000 unit/ Sodium Chloride) 500 mls @ 20 mls/hr IV TITR [facility]E; 1,000 UNIT/HR PRN Reason: Protocol Last Admin: 11/12/16 13:55 Dose: 21 mls/hr Midazolam HCl 100 mg/ Sodium (Chloride) 100 mls @ 1 mls/hr IVPB TITR [facility]ILEE; 1 MG/ HR PRN Reason: Protocol Last Admin: 11/12/16 23:54 Dose: 4 mls/hr Dopamine HCl/Dextrose (Dopamine 400 Mg/D5w -) 250 mls @ 13.71 mls/hr IVPB TITR MARILEE; 5 MCG/KG/MIN PRN Reason: Protocol Last Admin: 11/12/16 23:53 Dose: 21.936 mls/hr Norepinephrine Bitartrate 8, (000 mcg/ Dextrose) 500 mls @ 18.75 mls/hr IV TITR MARILEE; 5 MCG/MIN PRN Reason: Protocol Last Admin: 11/12/16 23:55 Dose: 45 mls/hr Fentanyl 500 mcg/ Dextrose 100 mls @ 15 mls/hr IJ TITR MARILEE PRN Reason: 75 MCG/HR Last Admin: 11/12/16 07:45 Dose: Not Given Ertapenem 0.5 gm/ Sodium (Chloride) 50 mls @ 100 mls/hr IVPB DAILY [facility] PRN Reason: Protocol Last Admin: 11/12/16 10:20 Dose: 100 mls/hr Pantoprazole Sodium (Protonix 40mg Ivpb (Pre-Docked)) 100 mls @ 200 mls/hr IVPB DAILY [facility] Last Admin: 11/12/16 11:00 Dose: 200 mls/hr Magnesium Oxide (Mag-Ox -) 400 mg PO DAILY [facility] Last Admin: 11/12/16 10:05 Dose: Not Given - Objective Vital Signs: Vital Signs Temperature 99.3 F 11/13/16 06:00 Pulse Rate 79 11/13/16 07:00 Respiratory Rate 12 11/13/16 08:55 Blood Pressure 98/65 11/13/16 07:00 O2 Sat by Pulse Oximetry (%) 100 11/12/16 10:00 Constitutional: Yes: No Distress, Calm, Thin Neck: Yes: Supple Cardiovascular: Yes: Regular Rate and Rhythm, Murmur (2/6 SM) Respiratory: Yes: Regular, Diminished, Intubated, Mechanically Ventilated, Rhonchi Gastrointestinal: Yes: Normal Bowel Sounds, Soft Edema: No Labs: CBC, BMP 11/13/16 05:15 11/13/16 05:15 INR, PTT INR 1.66 (0.82-1.09) H 11/09/16 14:30 - ....Imaging EKG: Report Reviewed (Tele: SR PVC, no PAF) Problem List - Problems (1) Bacteremia due to Staphylococcus Code(s): R78.81 - BACTEREMIA (2) Discitis Code(s): M46.40 - DISCITIS, UNSPECIFIED, SITE UNSPECIFIED Qualifiers: Spinal region: lumbar Qualified Code(s): M46.46 - Discitis, unspecified, lumbar region (3) HLD (hyperlipidemia) Code(s): E78.5 - HYPERLIPIDEMIA, UNSPECIFIED Qualifiers: Hyperlipidemia type: pure hypercholesterolemia Qualified Code(s): E78.00 - Pure hypercholesterolemia, unspecified; E78.0 - Pure hypercholesterolemia (4) HTN (hypertension) Code(s): I10 - ESSENTIAL (PRIMARY) HYPERTENSION Qualifiers: Hypertension type: essential hypertension Qualified Code(s): I10 - Essential (primary) hypertension (5) Osteomyelitis Code(s): M86.9 - OSTEOMYELITIS, UNSPECIFIED Qualifiers: Osteomyelitis type: unspecified type Osteomyelitis location: other site Qualified Code(s): M86.9 - Osteomyelitis, unspecified (6) Acute renal failure Code(s): N17.9 - ACUTE KIDNEY FAILURE, UNSPECIFIED Qualifiers: Acute renal failure type: unspecified Qualified Code(s): N17.9 - Acute kidney failure, unspecified (7) Leukocytosis Code(s): D72.829 - ELEVATED WHITE BLOOD CELL COUNT, UNSPECIFIED (8) Paroxysmal atrial fibrillation Code(s): I48.0 - PAROXYSMAL ATRIAL FIBRILLATION (9) 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 transplanted heart: [place] heart Associated angina: without angina Qualified Code(s): I25.10 - Atherosclerotic heart disease of [place] coronary artery without angina pectoris (11) NSTEMI (non-ST elevated myocardial infarction) Code(s): I21.4 - NON-ST ELEVATION (NSTEMI) MYOCARDIAL INFARCTION (12) Severe mitral regurgitation Code(s): I34.0 - NONRHEUMATIC MITRAL (VALVE) INSUFFICIENCY (13) Acute respiratory failure with hypoxia Code(s): J96.01 - ACUTE RESPIRATORY FAILURE WITH HYPOXIA (14) Acute on chronic systolic ACC/AHA stage C congestive heart failure Code(s): I50.23 - ACUTE ON CHRONIC SYSTOLIC (CONGESTIVE) HEART FAILURE (15) Cardiac arrest Code(s): I46.9 - CARDIAC ARREST, CAUSE UNSPECIFIED (16) Septic shock due to Gram positive bacteria Code(s): A41.89 - OTHER SPECIFIED SEPSIS R65.21 - SEVERE SEPSIS WITH SEPTIC SHOCK Assessment/Plan 11/08/2016 Transthoracic echocardiography: Dilated LV with severe LV dysfunction with anterior AK, apex dyskinetic, IVS below midventricular level thin and dyskinetic, inferolarteral severe HK, posterior AK, normal RV size and fxn, severe MR, mod TR, mild to mod AR 1. Post cardiac arrest torsades de pointes with underlying prolonged QT post Levaquin for E. coli/enterococcal UTI and then bradycardic/asystolic arrest 2. Acute hypoxic respiratory failure on mechanical ventilator 3. Acute on chronic systolic failure with underlying severe MR 4. CAD with NSTEMI - rise in troponin 5. Paroxysmal AF currently in sinus rhythm 6. HTN/HCVD 7. Disciitis and possible vertebral osteomyelitis of L3-4 with MSSA bacteremia/ septic shock 8. GUZMAN due to hemodynamic alterations 9. Shock liver 10. History of BPH and obstructive uropathy 11. Previous DVT post Eliquis PLAN: 1. Replete Mg to maintain Mg>2.5 with monitor for QT prolongation, avoid QT prolonging agents, K>4.5 2. Wean pressors to maintain MAP>65, troponins and LFTs have peaked 3. IV diuresis to keep even with monitor renal fxn and electrolytes 4. Nafcillin/Ertapanem per C&S, MRI spine when able, f/u surveillance cx 5. Continue Plavix 75 qd and heparin gtt. Lisinopril 10 qd, carvedilol and Aldactone 25 qd held pending hemodynamic and renal fxn stabilization 6. GI prophylaxis, further cardiac work up is to be followed which may include cardiac catheterization/coronary angiography at some point once sepsis clears 7. F/u repeat echocardiogram
--- NOTE | 2016-11-13 09:55 | EKG ---
Test Reason : Blood Pressure : / mmHG Vent. Rate : 069 BPM Atrial Rate : 069 BPM P-R Int : 286 ms QRS Dur : 104 ms QT Int : 514 ms P-R-T Axes : 033 059 151 degrees QTc Int : 550 ms SINUS RHYTHM WITH 1ST DEGREE A-V BLOCK WITH PREMATURE ATRIAL COMPLEXES INFERIOR INFARCT (CITED ON OR BEFORE 07-NOV-2016) ANTEROLATERAL INFARCT (CITED ON OR BEFORE 07-NOV-2016)WITH T WAVE INVERSION IN ANTERIOR LEADS PROLONGED QT ABNORMAL ECG WHEN COMPARED WITH ECG OF 09-NOV-2016 14:17, T WAVE VARIATION Confirmed by CANDI TOBIAS MD ([id number]) on 11/13/2016 9:55:25 AM Referred By: DELL VEGA Confirmed By:CANDI TOBIAS MD
--- NOTE | 2016-11-13 09:57 | EKG ---
Test Reason : Blood Pressure : / mmHG Vent. Rate : 047 BPM Atrial Rate : 042 BPM P-R Int : 000 ms QRS Dur : 096 ms QT Int : 406 ms P-R-T Axes : 000 069 115 degrees QTc Int : 359 ms ATRIAL FIBRILLATION WITH SLOW VENTRICULAR RESPONSE INFERIOR INFARCT (CITED ON OR BEFORE 09-NOV-2016) ANTERIOR INFARCT (CITED ON OR BEFORE 09-NOV-2016) ST SEGMENT ELEVATION IN INFERIOR AND ANTERIOR LEADS ABNORMAL ECG WHEN COMPARED WITH ECG OF 09-NOV-2016 16:52, ATRIAL FIBRILLATION HAS REPLACED SINUS RHYTHM VENT. RATE HAS DECREASED BY [address] SEGMENT ELEVATION NOTED CLINICAL CORRELATION IS RECOMMENDED Confirmed by CANDI TOBIAS MD ([id number]) on 11/13/2016 9:57:35 AM Referred By: Confirmed By:CANDI TOBIAS MD
--- NOTE | 2016-11-13 10:30 | PN ---
Progress Note (short form) - Note Progress Note: Renal follow up for GUZMAN Pt seen and examined in the ICU intubated and sedated on the Vent FiO2 is 60% On Dopamine and Levophed good urine output Vital Signs Temperature 99.3 F 11/13/16 06:00 Pulse Rate 79 11/13/16 07:00 Respiratory Rate 12 11/13/16 08:55 Blood Pressure 98/65 11/13/16 07:00 O2 Sat by Pulse Oximetry (%) 100 11/12/16 10:00 Intake & Output 11/10/16 11/11/16 11/12/16 11/13/16 23:59 23:59 23:59 23:59 Intake Total 2092.8 3394.8 3690 1150 Output Total 300 1275 1450 1150 Balance 1792.8 2119.8 2240 0 Weight 161 lb 167 lb 2 oz 172 lb 13.478 oz 184 lb 4.903 oz Gen: Intubated via ET Tube CVS: RRR, No M/R Lungs: CTA, no rales, wheeze Abd: Obese, NT/ND Ext: Trace LE edema CBC, BMP 11/13/16 05:15 11/13/16 05:15 Laboratory Tests 11/13/16 05:15 Calcium 6.4 L* Phosphorus 7.4 H Magnesium 2.6 H Albumin 1.2 L Current Medications Acetaminophen (Tylenol -) 650 mg PO Q4H PRN PRN Reason: FEVER OR PAIN Last Admin: 11/09/16 13:57 Dose: 650 mg Clopidogrel Bisulfate (Plavix -) 75 mg PO DAILY [facility] Last Admin: 11/12/16 10:00 Dose: Not Given Heparin Sodium (Porcine) (Heparin -) 1,000 unit IVPUSH PRN PRN PRN Reason: Heparin Last Admin: 11/10/16 00:17 Dose: 1,000 unit Heparin Sodium (Porcine) (Heparin -) 5,000 unit IVPUSH PRN PRN PRN Reason: Heparin Nafcillin Sodium 2 gm/ (Dextrose) 100 mls @ 100 mls/hr IVPB Q4H-IV [facility] PRN Reason: Protocol Last Admin: 11/13/16 06:33 Dose: 100 mls/hr Heparin Sodium (Porcine) 25, (000 unit/ Sodium Chloride) 500 mls @ 20 mls/hr IV TITR [facility]; 1,000 UNIT/HR PRN Reason: Protocol Last Admin: 11/12/16 13:55 Dose: 21 mls/hr Midazolam HCl 100 mg/ Sodium (Chloride) 100 mls @ 1 mls/hr IVPB TITR [facility]; 1 MG/ HR PRN Reason: Protocol Last Admin: 11/12/16 23:54 Dose: 4 mls/hr Dopamine HCl/Dextrose (Dopamine 400 Mg/D5w -) 250 mls @ 13.71 mls/hr IVPB TITR [facility]; 5 MCG/KG/MIN PRN Reason: Protocol Last Admin: 11/12/16 23:53 Dose: 21.936 mls/hr Norepinephrine Bitartrate 8, (000 mcg/ Dextrose) 500 mls @ 18.75 mls/hr IV TITR [facility]; 5 MCG/MIN PRN Reason: Protocol Last Admin: 11/12/16 23:55 Dose: 45 mls/hr Fentanyl 500 mcg/ Dextrose 100 mls @ 15 mls/hr IJ TITR [facility] PRN Reason: 75 MCG/HR Last Admin: 11/12/16 07:45 Dose: Not Given Ertapenem 0.5 gm/ Sodium (Chloride) 50 mls @ 100 mls/hr IVPB DAILY [facility] PRN Reason: Protocol Last Admin: 11/12/16 10:20 Dose: 100 mls/hr Pantoprazole Sodium (Protonix 40mg Ivpb (Pre-Docked)) 100 mls @ 200 mls/hr IVPB DAILY [facility] Last Admin: 11/12/16 11:00 Dose: 200 mls/hr Magnesium Oxide (Mag-Ox -) 400 mg PO DAILY [facility] Last Admin: 11/12/16 10:05 Dose: Not Given A/P 81 year old gentleman with PMhx of Hypertension, P-Afib not on A/C, BPH, 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 #Non-oliguric acute renal failure in setting of Sepsis/Bactermia with Cardiac Arrest x 3 Renal function stable over the past 24 hours and pt is non-oliguric pt however is net + about 6L over the pat 3 days and weights are up trending consider IV Lasix 80mg daily to keep I and O in balance and to avoid further volume accumulation Keep MAP> 65 and CVP 10-12 Dose all meds for Cr Cl less then 15 no acute indication for [employer] #Hypnatremia From total body volume overload in setting of GUZMAN Trend for now expect improvement with diuretics #Hypocalcemia Corrected Ca is 8.2 #Cardiac Arrest/Torsades Cardiac follow up ICU Level care Respiratory support with Vent Strict monitoring of electrolytes #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 Continue Abx as per ID #Hyperphospahtemia secondary to renal failure no binders indicating as pt is not being fed Pt with guarded prognosis will follow Devan Luo DO Problem List - Problems (1) Acute respiratory failure with hypoxia Code(s): J96.01 - ACUTE RESPIRATORY FAILURE WITH HYPOXIA (2) BPH (benign prostatic hyperplasia) Code(s): N40.0 - BENIGN PROSTATIC HYPERPLASIA WITHOUT LOWER URINRY TRACT SYMP (3) Bacteremia due to Staphylococcus Code(s): R78.81 - BACTEREMIA (4) HTN (hypertension) Code(s): I10 - ESSENTIAL (PRIMARY) HYPERTENSION Qualifiers: Hypertension type: essential hypertension Qualified Code(s): I10 - Essential (primary) hypertension (5) NSTEMI (non-ST elevated myocardial infarction) Code(s): I21.4 - NON-ST ELEVATION (NSTEMI) MYOCARDIAL INFARCTION (6) Cardiac arrest Code(s): I46.9 - CARDIAC ARREST, CAUSE UNSPECIFIED
[2016-11-13] MEDS: ERTAPENEM SODIUM 0.5 GM in SODIUM CHLORIDE 50 ML IVPB SCH (10:42)
[2016-11-13] MEDS: FENTANYL INJECTION 500 MCG in DEXTROSE 5%-WATER - 90 ML IJ SCH (10:43)
[2016-11-13] MEDS: PANTOPRAZOLE SODIUM 100 ML IVPB SCH (10:43)
[2016-11-13] MEDS: MAGNESIUM OXIDE 400 MG TABLET (FP) PO SCH (11:00)
[2016-11-13] MEDS: CLOPIDOGREL BISULFATE 75 MG TABLET (FP) PO SCH (11:00)
--- NOTE | 2016-11-13 14:35 | PN ---
Teaching Attending Note Name of Resident: Marly De lReal ATTENDING PHYSICIAN STATEMENT I saw and evaluated the patient. I reviewed the resident's note and discussed the case with the resident. I agree with the resident's findings and plan as documented. SUBJECTIVE: no events over night OBJECTIVE: intubated and sedated . comfortable CV: RRR, no murmurs appreciated, No JVD today Lungs: clear lungs anteriorly Ext: no edema on LE Abd ; soft, NT, ND , NL BS DP 1+ and radial pulse 1+ b/l . Heart in ASSESSMENT AND PLAN: 81 y/o man with h/o HTN, HLD, CVA, BPH with chronic indwelling foleyc atheter and h/o DVT who presented with back and neck pain . Hospitalization esd complicated by cardiac arrest x3 ( VF, Torsade [place], asystole ) . He was found to be bacteremic as well 1- S/P Cardiac arrest, VF, Torsades and asystole. Prolonged QTc . cardiogenic Vs septic shock 2- NSTEMI 3- Acute systolic heart failure . 4- -Severe sepsis with MSSA bacteremia. concern for endocarditis 5- Complicated UTI : MSSA and Citrobacter Freundii 6- GUZMAN : can't r/o ATN Plan : - cont mag oxide - cont vent support - cont dopamine gtt and levophed.titrate levo up as MAP< 65 - Cont sedation fentanyl and versed - cont plavix - need cardiac cath eventually, but bacteremic now - heparin gtt - Cont to hold ACEI , due to GUZMAN - Hold diuresis - cont ertapenem and Naficillin - Monitor I&O - hold off MRI of spine ,as GFR is < 30 to avoid risk of nephrogenic systemic fibrosis . Unstable intubated now - LFts normalized CCT 30 min
--- NOTE | 2016-11-13 14:50 | PN ---
Physical Exam: SUBJECTIVE: 81 year old male w/ staphylococcal sepsis and s/p 3 cardiac arrests. Pt is sedated and on levophed, versed, and dopamine. MAP has been >65. Urology changed huizar on sunday, blood cultures were negative 2 times yesterday. Pt is on Nafcillin and Ertapenem. OBJECTIVE: Vital Signs Period Temp Pulse Resp BP Sys/Roche Pulse Ox Last 24 Hr 98.6 F-99.7 F 71-103 12-16 60-116/39-76 GENERAL: The patient is sedated and unable to be aroused HEAD: Normal with no signs of trauma. EYES: PERRL, extraocular movements intact, sclera anicteric, conjunctiva clear. No ptosis. ENT: Ears normal, nares patent, oropharynx clear without exudates, moist mucous membranes. NECK: Trachea midline, full range of motion, supple. LUNGS: Breath sounds equal, clear to auscultation bilaterally, no wheezes, no crackles, no accessory muscle use. Patient breathing on vent HEART: Regular rate and rhythm, S1, S2 without murmur, rub or gallop. ABDOMEN: Soft, nontender, nondistended, normoactive bowel sounds, no guarding, no rebound, no hepatosplenomegaly, no masses. EXTREMITIES: 2+ pulses, warm, well-perfused, no edema. NEUROLOGICAL: cranial nerves unable to be assessed SKIN: Warm, dry, normal turgor, no rashes or lesions noted CBC, BMP 11/13/16 05:15 11/13/16 05:15 Active Medications Generic Name Dose Route Start Last Admin Trade Name Freq PRN Reason Stop Dose Admin Acetaminophen 650 mg 11/07/16 08:16 11/09/16 13:57 Tylenol - PO 650 mg Q4H PRN Administration FEVER OR PAIN Clopidogrel Bisulfate 75 mg 11/08/16 11:00 11/13/16 11:00 Plavix - PO 75 mg DAILY [facility] Administration Heparin Sodium (Porcine) 1,000 unit 11/09/16 13:43 11/10/16 00:17 Heparin - IVPUSH 1,000 unit PRN PRN Administration Heparin Heparin Sodium (Porcine) 5,000 unit 11/09/16 13:43 Heparin - IVPUSH PRN PRN Heparin Nafcillin Sodium 2 gm/ 100 mls @ 100 mls/hr 11/09/16 10:00 11/13/16 10:43 Dextrose IVPB 100 mls/hr Q4H-IV [facility] Administration Protocol Heparin Sodium (Porcine) 25, 500 mls @ 20 mls/hr 11/09/16 14:30 11/12/16 13:55 000 unit/ Sodium Chloride IV 21 mls/hr TITR [facility] Administration Protocol 1,000 UNIT/HR Midazolam HCl 100 mg/ Sodium 100 mls @ 1 mls/hr 11/09/16 17:00 11/12/16 23:54 Chloride IVPB 4 mls/hr TITR [facility] Administration Protocol 1 MG/HR Dopamine HCl/Dextrose 250 mls @ 13.71 mls/hr 11/09/16 19:16 11/12/16 23:53 Dopamine 400 Mg/D5w - IVPB 21.936 mls/hr TITR [facility] Administration Protocol 5 MCG/KG/MIN Norepinephrine Bitartrate 8, 500 mls @ 18.75 mls/hr 11/09/16 23:30 11/12/16 23: 55 000 mcg/ Dextrose IV 45 mls/hr TITR [facility] Administration Protocol 5 MCG/MIN Fentanyl 500 mcg/ Dextrose 100 mls @ 15 mls/hr 11/11/16 07:45 11/13/16 10:43 IJ Not Given TITR [facility] 75 MCG/HR Ertapenem 0.5 gm/ Sodium 50 mls @ 100 mls/hr 11/11/16 10:00 11/13/16 10:42 Chloride IVPB 100 mls/hr DAILY [facility] Administration Protocol Pantoprazole Sodium 100 mls @ 200 mls/hr 11/11/16 10:00 11/13/16 10:43 Protonix 40mg Ivpb (Pre-Docked) IVPB 200 mls/hr DAILY [facility] Administration Magnesium Oxide 400 mg 11/10/16 10:00 11/13/16 11:00 Mag-Ox - PO 400 mg DAILY [facility] Administration ASSESSMENT/PLAN: 81 year old male with staphylococcal sepsis s/p 3 cardiac arrests. Neuro: patient was sedated on versed, not alert or oriented x3 -Pt taken off versed- unarousable -wean patient off fentanyl - decreased to 10 from 25 Cardiovascular: patient hypotensive at 96/62 (MAP 74), s/p 3 cardiac arrests -f/u echo to r/o endocarditis as source of sepsis -continue dopamine and levophed -continue plavix and heparin Pulmonary: patient intubated, breathing on vent -reassess pulmonary status tomorrow after trial of weaning off sedation ID: patient with staphylococcal sepsis possibly w/ endocarditis vs UTI -f/u echo to r/o endocarditis -continue ertapenem and nafcillin FEN: -replenish magnesium -not on standing fluids -consult nephrology for TPN -start on clinamix. Proph: -continue heparin and plavix -continue protonix 40mg Problem List - Problems (1) Acute respiratory failure with hypoxia Code(s): J96.01 - ACUTE RESPIRATORY FAILURE WITH HYPOXIA (2) Bacteremia due to Staphylococcus Code(s): R78.81 - BACTEREMIA (3) Cardiac arrest Code(s): I46.9 - CARDIAC ARREST, CAUSE UNSPECIFIED Visit type - Emergency Visit Emergency Visit: No - New Patient This patient is new to me today: No - Critical Care Critical Care patient: Yes Total Critical Care Time (in minutes): 45 Critical Care Statement: The care of this patient involved high complexity decision making to prevent further life threatening deterioration of the patient 's condition and/or to evalute & treat vital organ system(s) failure or risk of failure.
[2016-11-13] MEDS: DOPAMINE 400 MG/D5W - 250 ML IVPB SCH (15:00)
[2016-11-13] MEDS ORDERED: MULTIVIT INJECTION ADULT 10 ML in AMINO ACIDS 4.25%/D5W 1,000 ML IV SCH (15:00)
--- NOTE | 2016-11-13 15:21 | PN ---
Teaching Attending Note Name of Resident: Arnav Galloway ATTENDING PHYSICIAN STATEMENT I saw and evaluated the patient. I reviewed the resident's note and discussed the case with the resident. I agree with the resident's findings and plan as documented. SUBJECTIVE: Patient seen and examined in the ICU. Remained intubated and sedated. AC mode of vent. Pressor dependent. No improvement in overall condition. Intake & Output 11/10/16 11/11/16 11/12/16 11/13/16 23:59 23:59 23:59 23:59 Intake Total 2092.8 3394.8 3690 1150 Output Total 300 1275 1450 1650 Balance 1792.8 2119.8 2240 -500 Weight 161 lb 167 lb 2 oz 172 lb 13.478 oz 184 lb 4.903 oz Last Vital Signs Temp Pulse Resp BP Pulse Ox 99.3 F 79 14 98/65 100 11/13/16 06:00 11/13/16 07:00 11/13/16 14:46 11/13/16 07:00 11/12/16 10:00 Active Medications Acetaminophen (Tylenol -) 650 mg PO Q4H PRN PRN Reason: FEVER OR PAIN Last Admin: 11/09/16 13:57 Dose: 650 mg Clopidogrel Bisulfate (Plavix -) 75 mg PO DAILY [facility] Last Admin: 11/13/16 11:00 Dose: 75 mg Heparin Sodium (Porcine) (Heparin -) 1,000 unit IVPUSH PRN PRN PRN Reason: Heparin Last Admin: 11/10/16 00:17 Dose: 1,000 unit Heparin Sodium (Porcine) (Heparin -) 5,000 unit IVPUSH PRN PRN PRN Reason: Heparin Nafcillin Sodium 2 gm/ (Dextrose) 100 mls @ 100 mls/hr IVPB Q4H-IV [facility] PRN Reason: Protocol Last Admin: 11/13/16 10:43 Dose: 100 mls/hr Heparin Sodium (Porcine) 25, (000 unit/ Sodium Chloride) 500 mls @ 20 mls/hr IV TITR [facility]; 1,000 UNIT/HR PRN Reason: Protocol Last Admin: 11/12/16 13:55 Dose: 21 mls/hr Midazolam HCl 100 mg/ Sodium (Chloride) 100 mls @ 1 mls/hr IVPB TITR [facility]; 1 MG/ HR PRN Reason: Protocol Last Admin: 11/12/16 23:54 Dose: 4 mls/hr Dopamine HCl/Dextrose (Dopamine 400 Mg/D5w -) 250 mls @ 13.71 mls/hr IVPB TITR [facility]; 5 MCG/KG/MIN PRN Reason: Protocol Last Admin: 11/12/16 23:53 Dose: 21.936 mls/hr Norepinephrine Bitartrate 8, (000 mcg/ Dextrose) 500 mls @ 18.75 mls/hr IV TITR [facility]; 5 MCG/MIN PRN Reason: Protocol Last Admin: 11/12/16 23:55 Dose: 45 mls/hr Fentanyl 500 mcg/ Dextrose 100 mls @ 15 mls/hr IJ TITR [facility] PRN Reason: 75 MCG/HR Last Admin: 11/13/16 10:43 Dose: Not Given Ertapenem 0.5 gm/ Sodium (Chloride) 50 mls @ 100 mls/hr IVPB DAILY [facility] PRN Reason: Protocol Last Admin: 11/13/16 10:42 Dose: 100 mls/hr Pantoprazole Sodium (Protonix 40mg Ivpb (Pre-Docked)) 100 mls @ 200 mls/hr IVPB DAILY [facility] Last Admin: 11/13/16 10:43 Dose: 200 mls/hr Multivitamins/Minerals 10 ml/ (Amino Acids) 1,010 mls @ 42 mls/hr IV Q12H [facility] Magnesium Oxide (Mag-Ox -) 400 mg PO DAILY [facility] Last Admin: 11/13/16 11:00 Dose: 400 mg Gen: Intubated and sedated Heart: RRR, +systolic murmur Lung: decreased breath sounds at the bases Abd: soft, nontender Ext: no edema, cool to touch Laboratory Results - last 24 hr 11/13/16 11/13/16 11/13/16 05:15 05:15 05:15 WBC 13.7 H RBC 4.72 Hgb 13.1 Hct 40.4 MCV 85.6 MCH 27.8 MCHC 32.4 RDW 14.7 Plt Count 290 MPV 9.2 Neutrophils % 77.1 Lymphocytes % 9.6 D Monocytes % 11.6 H D Eosinophils % 1.5 Basophils % 0.2 PTT (Actin FS) 91.9 H Sodium 131 L Potassium 3.5 Chloride 92 L Carbon Dioxide 20 L Anion Gap 19 H BUN 81 H Creatinine 4.5 H Creat Clearance w eGFR 12.61 Random Glucose 141 H Calcium 6.4 L* Phosphorus 7.4 H Magnesium 2.6 H Total Bilirubin 3.5 H D AST 33 D ALT 68 D Alkaline Phosphatase 61 Total Protein 4.9 L Albumin 1.2 L ASSESSMENT AND PLAN: s/p VFib Cardiopulmonary Arrest/Prolonged QT Acute NSTEMI/CAD/+Troponins Acute Respiratory Failure Acute on Chronic Systolic Heart Failure Severe Mitral Regurgitation Acute Kidney Injury UTI MSSA Bacteremia Osteomyelitis/Discitis Sepsis Lactic Acidosis - Plavix - beta malvin, statin - keep K >4, Mg >2 - ABX per ID - monitor urine output, creatinine - anticoagulation per cardiology - continue ICU monitoring Dr Sandhu critical care time spent in reviewing chart, evaluating patient and formulating plan 36 min
[2016-11-13] MEDS ORDERED: MULTIVIT INJ. ADULT COMBO WITH VIT K 1 COMBO 10 ML VIAL IV SCH (15:45)
[2016-11-13] MEDS ORDERED: PT OWN MED DRAWER 7, Y5N ONE ×2 (22:17→23:17)
[2016-11-13] MEDS: AMINO ACIDS 4.25%/D5W 1,000 ML IV SCH (23:03)
[2016-11-13] MEDS ORDERED: HEPARIN INFUSION - 500 ML IVPB ONE (23:11)
[2016-11-14] MEDS: HEPARIN - 25,000 UNIT in SODIUM CHLORIDE 495 ML IV SCH ×2 (00:15→10:15)
[2016-11-14] MEDS: MIDAZOLAM 100 MG in SODIUM CHLORIDE 100 ML IVPB SCH (00:17)
[2016-11-14] MEDS: FENTANYL INJECTION 500 MCG in DEXTROSE 5%-WATER - 90 ML IJ SCH ×2 (00:18→08:43)
[2016-11-14] MEDS: DOPAMINE 400 MG/D5W - 250 ML IVPB SCH ×2 (00:18→11:01)
[2016-11-14] MEDS: NOREPINEPHRINE BITARTRATE 8,000 MCG in DEXTROSE 5%-WATER - 492 ML IV SCH ×3 (00:19→21:22)
[2016-11-14] MEDS ORDERED: NOREPINEPHRINE BITARTRATE 4 MG/4 ML ML IV ONE ×3 (00:28→20:12)
[2016-11-14] MEDS: NAFCILLIN - 2 GM in DEXTROSE 5%-WATER - 100 ML IVPB SCH ×6 (02:15→21:22)
[2016-11-14] MEDS: AMINO ACIDS 4.25%/D5W 1,000 ML IV SCH (06:17)
[2016-11-14 06:26] LABS: MEAN CELL VOLUME 84.9 fl (80-96); MEAN PLT VOLUME 9.2 fl (7.5-11.1); PLATELET COUNT 257 K/MM3 (134-434); RDW 14.7 % (11.9-15.9); WHITE BLOOD COUNT 13.5 K/mm3 (4.0-10.0)
[2016-11-14 07:09] LABS: ALBUMIN 1.1 g/dl (3.4-5.0); ALK PHOS 52 U/L (45-117); ANION GAP 16 (8-16); BILIRUBIN,TOTAL 3.3 mg/dL (0.2-1.0); CO2 20 mmol/L (21-32); CREATININE 4.6 mg/dL (0.7-1.3); GLUCOSE,RANDOM 232 mg/dL (74-106); SGOT/AST 25 U/L (15-37); SGPT/ALT 42 U/L (12-78); TOT PROT 5.4 g/dl (6.4-8.2)
[2016-11-14 07:34] LABS: CALCIUM 6.3 mg/dL (8.5-10.1)
--- NOTE | 2016-11-14 08:39 | PN ---
Progress Note (short form) - Note Progress Note: remains sedated and intubated continues on levophed and dopamine Vital Signs Period Temp Pulse Resp BP Sys/Roche Pulse Ox Last 24 Hr 97.6 F-99.4 F 58-88 11-16 68-114/46-65 99-99 cor-rrr lungs decreased bs at bases abd soft,nt ext trace edema huizar ngt central line right subclavian CBC, BMP 11/14/16 05:30 11/14/16 05:30 Microbiology 11/12/16 05:20 Blood - Peripheral Venous Blood Culture - Preliminary Pending Organism 11/12/16 05:20 Blood - Peripheral Venous Blood Culture - Preliminary Pending Organism echo- cannot r/o aortic valve vegetation Current Medications Acetaminophen (Tylenol -) 650 mg PO Q4H PRN PRN Reason: FEVER OR PAIN Last Admin: 11/09/16 13:57 Dose: 650 mg Clopidogrel Bisulfate (Plavix -) 75 mg PO DAILY [facility] Last Admin: 11/13/16 11:00 Dose: 75 mg Heparin Sodium (Porcine) (Heparin -) 1,000 unit IVPUSH PRN PRN PRN Reason: Heparin Last Admin: 11/10/16 00:17 Dose: 1,000 unit Heparin Sodium (Porcine) (Heparin -) 5,000 unit IVPUSH PRN PRN PRN Reason: Heparin Nafcillin Sodium 2 gm/ (Dextrose) 100 mls @ 100 mls/hr IVPB Q4H-IV [facility] PRN Reason: Protocol Last Admin: 11/14/16 05:24 Dose: 100 mls/hr Heparin Sodium (Porcine) 25, (000 unit/ Sodium Chloride) 500 mls @ 20 mls/hr IV TITR [facility]; 1,000 UNIT/HR PRN Reason: Protocol Last Admin: 11/14/16 00:15 Dose: 21 mls/hr Midazolam HCl 100 mg/ Sodium (Chloride) 100 mls @ 1 mls/hr IVPB TITR [facility]; 1 MG/ HR PRN Reason: Protocol Last Admin: 11/14/16 00:17 Dose: 3 mls/hr Dopamine HCl/Dextrose (Dopamine 400 Mg/D5w -) 250 mls @ 13.71 mls/hr IVPB TITR [facility]; 5 MCG/KG/MIN PRN Reason: Protocol Last Admin: 11/14/16 00:18 Dose: 13.71 mls/hr Norepinephrine Bitartrate 8, (000 mcg/ Dextrose) 500 mls @ 18.75 mls/hr IV TITR [facility]; 5 MCG/MIN PRN Reason: Protocol Last Admin: 11/14/16 00:19 Dose: 56.25 mls/hr Fentanyl 500 mcg/ Dextrose 100 mls @ 15 mls/hr IJ TITR [facility] PRN Reason: 75 MCG/HR Last Admin: 11/14/16 00:18 Dose: 5 mls/hr Ertapenem 0.5 gm/ Sodium (Chloride) 50 mls @ 100 mls/hr IVPB DAILY [facility] PRN Reason: Protocol Last Admin: 11/13/16 10:42 Dose: 100 mls/hr Pantoprazole Sodium (Protonix 40mg Ivpb (Pre-Docked)) 100 mls @ 200 mls/hr IVPB DAILY [facility] Last Admin: 11/13/16 10:43 Dose: 200 mls/hr Amino Acids (Clinimix -) 1,000 mls @ 41.667 mls/hr IV Q12H [facility] Last Admin: 11/14/16 06:17 Dose: Not Given Magnesium Oxide (Mag-Ox -) 400 mg PO DAILY [facility] Last Admin: 11/13/16 11:00 Dose: 400 mg Multivitamins/Minerals (Infuvite Adult -) 10 ml IV DAILY [facility] Last Admin: 11/13/16 11:05 Dose: 10 ml a/p s/p cardiac arrest multiorgan failure persistent MSSA bacteremia, cannot r/o endocarditis vertebral osteomyelitis- chf with severe MR cad/nstemi-elevated troponin sebastian bph with chronic huizar UTI continue nafcillin and ertapenem day #7 antibiotics overall prognosis is grim
[2016-11-14] MEDS ORDERED: PT OWN MED DRAWER 7, Y5N ONE ×2 (09:19→16:51)
[2016-11-14] MEDS: PANTOPRAZOLE SODIUM 100 ML IVPB SCH (10:25)
[2016-11-14] MEDS: ERTAPENEM SODIUM 0.5 GM in SODIUM CHLORIDE 50 ML IVPB SCH (10:26)
[2016-11-14] MEDS: CLOPIDOGREL BISULFATE 75 MG TABLET (FP) PO SCH (10:26)
[2016-11-14] MEDS: MAGNESIUM OXIDE 400 MG TABLET (FP) PO SCH (10:26)
--- NOTE | 2016-11-14 11:47 | PN ---
Progress Note (short form) - Note Progress Note: Renal follow up for GUZMAN Pt seen and examined in the ICU itubated and sedated On Levo and Dopamine good urine output over the past 24 hours CVP is -2 Vital Signs Temperature 97.6 F 11/14/16 06:00 Pulse Rate 73 11/14/16 11:04 Respiratory Rate 12 11/14/16 10:00 Blood Pressure 117/66 11/14/16 11:04 O2 Sat by Pulse Oximetry (%) 100 11/14/16 10:16 Intake & Output 11/11/16 11/12/16 11/13/16 11/14/16 23:59 23:59 23:59 23:59 Intake Total 3394.8 3690 2394 1706 Output Total 1275 1450 2150 300 Balance 2119.8 2240 244 1406 Weight 167 lb 2 oz 172 lb 13.478 oz 184 lb 4.903 oz 187 lb 2 oz Gen: Intubated via ET Tube CVS: RRR, No M/R Lungs: CTA, no rales, wheeze Abd: Obese, NT/ND Ext: Trace LE edema CBC, BMP 11/14/16 05:30 11/14/16 05:30 Laboratory Tests 11/14/16 05:30 Calcium 6.3 L* Total Bilirubin 3.3 H Albumin 1.1 L Current Medications Acetaminophen (Tylenol -) 650 mg PO Q4H PRN PRN Reason: FEVER OR PAIN Last Admin: 11/09/16 13:57 Dose: 650 mg Clopidogrel Bisulfate (Plavix -) 75 mg PO DAILY [facility] Last Admin: 11/14/16 10:26 Dose: 75 mg Heparin Sodium (Porcine) (Heparin -) 1,000 unit IVPUSH PRN PRN PRN Reason: Heparin Last Admin: 11/10/16 00:17 Dose: 1,000 unit Heparin Sodium (Porcine) (Heparin -) 5,000 unit IVPUSH PRN PRN PRN Reason: Heparin Nafcillin Sodium 2 gm/ (Dextrose) 100 mls @ 100 mls/hr IVPB Q4H-IV [facility] PRN Reason: Protocol Last Admin: 11/14/16 10:26 Dose: 100 mls/hr Heparin Sodium (Porcine) 25, (000 unit/ Sodium Chloride) 500 mls @ 20 mls/hr IV TITR [facility]; 1,000 UNIT/HR PRN Reason: Protocol Last Titration: 11/14/16 10:50 Dose: 1,000 unit/hr Dopamine HCl/Dextrose (Dopamine 400 Mg/D5w -) 250 mls @ 13.71 mls/hr IVPB TITR [facility]; 5 MCG/KG/MIN PRN Reason: Protocol Last Admin: 11/14/16 11:01 Dose: 10.968 mls/hr Norepinephrine Bitartrate 8, (000 mcg/ Dextrose) 500 mls @ 18.75 mls/hr IV TITR [facility]; 5 MCG/MIN PRN Reason: Protocol Last Admin: 11/14/16 11:04 Dose: 48.75 mls/hr Fentanyl 500 mcg/ Dextrose 100 mls @ 15 mls/hr IJ TITR [facility] PRN Reason: 75 MCG/HR Last Titration: 11/14/16 08:44 Dose: 25 mcg/hr Ertapenem 0.5 gm/ Sodium (Chloride) 50 mls @ 100 mls/hr IVPB DAILY [facility] PRN Reason: Protocol Last Admin: 11/14/16 10:26 Dose: 100 mls/hr Pantoprazole Sodium (Protonix 40mg Ivpb (Pre-Docked)) 100 mls @ 200 mls/hr IVPB DAILY [facility] Last Admin: 11/14/16 10:25 Dose: 200 mls/hr Amino Acids (Clinimix -) 1,000 mls @ 41.667 mls/hr IV Q12H [facility] Last Admin: 11/14/16 06:17 Dose: Not Given Magnesium Oxide (Mag-Ox -) 400 mg PO DAILY [facility] Last Admin: 11/14/16 10:26 Dose: 400 mg Multivitamins/Minerals (Infuvite Adult -) 10 ml IV DAILY [facility] Last Admin: 11/13/16 11:05 Dose: 10 ml A/P 81 year old gentleman with PMhx of Hypertension, P-Afib not on A/C, BPH, 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 #Non-oliguric acute renal failure in setting of Sepsis/Bactermia with Cardiac Arrest x 3 BUN/Cr essentially unchanged in the last 72 hours and pt with improved urine output pt likely in the maintenance phase of ATN Urine output now nearly the same as his intake and thus no acute need for diuretics no indication for renal replacement therapy keep MAP > 65 CVP goal of 10-12 (currently is negative 2), consider IVF bolus in addition to standing IVF #Hypervolemic Hypernatremia Serum na down trending as pt continues to get volume infusions would make sure all IVPB are in NS and not in D5W Trend Na ideally would like to use diuretics but given dependence on 2 pressers and very low CVP would hold off for now #Hypokalemia Give KCL 40meq via OGT x 1 now repeat BMP in the evening goal K ~4 #Hypocalcemia Corrected Ca is WNL #Cardiac Arrest/Torsades Cardiac follow up ICU Level care Respiratory support with Vent Strict monitoring of electrolytes #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 Continue Abx as per ID #Hyperphospahtemia secondary to renal failure no binders indicating as pt is not being fed Pt with guarded prognosis will follow Devan Luo DO Problem List - Problems (1) Acute respiratory failure with hypoxia Code(s): J96.01 - ACUTE RESPIRATORY FAILURE WITH HYPOXIA (2) BPH (benign prostatic hyperplasia) Code(s): N40.0 - BENIGN PROSTATIC HYPERPLASIA WITHOUT LOWER URINRY TRACT SYMP (3) Bacteremia due to Staphylococcus Code(s): R78.81 - BACTEREMIA (4) HTN (hypertension) Code(s): I10 - ESSENTIAL (PRIMARY) HYPERTENSION Qualifiers: Hypertension type: essential hypertension Qualified Code(s): I10 - Essential (primary) hypertension (5) NSTEMI (non-ST elevated myocardial infarction) Code(s): I21.4 - NON-ST ELEVATION (NSTEMI) MYOCARDIAL INFARCTION (6) Cardiac arrest Code(s): I46.9 - CARDIAC ARREST, CAUSE UNSPECIFIED
[2016-11-14] MEDS ORDERED: POTASSIUM CHLORIDE TABS 20 MEQ TABLET.ER (FP) PO ONE (12:30)
--- NOTE | 2016-11-14 12:35 | PN ---
Teaching Attending Note Name of Resident: Arnav Galloway ATTENDING PHYSICIAN STATEMENT I saw and evaluated the patient. I reviewed the resident's note and discussed the case with the resident. I agree with the resident's findings and plan as documented. SUBJECTIVE: Patient seen and examined in the ICU. Remains intubated and sedated. AC mode of vent, 60% FiO2. Pressor dependent. No improvement in overall condition. Noted coffee ground emesis in NGT and likely blood in last BM. Intake & Output 11/11/16 11/12/16 11/13/16 11/14/16 23:59 23:59 23:59 23:59 Intake Total 3394.8 3690 2394 1706 Output Total 1275 1450 2150 300 Balance 2119.8 2240 244 1406 Weight 167 lb 2 oz 172 lb 13.478 oz 184 lb 4.903 oz 187 lb 2 oz Last Vital Signs Temp Pulse Resp BP Pulse Ox 97.6 F 73 12 117/66 100 11/14/16 06:00 11/14/16 11:04 11/14/16 12:00 11/14/16 11:04 11/14/16 10:16 Active Medications Acetaminophen (Tylenol -) 650 mg PO Q4H PRN PRN Reason: FEVER OR PAIN Last Admin: 11/09/16 13:57 Dose: 650 mg Clopidogrel Bisulfate (Plavix -) 75 mg PO DAILY MARILEE Last Admin: 11/14/16 10:26 Dose: 75 mg Heparin Sodium (Porcine) (Heparin -) 1,000 unit IVPUSH PRN PRN PRN Reason: Heparin Last Admin: 11/10/16 00:17 Dose: 1,000 unit Heparin Sodium (Porcine) (Heparin -) 5,000 unit IVPUSH PRN PRN PRN Reason: Heparin Nafcillin Sodium 2 gm/ (Dextrose) 100 mls @ 100 mls/hr IVPB Q4H-IV MARILEE PRN Reason: Protocol Last Admin: 11/14/16 10:26 Dose: 100 mls/hr Dopamine HCl/Dextrose (Dopamine 400 Mg/D5w -) 250 mls @ 13.71 mls/hr IVPB TITR MARILEE; 5 MCG/KG/MIN PRN Reason: Protocol Last Admin: 11/14/16 11:01 Dose: 10.968 mls/hr Norepinephrine Bitartrate 8, (000 mcg/ Dextrose) 500 mls @ 18.75 mls/hr IV TITR MARILEE; 5 MCG/MIN PRN Reason: Protocol Last Admin: 11/14/16 11:04 Dose: 48.75 mls/hr Fentanyl 500 mcg/ Dextrose 100 mls @ 15 mls/hr IJ TITR MARILEE PRN Reason: 75 MCG/HR Last Titration: 11/14/16 08:44 Dose: 25 mcg/hr Ertapenem 0.5 gm/ Sodium (Chloride) 50 mls @ 100 mls/hr IVPB DAILY MARILEE PRN Reason: Protocol Last Admin: 11/14/16 10:26 Dose: 100 mls/hr Pantoprazole Sodium (Protonix 40mg Ivpb (Pre-Docked)) 100 mls @ 200 mls/hr IVPB DAILY MARILEE Last Admin: 11/14/16 10:25 Dose: 200 mls/hr Multivitamins/Minerals 1 ml/Sodium Chloride 60 meq/Potassium Chloride 40 meq/ Amino Acids 1,036 mls @ 42 mls/hr IV Q12H MARILEE Magnesium Oxide (Mag-Ox -) 400 mg PO DAILY MARILEE Last Admin: 11/14/16 10:26 Dose: 400 mg Gen: Intubated and sedated Heart: RRR, +systolic murmur Lung: decreased breath sounds at the bases Abd: soft, nontender Ext: no edema, cool to touch Laboratory Results - last 24 hr 11/13/16 11/14/16 11/14/16 14:30 05:30 05:30 WBC 13.5 H RBC 4.37 Hgb 12.2 Hct 37.1 MCV 84.9 MCH 28.0 MCHC 33.0 RDW 14.7 Plt Count 257 MPV 9.2 PTT (Actin FS) 71.2 H 318.5 H Sodium Potassium Chloride Carbon Dioxide Anion Gap BUN Creatinine Creat Clearance w eGFR Random Glucose Calcium Total Bilirubin AST ALT Alkaline Phosphatase Total Protein Albumin Stool Occult Blood 11/14/16 11/14/16 11/14/16 05:30 07:15 09:46 WBC RBC Hgb Hct MCV MCH MCHC RDW Plt Count MPV PTT (Actin FS) 85.8 H D Sodium 125 L Potassium 3.0 L Chloride 89 L Carbon Dioxide 20 L Anion Gap 16 BUN 80 H Creatinine 4.6 H Creat Clearance w eGFR 12.29 Random Glucose 232 H D Calcium 6.3 L* Total Bilirubin 3.3 H AST 25 D ALT 42 D Alkaline Phosphatase 52 Total Protein 5.4 L Albumin 1.1 L Stool Occult Blood Positive ASSESSMENT AND PLAN: s/p VFib Cardiopulmonary Arrest/Prolonged QT Acute NSTEMI/CAD/+Troponins Acute Respiratory Failure Acute on Chronic Systolic Heart Failure Severe Mitral Regurgitation Acute Kidney Injury UTI MSSA Bacteremia Osteomyelitis/Discitis Sepsis Lactic Acidosis - Hold IV Heparin due to bleeding - beta malvin, statin - keep K >4, Mg >2 - Will add e-lytes to Clinimix - ABX per ID - monitor urine output, creatinine - continue ICU monitoring - Will be having family meeting tomorrow to discuss GOC Dr Sandhu critical care time spent in reviewing chart, evaluating patient and formulating plan 36 min
--- NOTE | 2016-11-14 12:37 | EKG ---
Test Reason : Blood Pressure : / mmHG Vent. Rate : 066 BPM Atrial Rate : 277 BPM P-R Int : 000 ms QRS Dur : 092 ms QT Int : 488 ms P-R-T Axes : 000 047 152 degrees QTc Int : 511 ms ATRIAL FIBRILLATION INFERIOR INFARCT (CITED ON OR BEFORE 07-NOV-2016) ANTERIOR INFARCT (CITED ON OR BEFORE 07-NOV-2016) PROLONGED QT ABNORMAL ECG WHEN COMPARED WITH ECG OF [id number] ST-T ABNORMALITIES IN 1 aVL V5-V6 AND T WAVE ABNORMALITIES IN V3-V4 FOLLOW TRACING ARE RECOMMENDED Confirmed by MARY CARMEN GERBER MD ([id number]) on 11/14/2016 12:37:24 PM Referred By: Confirmed By:MARY CARMEN GERBER MD
[2016-11-14 12:58] LABS: MCH 27.7 pg (25.7-33.7); MCHC 32.5 g/dl (32.0-35.9); MEAN CELL VOLUME 85.3 fl (80-96); MEAN PLT VOLUME 8.9 fl (7.5-11.1); PLATELET COUNT 238 K/MM3 (134-434); RDW 15.1 % (11.9-15.9); WHITE BLOOD COUNT 13.3 K/mm3 (4.0-10.0)
[2016-11-14 13:16] LABS: ALBUMIN 1.2 g/dl (3.4-5.0); ALK PHOS 56 U/L (45-117); ANION GAP 18 (8-16); BILIRUBIN,TOTAL 3.8 mg/dL (0.2-1.0); CO2 20 mmol/L (21-32); CREATININE 4.8 mg/dL (0.7-1.3); GLUCOSE,RANDOM 161 mg/dL (74-106); SGOT/AST 25 U/L (15-37); SGPT/ALT 40 U/L (12-78); TOT PROT 4.9 g/dl (6.4-8.2)
[2016-11-14] MEDS ORDERED: [UNRECOGNIZED DRUG - OTHER] IV SCH (13:30)
[2016-11-14] MEDS ORDERED: MULTIVIT IV SCH ×2 (13:30)
[2016-11-14] MEDS ORDERED: [UNRECOGNIZED DRUG - OTHER] IV SCH (13:30)
[2016-11-14] MEDS ORDERED: SODIUM CHLORIDE IV SCH ×2 (13:30)
--- NOTE | 2016-11-14 13:52 | PN ---
Physical Exam: SUBJECTIVE: 81 year old male w/ staphylococcal sepsis and s/p 3 cardiac arrests with multiorgan failure. Pt is sedated and on levophed, versed, and dopamine. MAP has been >65. Pt is on Nafcillin and Ertapenem. Echo cannot rule out endocarditis. Pt had BM today with FOBT positive stool. OBJECTIVE: Vital Signs Period Temp Pulse Resp BP Sys/Roche Pulse Ox Last 24 Hr 97.1 F-99.4 F 58-88 11-21 75-117/46-72 99-100 GENERAL: The patient not awake, breathing on vent, on multiple pressors, not arousable HEAD: Normal with no signs of trauma. EYES: PERRL, extraocular movements unable to assess, sclera anicteric, conjunctiva clear. No ptosis. ENT: Ears normal, nares patent, oropharynx clear without exudates, moist mucous membranes. NECK: Trachea midline, full range of motion, supple. LUNGS: Breath sounds equal, clear to auscultation bilaterally HEART: Regular rate and rhythm, S1, S2 without murmur, rub or gallop. ABDOMEN: Soft, nontender, nondistended EXTREMITIES: 2+ pulses, warm, well-perfused, no edema. NEUROLOGICAL: Unable to assess cranial nerves due to mental status PSYCH: Normal mood, normal affect. SKIN: edema noted around b/l hands, penis, and scrotum, no rashes CBC,CMP WBC 13.3 K/mm3 (4.0-10.0) H 11/14/16 12:40 RBC 4.90 M/mm3 (4.00-5.60) 11/14/16 12:40 Hgb 13.6 GM/dL (11.7-16.9) D 11/14/16 12:40 Hct 41.8 % (35.4-49) 11/14/16 12:40 MCV 85.3 fl (80-96) 11/14/16 12:40 MCH 27.7 pg (25.7-33.7) 11/14/16 12:40 MCHC 32.5 g/dl (32.0-35.9) 11/14/16 12:40 RDW 15.1 % (11.9-15.9) 11/14/16 12:40 Plt Count 238 K/MM3 (134-434) 11/14/16 12:40 MPV 8.9 fl (7.5-11.1) 11/14/16 12:40 Neutrophils % 77.1 % (42.8-82.8) 11/13/16 05:15 Lymphocytes % 9.6 % (8-40) D 11/13/16 05:15 Monocytes % 11.6 % (3.8-10.2) H D 11/13/16 05:15 Eosinophils % 1.5 % (0-4.5) 11/13/16 05:15 Basophils % 0.2 % (0-2.0) 11/13/16 05:15 Metamyelocytes 1 % (0-2) D 11/12/16 05:20 Nucleated RBCs 1 % (0-0) H 11/12/16 05:20 Differential Comment Manual diff done 11/12/16 05:20 Reactive Lymphocytes 1 % (0-80) 11/12/16 05:20 Platelet Estimate Adequate (NORMAL) 11/12/16 05:20 ESR 100 mm/hr (0-20) H 11/07/16 10:00 Sodium 127 mmol/L (136-145) L 11/14/16 12:40 Potassium 3.4 mmol/L (3.5-5.1) L 11/14/16 12:40 Chloride 89 mmol/L (98-107) L 11/14/16 12:40 Carbon Dioxide 20 mmol/L (21-32) L 11/14/16 12:40 Anion Gap 18 (8-16) H 11/14/16 12:40 BUN 83 mg/dL (7-18) H 11/14/16 12:40 Creatinine 4.8 mg/dL (0.7-1.3) H 11/14/16 12:40 Creat Clearance w eGFR 11.71 (>60) 11/14/16 12:40 POC Glucometer 100 UNITS (()) 11/07/16 09:11 Random Glucose 161 mg/dL (74-106) H D 11/14/16 12:40 Lactic Acid 1.8 mmol/L (0.4-2.0) 11/10/16 08:00 Calcium 6.3 mg/dL (8.5-10.1) L* 11/14/16 05:30 Phosphorus 7.4 mg/dL (2.5-4.9) H 11/13/16 05:15 Magnesium 2.6 mg/dL (1.8-2.4) H 11/13/16 05:15 Total Bilirubin 3.8 mg/dL (0.2-1.0) H 11/14/16 12:40 Direct Bilirubin Cancelled 11/10/16 08:42 AST 25 U/L (15-37) 11/14/16 12:40 ALT 40 U/L (12-78) 11/14/16 12:40 Alkaline Phosphatase 56 U/L (45-117) 11/14/16 12:40 Creatine Kinase 144 IU/L (39-308) 11/12/16 05:20 Creatine Kinase Index 6.5 % (0.0-5.0) H* 11/11/16 11:00 CK-MB (CK-2) 16.516 ng/mL (0.5-3.6) H 11/11/16 11:00 CK-MB (CK-2) Rel Index Cancelled 11/08/16 06:00 Troponin I 19.90 ng/ml (0.00-0.05) H* 11/12/16 05:20 C-Reactive Protein 16.7 MG/DL (0.00-0.3) H 11/07/16 10:00 Total Protein 4.9 g/dl (6.4-8.2) L 11/14/16 12:40 Albumin 1.2 g/dl (3.4-5.0) L 11/14/16 12:40 Prostate Specific Ag 12.20 ng/ml (0.0-4.0) H D 11/07/16 10:00 Active Medications Generic Name Dose Route Start Last Admin Trade Name Freq PRN Reason Stop Dose Admin Acetaminophen 650 mg 11/07/16 08:16 11/09/16 13:57 Tylenol - PO 650 mg Q4H PRN Administration FEVER OR PAIN Clopidogrel Bisulfate 75 mg 11/08/16 11:00 11/14/16 10:26 Plavix - PO 75 mg DAILY MARILEE Administration Heparin Sodium (Porcine) 1,000 unit 11/09/16 13:43 11/10/16 00:17 Heparin - IVPUSH 1,000 unit PRN PRN Administration Heparin Heparin Sodium (Porcine) 5,000 unit 11/09/16 13:43 Heparin - IVPUSH PRN PRN Heparin Nafcillin Sodium 2 gm/ 100 mls @ 100 mls/hr 11/09/16 10:00 11/14/16 13:06 Dextrose IVPB 100 mls/hr Q4H-IV MARILEE Administration Protocol Dopamine HCl/Dextrose 250 mls @ 13.71 mls/hr 11/09/16 19:16 11/14/16 11:01 Dopamine 400 Mg/D5w - IVPB 10.968 mls/hr TITR MARILEE Administration Protocol 5 MCG/KG/MIN Norepinephrine Bitartrate 8, 500 mls @ 18.75 mls/hr 11/09/16 23:30 11/14/16 11: 04 000 mcg/ Dextrose IV 48.75 mls/hr TITR MARILEE Administration Protocol 5 MCG/MIN Fentanyl 500 mcg/ Dextrose 100 mls @ 15 mls/hr 11/11/16 07:45 11/14/16 08:44 IJ 25 mcg/hr TITR MARILEE Titration 75 MCG/HR Ertapenem 0.5 gm/ Sodium 50 mls @ 100 mls/hr 11/11/16 10:00 11/14/16 10:26 Chloride IVPB 100 mls/hr DAILY MARILEE Administration Protocol Pantoprazole Sodium 100 mls @ 200 mls/hr 11/11/16 10:00 11/14/16 10:25 Protonix 40mg Ivpb (Pre-Docked) IVPB 200 mls/hr DAILY MARILEE Administration Multivitamins/Minerals 10 ml/ 1,045 mls @ 42 mls/hr 11/14/16 13:30 Sodium Chloride 60 meq/ IV Potassium Chloride 40 meq/ DAILY@1330 MARILEE Amino Acids Magnesium Oxide 400 mg 11/10/16 10:00 11/14/16 10:26 Mag-Ox - PO 400 mg DAILY MARILEE Administration Imaging: Echo (11/13): cannot exclude aortic valve vegetation, moderate aortic valve thickening, mild mitral annular calcification, mild mitral valve thickening, mild tricuspid regurgitation CXR (11/13): ET tube, OG tube, and right jugular line with bilateral pleural and pulmonary changes still exist ASSESSMENT/PLAN: 81 year old male with staphylococcal sepsis s/p 3 cardiac arrests with multiorgan failure on multiple pressors and antibiotics Neuro: patient was weaned off versed, not alert or oriented x3 -still unarousable -decrease fentanyl to 10 from 25, reassess mental status Cardiovascular: patient normotensive at 111/65 (MAP 79), s/p 3 cardiac arrests -Echo cannot exclude aortic valve vegetation, patient too unstable for SWATHI to exclude -continue dopamine and levophed -d/c heparin due to acute GI bleed and elevated PTT -AM CBC/CMP/Mag/Phos Pulmonary: patient intubated, breathing on vent -pulmonary status is stable off of the sedation -f/u AM CXR ID: patient with persistent staphylococcal sepsis possibly w/ endocarditis vs UTI -Echo cannot exclude aortic valve vegetation, patient too unstable for SWATHI to exclude -continue ertapenem and nafcillin FEN: -worsening GUZMAN -give 40 meq K+ PO through OG tube for hypokalemia -pt with hyponatremia at 125, likely due to hypotonic fluids mixed with medications and clinimix -change clinimix to include 60mEq NaCl, 40mEq KCl, -measure magnesium tomorrow Proph: -d/c heparin -continue protonix 40mg Dispi: -Continue to monitor in ICU -speak to family about goals of care -consult palliative care Problem List - Problems (1) Acute respiratory failure with hypoxia Code(s): J96.01 - ACUTE RESPIRATORY FAILURE WITH HYPOXIA (2) Bacteremia due to Staphylococcus Code(s): R78.81 - BACTEREMIA (3) Cardiac arrest Code(s): I46.9 - CARDIAC ARREST, CAUSE UNSPECIFIED Visit type - Emergency Visit Emergency Visit: No - New Patient This patient is new to me today: No - Critical Care Critical Care patient: Yes Total Critical Care Time (in minutes): 40 Critical Care Statement: The care of this patient involved high complexity decision making to prevent further life threatening deterioration of the patient 's condition and/or to evalute & treat vital organ system(s) failure or risk of failure.
[2016-11-14 14:17] LABS: CALCIUM 6.2 mg/dL (8.5-10.1)
[2016-11-14] MEDS ORDERED: POTASSIUM CHLORIDE 20 MEQ PREMIX IVPB 100 ML IVPB ONE (14:28)
--- NOTE | 2016-11-14 15:11 | PN ---
Teaching Attending Note Name of Resident: Marly Del Real ATTENDING PHYSICIAN STATEMENT I saw and evaluated the patient. I reviewed the resident's note and discussed the case with the resident. I agree with the resident's findings and plan as documented. SUBJECTIVE: unable to obtain hx. no events over night , early AM has a maroon BM and maroon fluid was suctioned from his stomach OBJECTIVE: intubated and sedated . comfortable CV: RRR, no murmurs appreciated, No JVD Lungs: clear lungs anteriorly Ext: no edema on LE Abd ; soft, NT, ND , NL BS DP 1+ and radial pulse 1+ b/l . Heart in ASSESSMENT AND PLAN: 81 y/o man with h/o HTN, HLD, CVA, BPH with chronic indwelling foleyc atheter and h/o DVT who presented with back and neck pain . Hospitalization esd complicated by cardiac arrest x3 ( VF, Torsade [place], asystole ) . He was found to be bacteremic as well 1- S/P Cardiac arrest, VF, Torsades and asystole. Prolonged QTc . cardiogenic Vs septic shock 2- NSTEMI 3- Acute systolic heart failure . 4- -Severe sepsis with MSSA bacteremia. possible endocarditis 5- Complicated UTI : MSSA and Citrobacter Freundii 6- GUZMAN : likely ATN 7-Discitis Plan : - cont mag oxide - cont parenteral nutrition - cont dopamine gtt and levophed. - Cont sedation fentanyl and versed - cont plavix - need cardiac cath eventually, but bacteremic now - Dc heparingtt due to upper and lower GI bleed. repeat CBC this afternoon - Cont to hold ACEI , due to GUZMAN - Hold diuresis fro now . Hyponatremia could be from developing fluid overload. monitor carefully - cont ertapenem and Naficillin - Monitor I&O ( + 6 L in past4 days ) - hold off MRI of spine ,as GFR is < 30 to avoid risk of nephrogenic systemic fibrosis . Unstable intubated now CCT 35 min
--- NOTE | 2016-11-14 15:55 | PN ---
Physical Exam: SUBJECTIVE: Patient seen and examined this AM. Sedated. Noted to be on Clinimix. FiO2 60%, PEEP 5. In the morning patient had large liquid BM, maroon colored, FOBT+, PTT noted to be 318.5. Heparin drip stopped, stat PTT is 86. Spoke with Christiano Gonzalez, pts brother + Ruby, pts [id number]. Both would like family meeting tomorrow (11/15) at 3pm in ICU family room. Informed medical team + ICU staff + Palliative Care (Nisha). Dopamine 8 --> 5 Levophed 11 --> 15 OBJECTIVE: Vital Signs Period Temp Pulse Resp BP Sys/Roche Pulse Ox Last 24 Hr 97.1 F-99.4 F 58-88 11-21 75-117/46-72 99-100 GENERAL: Intubated, sedated, unable to arouse HEENT: PERRLA, Moist mucous membranes, less JVD LUNGS: Intubated, no audible wheezes, anterior lung garcia clear, no use of accessory muscles HEART: Regular rate, rhythm, normal S1 and S2 without murmur, rub or gallop. ABDOMEN: Soft, nontender, not distended, hypoactive bowel sounds, no guarding, no rebound, no masses. MSK: UE nonpitting edema, No bony deformities or tenderness. 2+ pulses in upper extremities and tibial, 1+ dorsalis pedis, no edema - Edematous penile and scrotal region, new from yesterday, no blood from huizar SKIN - No blood seen in diaper after pt had been cleaned up NEUROLOGICAL: Neuro exam was difficult to obtain bc of sedation. No facial droop. PERRLA. Laboratory Results - last 24 hr 11/14/16 11/14/16 11/14/16 05:30 05:30 05:30 WBC 13.5 H RBC 4.37 Hgb 12.2 Hct 37.1 MCV 84.9 MCH 28.0 MCHC 33.0 RDW 14.7 Plt Count 257 MPV 9.2 PTT (Actin FS) 318.5 H Sodium 125 L Potassium 3.0 L Chloride 89 L Carbon Dioxide 20 L Anion Gap 16 BUN 80 H Creatinine 4.6 H Creat Clearance w eGFR 12.29 Random Glucose 232 H D Calcium 6.3 L* Total Bilirubin 3.3 H AST 25 D ALT 42 D Alkaline Phosphatase 52 Total Protein 5.4 L Albumin 1.1 L Stool Occult Blood 11/14/16 11/14/16 11/14/16 07:15 09:46 12:40 WBC 13.3 H RBC 4.90 Hgb 13.6 D Hct 41.8 MCV 85.3 MCH 27.7 MCHC 32.5 RDW 15.1 Plt Count 238 MPV 8.9 PTT (Actin FS) 85.8 H D Sodium Potassium Chloride Carbon Dioxide Anion Gap BUN Creatinine Creat Clearance w eGFR Random Glucose Calcium Total Bilirubin AST ALT Alkaline Phosphatase Total Protein Albumin Stool Occult Blood Positive 11/14/16 12:40 WBC RBC Hgb Hct MCV MCH MCHC RDW Plt Count MPV PTT (Actin FS) Sodium 127 L Potassium 3.4 L Chloride 89 L Carbon Dioxide 20 L Anion Gap 18 H BUN 83 H Creatinine 4.8 H Creat Clearance w eGFR 11.71 Random Glucose 161 H D Calcium 6.2 L* Total Bilirubin 3.8 H AST 25 ALT 40 Alkaline Phosphatase 56 Total Protein 4.9 L Albumin 1.2 L Stool Occult Blood Active Medications Generic Name Dose Route Start Last Admin Trade Name Freq PRN Reason Stop Dose Admin Acetaminophen 650 mg 11/07/16 08:16 11/09/16 13:57 Tylenol - PO 650 mg Q4H PRN Administration FEVER OR PAIN Clopidogrel Bisulfate 75 mg 11/08/16 11:00 11/14/16 10:26 Plavix - PO 75 mg DAILY MARILEE Administration Heparin Sodium (Porcine) 1,000 unit 11/09/16 13:43 11/10/16 00:17 Heparin - IVPUSH 1,000 unit PRN PRN Administration Heparin Heparin Sodium (Porcine) 5,000 unit 11/09/16 13:43 Heparin - IVPUSH PRN PRN Heparin Nafcillin Sodium 2 gm/ 100 mls @ 100 mls/hr 11/09/16 10:00 11/14/16 13:06 Dextrose IVPB 100 mls/hr Q4H-IV MARILEE Administration Protocol Dopamine HCl/Dextrose 250 mls @ 13.71 mls/hr 11/09/16 19:16 11/14/16 11:01 Dopamine 400 Mg/D5w - IVPB 10.968 mls/hr TITR MARILEE Administration Protocol 5 MCG/KG/MIN Norepinephrine Bitartrate 8, 500 mls @ 18.75 mls/hr 11/09/16 23:30 11/14/16 11: 04 000 mcg/ Dextrose IV 48.75 mls/hr TITR MARILEE Administration Protocol 5 MCG/MIN Fentanyl 500 mcg/ Dextrose 100 mls @ 15 mls/hr 11/11/16 07:45 11/14/16 08:44 IJ 25 mcg/hr TITR MARILEE Titration 75 MCG/HR Ertapenem 0.5 gm/ Sodium 50 mls @ 100 mls/hr 11/11/16 10:00 11/14/16 10:26 Chloride IVPB 100 mls/hr DAILY MARILEE Administration Protocol Pantoprazole Sodium 100 mls @ 200 mls/hr 11/11/16 10:00 11/14/16 10:25 Protonix 40mg Ivpb (Pre-Docked) IVPB 200 mls/hr DAILY MARILEE Administration Multivitamins/Minerals 10 ml/ 1,045 mls @ 42 mls/hr 11/14/16 13:30 Sodium Chloride 60 meq/ IV Potassium Chloride 40 meq/ DAILY@1330 MARILEE Amino Acids Magnesium Oxide 400 mg 11/10/16 10:00 11/14/16 10:26 Mag-Ox - PO 400 mg DAILY MARILEE Administration ASSESSMENT/PLAN: Pt is an 81yo M with a history of HTN, HLD, Old CVA, BPH with chronic indwelling huizar, Hx of DVT who presented to the ER with neck and back pain + severe sepsis (tachy, WBC 13.9, + cultures, high LA). After the patient was transferred from the ER, he had three episodes of cardiac arrests with ACLS performance and ROSC, and is currently in the ICU for close monitoring. # Post Cardiac Arrest w/ Vfib and Torsades - Initial arrests due to long QTc, latest likely due to septic shock - IJ line, Dopamine (5 mcg/kg/min) + Levophed (15 mcg/min) - Continue Mag Oxide, Keep Mg >2.5 - Keep MAP >65 - F/u serial EKG - Fentanyl (75mg/kg) # Severe Sepsis w/ Persistent MSSA Bacteremia - Persistent MSSA - Repeat Echo cannot r/o vegetations, cannot r/o endocarditis - Nafcillin 2g Q4IV + Ertapenem IV 0.5gm QD # Severe Systolic CHF - EF 24% - Echo shows severe wall motion abnormalities and hypokinesis - Pt now on 2 pressors, f/u MAP, keep >65 - CVP is low, consider fluids - Will hold lasix 40mg QD until oliguric or overloaded # Hyponatremia - Difficult to assess volume status - F/u serum osmolarity - F/u Uosm + Cris # GUZMAN nonoliguric - Likely from septic shock - UOP improved, nonoliguric - Renal consulted, states pt is likely in maintenance phase of ATN - Strict Is and Os - Likely causing hyperPO4 - Avoid nephrotoxic medications, d/c'd lisinopril # NSTEMI - Trops peaked to 15, peaked again after last arrest to 36 - EKG shows no new changes - On Plavix 75, hep dc'd due to supratherapeutic PTT, no cath due to bacteremia - F/u serial EKGs + QTc # Osteomyelitis vs Discitis - Seeding from bacteremia - MRI of L + C Spine on hold, GFR <15, risk of nephrogenic sclerosis - No neurosurgical intervention - Morphine 2mg + Tylenol PRN for pain # Paroxysmal Afib - currently in Afib - Pt on heparin drip - Continuous residential monitor # BPH with obstructive uropathy - Pt has indwelling huizar catheter for enlarged prostate bc pt refused TURP in past - Huizar changed on 11/[address] Flores. - Pt has elevated PSA known to urologist # Hx of femoral DVT - BLLE dopplers were negative # FEN - Fluids: None - Electrolytes: Monitor - Nutrition: NPO # Prophylaxis - DVT: Held heparin drip, consider switching to Hep SQ for DVT Prophylaxis - GI: IV Protonix 40mg QD - Deconditioning: PT ordered, but will wait till pt recovers from critical condition # Code Status - Full Code Visit type - Emergency Visit Emergency Visit: No - New Patient This patient is new to me today: No - Critical Care Critical Care patient: Yes Total Critical Care Time (in minutes): 55 Critical Care Statement: The care of this patient involved high complexity decision making to prevent further life threatening deterioration of the patient 's condition and/or to evalute & treat vital organ system(s) failure or risk of failure.
--- NOTE | 2016-11-14 18:09 | PN ---
Progress Note, Physician Chief Complaint: Events noted Remains intubated on mechanical ventilator Sedated and on multiple pressors History of Present Illness: Patient was seen and examined in ICU. Mechanical ventilation. Chart was reviewed Elevated troponins - trending down Remains on multiple pressors - sedated Positive blood cultures - Current Medication List Current Medications: Active Medications Acetaminophen (Tylenol -) 650 mg PO Q4H PRN PRN Reason: FEVER OR PAIN Last Admin: 11/09/16 13:57 Dose: 650 mg Clopidogrel Bisulfate (Plavix -) 75 mg PO DAILY MARILEE Last Admin: 11/14/16 10:26 Dose: 75 mg Heparin Sodium (Porcine) (Heparin -) 1,000 unit IVPUSH PRN PRN PRN Reason: Heparin Last Admin: 11/10/16 00:17 Dose: 1,000 unit Heparin Sodium (Porcine) (Heparin -) 5,000 unit IVPUSH PRN PRN PRN Reason: Heparin Nafcillin Sodium 2 gm/ (Dextrose) 100 mls @ 100 mls/hr IVPB Q4H-IV MARILEE PRN Reason: Protocol Last Admin: 11/14/16 17:02 Dose: 100 mls/hr Dopamine HCl/Dextrose (Dopamine 400 Mg/D5w -) 250 mls @ 13.71 mls/hr IVPB TITR MARILEE; 5 MCG/KG/MIN PRN Reason: Protocol Last Admin: 11/14/16 11:01 Dose: 10.968 mls/hr Norepinephrine Bitartrate 8, (000 mcg/ Dextrose) 500 mls @ 18.75 mls/hr IV TITR MARILEE; 5 MCG/MIN PRN Reason: Protocol Last Admin: 11/14/16 11:04 Dose: 48.75 mls/hr Fentanyl 500 mcg/ Dextrose 100 mls @ 15 mls/hr IJ TITR MARILEE PRN Reason: 75 MCG/HR Last Titration: 11/14/16 08:44 Dose: 25 mcg/hr Ertapenem 0.5 gm/ Sodium (Chloride) 50 mls @ 100 mls/hr IVPB DAILY MARILEE PRN Reason: Protocol Last Admin: 11/14/16 10:26 Dose: 100 mls/hr Pantoprazole Sodium (Protonix 40mg Ivpb (Pre-Docked)) 100 mls @ 200 mls/hr IVPB DAILY MARILEE Last Admin: 11/14/16 10:25 Dose: 200 mls/hr Multivitamins/Minerals 10 ml/Sodium Chloride 60 meq/Potassium Chloride 40 meq/ Amino Acids 1,045 mls @ 42 mls/hr IV DAILY@1330 [facility] Last Admin: 11/14/16 17:01 Dose: 42 mls/hr Magnesium Oxide (Mag-Ox -) 400 mg PO DAILY [facility] Last Admin: 11/14/16 10:26 Dose: 400 mg - Objective Vital Signs: Vital Signs Temperature 97.5 F L 11/14/16 14:00 Pulse Rate 73 11/14/16 16:00 Respiratory Rate 15 11/14/16 16:00 Blood Pressure 135/73 11/14/16 16:00 O2 Sat by Pulse Oximetry (%) 100 11/14/16 10:16 Neck: Yes: Supple Cardiovascular: Yes: Regular Rate and Rhythm, S1, S2 Respiratory: Yes: CTA Bilaterally Gastrointestinal: Yes: Normal Bowel Sounds, Soft. No: Tenderness Edema: No Labs: CBC, BMP 11/14/16 12:40 11/14/16 12:40 Problem List - Problems (1) Acute on chronic systolic ACC/AHA stage C congestive heart failure Code(s): I50.23 - ACUTE ON CHRONIC SYSTOLIC (CONGESTIVE) HEART FAILURE (2) Acute respiratory failure with hypoxia Code(s): J96.01 - ACUTE RESPIRATORY FAILURE WITH HYPOXIA (3) Bacteremia due to Staphylococcus Code(s): R78.81 - BACTEREMIA (4) Cardiac arrest Code(s): I46.9 - CARDIAC ARREST, CAUSE UNSPECIFIED (5) Coronary artery disease Code(s): I25.10 - ATHSCL HEART DISEASE OF [place] CORONARY ARTERY W/O ANG PCTRS Qualifiers: Coronary Disease-Associated Artery/Lesion type: [place] artery [place] vs. transplanted heart: [place] heart Associated angina: without angina Qualified Code(s): I25.10 - Atherosclerotic heart disease of [place] coronary artery without angina pectoris (6) Discitis Code(s): M46.40 - DISCITIS, UNSPECIFIED, SITE UNSPECIFIED Qualifiers: Spinal region: lumbar Qualified Code(s): M46.46 - Discitis, unspecified, lumbar region (7) HLD (hyperlipidemia) Code(s): E78.5 - HYPERLIPIDEMIA, UNSPECIFIED Qualifiers: Hyperlipidemia type: pure hypercholesterolemia Qualified Code(s): E78.00 - Pure hypercholesterolemia, unspecified; E78.0 - Pure hypercholesterolemia (8) HTN (hypertension) Code(s): I10 - ESSENTIAL (PRIMARY) HYPERTENSION Qualifiers: Hypertension type: essential hypertension Qualified Code(s): I10 - Essential (primary) hypertension (9) 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 Code(s): Z92.29 - PERSONAL HISTORY OF OTHER DRUG THERAPY (10) NSTEMI (non-ST elevated myocardial infarction) Code(s): I21.4 - NON-ST ELEVATION (NSTEMI) MYOCARDIAL INFARCTION (11) Osteomyelitis Code(s): M86.9 - OSTEOMYELITIS, UNSPECIFIED Qualifiers: Osteomyelitis type: unspecified type Osteomyelitis location: other site Qualified Code(s): M86.9 - Osteomyelitis, unspecified (12) Paroxysmal atrial fibrillation Code(s): I48.0 - PAROXYSMAL ATRIAL FIBRILLATION (13) Septic shock due to Gram positive bacteria Code(s): A41.89 - OTHER SPECIFIED SEPSIS R65.21 - SEVERE SEPSIS WITH SEPTIC SHOCK (14) Severe mitral regurgitation Code(s): I34.0 - NONRHEUMATIC MITRAL (VALVE) INSUFFICIENCY (15) Acute renal failure Code(s): N17.9 - ACUTE KIDNEY FAILURE, UNSPECIFIED Qualifiers: Acute renal failure type: unspecified Qualified Code(s): N17.9 - Acute kidney failure, unspecified (16) DVT (deep venous thrombosis) Code(s): I82.409 - ACUTE EMBOLISM AND THOMBOS UNSP DEEP VN UNSP LOWER EXTREMITY (17) Severe sepsis with acute organ dysfunction Code(s): A41.9 - SEPSIS, UNSPECIFIED ORGANISM R65.20 - SEVERE SEPSIS WITHOUT SEPTIC SHOCK Assessment/Plan 1. Post cardiac arrest torsades de pointes with underlying prolonged QT post Levaquin for E. coli/enterococcal UTI and then bradycardic/asystolic arrest 2. Acute hypoxic respiratory failure on mechanical ventilator 3. Acute on chronic systolic failure with underlying severe MR 4. CAD with NSTEMI - rise in troponin 5. Paroxysmal AF currently in sinus rhythm 6. HTN/HCVD 7. Disciitis and possible osteomyelitis of L3-4 with MSSA bacteremia/septic shock 8. GUZMAN due to hemodynamic alterations 9. Shock liver 10. History of BPH and obstructive uropathy 11. History of DVT post Eliquis PLAN: 1. Monitor Mg level and supplement as needed - monitor for QT prolongation, avoid QT prolonging agents and keep K>4.5 2. Wean pressors to maintain MAP>65. Trend troponins - coming down 3. IV diuresis as needed with monitor renal function and electrolytes 4. Continue antibiotics. 5. Continue Plavix and heparin drip. Lisinopril, Carvedilol and Aldactone are held pending hemodynamic and renal function stabilization 6. GI prophylaxis, further cardiac work up is to be followed which may include cardiac catheterization/coronary angiography once clinically feasible 7. Repeat Echocardiography was reviewed Prognosis: CRITICAL Further plans are to follow. Prakash Leigh MD
[2016-11-15] MEDS: NAFCILLIN - 2 GM in DEXTROSE 5%-WATER - 100 ML IVPB SCH ×7 (02:50→22:55)
[2016-11-15] MEDS: DOPAMINE 400 MG/D5W - 250 ML IVPB SCH ×4 (02:50→20:13)
[2016-11-15] MEDS: FENTANYL INJECTION 500 MCG in DEXTROSE 5%-WATER - 90 ML IJ SCH ×2 (02:51→09:37)
[2016-11-15] MEDS: NOREPINEPHRINE BITARTRATE 8,000 MCG in DEXTROSE 5%-WATER - 492 ML IV SCH ×4 (06:06→23:53)
[2016-11-15 06:39] LABS: MCH 27.8 pg (25.7-33.7); MCHC 32.8 g/dl (32.0-35.9); MEAN CELL VOLUME 84.9 fl (80-96); MEAN PLT VOLUME 9.4 fl (7.5-11.1); PLATELET COUNT 257 K/MM3 (134-434); RDW 15.3 % (11.9-15.9); WHITE BLOOD COUNT 15.1 K/mm3 (4.0-10.0)
[2016-11-15 06:56] LABS: ALBUMIN 1.1 g/dl (3.4-5.0); ANION GAP 18 (8-16); CO2 19 mmol/L (21-32); GLUCOSE,RANDOM 156 mg/dL (74-106); MAGNESIUM 2.5 mg/dL (1.8-2.4); PHOSPHOROUS 7.8 mg/dL (2.5-4.9); SGOT/AST 27 U/L (15-37)
--- NOTE | 2016-11-15 06:56 | PN ---
Progress Note, Physician Chief Complaint: ID ID follow up fot this 81 year old male currently intubated with MSSA bactremia and sepsis syndrome. Persistant bacteremia as noted from 11/07 - . This I would say not surprising for staph aureus but certainly could suggest the presence of a persistant focus of infection. Based on repeat ECH there are no gross vegetations and no valvular changes suggesting acute endocarditis as a cause of failure. Requires pressor support. On Nafcillin and Ertepenem - Current Medication List Current Medications: Active Medications Acetaminophen (Tylenol -) 650 mg PO Q4H PRN PRN Reason: FEVER OR PAIN Last Admin: 11/09/16 13:57 Dose: 650 mg Clopidogrel Bisulfate (Plavix -) 75 mg PO DAILY MARILEE Last Admin: 11/14/16 10:26 Dose: 75 mg Nafcillin Sodium 2 gm/ (Dextrose) 100 mls @ 100 mls/hr IVPB Q4H-IV MARILEE PRN Reason: Protocol Last Admin: 11/15/16 06:04 Dose: 100 mls/hr Dopamine HCl/Dextrose (Dopamine 400 Mg/D5w -) 250 mls @ 13.71 mls/hr IVPB TITR MARILEE; 5 MCG/KG/MIN PRN Reason: Protocol Last Admin: 11/15/16 06:05 Dose: 19.194 mls/hr Norepinephrine Bitartrate 8, (000 mcg/ Dextrose) 500 mls @ 18.75 mls/hr IV TITR MARILEE; 5 MCG/MIN PRN Reason: Protocol Last Admin: 11/15/16 06:06 Dose: 37.5 mls/hr Fentanyl 500 mcg/ Dextrose 100 mls @ 15 mls/hr IJ TITR MARILEE PRN Reason: 75 MCG/HR Last Admin: 11/15/16 02:51 Dose: 5 mls/hr Ertapenem 0.5 gm/ Sodium (Chloride) 50 mls @ 100 mls/hr IVPB DAILY MARILEE PRN Reason: Protocol Last Admin: 11/14/16 10:26 Dose: 100 mls/hr Pantoprazole Sodium (Protonix 40mg Ivpb (Pre-Docked)) 100 mls @ 200 mls/hr IVPB DAILY MARILEE Last Admin: 11/14/16 10:25 Dose: 200 mls/hr Multivitamins/Minerals 10 ml/Sodium Chloride 60 meq/Potassium Chloride 40 meq/ Amino Acids 1,045 mls @ 42 mls/hr IV DAILY@1330 [facility] Last Admin: 11/14/16 17:01 Dose: 42 mls/hr Magnesium Oxide (Mag-Ox -) 400 mg PO DAILY [facility] Last Admin: 11/14/16 10:26 Dose: 400 mg - Objective Vital Signs: Vital Signs Temperature 98 F 11/15/16 06:00 Pulse Rate 77 11/15/16 06:00 Respiratory Rate 12 11/15/16 06:00 Blood Pressure 75/52 11/15/16 06:00 O2 Sat by Pulse Oximetry (%) 100 11/14/16 19:50 Constitutional: Yes: Other (INtubated) HENT: Yes: WNL, Atraumatic Neck: Yes: WNL, Supple Cardiovascular: Yes: Regular Rate and Rhythm, S1, S2. No: Murmur Respiratory: Yes: WNL, Regular, CTA Bilaterally Gastrointestinal: Yes: WNL, Normal Bowel Sounds, Soft. No: Splenomegaly, Tenderness, Tenderness, Rebound Edema: Yes (Anasarca hands) Labs: INR, PTT INR 1.66 (0.82-1.09) H 11/09/16 14:30 Problem List - Problems (1) Osteomyelitis Code(s): M86.9 - OSTEOMYELITIS, UNSPECIFIED Qualifiers: Osteomyelitis type: unspecified type Osteomyelitis location: other site Qualified Code(s): M86.9 - Osteomyelitis, unspecified (2) Bacteremia due to Staphylococcus Code(s): R78.81 - BACTEREMIA (3) Discitis Code(s): M46.40 - DISCITIS, UNSPECIFIED, SITE UNSPECIFIED Qualifiers: Spinal region: lumbar Qualified Code(s): M46.46 - Discitis, unspecified, lumbar region (4) Cardiac arrest due to other underlying condition Code(s): I46.8 - CARDIAC ARREST DUE TO OTHER UNDERLYING CONDITION Assessment/Plan Microbiology 11/10/16 08:30 Blood - Peripheral Venous Blood Culture - Final Presumptive Mssa (Pbp2a Neg) 11/10/16 08:12 Blood - Peripheral Venous Blood Culture - Final Presumptive Mssa (Pbp2a Neg) 11/08/16 08:20 Blood - Peripheral Venous Blood Culture - Final Staphylococcus Aureus 11/08/16 08:16 Blood - Peripheral Venous Blood Culture - Final Staphylococcus Latex Coag Pos 11/07/16 07:20 Blood - Peripheral Venous Blood Culture - Final Staphylococcus Aureus 11/07/16 07:20 Blood - Peripheral Venous Blood Culture - Final Staphylococcus Aureus 11/07/16 01:08 Urine - Urine Huizar Urine Culture - Final Citrobacter Freundii Complex Staphylococcus Aureus 11/12/16 05:20 Blood - Peripheral Venous Blood Culture - Preliminary Staphylococcus Latex Coag Pos 11/12/16 05:20 Blood - Peripheral Venous Blood Culture - Preliminary Pending Organism Laboratory Tests 11/07/16 11/07/16 11/14/16 10:00 10:00 12:40 WBC 13.3 H Hgb 13.6 D Plt Count 238 ESR 100 H Creat Clearance w eGFR C-Reactive Protein 16.7 H Albumin 11/14/16 11/15/16 12:40 05:30 WBC Pending Hgb Pending Plt Count Pending ESR Creat Clearance w eGFR 11.71 C-Reactive Protein Albumin 1.2 L Assessment MSSA bacteremia and sepsis syndrome Spinal disciitis MSSA Respiratory failure S/P cardiac arrest Acute renal failure Chronic huizar catheter Plan Cannot rule out the heart as persistant source of bacteremia. However no obvious vegetation and I would think we would see more by way of findings if in fact he had heart valve infection producing this level of illness. This raises the question of the spine as the source of seeding. We have been unable to do an MRI but could do a spinal CT to rule out gross abscess. Also repeat the CRP blood cultures and ESR. Continue current antibiotic for now Critical care time spent 40 minutes reviewing all clinical data and discussion with housestaff re management
[2016-11-15 06:59] LABS: ALK PHOS 52 U/L (45-117); BILIRUBIN,TOTAL 3.2 mg/dL (0.2-1.0); CREATININE 4.4 mg/dL (0.7-1.3); SGPT/ALT 31 U/L (12-78); TOT PROT 4.7 g/dl (6.4-8.2)
[2016-11-15 07:40] LABS: ARTERIAL BLD GAS O2 SATURATION 99.5 % (90-98.9); ARTERIAL BLOOD GAS BASE EXCESS -8.7 meq/l (-2-2); ARTERIAL BLOOD GAS HCO3 16.3 meq/L (22-26)
[2016-11-15 07:41] LABS: ALLENS TEST POSITIVE; ART PUNCT SITE RIGHT RADIAL; LPM/O2% 60%; MECH. VENT. YES; PT. ON O2? YES; TYPE OF O2 MEC.VENT; VENT RATE 12; VT/PRESS 500
[2016-11-15 07:50] LABS: OSMOLALITY,SERUM 283 mosm/kg (278-305)
[2016-11-15 08:15] LABS: C-REACTIVE PROTEIN 17.4 MG/DL (0.00-0.3)
--- NOTE | 2016-11-15 08:51 | PN ---
Physical Exam: SUBJECTIVE: Patient seen and examined this AM. ICU staff tried to wean pt off both sedatives, pt still not arousable. Still breathing, on ventilator. Family meeting today 3pm with brother (Christiano Gonzalez) and [id number] (Ruby Gonzalez). Family wanted DNR. Dopamine 5 --> 7 Levophed 15 --> 10 CVP now 3 No sedation Vent Settings: FiO2 60%, PEEP 5 OBJECTIVE: Vital Signs Period Temp Pulse Resp BP Sys/Roche Pulse Ox Last 24 Hr 97.1 F-98.2 F 65-105 12-18 75-165/52-104 94-100 GENERAL: Intubated, unable to arouse HEENT: PERRLA, Moist mucous membranes, less JVD LUNGS: Intubated, no audible wheezes, anterior lung garcia clear, no use of accessory muscles HEART: Regular rate, rhythm, normal S1 and S2 without murmur, rub or gallop. ABDOMEN: Soft, nontender, not distended, hypoactive bowel sounds, no guarding, no rebound, no masses. MSK: UE nonpitting edema, No bony deformities or tenderness. 2+ pulses in upper extremities and tibial, 1+ dorsalis pedis, no edema - Edematous penile and scrotal region, same from yesterday, no blood from huizar. Pt also has rectal tube with yellow liquid NEUROLOGICAL: Neuro exam was difficult to obtain bc of difficulty arousing. No facial droop. PERRLA. Laboratory Results - last 24 hr 11/14/16 11/14/16 11/14/16 07:15 09:46 12:40 WBC 13.3 H RBC 4.90 Hgb 13.6 D Hct 41.8 MCV 85.3 MCH 27.7 MCHC 32.5 RDW 15.1 Plt Count 238 MPV 8.9 Neutrophils % Lymphocytes % PTT (Actin FS) 85.8 H D Puncture Site ABG pH ABG pCO2 at Pt Temp ABG pO2 at Pt Temp ABG HCO3 ABG O2 Sat (Measured) ABG O2 Content ABG Base Excess Mannie Test O2 Delivery Device Oxygen Flow Rate Vent Mode Vent Rate Mechanical Rate PEEP Pressure Support Vent Sodium Potassium Chloride Carbon Dioxide Anion Gap BUN Creatinine Creat Clearance w eGFR Random Glucose Serum Osmolality Calcium Phosphorus Magnesium Total Bilirubin AST ALT Alkaline Phosphatase C-Reactive Protein Total Protein Albumin Urine Osmolality Stool Occult Blood Positive 11/14/16 11/14/16 11/15/16 12:40 17:30 05:30 WBC RBC Hgb Hct MCV MCH MCHC RDW Plt Count MPV Neutrophils % Lymphocytes % PTT (Actin FS) 43.1 H D Puncture Site ABG pH ABG pCO2 at Pt Temp ABG pO2 at Pt Temp ABG HCO3 ABG O2 Sat (Measured) ABG O2 Content ABG Base Excess Mannie Test O2 Delivery Device Oxygen Flow Rate Vent Mode Vent Rate Mechanical Rate PEEP Pressure Support Vent Sodium 127 L Potassium 3.4 L Chloride 89 L Carbon Dioxide 20 L Anion Gap 18 H BUN 83 H Creatinine 4.8 H Creat Clearance w eGFR 11.71 Random Glucose 161 H D Serum Osmolality Calcium 6.2 L* Phosphorus Magnesium Total Bilirubin 3.8 H AST 25 ALT 40 Alkaline Phosphatase 56 C-Reactive Protein Total Protein 4.9 L Albumin 1.2 L Urine Osmolality Stool Occult Blood Positive 11/15/16 11/15/16 11/15/16 05:30 05:30 05:30 WBC 15.1 H RBC 4.59 Hgb 12.8 Hct 39.0 MCV 84.9 MCH 27.8 MCHC 32.8 RDW 15.3 Plt Count 257 MPV 9.4 Neutrophils % Y Lymphocytes % Y PTT (Actin FS) Puncture Site ABG pH ABG pCO2 at Pt Temp ABG pO2 at Pt Temp ABG HCO3 ABG O2 Sat (Measured) ABG O2 Content ABG Base Excess Mannie Test O2 Delivery Device Oxygen Flow Rate Vent Mode Vent Rate Mechanical Rate PEEP Pressure Support Vent Sodium 125 L Potassium 3.6 Chloride 88 L Carbon Dioxide 19 L Anion Gap 18 H BUN 86 H Creatinine 4.4 H Creat Clearance w eGFR 12.94 Random Glucose 156 H Serum Osmolality 283 Calcium 6.0 L* Phosphorus 7.8 H Magnesium 2.5 H Total Bilirubin 3.2 H AST 27 ALT 31 D Alkaline Phosphatase 52 C-Reactive Protein 17.4 H D Cancelled Total Protein 4.7 L Albumin 1.1 L Urine Osmolality Cancelled Stool Occult Blood 11/15/16 07:20 WBC RBC Hgb Hct MCV MCH MCHC RDW Plt Count MPV Neutrophils % Lymphocytes % PTT (Actin FS) Puncture Site Right radial ABG pH 7.30 L ABG pCO2 at Pt Temp 34.1 L ABG pO2 at Pt Temp 179.0 H* D ABG HCO3 16.3 L ABG O2 Sat (Measured) 99.5 H ABG O2 Content 19.2 ABG Base Excess -8.7 L Mannie Test Positive O2 Delivery Device Mec.vent Oxygen Flow Rate 60% Vent Mode A/c Vent Rate 12 Mechanical Rate Yes PEEP 5.0 Pressure Support Vent 500 Sodium Potassium Chloride Carbon Dioxide Anion Gap BUN Creatinine Creat Clearance w eGFR Random Glucose Serum Osmolality Calcium Phosphorus Magnesium Total Bilirubin AST ALT Alkaline Phosphatase C-Reactive Protein Total Protein Albumin Urine Osmolality Stool Occult Blood Active Medications Generic Name Dose Route Start Last Admin Trade Name Freq PRN Reason Stop Dose Admin Acetaminophen 650 mg 11/07/16 08:16 11/09/16 13:57 Tylenol - PO 650 mg Q4H PRN Administration FEVER OR PAIN Clopidogrel Bisulfate 75 mg 11/08/16 11:00 11/14/16 10:26 Plavix - PO 75 mg DAILY MARILEE Administration Heparin Sodium (Porcine) 5,000 unit 11/15/16 07:45 Heparin - SQ TID MARILEE Nafcillin Sodium 2 gm/ 100 mls @ 100 mls/hr 11/09/16 10:00 11/15/16 06:04 Dextrose IVPB 100 mls/hr Q4H-IV MARILEE Administration Protocol Dopamine HCl/Dextrose 250 mls @ 13.71 mls/hr 11/09/16 19:16 11/15/16 06:05 Dopamine 400 Mg/D5w - IVPB 19.194 mls/hr TITR MARILEE Administration Protocol 5 MCG/KG/MIN Norepinephrine Bitartrate 8, 500 mls @ 18.75 mls/hr 11/09/16 23:30 11/15/16 06: 06 000 mcg/ Dextrose IV 37.5 mls/hr TITR MARILEE Administration Protocol 5 MCG/MIN Fentanyl 500 mcg/ Dextrose 100 mls @ 15 mls/hr 11/11/16 07:45 11/15/16 02:51 IJ 5 mls/hr TITR MARILEE Administration 75 MCG/HR Ertapenem 0.5 gm/ Sodium 50 mls @ 100 mls/hr 11/11/16 10:00 11/14/16 10:26 Chloride IVPB 100 mls/hr DAILY MARILEE Administration Protocol Pantoprazole Sodium 100 mls @ 200 mls/hr 11/11/16 10:00 11/14/16 10:25 Protonix 40mg Ivpb (Pre-Docked) IVPB 200 mls/hr DAILY MARILEE Administration Multivitamins/Minerals 10 ml/ 1,045 mls @ 42 mls/hr 11/14/16 13:30 11/14/16 17: 01 Sodium Chloride 60 meq/ IV 42 mls/hr Potassium Chloride 40 meq/ DAILY@1330 MARILEE Administration Amino Acids Magnesium Oxide 400 mg 11/10/16 10:00 11/14/16 10:26 Mag-Ox - PO 400 mg DAILY MARILEE Administration ASSESSMENT/PLAN: Pt is an 81yo M with a history of HTN, HLD, Old CVA, BPH with chronic indwelling huizar, Hx of DVT who presented to the ER with neck and back pain + severe sepsis (tachy, WBC 13.9, + cultures, high LA). After the patient was transferred from the ER, he had three episodes of cardiac arrests with ACLS performance and ROSC, and is currently in the ICU for close monitoring. # Post Cardiac Arrest w/ Vfib and Torsades - Initial arrests due to long QTc, latest likely due to septic shock - IJ line, Dopamine (7 mcg/kg/min) + Levophed (10 mcg/min) - Continue Mag Oxide, Keep Mg >2.5 - Keep MAP >65 - F/u EKG this AM for Qtc - Pt not on sedation, not able to be woken up, will do CT noncon head to r/o CVA , will ask neurology Dr. Brito to re-evaluate pt - Family wants DNR - Will start enteral tube feeds # Severe Sepsis w/ Persistent MSSA Bacteremia - Persistent MSSA - Repeat Echo cannot r/o vegetations, cannot r/o endocarditis - Nafcillin 2g Q4IV + Ertapenem IV 0.5gm QD - Will get CT spine without contrast to r/o gross abscess - CRP 17.4 (prior 16.7 on 11/07) - R/u ESR # Severe Systolic CHF - EF 24% - Echo shows severe wall motion abnormalities and hypokinesis - Pt now on 2 pressors, f/u MAP, keep >65 - CVP is 3, but pt is edematous, ?fluids - Will hold lasix 40mg QD until oliguric or overloaded # Hyponatremia - Difficult to assess volume status - F/u serum osmolarity - F/u Uosm + Cris # GUZMAN nonoliguric, stable - Likely from septic shock - UOP decreased from yesterday, pt more edematous - Renal consulted, states pt is likely in maintenance phase of ATN - Strict Is and Os - Likely causing hyperPO4 - Avoid nephrotoxic medications, d/c'd lisinopril # NSTEMI - Trops peaked to 15, peaked again after last arrest to 36 - EKG shows no new changes - On Plavix 75, hep dc'd due to supratherapeutic PTT, no cath due to bacteremia - F/u serial EKGs + QTc # Osteomyelitis vs Discitis - Seeding from bacteremia - MRI of L + C Spine on hold, GFR <15, risk of nephrogenic sclerosis - Will get CT spine to r/o gross abscess - No neurosurgical intervention - Morphine 2mg + Tylenol PRN for pain # Paroxysmal Afib - currently in Afib - Pt on heparin drip - Continuous conveyor monitor # BPH with obstructive uropathy - Pt has indwelling huizar catheter for enlarged prostate bc pt refused TURP in past - Huizar changed on 11/[address] Flores. - Pt has elevated PSA known to urologist # Hx of femoral DVT - BLLE dopplers were negative # FEN - Fluids: None - Electrolytes: Monitor - Nutrition: NPO # Prophylaxis - DVT: Held heparin drip, consider switching to Hep SQ for DVT Prophylaxis - GI: IV Protonix 40mg QD - Deconditioning: PT ordered, but will wait till pt recovers from critical condition # Code Status - Full Code Visit type - Emergency Visit Emergency Visit: No - New Patient This patient is new to me today: No - Critical Care Critical Care patient: No
--- NOTE | 2016-11-15 09:18 | PN ---
Physical Exam: SUBJECTIVE: 81 year old male w/ staphylococcal sepsis and s/p 3 cardiac arrests with multiorgan failure. Pt is sedated and on levophed, versed, and dopamine. MAP has been >65. Pt is on Nafcillin and Ertapenem. Echo cannot rule out endocarditis. Pt had BM w/ FOBT positive stool yesterday. Pt is hyponatremic at 125 with a low Ca. OBJECTIVE: Vital Signs Period Temp Pulse Resp BP Sys/Rohce Pulse Ox Last 24 Hr 97.1 F-98.2 F 65-105 12-18 75-165/52-104 94-100 GENERAL: The patient not awake, breathing on vent, on multiple pressors, not arousable HEAD: Normal with no signs of trauma. EYES: PERRL, extraocular movements unable to assess, sclera anicteric, conjunctiva clear. No ptosis. ENT: Ears normal, nares patent, oropharynx clear without exudates, moist mucous membranes. NECK: Trachea midline, full range of motion, supple. LUNGS: Breath sounds equal, clear to auscultation bilaterally HEART: Regular rate and rhythm, S1, S2 without murmur, rub or gallop. ABDOMEN: Soft, nontender, nondistended EXTREMITIES: 2+ pulses, warm, well-perfused, no edema. NEUROLOGICAL: Unable to assess cranial nerves due to mental status PSYCH: Normal mood, normal affect. SKIN: edema noted around b/l hands, penis, and scrotum, no rashes Laboratory Results - last 24 hr 11/14/16 11/14/16 11/14/16 07:15 09:46 12:40 WBC 13.3 H RBC 4.90 Hgb 13.6 D Hct 41.8 MCV 85.3 MCH 27.7 MCHC 32.5 RDW 15.1 Plt Count 238 MPV 8.9 Neutrophils % Lymphocytes % PTT (Actin FS) 85.8 H D Puncture Site ABG pH ABG pCO2 at Pt Temp ABG pO2 at Pt Temp ABG HCO3 ABG O2 Sat (Measured) ABG O2 Content ABG Base Excess Mannie Test O2 Delivery Device Oxygen Flow Rate Vent Mode Vent Rate Mechanical Rate PEEP Pressure Support Vent Sodium Potassium Chloride Carbon Dioxide Anion Gap BUN Creatinine Creat Clearance w eGFR Random Glucose Serum Osmolality Calcium Phosphorus Magnesium Total Bilirubin AST ALT Alkaline Phosphatase C-Reactive Protein Total Protein Albumin Urine Osmolality Stool Occult Blood Positive 11/14/16 11/14/16 11/15/16 12:40 17:30 05:30 WBC RBC Hgb Hct MCV MCH MCHC RDW Plt Count MPV Neutrophils % Lymphocytes % PTT (Actin FS) 43.1 H D Puncture Site ABG pH ABG pCO2 at Pt Temp ABG pO2 at Pt Temp ABG HCO3 ABG O2 Sat (Measured) ABG O2 Content ABG Base Excess Mannie Test O2 Delivery Device Oxygen Flow Rate Vent Mode Vent Rate Mechanical Rate PEEP Pressure Support Vent Sodium 127 L Potassium 3.4 L Chloride 89 L Carbon Dioxide 20 L Anion Gap 18 H BUN 83 H Creatinine 4.8 H Creat Clearance w eGFR 11.71 Random Glucose 161 H D Serum Osmolality Calcium 6.2 L* Phosphorus Magnesium Total Bilirubin 3.8 H AST 25 ALT 40 Alkaline Phosphatase 56 C-Reactive Protein Total Protein 4.9 L Albumin 1.2 L Urine Osmolality Stool Occult Blood Positive 11/15/16 11/15/16 11/15/16 05:30 05:30 05:30 WBC 15.1 H RBC 4.59 Hgb 12.8 Hct 39.0 MCV 84.9 MCH 27.8 MCHC 32.8 RDW 15.3 Plt Count 257 MPV 9.4 Neutrophils % Y Lymphocytes % Y PTT (Actin FS) Puncture Site ABG pH ABG pCO2 at Pt Temp ABG pO2 at Pt Temp ABG HCO3 ABG O2 Sat (Measured) ABG O2 Content ABG Base Excess Mannie Test O2 Delivery Device Oxygen Flow Rate Vent Mode Vent Rate Mechanical Rate PEEP Pressure Support Vent Sodium 125 L Potassium 3.6 Chloride 88 L Carbon Dioxide 19 L Anion Gap 18 H BUN 86 H Creatinine 4.4 H Creat Clearance w eGFR 12.94 Random Glucose 156 H Serum Osmolality 283 Calcium 6.0 L* Phosphorus 7.8 H Magnesium 2.5 H Total Bilirubin 3.2 H AST 27 ALT 31 D Alkaline Phosphatase 52 C-Reactive Protein 17.4 H D Cancelled Total Protein 4.7 L Albumin 1.1 L Urine Osmolality Cancelled Stool Occult Blood 11/15/16 07:20 WBC RBC Hgb Hct MCV MCH MCHC RDW Plt Count MPV Neutrophils % Lymphocytes % PTT (Actin FS) Puncture Site Right radial ABG pH 7.30 L ABG pCO2 at Pt Temp 34.1 L ABG pO2 at Pt Temp 179.0 H* D ABG HCO3 16.3 L ABG O2 Sat (Measured) 99.5 H ABG O2 Content 19.2 ABG Base Excess -8.7 L Mannie Test Positive O2 Delivery Device Mec.vent Oxygen Flow Rate 60% Vent Mode A/c Vent Rate 12 Mechanical Rate Yes PEEP 5.0 Pressure Support Vent 500 Sodium Potassium Chloride Carbon Dioxide Anion Gap BUN Creatinine Creat Clearance w eGFR Random Glucose Serum Osmolality Calcium Phosphorus Magnesium Total Bilirubin AST ALT Alkaline Phosphatase C-Reactive Protein Total Protein Albumin Urine Osmolality Stool Occult Blood Active Medications Generic Name Dose Route Start Last Admin Trade Name Freq PRN Reason Stop Dose Admin Acetaminophen 650 mg 11/07/16 08:16 11/09/16 13:57 Tylenol - PO 650 mg Q4H PRN Administration FEVER OR PAIN Clopidogrel Bisulfate 75 mg 11/08/16 11:00 11/14/16 10:26 Plavix - PO 75 mg DAILY MARILEE Administration Heparin Sodium (Porcine) 5,000 unit 11/15/16 07:45 Heparin - SQ TID MARILEE Nafcillin Sodium 2 gm/ 100 mls @ 100 mls/hr 11/09/16 10:00 11/15/16 06:04 Dextrose IVPB 100 mls/hr Q4H-IV MARILEE Administration Protocol Dopamine HCl/Dextrose 250 mls @ 13.71 mls/hr 11/09/16 19:16 11/15/16 09:05 Dopamine 400 Mg/D5w - IVPB Not Given TITR MARILEE Protocol 5 MCG/KG/MIN Norepinephrine Bitartrate 8, 500 mls @ 18.75 mls/hr 11/09/16 23:30 11/15/16 09: 05 000 mcg/ Dextrose IV Not Given TITR MARILEE Protocol 5 MCG/MIN Fentanyl 500 mcg/ Dextrose 100 mls @ 15 mls/hr 11/11/16 07:45 11/15/16 02:51 IJ 5 mls/hr TITR MARILEE Administration 75 MCG/HR Ertapenem 0.5 gm/ Sodium 50 mls @ 100 mls/hr 11/11/16 10:00 11/14/16 10:26 Chloride IVPB 100 mls/hr DAILY MARILEE Administration Protocol Pantoprazole Sodium 100 mls @ 200 mls/hr 11/11/16 10:00 11/14/16 10:25 Protonix 40mg Ivpb (Pre-Docked) IVPB 200 mls/hr DAILY MARILEE Administration Multivitamins/Minerals 10 ml/ 1,045 mls @ 42 mls/hr 11/14/16 13:30 11/14/16 17: 01 Sodium Chloride 60 meq/ IV 42 mls/hr Potassium Chloride 40 meq/ DAILY@1330 MARILEE Administration Amino Acids Magnesium Oxide 400 mg 11/10/16 10:00 11/14/16 10:26 Mag-Ox - PO 400 mg DAILY MARILEE Administration Imaging: Echo (11/13): cannot exclude aortic valve vegetation, moderate aortic valve thickening, mild mitral annular calcification, mild mitral valve thickening, mild tricuspid regurgitation CXR (11/13): ET tube, OG tube, and right jugular line with bilateral pleural and pulmonary changes still exist CXR (11/15): No changes since CXR on 11/13 ASSESSMENT/PLAN: 81 year old male with staphylococcal sepsis s/p 3 cardiac arrests with multiorgan failure on multiple pressors and antibiotics Neuro: patient currently not on sedation - not alert or oriented x3 -still unarousable, but has gag reflex -decrease fentanyl and reassess mental status -pts renal function possibly lengthening sedating effect of versed, possible that it is still in circulation -include CT of head during the CT spine study to r/o intracranial pathology Cardiovascular: patient normotensive at 110/80 (MAP 90) on multiple pressors, s/ p 3 cardiac arrests -Echo cannot exclude aortic valve vegetation, patient too unstable for SWATHI to exclude -continue dopamine and levophed -d/c heparin due to acute GI bleed and elevated PTT -continue clopidogrel -AM CBC/CMP/Mag/Phos Pulmonary: patient intubated, breathing on vent - respiratory function improving , breathing mildly improved on CPAP setting -pulmonary status is stable off of the sedation -f/u AM CXR ID: patient with persistent staphylococcal sepsis possibly w/ endocarditis vs UTI -Echo cannot exclude aortic valve vegetation, patient too unstable for SWATHI to exclude -continue ertapenem and nafcillin -Spoke to Dr. Davis about performing CT spine to r/o psoas abscess from direct extension from a back lesion - consider CT brain to r/o intracranial pathology FEN: -continued GUZMAN -give 40 meq K+ PO through OG tube for hypokalemia -pt with hyponatremia at 125, likely due to hypotonic fluids mixed with medications and clinimix -d/c clinimix and start on nepro through OGT -measure magnesium, phosphorous tomorrow Proph: -d/c heparin -continue protonix 40mg Dispo: -Continue to monitor in ICU -speak to family about goals of care -consult palliative care Problem List - Problems (1) Acute respiratory failure with hypoxia Code(s): J96.01 - ACUTE RESPIRATORY FAILURE WITH HYPOXIA (2) Bacteremia due to Staphylococcus Code(s): R78.81 - BACTEREMIA (3) Cardiac arrest Code(s): I46.9 - CARDIAC ARREST, CAUSE UNSPECIFIED Visit type - Emergency Visit Emergency Visit: No - New Patient This patient is new to me today: No - Critical Care Critical Care patient: Yes Total Critical Care Time (in minutes): 45 Critical Care Statement: The care of this patient involved high complexity decision making to prevent further life threatening deterioration of the patient 's condition and/or to evalute & treat vital organ system(s) failure or risk of failure.
[2016-11-15] MEDS ORDERED: PT OWN MED DRAWER 7, Y5N ONE ×2 (09:46→17:20)
--- NOTE | 2016-11-15 09:47 | PN ---
Progress Note, Physician History of Present Illness: Remains sedated on mechanical ventilation in SR. Currently maintained on double pressors. - Current Medication List Current Medications: Active Medications Acetaminophen (Tylenol -) 650 mg PO Q4H PRN PRN Reason: FEVER OR PAIN Last Admin: 11/09/16 13:57 Dose: 650 mg Clopidogrel Bisulfate (Plavix -) 75 mg NGT DAILY MARILEE Heparin Sodium (Porcine) (Heparin -) 5,000 unit SQ TID MARILEE Nafcillin Sodium 2 gm/ (Dextrose) 100 mls @ 100 mls/hr IVPB Q4H-IV MARILEE PRN Reason: Protocol Last Admin: 11/15/16 06:04 Dose: 100 mls/hr Dopamine HCl/Dextrose (Dopamine 400 Mg/D5w -) 250 mls @ 13.71 mls/hr IVPB TITR MARILEE; 5 MCG/KG/MIN PRN Reason: Protocol Last Admin: 11/15/16 09:05 Dose: Not Given Norepinephrine Bitartrate 8, (000 mcg/ Dextrose) 500 mls @ 18.75 mls/hr IV TITR MARILEE; 5 MCG/MIN PRN Reason: Protocol Last Admin: 11/15/16 09:05 Dose: Not Given Fentanyl 500 mcg/ Dextrose 100 mls @ 15 mls/hr IJ TITR MARILEE PRN Reason: 75 MCG/HR Last Titration: 11/15/16 09:37 Dose: 12.5 mcg/hr Ertapenem 0.5 gm/ Sodium (Chloride) 50 mls @ 100 mls/hr IVPB DAILY MARILEE PRN Reason: Protocol Last Admin: 11/14/16 10:26 Dose: 100 mls/hr Pantoprazole Sodium (Protonix 40mg Ivpb (Pre-Docked)) 100 mls @ 200 mls/hr IVPB DAILY MARILEE Last Admin: 11/14/16 10:25 Dose: 200 mls/hr Multivitamins/Minerals 10 ml/Sodium Chloride 60 meq/Potassium Chloride 40 meq/ Amino Acids 1,045 mls @ 42 mls/hr IV DAILY@1330 MARILEE Last Admin: 11/14/16 17:01 Dose: 42 mls/hr Magnesium Oxide (Mag-Ox -) 400 mg NGT DAILY MARILEE - Objective Vital Signs: Vital Signs Temperature 98 F 11/15/16 06:00 Pulse Rate 78 11/15/16 08:00 Respiratory Rate 16 11/15/16 08:51 Blood Pressure 96/54 11/15/16 08:00 O2 Sat by Pulse Oximetry (%) 94 L 11/15/16 08:13 Cardiovascular: Yes: Regular Rate and Rhythm, Murmur Respiratory: Yes: Intubated, Mechanically Ventilated, Rhonchi Gastrointestinal: Yes: Soft, Hypoactive Bowel Sounds Edema: No Labs: CBC, BMP 11/15/16 05:30 11/15/16 05:30 INR, PTT INR 1.66 (0.82-1.09) H 11/09/16 14:30 Problem List - Problems (1) Bacteremia due to Staphylococcus Code(s): R78.81 - BACTEREMIA (2) Discitis Code(s): M46.40 - DISCITIS, UNSPECIFIED, SITE UNSPECIFIED Qualifiers: Spinal region: lumbar Qualified Code(s): M46.46 - Discitis, unspecified, lumbar region (3) HLD (hyperlipidemia) Code(s): E78.5 - HYPERLIPIDEMIA, UNSPECIFIED Qualifiers: Hyperlipidemia type: pure hypercholesterolemia Qualified Code(s): E78.00 - Pure hypercholesterolemia, unspecified; E78.0 - Pure hypercholesterolemia (4) HTN (hypertension) Code(s): I10 - ESSENTIAL (PRIMARY) HYPERTENSION Qualifiers: Hypertension type: essential hypertension Qualified Code(s): I10 - Essential (primary) hypertension (5) Osteomyelitis Code(s): M86.9 - OSTEOMYELITIS, UNSPECIFIED Qualifiers: Osteomyelitis type: unspecified type Osteomyelitis location: other site Qualified Code(s): M86.9 - Osteomyelitis, unspecified (6) Acute renal failure Code(s): N17.9 - ACUTE KIDNEY FAILURE, UNSPECIFIED Qualifiers: Acute renal failure type: unspecified Qualified Code(s): N17.9 - Acute kidney failure, unspecified (7) Leukocytosis Code(s): D72.829 - ELEVATED WHITE BLOOD CELL COUNT, UNSPECIFIED (8) Paroxysmal atrial fibrillation Code(s): I48.0 - PAROXYSMAL ATRIAL FIBRILLATION (9) 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 transplanted heart: [place] heart Associated angina: without angina Qualified Code(s): I25.10 - Atherosclerotic heart disease of [place] coronary artery without angina pectoris (11) NSTEMI (non-ST elevated myocardial infarction) Code(s): I21.4 - NON-ST ELEVATION (NSTEMI) MYOCARDIAL INFARCTION (12) Severe mitral regurgitation Code(s): I34.0 - NONRHEUMATIC MITRAL (VALVE) INSUFFICIENCY (13) Acute respiratory failure with hypoxia Code(s): J96.01 - ACUTE RESPIRATORY FAILURE WITH HYPOXIA (14) Acute on chronic systolic ACC/AHA stage C congestive heart failure Code(s): I50.23 - ACUTE ON CHRONIC SYSTOLIC (CONGESTIVE) HEART FAILURE (15) Cardiac arrest Code(s): I46.9 - CARDIAC ARREST, CAUSE UNSPECIFIED (16) Septic shock due to Gram positive bacteria Code(s): A41.89 - OTHER SPECIFIED SEPSIS R65.21 - SEVERE SEPSIS WITH SEPTIC SHOCK Assessment/Plan 11/08/2016 Transthoracic echocardiography: Dilated LV with severe LV dysfunction with anterior AK, apex dyskinetic, IVS below midventricular level thin and dyskinetic, inferolarteral severe HK, posterior AK, normal RV size and fxn, severe MR, mod TR, mild to mod AR 1. Post cardiac arrest torsades de pointes with underlying prolonged QT post Levaquin for E. coli/enterococcal UTI and then bradycardic/asystolic arrest 2. Acute hypoxic respiratory failure on mechanical ventilator 3. Acute on chronic systolic failure with underlying severe MR 4. CAD with NSTEMI - rise in troponin 5. Paroxysmal AF currently in sinus rhythm 6. HTN/HCVD 7. Disciitis and possible osteomyelitis of L3-4 with persistent MSSA bacteremia/ septic shock 8. GUZMAN due to hemodynamic alterations 9. Shock liver 10. History of BPH and obstructive uropathy 11. History of DVT post Eliquis PLAN: 1. Replete Mg to maintain Mg>2.5 with monitor for QT prolongation, avoid QT prolonging agents, K>4.5 2. Wean pressors to maintain MAP>65, troponins and LFTs have peaked 3. IV diuresis to keep even with monitor renal fxn and electrolytes 4. Nafcillin/Ertapanem per C&S, spine imaging when able, f/u surveillance cx 5. Continue Plavix 75 qd and heparin gtt. Lisinopril 10 qd, carvedilol and Aldactone 25 qd held pending hemodynamic and renal fxn stabilization 6. GI prophylaxis, further cardiac work up is to be followed which may include cardiac catheterization/coronary angiography at some point once sepsis clears 7. Repeat echo reviewed, not significantly changed
[2016-11-15] MEDS: ERTAPENEM SODIUM 0.5 GM in SODIUM CHLORIDE 50 ML IVPB SCH (09:50)
[2016-11-15] MEDS: CLOPIDOGREL BISULFATE 75 MG TABLET (FP) NGT SCH (09:52)
[2016-11-15] MEDS ORDERED: MAGNESIUM OXIDE 400 MG TABLET (FP) NGT SCH (10:00)
[2016-11-15] MEDS: HEPARIN NA (PORCINE) 5,000 UNITS/ML 1ML VIAL SQ SCH ×3 (10:02→21:07)
[2016-11-15] MEDS: PANTOPRAZOLE SODIUM 100 ML IVPB SCH ×2 (10:45→10:50)
--- NOTE | 2016-11-15 11:34 | PN ---
Progress Note (short form) - Note Progress Note: Renal follow up for GUZMAN Pt seen and examined in the ICU on vent, off sedation but not responsive at this time good urine output CVP is 8 this am on Levophed and Dopamine Vital Signs Temperature 98.2 F 11/15/16 10:00 Pulse Rate 79 11/15/16 10:41 Respiratory Rate 8 L 11/15/16 10:41 Blood Pressure 100/60 11/15/16 10:00 O2 Sat by Pulse Oximetry (%) 98 11/15/16 10:41 Intake & Output 11/12/16 11/13/16 11/14/16 11/15/16 23:59 23:59 23:59 23:59 Intake Total 3690 2394 3812.0 1704 Output Total 1450 2150 1275 500 Balance 2240 244 2537.0 1204 Weight 172 lb 13.478 oz 184 lb 4.903 oz 187 lb 2 oz 185 lb 7 oz Gen: Intubated via ET Tube CVS: RRR, No M/R Lungs: CTA, no rales, wheeze Abd: Obese, NT/ND Ext: Trace LE edema CBC, BMP 11/15/16 05:30 11/15/16 05:30 Laboratory Tests 11/15/16 11/15/16 11/15/16 05:30 05:30 07:20 MCV 84.9 ABG pH 7.30 L ABG pCO2 at Pt Temp 34.1 L ABG pO2 at Pt Temp 179.0 H* D ABG HCO3 16.3 L ABG O2 Sat (Measured) 99.5 H Calcium 6.0 L* Phosphorus 7.8 H Magnesium 2.5 H Albumin 1.1 L Current Medications Acetaminophen (Tylenol -) 650 mg PO Q4H PRN PRN Reason: FEVER OR PAIN Last Admin: 11/09/16 13:57 Dose: 650 mg Clopidogrel Bisulfate (Plavix -) 75 mg NGT DAILY MARILEE Last Admin: 11/15/16 09:52 Dose: 75 mg Heparin Sodium (Porcine) (Heparin -) 5,000 unit SQ TID MARILEE Last Admin: 11/15/16 10:02 Dose: 5,000 unit Nafcillin Sodium 2 gm/ (Dextrose) 100 mls @ 100 mls/hr IVPB Q4H-IV MARILEE PRN Reason: Protocol Last Admin: 11/15/16 10:02 Dose: 100 mls/hr Dopamine HCl/Dextrose (Dopamine 400 Mg/D5w -) 250 mls @ 13.71 mls/hr IVPB TITR MARILEE; 5 MCG/KG/MIN PRN Reason: Protocol Last Admin: 11/15/16 09:05 Dose: Not Given Norepinephrine Bitartrate 8, (000 mcg/ Dextrose) 500 mls @ 18.75 mls/hr IV TITR MARILEE; 5 MCG/MIN PRN Reason: Protocol Last Admin: 11/15/16 09:05 Dose: Not Given Fentanyl 500 mcg/ Dextrose 100 mls @ 15 mls/hr IJ TITR MARILEE PRN Reason: 75 MCG/HR Last Titration: 11/15/16 09:49 Dose: 0 mcg/hr Ertapenem 0.5 gm/ Sodium (Chloride) 50 mls @ 100 mls/hr IVPB DAILY MARILEE PRN Reason: Protocol Last Admin: 11/15/16 09:50 Dose: 100 mls/hr Pantoprazole Sodium (Protonix 40mg Ivpb (Pre-Docked)) 100 mls @ 200 mls/hr IVPB DAILY [facility] Last Admin: 11/15/16 10:50 Dose: 200 mls/hr Multivitamins/Minerals 10 ml/Sodium Chloride 60 meq/Potassium Chloride 40 meq/ Amino Acids 1,045 mls @ 42 mls/hr IV DAILY@1330 [facility] Last Admin: 11/14/16 17:01 Dose: 42 mls/hr Magnesium Oxide (Mag-Ox -) 400 mg NGT DAILY [facility] Last Admin: 11/15/16 09:52 Dose: 400 mg A/P 81 year old gentleman with PMhx of Hypertension, P-Afib not on A/C, BPH, 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 #Non-oliguric acute renal failure in setting of Sepsis/Bactermia with Cardiac Arrest x 3 Cr with mild improvement remains non-oliguirc continue supportive care with MAP > 65 and CVP 10-12 vasopressers and IVF as needed #Hypervolemic Hypernatremia Serum na down trending as pt continues to get volume infusions please ensure that all IV piggy backs are in NS and now D5W #Hypokalemia Give KCL 40meq via OGT x 1 now goal K ~4.5 as per Cardiology #Hypocalcemia Corrected Ca is WNL #Cardiac Arrest/Torsades Cardiac follow up ICU Level care Respiratory support with Vent Strict monitoring of electrolytes #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 Continue Abx as per ID #Hyperphospahtemia secondary to renal failure no binders indicating as pt is not being fed Pt with guarded prognosis will follow Devan Luo DO Problem List - Problems (1) Acute respiratory failure with hypoxia Code(s): J96.01 - ACUTE RESPIRATORY FAILURE WITH HYPOXIA (2) BPH (benign prostatic hyperplasia) Code(s): N40.0 - BENIGN PROSTATIC HYPERPLASIA WITHOUT LOWER URINRY TRACT SYMP (3) Bacteremia due to Staphylococcus Code(s): R78.81 - BACTEREMIA (4) HTN (hypertension) Code(s): I10 - ESSENTIAL (PRIMARY) HYPERTENSION Qualifiers: Hypertension type: essential hypertension Qualified Code(s): I10 - Essential (primary) hypertension (5) NSTEMI (non-ST elevated myocardial infarction) Code(s): I21.4 - NON-ST ELEVATION (NSTEMI) MYOCARDIAL INFARCTION (6) Cardiac arrest Code(s): I46.9 - CARDIAC ARREST, CAUSE UNSPECIFIED
[2016-11-15] MEDS ORDERED: POTASSIUM CHLORIDE TABS 20 MEQ TABLET.ER (FP) PO ONE (12:00)
[2016-11-15] MEDS ORDERED: POTASSIUM CHLORIDE ORAL LIQUID 20 MEQ/15 ML PO ONE (12:19)
--- NOTE | 2016-11-15 13:02 | PN ---
Teaching Attending Note Name of Resident: Marly Del Real ATTENDING PHYSICIAN STATEMENT I saw and evaluated the patient. I reviewed the resident's note and discussed the case with the resident. I agree with the resident's findings and plan as documented. SUBJECTIVE: Patient is in ICU, continues to be intubated off sedated. OBJECTIVE: Vital Signs Temperature 98.2 F 11/15/16 10:00 Pulse Rate 96 H 11/15/16 12:12 Respiratory Rate 14 11/15/16 12:00 Blood Pressure 77/41 11/15/16 12:12 O2 Sat by Pulse Oximetry (%) 98 11/15/16 10:41 CBCD WBC 15.1 K/mm3 (4.0-10.0) H 11/15/16 05:30 RBC 4.59 M/mm3 (4.00-5.60) 11/15/16 05:30 Hgb 12.8 GM/dL (11.7-16.9) 11/15/16 05:30 Hct 39.0 % (35.4-49) 11/15/16 05:30 MCV 84.9 fl (80-96) 11/15/16 05:30 MCHC 32.8 g/dl (32.0-35.9) 11/15/16 05:30 RDW 15.3 % (11.9-15.9) 11/15/16 05:30 Plt Count 257 K/MM3 (134-434) 11/15/16 05:30 MPV 9.4 fl (7.5-11.1) 11/15/16 05:30 CMP Sodium 125 mmol/L (136-145) L 11/15/16 05:30 Potassium 3.6 mmol/L (3.5-5.1) 11/15/16 05:30 Chloride 88 mmol/L (98-107) L 11/15/16 05:30 Carbon Dioxide 19 mmol/L (21-32) L 11/15/16 05:30 Anion Gap 18 (8-16) H 11/15/16 05:30 BUN 86 mg/dL (7-18) H 11/15/16 05:30 Creatinine 4.4 mg/dL (0.7-1.3) H 11/15/16 05:30 Creat Clearance w eGFR 12.94 (>60) 11/15/16 05:30 Random Glucose 156 mg/dL (74-106) H 11/15/16 05:30 Calcium 6.0 mg/dL (8.5-10.1) L* 11/15/16 05:30 Total Bilirubin 3.2 mg/dL (0.2-1.0) H 11/15/16 05:30 AST 27 U/L (15-37) 11/15/16 05:30 ALT 31 U/L (12-78) D 11/15/16 05:30 Alkaline Phosphatase 52 U/L (45-117) 11/15/16 05:30 Total Protein 4.7 g/dl (6.4-8.2) L 11/15/16 05:30 Albumin 1.1 g/dl (3.4-5.0) L 11/15/16 05:30 CARDIAC ENZYMES Creatine Kinase 144 IU/L (39-308) 11/12/16 05:20 Troponin I 19.90 ng/ml (0.00-0.05) H* 11/12/16 05:20 Current Medications Generic Name Dose Route Start Last Admin Trade Name Freq PRN Reason Stop Dose Admin Acetaminophen 650 mg 11/07/16 08:16 11/09/16 13:57 Tylenol - PO 650 mg Q4H PRN Administration FEVER OR PAIN Clopidogrel Bisulfate 75 mg 11/15/16 10:00 11/15/16 09:52 Plavix - NGT 75 mg DAILY MARILEE Administration Heparin Sodium (Porcine) 5,000 unit 11/15/16 07:45 11/15/16 10:02 Heparin - SQ 5,000 unit TID MARILEE Administration Nafcillin Sodium 2 gm/ 100 mls @ 100 mls/hr 11/09/16 10:00 11/15/16 10:02 Dextrose IVPB 100 mls/hr Q4H-IV MARILEE Administration Protocol Dopamine HCl/Dextrose 250 mls @ 13.71 mls/hr 11/09/16 19:16 11/15/16 12:11 Dopamine 400 Mg/D5w - IVPB 10 mcg/kg/min TITR MARILEE Titration Protocol 5 MCG/KG/MIN Norepinephrine Bitartrate 8, 500 mls @ 18.75 mls/hr 11/09/16 23:30 11/15/16 12: 12 000 mcg/ Dextrose IV 14 mcg/min TITR MARILEE Titration Protocol 5 MCG/MIN Fentanyl 500 mcg/ Dextrose 100 mls @ 15 mls/hr 11/11/16 07:45 11/15/16 09:49 IJ 0 mcg/hr TITR MARILEE Titration 75 MCG/HR Ertapenem 0.5 gm/ Sodium 50 mls @ 100 mls/hr 11/11/16 10:00 11/15/16 09:50 Chloride IVPB 100 mls/hr DAILY MARILEE Administration Protocol Pantoprazole Sodium 100 mls @ 200 mls/hr 11/11/16 10:00 11/15/16 10:50 Protonix 40mg Ivpb (Pre-Docked) IVPB 200 mls/hr DAILY MARILEE Administration Multivitamins/Minerals 10 ml/ 1,045 mls @ 42 mls/hr 11/14/16 13:30 11/14/16 17: 01 Sodium Chloride 60 meq/ IV 42 mls/hr Potassium Chloride 40 meq/ DAILY@1330 MARILEE Administration Amino Acids Magnesium Oxide 400 mg 11/15/16 10:00 11/15/16 09:52 Mag-Ox - NGT 400 mg DAILY MARILEE Administration Home Medications Medication Instructions Recorded NK [No Known Home Medication] 11/08/16 PE: per resident's note ASSESSMENT AND PLAN: 81 y/o man with h/o HTN, HLD, CVA, BPH with chronic indwelling foleyc atheter and h/o DVT who presented with back and neck pain . Hospitalization esd complicated by cardiac arrest x3 ( VF, Torsade [place], asystole ) . He was found to be bacteremic as well # S/P Cardiac arrest, VF, Torsades and asystole. Prolonged QTc . cardiogenic Vs septic shock continue dopamine and NEpinephrine. further management per ICU # NSTEMI # Acute systolic heart failure . # Severe sepsis with MSSA bacteremia. possible endocarditis continue IV antibiotic # Complicated UTI : MSSA and Citrobacter Freundii # GUZMAN : likely ATN # Discitis DVT Px: Heparin sq
--- NOTE | 2016-11-15 14:44 | PN ---
Teaching Attending Note Name of Resident: Arnav Galloway ATTENDING PHYSICIAN STATEMENT I saw and evaluated the patient. I reviewed the resident's note and discussed the case with the resident. I agree with the resident's findings and plan as documented. SUBJECTIVE: Pt seen and examined in the ICU. Remains intubated, sedated. Vented on volume assist control with 60% FiO2. On levophed and dopamine gtts. OBJECTIVE: Last Vital Signs Temp Pulse Resp BP Pulse Ox 98.2 F 96 H 10 L 77/41 98 11/15/16 10:00 11/15/16 12:12 11/15/16 14:28 11/15/16 12:12 11/15/16 10:41 Intake & Output 11/12/16 11/13/16 11/14/16 11/15/16 23:59 23:59 23:59 23:59 Intake Total 3690 2394 3812.0 1704 Output Total 1450 2150 1275 500 Balance 2240 244 2537.0 1204 Weight 172 lb 13.478 oz 184 lb 4.903 oz 187 lb 2 oz 185 lb 7 oz Gen: intubated, sedated Heart: RRR Lung: decreased breath sounds at the bases Abd: soft, nontender Ext: + edema CBC, BMP 11/15/16 05:30 11/15/16 05:30 Active Medications Acetaminophen (Tylenol -) 650 mg PO Q4H PRN PRN Reason: FEVER OR PAIN Last Admin: 11/09/16 13:57 Dose: 650 mg Clopidogrel Bisulfate (Plavix -) 75 mg NGT DAILY MARILEE Last Admin: 11/15/16 09:52 Dose: 75 mg Heparin Sodium (Porcine) (Heparin -) 5,000 unit SQ TID MARILEE Last Admin: 11/15/16 10:02 Dose: 5,000 unit Nafcillin Sodium 2 gm/ (Dextrose) 100 mls @ 100 mls/hr IVPB Q4H-IV MARILEE PRN Reason: Protocol Last Admin: 11/15/16 10:02 Dose: 100 mls/hr Dopamine HCl/Dextrose (Dopamine 400 Mg/D5w -) 250 mls @ 13.71 mls/hr IVPB TITR MARILEE; 5 MCG/KG/MIN PRN Reason: Protocol Last Titration: 11/15/16 12:11 Dose: 10 mcg/kg/min Norepinephrine Bitartrate 8, (000 mcg/ Dextrose) 500 mls @ 18.75 mls/hr IV TITR MARILEE; 5 MCG/MIN PRN Reason: Protocol Last Titration: 11/15/16 12:12 Dose: 14 mcg/min Fentanyl 500 mcg/ Dextrose 100 mls @ 15 mls/hr IJ TITR MARILEE PRN Reason: 75 MCG/HR Last Titration: 11/15/16 09:49 Dose: 0 mcg/hr Ertapenem 0.5 gm/ Sodium (Chloride) 50 mls @ 100 mls/hr IVPB DAILY MARILEE PRN Reason: Protocol Last Admin: 11/15/16 09:50 Dose: 100 mls/hr Pantoprazole Sodium (Protonix 40mg Ivpb (Pre-Docked)) 100 mls @ 200 mls/hr IVPB DAILY MARILEE Last Admin: 11/15/16 10:50 Dose: 200 mls/hr ASSESSMENT AND PLAN: Acute Hypoxic Respiratory Failure Torsades Cardiac Arrest Prolonged QT Acute on Chronic Systolic Heart Failrue Persistent Staph Bacteremia Suspected Discitis/Osteomyelitis Septic vs Cardiogenic Shock Acute NSTEMI Paroxysmal Atrial Fibrillation Acute Kidney Injury Hyponatremia - continue antibiotics - monitor surveillance cultures - for CT spine to r/o abscess - taper pressors to maintain MAP >65 - monitor and replete lytes - d/c IVF - start trial of enteral feeds - hold sedation to assess mental status - although pt sedated, pt tolerating CPAP/PS 5/5 - DVT/GI prophylaxis - continue ICU monitoring critical care time spent in reviewing chart, evaluating patient and formulating plan 40 min
--- NOTE | 2016-11-15 15:20 | EKG ---
Test Reason : Blood Pressure : / mmHG Vent. Rate : 078 BPM Atrial Rate : 078 BPM P-R Int : 252 ms QRS Dur : 092 ms QT Int : 506 ms P-R-T Axes : 064 000 133 degrees QTc Int : 576 ms SINUS RHYTHM WITH 1ST DEGREE A-V BLOCK WITH OCCASIONAL PREMATURE VENTRICULAR COMPLEXES INFERIOR INFARCT (CITED ON OR BEFORE 07-NOV-2016) ANTEROLATERAL INFARCT (CITED ON OR BEFORE 07-NOV-2016) PROLONGED QT ABNORMAL ECG WHEN COMPARED WITH ECG OF 11-NOV-2016 09:30, PREMATURE ATRIAL COMPLEXES ARE NO LONGER PRESENT QRS DURATION HAS DECREASED SERIAL CHANGES OF INFERIOR INFARCT PRESENT Confirmed by MARIA ELENA DORMAN MD [id number]) on 11/15/2016 3:19:53 PM Referred By: [facility]ALIA [facility] Confirmed By:MARIA ELENA DORMAN MD
[2016-11-15] MEDS ORDERED: NOREPINEPHRINE BITARTRATE 4 MG/4 ML ML IV ONE ×2 (17:37→20:07)
[2016-11-16] MEDS: NAFCILLIN - 2 GM in DEXTROSE 5%-WATER - 100 ML IVPB SCH ×6 (03:12→21:46)
[2016-11-16] MEDS ORDERED: HEMOQUE TEST 1 EACH EACH ONE (05:24)
[2016-11-16] MEDS: HEPARIN NA (PORCINE) 5,000 UNITS/ML 1ML VIAL SQ SCH ×2 (06:10→21:46)
[2016-11-16 06:29] LABS: MCH 27.8 pg (25.7-33.7); MCHC 33.3 g/dl (32.0-35.9); MEAN CELL VOLUME 83.4 fl (80-96); MEAN PLT VOLUME 9.6 fl (7.5-11.1); PLATELET COUNT 265 K/MM3 (134-434); RDW 15.5 % (11.9-15.9); WHITE BLOOD COUNT 12.6 K/mm3 (4.0-10.0)
--- NOTE | 2016-11-16 06:48 | PN ---
Progress Note, Physician Chief Complaint: ID Situation about the same Intubated and requiring pressor support Ertepenem & Nafcillin - Current Medication List Current Medications: Active Medications Acetaminophen (Tylenol -) 650 mg PO Q4H PRN PRN Reason: FEVER OR PAIN Last Admin: 11/09/16 13:57 Dose: 650 mg Clopidogrel Bisulfate (Plavix -) 75 mg NGT DAILY MARILEE Last Admin: 11/15/16 09:52 Dose: 75 mg Heparin Sodium (Porcine) (Heparin -) 5,000 unit SQ TID MARILEE Last Admin: 11/16/16 06:10 Dose: 5,000 unit Nafcillin Sodium 2 gm/ (Dextrose) 100 mls @ 100 mls/hr IVPB Q4H-IV MARILEE PRN Reason: Protocol Last Admin: 11/16/16 06:10 Dose: 100 mls/hr Dopamine HCl/Dextrose (Dopamine 400 Mg/D5w -) 250 mls @ 13.71 mls/hr IVPB TITR MARILEE; 5 MCG/KG/MIN PRN Reason: Protocol Last Titration: 11/16/16 06:10 Dose: 7 mcg/kg/min Norepinephrine Bitartrate 8, (000 mcg/ Dextrose) 500 mls @ 18.75 mls/hr IV TITR MARILEE; 5 MCG/MIN PRN Reason: Protocol Last Titration: 11/16/16 06:11 Dose: 12 mcg/min Fentanyl 500 mcg/ Dextrose 100 mls @ 15 mls/hr IJ TITR MARILEE PRN Reason: 75 MCG/HR Last Titration: 11/15/16 09:49 Dose: 0 mcg/hr Ertapenem 0.5 gm/ Sodium (Chloride) 50 mls @ 100 mls/hr IVPB DAILY MARILEE PRN Reason: Protocol Last Admin: 11/15/16 09:50 Dose: 100 mls/hr Pantoprazole Sodium (Protonix 40mg Ivpb (Pre-Docked)) 100 mls @ 200 mls/hr IVPB DAILY MARILEE Last Admin: 11/15/16 10:50 Dose: 200 mls/hr - Objective Vital Signs: Vital Signs Temperature 98.9 F 11/16/16 06:00 Pulse Rate 87 11/16/16 06:00 Respiratory Rate 12 11/16/16 06:00 Blood Pressure 125/68 11/16/16 06:00 O2 Sat by Pulse Oximetry (%) 99 11/15/16 20:54 Constitutional: Yes: Other (INtubated 40%FIO2) Neck: Yes: Other (Central line) Cardiovascular: Yes: Regular Rate and Rhythm, S1, S2. No: Murmur Respiratory: Yes: WNL, Regular, CTA Bilaterally, Rhonchi Gastrointestinal: Yes: WNL, Normal Bowel Sounds, Soft. No: Tenderness, Tenderness, Rebound Extremities: Yes: Cold, Cyanosis Edema: Yes Labs: INR, PTT INR 1.66 (0.82-1.09) H 11/09/16 14:30 Problem List - Problems (1) Osteomyelitis Code(s): M86.9 - OSTEOMYELITIS, UNSPECIFIED Qualifiers: Osteomyelitis type: unspecified type Osteomyelitis location: other site Qualified Code(s): M86.9 - Osteomyelitis, unspecified (2) Bacteremia due to Staphylococcus Code(s): R78.81 - BACTEREMIA (3) Discitis Code(s): M46.40 - DISCITIS, UNSPECIFIED, SITE UNSPECIFIED Qualifiers: Spinal region: lumbar Qualified Code(s): M46.46 - Discitis, unspecified, lumbar region (4) Cardiac arrest due to other underlying condition Code(s): I46.8 - CARDIAC ARREST DUE TO OTHER UNDERLYING CONDITION Assessment/Plan Microbiology 11/12/16 05:20 Blood - Peripheral Venous Blood Culture - Final Staphylococcus Aureus 11/12/16 05:20 Blood - Peripheral Venous Blood Culture - Final Staphylococcus Aureus 11/10/16 08:30 Blood - Peripheral Venous Blood Culture - Final Presumptive Mssa (Pbp2a Neg) 11/10/16 08:12 Blood - Peripheral Venous Blood Culture - Final Presumptive Mssa (Pbp2a Neg) 11/08/16 08:20 Blood - Peripheral Venous Blood Culture - Final Staphylococcus Aureus 11/08/16 08:16 Blood - Peripheral Venous Blood Culture - Final Staphylococcus Latex Coag Pos 11/07/16 07:20 Blood - Peripheral Venous Blood Culture - Final Staphylococcus Aureus 11/07/16 07:20 Blood - Peripheral Venous Blood Culture - Final Staphylococcus Aureus 11/07/16 01:08 Urine - Urine Huizar Urine Culture - Final Citrobacter Freundii Complex Staphylococcus Aureus Laboratory Tests 11/15/16 11/15/16 11/15/16 05:30 05:30 07:20 WBC 15.1 H Hgb Hct ESR ABG pH 7.30 L Oxygen Flow Rate 60% BUN 86 H Creatinine 4.4 H Calcium 6.0 L* C-Reactive Protein 17.4 H D 11/16/16 11/16/16 11/16/16 05:15 05:15 05:15 WBC Pending Hgb Pending Hct Pending ESR Pending ABG pH Oxygen Flow Rate BUN Pending Creatinine Pending Calcium C-Reactive Protein Assessment MSSA bacteremia ? Endocarditis L3 L4 disciitis MSSA Elevated ESR CRP ? abscess Sepsis syndrome pressor support Acute renal failure Cardiac arrest Chronic huizar catheter Acute respiratory failure Plan CT imaging spine pending to rule ut psoas or large spinal abscess The persitant CRP elevation obviously not a good sign along with his other critical parameters of course. Repeat blood cultures pending IF positive I would stop Ertepenem as not working as synergy as we intended The major issue is persistent focul of sepsis infection ? Critical care time spent yes 38 minutes Susan PETERSON
[2016-11-16 06:49] LABS: ALBUMIN 1.2 g/dl (3.4-5.0); ANION GAP 18 (8-16); BILIRUBIN,TOTAL 3.5 mg/dL (0.2-1.0); CO2 18 mmol/L (21-32); CREATININE 4.1 mg/dL (0.7-1.3); GLUCOSE,RANDOM 175 mg/dL (74-106); MAGNESIUM 2.5 mg/dL (1.8-2.4); PHOSPHOROUS 7.1 mg/dL (2.5-4.9); SGOT/AST 26 U/L (15-37); SGPT/ALT 25 U/L (12-78)
[2016-11-16 06:50] LABS: ALK PHOS 53 U/L (45-117)
[2016-11-16 07:22] LABS: CALCIUM 5.8 mg/dL (8.5-10.1)
[2016-11-16] MEDS: FENTANYL INJECTION 500 MCG in DEXTROSE 5%-WATER - 90 ML IJ SCH (07:45)
[2016-11-16] MEDS ORDERED: POTASSIUM CHLORIDE TABS 20 MEQ TABLET.ER (FP) PO ONE (09:00)
[2016-11-16] MEDS ORDERED: CALCIUM GLUCONATE 10% - 1,000 MG/10 ML VIAL IVPUSH ONE (09:35)
[2016-11-16] MEDS ORDERED: PT OWN MED DRAWER 7, Y5N ONE ×4 (09:58→21:36)
[2016-11-16] MEDS: ERTAPENEM SODIUM 0.5 GM in SODIUM CHLORIDE 50 ML IVPB SCH (10:00)
[2016-11-16] MEDS: PANTOPRAZOLE SODIUM 100 ML IVPB SCH (10:00)
[2016-11-16] MEDS ORDERED: POTASSIUM CHLORIDE ORAL LIQUID 20 MEQ/15 ML ONE (10:18)
--- NOTE | 2016-11-16 10:41 | PN ---
Progress Note, Physician History of Present Illness: Remains sedated on mechanical ventilation in SR. Currently maintained on double pressors. - Current Medication List Current Medications: Active Medications Acetaminophen (Tylenol -) 650 mg PO Q4H PRN PRN Reason: FEVER OR PAIN Last Admin: 11/09/16 13:57 Dose: 650 mg Clopidogrel Bisulfate (Plavix -) 75 mg NGT DAILY MARILEE Last Admin: 11/15/16 09:52 Dose: 75 mg Heparin Sodium (Porcine) (Heparin -) 5,000 unit SQ TID MARILEE Last Admin: 11/16/16 06:10 Dose: 5,000 unit Nafcillin Sodium 2 gm/ (Dextrose) 100 mls @ 100 mls/hr IVPB Q4H-IV MARILEE PRN Reason: Protocol Last Admin: 11/16/16 10:00 Dose: 100 mls/hr Dopamine HCl/Dextrose (Dopamine 400 Mg/D5w -) 250 mls @ 13.71 mls/hr IVPB TITR MARILEE; 5 MCG/KG/MIN PRN Reason: Protocol Last Titration: 11/16/16 06:10 Dose: 7 mcg/kg/min Norepinephrine Bitartrate 8, (000 mcg/ Dextrose) 500 mls @ 18.75 mls/hr IV TITR MARILEE; 5 MCG/MIN PRN Reason: Protocol Last Titration: 11/16/16 06:11 Dose: 12 mcg/min Fentanyl 500 mcg/ Dextrose 100 mls @ 15 mls/hr IJ TITR MARILEE PRN Reason: 75 MCG/HR Last Admin: 11/16/16 07:45 Dose: Not Given Ertapenem 0.5 gm/ Sodium (Chloride) 50 mls @ 100 mls/hr IVPB DAILY MARILEE PRN Reason: Protocol Last Admin: 11/16/16 10:00 Dose: 100 mls/hr Pantoprazole Sodium (Protonix 40mg Ivpb (Pre-Docked)) 100 mls @ 200 mls/hr IVPB DAILY MARILEE Last Admin: 11/16/16 10:00 Dose: 200 mls/hr - Objective Vital Signs: Vital Signs Temperature 98.1 F 11/16/16 10:00 Pulse Rate 88 11/16/16 10:00 Respiratory Rate 15 11/16/16 10:00 Blood Pressure 132/75 11/16/16 10:00 O2 Sat by Pulse Oximetry (%) 100 11/16/16 09:52 Cardiovascular: Yes: Regular Rate and Rhythm, Murmur (2/6 SM) Respiratory: Yes: Intubated, Mechanically Ventilated, Rhonchi Gastrointestinal: Yes: Normal Bowel Sounds, Soft Edema: No Labs: CBC, BMP 11/16/16 05:15 11/16/16 05:15 INR, PTT INR 1.66 (0.82-1.09) H 11/09/16 14:30 - ....Imaging Chest X-ray: Report Reviewed (Unchanged) EKG: Report Reviewed (SR without PAF) Problem List - Problems (1) Bacteremia due to Staphylococcus Code(s): R78.81 - BACTEREMIA (2) Discitis Code(s): M46.40 - DISCITIS, UNSPECIFIED, SITE UNSPECIFIED Qualifiers: Qualified Code(s): M46.46 - Discitis, unspecified, lumbar region (3) HLD (hyperlipidemia) Code(s): E78.5 - HYPERLIPIDEMIA, UNSPECIFIED Qualifiers: Qualified Code(s): E78.00 - Pure hypercholesterolemia, unspecified; E78.0 - Pure hypercholesterolemia (4) HTN (hypertension) Code(s): I10 - ESSENTIAL (PRIMARY) HYPERTENSION Qualifiers: Qualified Code(s): I10 - Essential (primary) hypertension (5) Osteomyelitis Code(s): M86.9 - OSTEOMYELITIS, UNSPECIFIED Qualifiers: Qualified Code(s): M86.9 - Osteomyelitis, unspecified (6) Acute renal failure Code(s): N17.9 - ACUTE KIDNEY FAILURE, UNSPECIFIED Qualifiers: Qualified Code(s): N17.9 - Acute kidney failure, unspecified (7) Leukocytosis Code(s): D72.829 - ELEVATED WHITE BLOOD CELL COUNT, UNSPECIFIED (8) Paroxysmal atrial fibrillation Code(s): I48.0 - PAROXYSMAL ATRIAL FIBRILLATION (9) 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 Code(s): Z92.29 - PERSONAL HISTORY OF OTHER DRUG THERAPY (10) Coronary artery disease Code(s): I25.10 - ATHSCL HEART DISEASE OF [place] CORONARY ARTERY W/O ANG PCTRS Qualifiers: Qualified Code(s): I25.10 - Atherosclerotic heart disease of [place] coronary artery without angina pectoris (11) NSTEMI (non-ST elevated myocardial infarction) Code(s): I21.4 - NON-ST ELEVATION (NSTEMI) MYOCARDIAL INFARCTION (12) Severe mitral regurgitation Code(s): I34.0 - NONRHEUMATIC MITRAL (VALVE) INSUFFICIENCY (13) Acute respiratory failure with hypoxia Code(s): J96.01 - ACUTE RESPIRATORY FAILURE WITH HYPOXIA (14) Acute on chronic systolic ACC/AHA stage C congestive heart failure Code(s): I50.23 - ACUTE ON CHRONIC SYSTOLIC (CONGESTIVE) HEART FAILURE (15) Cardiac arrest Code(s): I46.9 - CARDIAC ARREST, CAUSE UNSPECIFIED (16) Septic shock due to Gram positive bacteria Code(s): A41.89 - OTHER SPECIFIED SEPSIS R65.21 - SEVERE SEPSIS WITH SEPTIC SHOCK Assessment/Plan 11/08/2016 Transthoracic echocardiography: Dilated LV with severe LV dysfunction with anterior AK, apex dyskinetic, IVS below midventricular level thin and dyskinetic, inferolarteral severe HK, posterior AK, normal RV size and fxn, severe MR, mod TR, mild to mod AR 1. Post cardiac arrest torsades de pointes with underlying prolonged QT post Levaquin for E. coli/enterococcal UTI and then bradycardic/asystolic arrest 2. Acute hypoxic respiratory failure on mechanical ventilator 3. Acute on chronic systolic failure with underlying severe MR 4. CAD with NSTEMI - rise in troponin 5. Paroxysmal AF currently in sinus rhythm 6. HTN/HCVD 7. Disciitis and possible osteomyelitis of L3-4 with persistent MSSA bacteremia/ septic shock 8. GUZMAN due to hemodynamic alterations, hypervolemic hyponatremia, hypokalemia 9. Shock liver 10. History of BPH and obstructive uropathy 11. History of DVT post Eliquis PLAN: 1. Replete Mg to maintain Mg>2.5 with monitor for QT prolongation, avoid QT prolonging agents, K>4.5 2. Wean pressors to maintain MAP>65, troponins and LFTs have peaked 3. IV diuresis to keep even with monitor renal fxn and electrolytes 4. Nafcillin/Ertapanem per C&S, spine imaging when able, f/u surveillance cx so far clearing 5. Continue Plavix 75 qd and heparin gtt. Lisinopril 10 qd, carvedilol and Aldactone 25 qd held pending hemodynamic and renal fxn stabilization 6. GI prophylaxis, further cardiac work up is to be followed which may include cardiac catheterization/coronary angiography at some point once sepsis clears 7. Repeat echo reviewed, not significantly changed
--- NOTE | 2016-11-16 10:50 | PN ---
Progress Note (short form) - Note Progress Note: Renal follow up for GUZMAN Pt seen and examined in the ICU off sedation but not awake, moving Lowe extremities spontaneously Pt continues to drop BP when trying to titrate pressers on Dopamine and Levophed Vital Signs Temperature 98.1 F 11/16/16 10:00 Pulse Rate 88 11/16/16 10:00 Respiratory Rate 15 11/16/16 10:00 Blood Pressure 132/75 11/16/16 10:00 O2 Sat by Pulse Oximetry (%) 100 11/16/16 09:52 Intake & Output 11/13/16 11/14/16 11/15/16 11/16/16 23:59 23:59 23:59 23:59 Intake Total 2394 3812.0 3579 1344 Output Total 2150 1275 1075 1100 Balance 244 2537.0 2504 244 Weight 184 lb 4.903 oz 187 lb 2 oz 185 lb 7 oz 191 lb Gen: Intubated via ET Tube CVS: RRR, No M/R Lungs: CTA, no rales, wheeze Abd: Obese, NT/ND Ext: Trace LE edema CBC, BMP 11/16/16 05:15 11/16/16 05:15 Current Medications Acetaminophen (Tylenol -) 650 mg PO Q4H PRN PRN Reason: FEVER OR PAIN Last Admin: 11/09/16 13:57 Dose: 650 mg Clopidogrel Bisulfate (Plavix -) 75 mg NGT DAILY MARILEE Last Admin: 11/15/16 09:52 Dose: 75 mg Heparin Sodium (Porcine) (Heparin -) 5,000 unit SQ TID MARILEE Last Admin: 11/16/16 06:10 Dose: 5,000 unit Nafcillin Sodium 2 gm/ (Dextrose) 100 mls @ 100 mls/hr IVPB Q4H-IV MARILEE PRN Reason: Protocol Last Admin: 11/16/16 10:00 Dose: 100 mls/hr Dopamine HCl/Dextrose (Dopamine 400 Mg/D5w -) 250 mls @ 13.71 mls/hr IVPB TITR MARILEE; 5 MCG/KG/MIN PRN Reason: Protocol Last Titration: 11/16/16 06:10 Dose: 7 mcg/kg/min Norepinephrine Bitartrate 8, (000 mcg/ Dextrose) 500 mls @ 18.75 mls/hr IV TITR MARILEE; 5 MCG/MIN PRN Reason: Protocol Last Titration: 11/16/16 06:11 Dose: 12 mcg/min Fentanyl 500 mcg/ Dextrose 100 mls @ 15 mls/hr IJ TITR MARILEE PRN Reason: 75 MCG/HR Last Admin: 11/16/16 07:45 Dose: Not Given Ertapenem 0.5 gm/ Sodium (Chloride) 50 mls @ 100 mls/hr IVPB DAILY MARILEE PRN Reason: Protocol Last Admin: 11/16/16 10:00 Dose: 100 mls/hr Pantoprazole Sodium (Protonix 40mg Ivpb (Pre-Docked)) 100 mls @ 200 mls/hr IVPB DAILY MARILEE Last Admin: 11/16/16 10:00 Dose: 200 mls/hr A/P 81 year old gentleman with PMhx of Hypertension, P-Afib not on A/C, BPH, 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 #Non-oliguric acute renal failure in setting of Sepsis/Bactermia with Cardiac Arrest x 3 BUN/Cr stable good urine output, however less so then the last few days I and O remains grossly positive no indication for renal replacement threapy start sodium bicarb 650mg BID via OGT Keep MAP> 65 and CVP 10-12 #Hypervolemic Hypernatremia Pt on dopamine and levophed mixed in D5 Change solutions to NS diurtics when BP stable #Hypokalemia Give KCL 40meq via OGT x 1 now goal K ~4.5 as per Cardiology #Hypocalcemia Corrected Ca 8.02 getting Calcium glucoante as per primary team #Cardiac Arrest/Torsades Cardiac follow up ICU Level care Respiratory support with Vent Strict monitoring of electrolytes #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 Continue Abx as per ID #Hyperphospahtemia secondary to renal failure no binders indicating as pt is not being fed Pt with guarded prognosis will follow Devan Luo DO Problem List - Problems (1) Acute respiratory failure with hypoxia Code(s): J96.01 - ACUTE RESPIRATORY FAILURE WITH HYPOXIA (2) BPH (benign prostatic hyperplasia) Code(s): N40.0 - BENIGN PROSTATIC HYPERPLASIA WITHOUT LOWER URINRY TRACT SYMP (3) Bacteremia due to Staphylococcus Code(s): R78.81 - BACTEREMIA (4) HTN (hypertension) Code(s): I10 - ESSENTIAL (PRIMARY) HYPERTENSION Qualifiers: Hypertension type: essential hypertension Qualified Code(s): I10 - Essential (primary) hypertension (5) NSTEMI (non-ST elevated myocardial infarction) Code(s): I21.4 - NON-ST ELEVATION (NSTEMI) MYOCARDIAL INFARCTION (6) Cardiac arrest Code(s): I46.9 - CARDIAC ARREST, CAUSE UNSPECIFIED
[2016-11-16] MEDS: CLOPIDOGREL BISULFATE 75 MG TABLET (FP) NGT SCH (11:25)
[2016-11-16] MEDS ORDERED: DOPAMINE HCL 400,000 MCG in SODIUM CHLORIDE 240 ML IV SCH (11:30)
[2016-11-16] MEDS ORDERED: CALCIUM GLUCONATE 10% - 1,000 MG/10 ML VIAL IVPB ONE (12:00)
--- NOTE | 2016-11-16 12:17 | PN ---
Physical Exam: SUBJECTIVE: 81 year old male w/ staphylococcal sepsis and s/p 3 cardiac arrests with multiorgan failure. Pt is sedated and on levophed, versed, and dopamine. MAP has been >65. Pt is on Nafcillin and Ertapenem. Echo cannot rule out endocarditis. Pt had BM w/ FOBT positive stool yesterday. Pt is hyponatremic at 123 with a low Ca (5.8). OBJECTIVE: Vital Signs Period Temp Pulse Resp BP Sys/Roche Pulse Ox Last 24 Hr 98.0 F-99.2 F 81-110 10-18 69-140/47-80 99-100 GENERAL: The patient not awake, breathing on vent, not arousable HEAD: Normal with no signs of trauma. EYES: PERRL, extraocular movements unable to assess, sclera anicteric, conjunctiva clear. No ptosis. ENT: Ears normal, nares patent, oropharynx clear without exudates, moist mucous membranes. NECK: Trachea midline, full range of motion, supple. LUNGS: Breath sounds equal, clear to auscultation bilaterally HEART: irregular rate and rhythm, S1, S2 without murmur, rub or gallop. ABDOMEN: Soft, nontender, nondistended EXTREMITIES: 2+ pulses, cool extremities, not well perfused, no edema. NEUROLOGICAL: Unable to assess cranial nerves due to mental status PSYCH: Normal mood, normal affect. SKIN: edema noted around b/l hands, penis, and scrotum, no rashes Laboratory Results - last 24 hr 11/16/16 11/16/16 11/16/16 05:15 05:15 05:15 WBC 12.6 H RBC 4.61 Hgb 12.8 Hct 38.4 MCV 83.4 MCH 27.8 MCHC 33.3 RDW 15.5 Plt Count 265 MPV 9.6 ESR 65 H Sodium 123 L* Potassium 3.4 L Chloride 87 L Carbon Dioxide 18 L Anion Gap 18 H BUN 87 H Creatinine 4.1 H Creat Clearance w eGFR 14.04 Random Glucose 175 H Calcium 5.8 L* Phosphorus 7.1 H Magnesium 2.5 H Total Bilirubin 3.5 H AST 26 ALT 25 Alkaline Phosphatase 53 Total Protein 5.0 L Albumin 1.2 L Active Medications Generic Name Dose Route Start Last Admin Trade Name Freq PRN Reason Stop Dose Admin Acetaminophen 650 mg 11/07/16 08:16 11/09/16 13:57 Tylenol - PO 650 mg Q4H PRN Administration FEVER OR PAIN Clopidogrel Bisulfate 75 mg 11/15/16 10:00 11/16/16 11:25 Plavix - NGT 75 mg DAILY MARILEE Administration Heparin Sodium (Porcine) 5,000 unit 11/15/16 07:45 11/16/16 06:10 Heparin - SQ 5,000 unit TID MARILEE Administration Nafcillin Sodium 2 gm/ 100 mls @ 100 mls/hr 11/09/16 10:00 11/16/16 10:00 Dextrose IVPB 100 mls/hr Q4H-IV MARILEE Administration Protocol Norepinephrine Bitartrate 8, 500 mls @ 18.75 mls/hr 11/09/16 23:30 11/16/16 06: 11 000 mcg/ Dextrose IV 12 mcg/min TITR MARILEE Titration Protocol 5 MCG/MIN Fentanyl 500 mcg/ Dextrose 100 mls @ 15 mls/hr 11/11/16 07:45 11/16/16 07:45 IJ Not Given TITR MARILEE 75 MCG/HR Ertapenem 0.5 gm/ Sodium 50 mls @ 100 mls/hr 11/11/16 10:00 11/16/16 10:00 Chloride IVPB 100 mls/hr DAILY MARILEE Administration Protocol Pantoprazole Sodium 100 mls @ 200 mls/hr 11/11/16 10:00 11/16/16 10:00 Protonix 40mg Ivpb (Pre-Docked) IVPB 200 mls/hr DAILY MARILEE Administration Dopamine HCl 400,000 mcg/ 260 mls @ 16.89 mls/hr 11/16/16 11:30 Sodium Chloride IVPB TITR MARILEE Protocol 5 MCG/KG/MIN Imaging: Echo (11/13): cannot exclude aortic valve vegetation, moderate aortic valve thickening, mild mitral annular calcification, mild mitral valve thickening, mild tricuspid regurgitation CXR (11/13): ET tube, OG tube, and right jugular line with bilateral pleural and pulmonary changes still exist CXR (11/15): No changes since CXR on 11/13 CXR (11/16): Some bibasilar atelectasis, no change since 11/15 ASSESSMENT/PLAN: 81 year old male with staphylococcal sepsis s/p 3 cardiac arrests with multiorgan failure on multiple pressors and antibiotics Neuro: patient currently not on sedation, but on - not alert or oriented x3 -still unarousable, has gag reflex -continue fentanyl and reassess mental status -pts renal function possibly lengthening sedating effect of versed, possible that it is still in circulation -include CT of head during the CT spine study to r/o intracranial pathology Cardiovascular: patient normotensive at 109/68 (MAP 79) on multiple pressors, s/ p 3 cardiac arrests - central line is on day #7, needs removal/replacement -dopamine was increased to 10mcgs overnight because MAP decreased to 45 - currently MAP is 73 -central line needs replacement due to risk of infection, call family to schedule a meeting on whether they want this procedure done or whether they'd like comfort measures. -Echo could not exclude aortic valve vegetation, patient too unstable for SWATHI to exclude -continue dopamine and levophed -d/c heparin due to acute GI bleed and elevated PTT -continue clopidogrel -AM CBC/CMP/Mag/Phos Pulmonary: patient intubated, breathing on vent - respiratory function improving , breathing mildly improved on CPAP setting -pulmonary status is stable off of the sedation -f/u AM CXR ID: patient with persistent staphylococcal sepsis possibly w/ endocarditis -Echo cannot exclude aortic valve vegetation, patient too unstable for SWATHI to exclude -continue ertapenem and nafcillin -as per ID, f/u with spine CT to r/o abscess and head CT for intracranial pathology after family meeting FEN: -worsening GUZMAN -potassium slightly low at 3.4 -pt with hyponatremia at 123, likely due to hypotonic fluids mixed with medications -continue nepro through OGT -measure magnesium, phosphorous tomorrow Proph: -pt off heparin -continue protonix 40mg Dispo: -Continue to monitor in ICU -speak to family about goals of care -palliative care is on the case -order morphine Family meeting held at 2:00pm in the ICU with Dr. Sandhu, Dr. Galloway ( resident), Mary Martinez (medical student) and two brothers of the patient, one being Christiano Gonzalez. Additionally spoke to Ruby Gonzalez and Shannon Gonzalez over the phone. After a detailed discussion of the status of the patient, family agreed on comfort measures and withdrawal of care. They will return a call about precise time and date. Started on morphine 2mg qh1. Awaiting response from family. Problem List - Problems (1) Acute respiratory failure with hypoxia Code(s): J96.01 - ACUTE RESPIRATORY FAILURE WITH HYPOXIA (2) Bacteremia due to Staphylococcus Code(s): R78.81 - BACTEREMIA (3) Cardiac arrest Code(s): I46.9 - CARDIAC ARREST, CAUSE UNSPECIFIED Visit type - Emergency Visit Emergency Visit: No - New Patient This patient is new to me today: No - Critical Care Critical Care patient: Yes Total Critical Care Time (in minutes): 45 Critical Care Statement: The care of this patient involved high complexity decision making to prevent further life threatening deterioration of the patient 's condition and/or to evalute & treat vital organ system(s) failure or risk of failure.
--- NOTE | 2016-11-16 12:53 | PN ---
Teaching Attending Note Name of Resident: Arnav Galloway ATTENDING PHYSICIAN STATEMENT I saw and evaluated the patient. I reviewed the resident's note and discussed the case with the resident. I agree with the resident's findings and plan as documented. SUBJECTIVE: Patient seen and examined in the ICU. Remains intubated and sedated. AC mode of vent, 40% FiO2. Pressor dependent. No improvement in overall condition. He was made DNR yesterday. Intake & Output 11/13/16 11/14/16 11/15/16 11/16/16 23:59 23:59 23:59 23:59 Intake Total 2394 3812.0 3579 1644 Output Total 2150 1275 1075 1100 Balance 244 2537.0 2504 544 Weight 184 lb 4.903 oz 187 lb 2 oz 185 lb 7 oz 191 lb Last Vital Signs Temp Pulse Resp BP Pulse Ox 98.1 F 89 13 109/68 100 11/16/16 10:00 11/16/16 12:00 11/16/16 12:34 11/16/16 12:00 11/16/16 12:35 Active Medications Acetaminophen (Tylenol -) 650 mg PO Q4H PRN PRN Reason: FEVER OR PAIN Last Admin: 11/09/16 13:57 Dose: 650 mg Clopidogrel Bisulfate (Plavix -) 75 mg NGT DAILY MARILEE Last Admin: 11/16/16 11:25 Dose: 75 mg Heparin Sodium (Porcine) (Heparin -) 5,000 unit SQ TID MARILEE Last Admin: 11/16/16 06:10 Dose: 5,000 unit Nafcillin Sodium 2 gm/ (Dextrose) 100 mls @ 100 mls/hr IVPB Q4H-IV MARILEE PRN Reason: Protocol Last Admin: 11/16/16 10:00 Dose: 100 mls/hr Norepinephrine Bitartrate 8, (000 mcg/ Dextrose) 500 mls @ 18.75 mls/hr IV TITR MARILEE; 5 MCG/MIN PRN Reason: Protocol Last Titration: 11/16/16 06:11 Dose: 12 mcg/min Fentanyl 500 mcg/ Dextrose 100 mls @ 15 mls/hr IJ TITR MARILEE PRN Reason: 75 MCG/HR Last Admin: 11/16/16 07:45 Dose: Not Given Ertapenem 0.5 gm/ Sodium (Chloride) 50 mls @ 100 mls/hr IVPB DAILY MARILEE PRN Reason: Protocol Last Admin: 11/16/16 10:00 Dose: 100 mls/hr Pantoprazole Sodium (Protonix 40mg Ivpb (Pre-Docked)) 100 mls @ 200 mls/hr IVPB DAILY MARILEE Last Admin: 11/16/16 10:00 Dose: 200 mls/hr Dopamine HCl 400,000 mcg/ (Sodium Chloride) 260 mls @ 16.89 mls/hr IVPB TITR MARILEE; 5 MCG/KG/MIN PRN Reason: Protocol Gen: Intubated and sedated Heart: RRR, +systolic murmur Lung: decreased breath sounds at the bases Abd: soft, nontender Ext: no edema, cold to touch Laboratory Results - last 24 hr 11/16/16 11/16/16 11/16/16 05:15 05:15 05:15 WBC 12.6 H RBC 4.61 Hgb 12.8 Hct 38.4 MCV 83.4 MCH 27.8 MCHC 33.3 RDW 15.5 Plt Count 265 MPV 9.6 ESR 65 H Sodium 123 L* Potassium 3.4 L Chloride 87 L Carbon Dioxide 18 L Anion Gap 18 H BUN 87 H Creatinine 4.1 H Creat Clearance w eGFR 14.04 Random Glucose 175 H Calcium 5.8 L* Phosphorus 7.1 H Magnesium 2.5 H Total Bilirubin 3.5 H AST 26 ALT 25 Alkaline Phosphatase 53 Total Protein 5.0 L Albumin 1.2 L ASSESSMENT AND PLAN: s/p VFib Cardiopulmonary Arrest/Prolonged QT Acute NSTEMI/CAD/+Troponins Acute Respiratory Failure Acute on Chronic Systolic Heart Failure Severe Mitral Regurgitation Acute Kidney Injury UTI MSSA Bacteremia Osteomyelitis/Discitis Sepsis Lactic Acidosis - AC being held due to bleeding - beta malvin, statin - keep K >4.5, Mg >2.5 - IVF per Renal - ABX per ID - monitor urine output, creatinine - continue ICU monitoring - Will hopefully be meeting with the family today to further discuss GOC. Due to overall condition and grave expected outcome, would be appropriate for comfrot measures only Dr Sandhu critical care time spent in reviewing chart, evaluating patient and formulating plan 36 min
[2016-11-16] MEDS: DOPAMINE HCL IVPB SCH (12:59)
[2016-11-16] MEDS: SODIUM CHLORIDE IVPB SCH (12:59)
[2016-11-16] MEDS: NOREPINEPHRINE BITARTRATE 8,000 MCG in DEXTROSE 5%-WATER - 492 ML IV SCH (13:01)
[2016-11-16] MEDS ORDERED: NOREPINEPHRINE BITARTRATE 4 MG/4 ML ML IV ONE ×2 (13:05→21:37)
[2016-11-16] MEDS: MORPHINE 100 MG in SODIUM CHLORIDE 98 ML IVPB SCH (14:30)
--- NOTE | 2016-11-16 16:25 | PN ---
Physical Exam: SUBJECTIVE: Patient seen and examined this AM. Pt is not on sedation but is not arousable. Patient is starting tube feeds. Since the patient's central line had been in place for 7 days, family meeting was called again to reassess options. Family met with ICu staff. They would like central line eventually removed, and possible comfort measures. Pt started on Morphine 2mg drip. Dopamine 10mg Levophed 12mg Vent Settings FiOs 40%; PEEP 5 OBJECTIVE: Vital Signs Period Temp Pulse Resp BP Sys/Roche Pulse Ox Last 24 Hr 97.5 F-99.2 F 78-106 12-18 69-140/47-79 99-100 GENERAL: Intubated, unable to arouse HEENT: PERRLA, Moist mucous membranes, less JVD LUNGS: Intubated, no audible wheezes, anterior lung garcia clear, no use of accessory muscles HEART: Regular rate, rhythm, normal S1 and S2 without murmur, rub or gallop. ABDOMEN: Soft, nontender, not distended, hypoactive bowel sounds, no guarding, no rebound, no masses. MSK: UE nonpitting edema, No bony deformities or tenderness. 2+ pulses in upper extremities and tibial, 1+ dorsalis pedis, no edema - Edematous penile and scrotal region, same from yesterday, no blood from huizar. Pt also has rectal tube with yellow liquid NEUROLOGICAL: Neuro exam was difficult to obtain bc of difficulty arousing. No facial droop. PERRLA. Laboratory Results - last 24 hr 11/16/16 11/16/16 11/16/16 05:15 05:15 05:15 WBC 12.6 H RBC 4.61 Hgb 12.8 Hct 38.4 MCV 83.4 MCH 27.8 MCHC 33.3 RDW 15.5 Plt Count 265 MPV 9.6 ESR 65 H Sodium 123 L* Potassium 3.4 L Chloride 87 L Carbon Dioxide 18 L Anion Gap 18 H BUN 87 H Creatinine 4.1 H Creat Clearance w eGFR 14.04 Random Glucose 175 H Calcium 5.8 L* Phosphorus 7.1 H Magnesium 2.5 H Total Bilirubin 3.5 H AST 26 ALT 25 Alkaline Phosphatase 53 Total Protein 5.0 L Albumin 1.2 L Active Medications Generic Name Dose Route Start Last Admin Trade Name Freq PRN Reason Stop Dose Admin Acetaminophen 650 mg 11/07/16 08:16 11/09/16 13:57 Tylenol - PO 650 mg Q4H PRN Administration FEVER OR PAIN Clopidogrel Bisulfate 75 mg 11/15/16 10:00 11/16/16 11:25 Plavix - NGT 75 mg DAILY MARILEE Administration Heparin Sodium (Porcine) 5,000 unit 11/16/16 22:00 Heparin - SQ BID MARILEE Nafcillin Sodium 2 gm/ 100 mls @ 100 mls/hr 11/09/16 10:00 11/16/16 13:11 Dextrose IVPB 100 mls/hr Q4H-IV MARILEE Administration Protocol Norepinephrine Bitartrate 8, 500 mls @ 18.75 mls/hr 11/09/16 23:30 11/16/16 13: 01 000 mcg/ Dextrose IV 45 mls/hr TITR MARILEE Administration Protocol 5 MCG/MIN Fentanyl 500 mcg/ Dextrose 100 mls @ 15 mls/hr 11/11/16 07:45 11/16/16 07:45 IJ Not Given TITR MARILEE 75 MCG/HR Ertapenem 0.5 gm/ Sodium 50 mls @ 100 mls/hr 11/11/16 10:00 11/16/16 10:00 Chloride IVPB 100 mls/hr DAILY MARILEE Administration Protocol Pantoprazole Sodium 100 mls @ 200 mls/hr 11/11/16 10:00 11/16/16 10:00 Protonix 40mg Ivpb (Pre-Docked) IVPB 200 mls/hr DAILY MARILEE Administration Dopamine HCl 400,000 mcg/ 260 mls @ 16.89 mls/hr 11/16/16 11:30 11/16/16 13:00 Sodium Chloride IVPB 7 mcg/kg/min TITR MARILEE Titration Protocol 5 MCG/KG/MIN Morphine Sulfate 100 mg/ 100 mls @ 2 mls/hr 11/16/16 14:30 11/16/16 14:30 Sodium Chloride IVPB 2 mls/hr TITR MARILEE Administration Protocol 2 MG/HR ASSESSMENT/PLAN: Pt is an 81yo M with a history of HTN, HLD, Old CVA, BPH with chronic indwelling huizar, Hx of DVT who presented to the ER with neck and back pain + severe sepsis (tachy, WBC 13.9, + cultures, high LA). After the patient was transferred from the ER, he had three episodes of cardiac arrests with ACLS performance and ROSC, and is currently in the ICU for close monitoring. # Post Cardiac Arrest w/ Vfib and Torsades - Initial arrests due to long QTc, latest likely due to septic shock - IJ line, Dopamine (10 mcg/kg/min) + Levophed (12 mcg/min) - Pt not tolerating weaning off pressors - Family meeting today with ICU staff, family would like central line eventually removed, and possible comfort measures. Pt started on Morphine 2mg drip. # Severe Sepsis w/ Persistent MSSA Bacteremia - Persistent MSSA w/ high CRP - Echo cannot r/o vegetations - Nafcillin 2g Q4IV + Ertapenem IV 0.5gm QD # Severe Systolic CHF - EF 24% - Echo shows severe wall motion abnormalities and hypokinesis - Likely due to underlying cardiomyopathy - Pt dependent on 2 pressors, edematous, lasix on hold # GUZMAN nonoliguric, stable - Likely from septic shock, UOP decreased - Avoid nephrotoxic medications, d/c'd lisinopril # NSTEMI - Trops peaked to 15, peaked again after last arrest to 36 - EKG shows no new changes - On Plavix 75, hep dc'd due to supratherapeutic PTT, no cath due to bacteremia # Osteomyelitis vs Discitis - Seeding from bacteremia, imaging on hold - Pain control # FEN - Fluids: None - Electrolytes: Monitor Na+ - Nutrition: Clinimix + Oral tube feeds # Prophylaxis - DVT: Hep SQ - GI: IV Protonix 40mg QD # Code Status - DNR Visit type - Emergency Visit Emergency Visit: No - New Patient This patient is new to me today: No - Critical Care Critical Care patient: No
--- NOTE | 2016-11-16 20:12 | PN ---
Teaching Attending Note Name of Resident: Marly Del Real ATTENDING PHYSICIAN STATEMENT I saw and evaluated the patient. I reviewed the resident's note and discussed the case with the resident. I agree with the resident's findings and plan as documented. SUBJECTIVE: No new changes, had a family meeting regarding 's condition OBJECTIVE: Vital Signs Temperature 98.1 F 11/16/16 18:00 Pulse Rate 82 11/16/16 19:46 Respiratory Rate 12 11/16/16 19:46 Blood Pressure 104/66 11/16/16 19:46 O2 Sat by Pulse Oximetry (%) 100 11/16/16 12:35 CBCD WBC 12.6 K/mm3 (4.0-10.0) H 11/16/16 05:15 RBC 4.61 M/mm3 (4.00-5.60) 11/16/16 05:15 Hgb 12.8 GM/dL (11.7-16.9) 11/16/16 05:15 Hct 38.4 % (35.4-49) 11/16/16 05:15 MCV 83.4 fl (80-96) 11/16/16 05:15 MCHC 33.3 g/dl (32.0-35.9) 11/16/16 05:15 RDW 15.5 % (11.9-15.9) 11/16/16 05:15 Plt Count 265 K/MM3 (134-434) 11/16/16 05:15 MPV 9.6 fl (7.5-11.1) 11/16/16 05:15 CMP Sodium 123 mmol/L (136-145) L* 11/16/16 05:15 Potassium 3.4 mmol/L (3.5-5.1) L 11/16/16 05:15 Chloride 87 mmol/L (98-107) L 11/16/16 05:15 Carbon Dioxide 18 mmol/L (21-32) L 11/16/16 05:15 Anion Gap 18 (8-16) H 11/16/16 05:15 BUN 87 mg/dL (7-18) H 11/16/16 05:15 Creatinine 4.1 mg/dL (0.7-1.3) H 11/16/16 05:15 Creat Clearance w eGFR 14.04 (>60) 11/16/16 05:15 Random Glucose 175 mg/dL (74-106) H 11/16/16 05:15 Calcium 5.8 mg/dL (8.5-10.1) L* 11/16/16 05:15 Total Bilirubin 3.5 mg/dL (0.2-1.0) H 11/16/16 05:15 AST 26 U/L (15-37) 11/16/16 05:15 ALT 25 U/L (12-78) 11/16/16 05:15 Alkaline Phosphatase 53 U/L (45-117) 11/16/16 05:15 Total Protein 5.0 g/dl (6.4-8.2) L 11/16/16 05:15 Albumin 1.2 g/dl (3.4-5.0) L 11/16/16 05:15 CARDIAC ENZYMES Creatine Kinase 144 IU/L (39-308) 11/12/16 05:20 Troponin I 19.90 ng/ml (0.00-0.05) H* 11/12/16 05:20 Current Medications Generic Name Dose Route Start Last Admin Trade Name Freq PRN Reason Stop Dose Admin Acetaminophen 650 mg 11/07/16 08:16 11/09/16 13:57 Tylenol - PO 650 mg Q4H PRN Administration FEVER OR PAIN Clopidogrel Bisulfate 75 mg 11/15/16 10:00 11/16/16 11:25 Plavix - NGT 75 mg DAILY MARILEE Administration Heparin Sodium (Porcine) 5,000 unit 11/16/16 22:00 Heparin - SQ BID MARILEE Nafcillin Sodium 2 gm/ 100 mls @ 100 mls/hr 11/09/16 10:00 11/16/16 17:08 Dextrose IVPB 100 mls/hr Q4H-IV MARILEE Administration Protocol Norepinephrine Bitartrate 8, 500 mls @ 18.75 mls/hr 11/09/16 23:30 11/16/16 13: 01 000 mcg/ Dextrose IV 45 mls/hr TITR MARILEE Administration Protocol 5 MCG/MIN Fentanyl 500 mcg/ Dextrose 100 mls @ 15 mls/hr 11/11/16 07:45 11/16/16 07:45 IJ Not Given TITR MARILEE 75 MCG/HR Ertapenem 0.5 gm/ Sodium 50 mls @ 100 mls/hr 11/11/16 10:00 11/16/16 10:00 Chloride IVPB 100 mls/hr DAILY MARILEE Administration Protocol Pantoprazole Sodium 100 mls @ 200 mls/hr 11/11/16 10:00 11/16/16 10:00 Protonix 40mg Ivpb (Pre-Docked) IVPB 200 mls/hr DAILY MARILEE Administration Dopamine HCl 400,000 mcg/ 260 mls @ 16.89 mls/hr 11/16/16 11:30 11/16/16 13:00 Sodium Chloride IVPB 7 mcg/kg/min TITR MARILEE Titration Protocol 5 MCG/KG/MIN Morphine Sulfate 100 mg/ 100 mls @ 2 mls/hr 11/16/16 14:30 11/16/16 14:30 Sodium Chloride IVPB 2 mls/hr TITR MARILEE Administration Protocol 2 MG/HR Home Medications Medication Instructions Recorded NK [No Known Home Medication] 11/08/16 PE: Intubated. No spontaneous respirations. with pinpoint pupils PE: per resident's note ASSESSMENT AND PLAN: 81 y/o man with h/o HTN, HLD, CVA, BPH with chronic indwelling foleyc atheter and h/o DVT who presented with back and neck pain . Hospitalization esd complicated by cardiac arrest x3 ( VF, Torsade [place], asystole ) . He was found to be bacteremic as well #IMP: Severe B/L cerebral dysfunction. Continues to be intbated, unable to wean him off the Vent. # acute respiratory failure s/p Intubation further management per ICU attending # S/P Cardiac arrest, VF, Torsades and asystole. Prolonged QTc . cardiogenic Vs septic shock continue dopamine and NEpinephrine. further management per ICU # NSTEMI further management per cardio/ICU # Acute systolic heart failure . # Severe sepsis with MSSA bacteremia. possible endocarditis continue IV antibiotic # Complicated UTI : MSSA and Citrobacter Freundii # GUZMAN : likely ATN # Discitis DVT Px: Heparin sq
--- NOTE | 2016-11-16 22:51 | PN ---
Progress Note (short form) - Note Progress Note: NEUROLOGY FOLLOW-UP: Called to reassess mentation after patient's 3rd cardiac arrest and resuscitation. I was told by the RN that patient was off sedation >24 hrs but was apparently on a Fentanyl drip yesterday and is on MS drip (2 mg/hr) at this time. Apparently to "comfort" patient who responded to deep suctioning. WALLACE: Intubated. No spontaneous respirations. No response to sternal pressure. Pupils are pinpoint. No EOM's to doll's head. No Corneals Flaccid all fours. IMP: Severe B/L cerebral dysfunction. Pinpoint pupils could be due to narcosis. SUGGEST: Taper and D/C MS and reexamine patient. Thank you very much, Ronald Brito MD
[2016-11-17] MEDS: NAFCILLIN - 2 GM in DEXTROSE 5%-WATER - 100 ML IVPB SCH ×6 (02:34→22:55)
[2016-11-17] MEDS: NOREPINEPHRINE BITARTRATE 8,000 MCG in DEXTROSE 5%-WATER - 492 ML IV SCH ×3 (02:35→20:00)
[2016-11-17 06:40] LABS: ANION GAP 17 (8-16); CO2 18 mmol/L (21-32); CREATININE 3.8 mg/dL (0.7-1.3); GLUCOSE,RANDOM 94 mg/dL (74-106); MAGNESIUM 2.5 mg/dL (1.8-2.4); PHOSPHOROUS 7.1 mg/dL (2.5-4.9)
[2016-11-17 06:56] LABS: CALCIUM 5.9 mg/dL (8.5-10.1)
[2016-11-17] MEDS ORDERED: PT OWN MED DRAWER 7, Y5N ONE ×5 (07:38→22:54)
--- NOTE | 2016-11-17 07:40 | PN ---
Progress Note, Physician Chief Complaint: ID Clinical condition no change obtunded on the ventilator pressor support Nafcillin & Ertepenem still on board - Current Medication List Current Medications: Active Medications Acetaminophen (Tylenol -) 650 mg PO Q4H PRN PRN Reason: FEVER OR PAIN Last Admin: 11/09/16 13:57 Dose: 650 mg Clopidogrel Bisulfate (Plavix -) 75 mg NGT DAILY MARILEE Last Admin: 11/16/16 11:25 Dose: 75 mg Heparin Sodium (Porcine) (Heparin -) 5,000 unit SQ BID MARILEE Last Admin: 11/16/16 21:46 Dose: 5,000 unit Nafcillin Sodium 2 gm/ (Dextrose) 100 mls @ 100 mls/hr IVPB Q4H-IV MARILEE PRN Reason: Protocol Last Admin: 11/17/16 06:37 Dose: 100 mls/hr Norepinephrine Bitartrate 8, (000 mcg/ Dextrose) 500 mls @ 18.75 mls/hr IV TITR MARILEE; 5 MCG/MIN PRN Reason: Protocol Last Admin: 11/17/16 02:35 Dose: 43.12 mls/hr Fentanyl 500 mcg/ Dextrose 100 mls @ 15 mls/hr IJ TITR MARILEE PRN Reason: 75 MCG/HR Last Admin: 11/16/16 07:45 Dose: Not Given Ertapenem 0.5 gm/ Sodium (Chloride) 50 mls @ 100 mls/hr IVPB DAILY MARILEE PRN Reason: Protocol Last Admin: 11/16/16 10:00 Dose: 100 mls/hr Pantoprazole Sodium (Protonix 40mg Ivpb (Pre-Docked)) 100 mls @ 200 mls/hr IVPB DAILY MARILEE Last Admin: 11/16/16 10:00 Dose: 200 mls/hr Dopamine HCl 400,000 mcg/ (Sodium Chloride) 260 mls @ 16.89 mls/hr IVPB TITR MARILEE; 5 MCG/KG/MIN PRN Reason: Protocol Last Titration: 11/16/16 13:00 Dose: 7 mcg/kg/min Morphine Sulfate 100 mg/ (Sodium Chloride) 100 mls @ 2 mls/hr IVPB TITR MARILEE; 2 MG/HR PRN Reason: Protocol Last Admin: 11/16/16 14:30 Dose: 2 mls/hr - Objective Vital Signs: Vital Signs Temperature 9 F L 11/17/16 06:00 Pulse Rate 79 11/17/16 06:00 Respiratory Rate 12 11/17/16 06:26 Blood Pressure 97/56 11/17/16 06:00 O2 Sat by Pulse Oximetry (%) 100 11/16/16 12:35 Constitutional: Yes: Other (INtubated) Cardiovascular: Yes: S1, S2. No: Murmur Respiratory: Yes: WNL, Regular, CTA Bilaterally Gastrointestinal: Yes: WNL, Normal Bowel Sounds, Soft. No: Tenderness, Tenderness, Rebound Edema: Yes Labs: CBC, BMP 11/17/16 05:15 INR, PTT INR 1.66 (0.82-1.09) H 11/09/16 14:30 Problem List - Problems (1) Osteomyelitis Code(s): M86.9 - OSTEOMYELITIS, UNSPECIFIED Qualifiers: Osteomyelitis type: unspecified type Osteomyelitis location: other site Qualified Code(s): M86.9 - Osteomyelitis, unspecified (2) Bacteremia due to Staphylococcus Code(s): R78.81 - BACTEREMIA (3) Discitis Code(s): M46.40 - DISCITIS, UNSPECIFIED, SITE UNSPECIFIED Qualifiers: Spinal region: lumbar Qualified Code(s): M46.46 - Discitis, unspecified, lumbar region (4) Cardiac arrest due to other underlying condition Code(s): I46.8 - CARDIAC ARREST DUE TO OTHER UNDERLYING CONDITION Assessment/Plan Microbiology 11/15/16 08:00 Blood - Peripheral Venous Blood Culture - Preliminary NO GROWTH OBTAINED AFTER 24 HOURS, INCUBATION TO CONTINUE FOR 4 DAYS. 11/15/16 08:00 Blood - Peripheral Venous Blood Culture - Preliminary NO GROWTH OBTAINED AFTER 24 HOURS, INCUBATION TO CONTINUE FOR 4 DAYS. Laboratory Tests 11/16/16 11/17/16 11/17/16 05:15 05:15 05:15 WBC 12.6 H Pending Hgb 12.8 Hct 38.4 Plt Count 265 BUN 78 H Creatinine 3.8 H Calcium 5.9 L* Assessment MSSA bacteremia Sepsis Syndrome Respiratory failure L3-L4 vertebral osteo S/P cardiac arrest Plan As discussed will await family decision regarding end of life comfort care Final recommendation re antibiotic after family here latter today Susan PETERSON
[2016-11-17] MEDS: FENTANYL INJECTION 500 MCG in DEXTROSE 5%-WATER - 90 ML IJ SCH (07:45)
--- NOTE | 2016-11-17 08:08 | PN ---
Physical Exam: SUBJECTIVE: Patient seen and examined this AM. Pt is asleep, unresponsive to sternal rub, not on sedation. Dopamine 6 Levophed 11 CVP 3 Patient still on A/C support ventilation, FiO2 40%, PEEP 5 OBJECTIVE: Vital Signs Period Temp Pulse Resp BP Sys/Roche Pulse Ox Last 24 Hr 9 F-98.3 F 78-91 12-18 76-140/52-78 100-100 GENERAL: Intubated, unable to arouse HEENT: PERRLA, Moist mucous membranes, less JVD LUNGS: Intubated, no audible wheezes, anterior lung garcia clear, no use of accessory muscles HEART: Regular rate, rhythm, normal S1 and S2 without murmur, rub or gallop. ABDOMEN: Soft, nontender, not distended, hypoactive bowel sounds, no guarding, no rebound, no masses. MSK: UE nonpitting edema, No bony deformities or tenderness. 2+ pulses in upper extremities and tibial, 1+ dorsalis pedis, no edema - Edematous penile and scrotal region, same from yesterday, no blood from huizar. Pt also has rectal tube with yellow liquid NEUROLOGICAL: Neuro exam was difficult to obtain bc of difficulty arousing. No facial droop. PERRLA. Laboratory Results - last 24 hr 11/16/16 11/17/16 11/17/16 05:15 05:15 05:15 ESR 65 H Sodium 126 L Potassium 3.3 L Chloride 91 L Carbon Dioxide 18 L Anion Gap 17 H BUN 78 H Creatinine 3.8 H Random Glucose 94 D Lactic Acid 0.6 Calcium 5.9 L* Phosphorus 7.1 H Magnesium 2.5 H Active Medications Generic Name Dose Route Start Last Admin Trade Name Freq PRN Reason Stop Dose Admin Acetaminophen 650 mg 11/07/16 08:16 11/09/16 13:57 Tylenol - PO 650 mg Q4H PRN Administration FEVER OR PAIN Clopidogrel Bisulfate 75 mg 11/15/16 10:00 11/16/16 11:25 Plavix - NGT 75 mg DAILY MARILEE Administration Heparin Sodium (Porcine) 5,000 unit 11/16/16 22:00 11/16/16 21:46 Heparin - SQ 5,000 unit BID MARILEE Administration Nafcillin Sodium 2 gm/ 100 mls @ 100 mls/hr 11/09/16 10:00 11/17/16 06:37 Dextrose IVPB 100 mls/hr Q4H-IV MARILEE Administration Protocol Norepinephrine Bitartrate 8, 500 mls @ 18.75 mls/hr 11/09/16 23:30 11/17/16 02: 35 000 mcg/ Dextrose IV 43.12 mls/hr TITR MARILEE Administration Protocol 5 MCG/MIN Fentanyl 500 mcg/ Dextrose 100 mls @ 15 mls/hr 11/11/16 07:45 11/17/16 07:45 IJ Not Given TITR MARILEE 75 MCG/HR Ertapenem 0.5 gm/ Sodium 50 mls @ 100 mls/hr 11/11/16 10:00 11/16/16 10:00 Chloride IVPB 100 mls/hr DAILY MARILEE Administration Protocol Pantoprazole Sodium 100 mls @ 200 mls/hr 11/11/16 10:00 11/16/16 10:00 Protonix 40mg Ivpb (Pre-Docked) IVPB 200 mls/hr DAILY MARILEE Administration Dopamine HCl 400,000 mcg/ 260 mls @ 16.89 mls/hr 11/16/16 11:30 11/16/16 13:00 Sodium Chloride IVPB 7 mcg/kg/min TITR MARILEE Titration Protocol 5 MCG/KG/MIN Morphine Sulfate 100 mg/ 100 mls @ 2 mls/hr 11/16/16 14:30 11/16/16 14:30 Sodium Chloride IVPB 2 mls/hr TITR MARILEE Administration Protocol 2 MG/HR ASSESSMENT/PLAN: Pt is an 81yo M with a history of HTN, HLD, Old CVA, BPH with chronic indwelling huizar, Hx of DVT who presented to the ER with neck and back pain + severe sepsis (tachy, WBC 13.9, + cultures, high LA). After the patient was transferred from the ER, he had three episodes of cardiac arrests with ACLS performance and ROSC, and is currently in the ICU for close monitoring. # Post Cardiac Arrest w/ Vfib and Torsades - Initial arrests due to long QTc, latest likely due to septic shock - IJ line, Dopamine (6 mcg/kg/min) + Levophed (11 mcg/min) - Pt not tolerating weaning off pressors - Family would like central line eventually removed, and possible comfort measures - Continue Morphine 2mg Q1 drip. # Severe Sepsis w/ Persistent MSSA Bacteremia - Persistent MSSA w/ high CRP - Echo cannot r/o vegetations - Nafcillin 2g Q4IV + Ertapenem IV 0.5gm QD # Severe Systolic CHF - EF 24% - Echo shows severe wall motion abnormalities and hypokinesis - Likely due to underlying cardiomyopathy - Pt dependent on 2 pressors, edematous, lasix on hold # GUZMAN nonoliguric, stable - Likely from septic shock, UOP good yest - Avoid nephrotoxic medications, d/c'd lisinopril # NSTEMI - Trops peaked to 15, peaked again after last arrest to 36 - EKG shows no new changes - On Plavix 75, hep dc'd due to supratherapeutic PTT, no cath due to bacteremia # Osteomyelitis vs Discitis - Seeding from bacteremia, imaging on hold - Pain control # FEN - Fluids: None - Electrolytes: Monitor Na+ - Nutrition: Clinimix + Oral tube feeds # Prophylaxis - DVT: Hep SQ - GI: IV Protonix 40mg QD # Code Status - DNR Visit type - Emergency Visit Emergency Visit: No - New Patient This patient is new to me today: No - Critical Care Critical Care patient: No
[2016-11-17] MEDS: ERTAPENEM SODIUM 0.5 GM in SODIUM CHLORIDE 50 ML IVPB SCH (10:08)
[2016-11-17] MEDS: HEPARIN NA (PORCINE) 5,000 UNITS/ML 1ML VIAL SQ SCH ×2 (10:08→22:55)
[2016-11-17] MEDS: CLOPIDOGREL BISULFATE 75 MG TABLET (FP) NGT SCH (10:09)
[2016-11-17] MEDS: PANTOPRAZOLE SODIUM 100 ML IVPB SCH (10:09)
[2016-11-17 10:11] LABS: MCH 27.7 pg (25.7-33.7); PLATELET COUNT 210 K/MM3 (134-434); RDW 15.8 % (11.9-15.9); WHITE BLOOD COUNT 11.4 K/mm3 (4.0-10.0)
[2016-11-17] MEDS: DOPAMINE HCL IVPB SCH (11:30)
[2016-11-17] MEDS: SODIUM CHLORIDE IVPB SCH (11:30)
--- NOTE | 2016-11-17 11:30 | PN ---
Progress Note (short form) - Note Progress Note: Renal follow up for GUZMAN Pt seen and examined in the ICU reamins unresponsive off sedation on Levophed and Dopamine CVP is 3 Vital Signs Temperature 97.7 F 11/17/16 10:00 Pulse Rate 82 11/17/16 10:00 Respiratory Rate 12 11/17/16 10:00 Blood Pressure 86/53 11/17/16 10:00 O2 Sat by Pulse Oximetry (%) 97 11/17/16 09:40 Intake & Output 11/14/16 11/15/16 11/16/16 11/17/16 23:59 23:59 23:59 23:59 Intake Total 3812.0 3579 2683.0 1120 Output Total 1275 1075 2430 500 Balance 2537.0 2504 253.0 620 Weight 187 lb 2 oz 185 lb 7 oz 191 lb 193 lb 1.999 oz Gen: Intubated via ET Tube CVS: RRR, No M/R Lungs: CTA, no rales, wheeze Abd: Obese, NT/ND Ext: Trace LE edema CBC, BMP 11/17/16 05:15 11/17/16 05:15 Laboratory Tests 11/17/16 11/17/16 05:15 05:15 Lactic Acid 0.6 Calcium 5.9 L* Phosphorus 7.1 H Magnesium 2.5 H Current Medications Acetaminophen (Tylenol -) 650 mg PO Q4H PRN PRN Reason: FEVER OR PAIN Last Admin: 11/09/16 13:57 Dose: 650 mg Clopidogrel Bisulfate (Plavix -) 75 mg NGT DAILY MARILEE Last Admin: 11/17/16 10:09 Dose: 75 mg Heparin Sodium (Porcine) (Heparin -) 5,000 unit SQ BID MARILEE Last Admin: 11/17/16 10:08 Dose: 5,000 unit Nafcillin Sodium 2 gm/ (Dextrose) 100 mls @ 100 mls/hr IVPB Q4H-IV MARILEE PRN Reason: Protocol Last Admin: 11/17/16 10:08 Dose: 100 mls/hr Norepinephrine Bitartrate 8, (000 mcg/ Dextrose) 500 mls @ 18.75 mls/hr IV TITR MARILEE; 5 MCG/MIN PRN Reason: Protocol Last Admin: 11/17/16 02:35 Dose: 43.12 mls/hr Fentanyl 500 mcg/ Dextrose 100 mls @ 15 mls/hr IJ TITR MARILEE PRN Reason: 75 MCG/HR Last Admin: 11/17/16 07:45 Dose: Not Given Ertapenem 0.5 gm/ Sodium (Chloride) 50 mls @ 100 mls/hr IVPB DAILY MARILEE PRN Reason: Protocol Last Admin: 11/17/16 10:08 Dose: 100 mls/hr Pantoprazole Sodium (Protonix 40mg Ivpb (Pre-Docked)) 100 mls @ 200 mls/hr IVPB DAILY MARILEE Last Admin: 11/17/16 10:09 Dose: 200 mls/hr Dopamine HCl 400,000 mcg/ (Sodium Chloride) 260 mls @ 16.89 mls/hr IVPB TITR MARILEE; 5 MCG/KG/MIN PRN Reason: Protocol Last Titration: 11/16/16 13:00 Dose: 7 mcg/kg/min Morphine Sulfate 100 mg/ (Sodium Chloride) 100 mls @ 2 mls/hr IVPB TITR MARILEE; 2 MG/HR PRN Reason: Protocol Last Admin: 11/16/16 14:30 Dose: 2 mls/hr A/P 81 year old gentleman with PMhx of Hypertension, P-Afib not on A/C, BPH, 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 #Non-oliguric acute renal failure in setting of Sepsis/Bactermia with Cardiac Arrest x 3 Renal function showing gradual improvement UO ~2L daily no indication for RHEUMATOLOGY SPECIALIST at this time continue supportive care with goal MAP > 65, CVP goal of 10-12 #Hypervolemic Hypernatremia limit IVF infusions as much as possible all infusions should be in NS if possible #Hypokalemia KCL 40meq x 2 via GT repeat BMP in the evening #Hypocalcemia Corrected Ca 8.1 #Cardiac Arrest/Torsades Cardiac follow up ICU Level care Respiratory support with Vent Strict monitoring of electrolytes #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 Continue Abx as per ID #Hyperphospahtemia secondary to renal failure no binders indicating as pt is not being fed Pt with guarded prognosis awaiting family decision regarding goals of are Devan Luo DO Problem List - Problems (1) Acute respiratory failure with hypoxia Code(s): J96.01 - ACUTE RESPIRATORY FAILURE WITH HYPOXIA (2) BPH (benign prostatic hyperplasia) Code(s): N40.0 - BENIGN PROSTATIC HYPERPLASIA WITHOUT LOWER URINRY TRACT SYMP (3) Bacteremia due to Staphylococcus Code(s): R78.81 - BACTEREMIA (4) HTN (hypertension) Code(s): I10 - ESSENTIAL (PRIMARY) HYPERTENSION Qualifiers: Hypertension type: essential hypertension Qualified Code(s): I10 - Essential (primary) hypertension (5) NSTEMI (non-ST elevated myocardial infarction) Code(s): I21.4 - NON-ST ELEVATION (NSTEMI) MYOCARDIAL INFARCTION (6) Cardiac arrest Code(s): I46.9 - CARDIAC ARREST, CAUSE UNSPECIFIED
--- NOTE | 2016-11-17 11:46 | PN ---
Teaching Attending Note Name of Resident: Arnav Galloway ATTENDING PHYSICIAN STATEMENT I saw and evaluated the patient. I reviewed the resident's note and discussed the case with the resident. I agree with the resident's findings and plan as documented. SUBJECTIVE: Patient seen and examined in the ICU. Remains intubated and sedated. AC mode of vent, 40% FiO2. Pressor dependent. No improvement in overall condition. Family still decided on GOC. Intake & Output 11/14/16 11/15/16 11/16/16 11/17/16 23:59 23:59 23:59 23:59 Intake Total 3812.0 3579 2683.0 1120 Output Total 1275 1075 2430 500 Balance 2537.0 2504 253.0 620 Weight 187 lb 2 oz 185 lb 7 oz 191 lb 193 lb 1.999 oz Last Vital Signs Temp Pulse Resp BP Pulse Ox 97.7 F 82 12 86/53 97 11/17/16 10:00 11/17/16 10:00 11/17/16 10:00 11/17/16 10:00 11/17/16 09:40 Active Medications Acetaminophen (Tylenol -) 650 mg PO Q4H PRN PRN Reason: FEVER OR PAIN Last Admin: 11/09/16 13:57 Dose: 650 mg Clopidogrel Bisulfate (Plavix -) 75 mg NGT DAILY MARILEE Last Admin: 11/17/16 10:09 Dose: 75 mg Heparin Sodium (Porcine) (Heparin -) 5,000 unit SQ BID MARILEE Last Admin: 11/17/16 10:08 Dose: 5,000 unit Nafcillin Sodium 2 gm/ (Dextrose) 100 mls @ 100 mls/hr IVPB Q4H-IV MARILEE PRN Reason: Protocol Last Admin: 11/17/16 10:08 Dose: 100 mls/hr Norepinephrine Bitartrate 8, (000 mcg/ Dextrose) 500 mls @ 18.75 mls/hr IV TITR MARILEE; 5 MCG/MIN PRN Reason: Protocol Last Admin: 11/17/16 02:35 Dose: 43.12 mls/hr Fentanyl 500 mcg/ Dextrose 100 mls @ 15 mls/hr IJ TITR MARILEE PRN Reason: 75 MCG/HR Last Admin: 11/17/16 07:45 Dose: Not Given Ertapenem 0.5 gm/ Sodium (Chloride) 50 mls @ 100 mls/hr IVPB DAILY MARILEE PRN Reason: Protocol Last Admin: 11/17/16 10:08 Dose: 100 mls/hr Pantoprazole Sodium (Protonix 40mg Ivpb (Pre-Docked)) 100 mls @ 200 mls/hr IVPB DAILY MARILEE Last Admin: 11/17/16 10:09 Dose: 200 mls/hr Dopamine HCl 400,000 mcg/ (Sodium Chloride) 260 mls @ 16.89 mls/hr IVPB TITR MARILEE; 5 MCG/KG/MIN PRN Reason: Protocol Last Titration: 11/16/16 13:00 Dose: 7 mcg/kg/min Morphine Sulfate 100 mg/ (Sodium Chloride) 100 mls @ 2 mls/hr IVPB TITR MARILEE; 2 MG/HR PRN Reason: Protocol Last Admin: 11/16/16 14:30 Dose: 2 mls/hr Potassium Chloride (Potassium Chloride Oral Liquid) 40 meq GT Q1H MARILEE Stop: 11/17/16 13:01 Gen: Intubated and sedated Heart: RRR, +systolic murmur Lung: decreased breath sounds at the bases Abd: soft, nontender Ext: no edema, cold to touch Laboratory Results - last 24 hr 11/17/16 11/17/16 11/17/16 05:15 05:15 05:15 WBC 11.4 H RBC 4.30 Hgb 11.9 Hct 36.2 MCV 84.0 MCH 27.7 MCHC 33.0 RDW 15.8 Plt Count 210 D MPV 9.0 Neutrophils % Y Lymphocytes % Y Sodium 126 L Potassium 3.3 L Chloride 91 L Carbon Dioxide 18 L Anion Gap 17 H BUN 78 H Creatinine 3.8 H Random Glucose 94 D Lactic Acid 0.6 Calcium 5.9 L* Phosphorus 7.1 H Magnesium 2.5 H ASSESSMENT AND PLAN: s/p VFib Cardiopulmonary Arrest/Prolonged QT Acute NSTEMI/CAD/+Troponins Acute Respiratory Failure Acute on Chronic Systolic Heart Failure Severe Mitral Regurgitation Acute Kidney Injury UTI MSSA Bacteremia Osteomyelitis/Discitis Sepsis Lactic Acidosis - AC being held due to bleeding - beta malvin, statin - keep K >4.5, Mg >2.5 - IVF per Renal - ABX per ID - monitor urine output, creatinine - continue ICU monitoring - Will hopefully be meeting with the family today to further discuss GOC. Due to overall condition and grave expected outcome, would be appropriate for comfort measures only Dr Sandhu critical care time spent in reviewing chart, evaluating patient and formulating plan 36 min
[2016-11-17] MEDS: POTASSIUM CHLORIDE ORAL LIQUID 20 MEQ/15 ML GT SCH ×2 (12:00→13:00)
--- NOTE | 2016-11-17 13:27 | PN ---
Progress Note, Physician History of Present Illness: Remains sedated on mechanical ventilation in SR. Remains double pressor dependent, awaiting family meeting. - Current Medication List Current Medications: Active Medications Acetaminophen (Tylenol -) 650 mg PO Q4H PRN PRN Reason: FEVER OR PAIN Last Admin: 11/09/16 13:57 Dose: 650 mg Clopidogrel Bisulfate (Plavix -) 75 mg NGT DAILY MARILEE Last Admin: 11/17/16 10:09 Dose: 75 mg Heparin Sodium (Porcine) (Heparin -) 5,000 unit SQ BID MARILEE Last Admin: 11/17/16 10:08 Dose: 5,000 unit Nafcillin Sodium 2 gm/ (Dextrose) 100 mls @ 100 mls/hr IVPB Q4H-IV MARILEE PRN Reason: Protocol Last Admin: 11/17/16 10:08 Dose: 100 mls/hr Norepinephrine Bitartrate 8, (000 mcg/ Dextrose) 500 mls @ 18.75 mls/hr IV TITR MARILEE; 5 MCG/MIN PRN Reason: Protocol Last Admin: 11/17/16 02:35 Dose: 43.12 mls/hr Fentanyl 500 mcg/ Dextrose 100 mls @ 15 mls/hr IJ TITR MARILEE PRN Reason: 75 MCG/HR Last Admin: 11/17/16 07:45 Dose: Not Given Ertapenem 0.5 gm/ Sodium (Chloride) 50 mls @ 100 mls/hr IVPB DAILY MARILEE PRN Reason: Protocol Last Admin: 11/17/16 10:08 Dose: 100 mls/hr Pantoprazole Sodium (Protonix 40mg Ivpb (Pre-Docked)) 100 mls @ 200 mls/hr IVPB DAILY MARILEE Last Admin: 11/17/16 10:09 Dose: 200 mls/hr Dopamine HCl 400,000 mcg/ (Sodium Chloride) 260 mls @ 16.89 mls/hr IVPB TITR MARILEE; 5 MCG/KG/MIN PRN Reason: Protocol Last Admin: 11/17/16 11:30 Dose: 23.65 mls/hr Morphine Sulfate 100 mg/ (Sodium Chloride) 100 mls @ 2 mls/hr IVPB TITR MARILEE; 2 MG/HR PRN Reason: Protocol Last Admin: 11/16/16 14:30 Dose: 2 mls/hr - Objective Vital Signs: Vital Signs Temperature 98.1 F 11/17/16 12:00 Pulse Rate 75 11/17/16 12:00 Respiratory Rate 12 11/17/16 12:00 Blood Pressure 86/47 11/17/16 12:00 O2 Sat by Pulse Oximetry (%) 97 11/17/16 09:40 Constitutional: Yes: No Distress, Calm Neck: Yes: Supple Cardiovascular: Yes: Regular Rate and Rhythm Respiratory: Yes: Intubated, Mechanically Ventilated, Rhonchi Gastrointestinal: Yes: Normal Bowel Sounds, Soft Edema: No Labs: CBC, BMP 11/17/16 05:15 11/17/16 05:15 INR, PTT INR 1.66 (0.82-1.09) H 11/09/16 14:30 - ....Imaging Chest X-ray: Report Reviewed (Stable) EKG: Report Reviewed (Tele: NSR, no PAF) Problem List - Problems (1) Bacteremia due to Staphylococcus Code(s): R78.81 - BACTEREMIA (2) Discitis Code(s): M46.40 - DISCITIS, UNSPECIFIED, SITE UNSPECIFIED Qualifiers: Spinal region: lumbar Qualified Code(s): M46.46 - Discitis, unspecified, lumbar region (3) HLD (hyperlipidemia) Code(s): E78.5 - HYPERLIPIDEMIA, UNSPECIFIED Qualifiers: Hyperlipidemia type: pure hypercholesterolemia Qualified Code(s): E78.00 - Pure hypercholesterolemia, unspecified; E78.0 - Pure hypercholesterolemia (4) HTN (hypertension) Code(s): I10 - ESSENTIAL (PRIMARY) HYPERTENSION Qualifiers: Hypertension type: essential hypertension Qualified Code(s): I10 - Essential (primary) hypertension (5) Osteomyelitis Code(s): M86.9 - OSTEOMYELITIS, UNSPECIFIED Qualifiers: Osteomyelitis type: unspecified type Osteomyelitis location: other site Qualified Code(s): M86.9 - Osteomyelitis, unspecified (6) Acute renal failure Code(s): N17.9 - ACUTE KIDNEY FAILURE, UNSPECIFIED Qualifiers: Acute renal failure type: unspecified Qualified Code(s): N17.9 - Acute kidney failure, unspecified (7) Leukocytosis Code(s): D72.829 - ELEVATED WHITE BLOOD CELL COUNT, UNSPECIFIED (8) Paroxysmal atrial fibrillation Code(s): I48.0 - PAROXYSMAL ATRIAL FIBRILLATION (9) 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 transplanted heart: [place] heart Associated angina: without angina Qualified Code(s): I25.10 - Atherosclerotic heart disease of [place] coronary artery without angina pectoris (11) NSTEMI (non-ST elevated myocardial infarction) Code(s): I21.4 - NON-ST ELEVATION (NSTEMI) MYOCARDIAL INFARCTION (12) Severe mitral regurgitation Code(s): I34.0 - NONRHEUMATIC MITRAL (VALVE) INSUFFICIENCY (13) Acute respiratory failure with hypoxia Code(s): J96.01 - ACUTE RESPIRATORY FAILURE WITH HYPOXIA (14) Acute on chronic systolic ACC/AHA stage C congestive heart failure Code(s): I50.23 - ACUTE ON CHRONIC SYSTOLIC (CONGESTIVE) HEART FAILURE (15) Cardiac arrest Code(s): I46.9 - CARDIAC ARREST, CAUSE UNSPECIFIED (16) Septic shock due to Gram positive bacteria Code(s): A41.89 - OTHER SPECIFIED SEPSIS R65.21 - SEVERE SEPSIS WITH SEPTIC SHOCK Assessment/Plan 11/08/2016 Transthoracic echocardiography: Dilated LV with severe LV dysfunction with anterior AK, apex dyskinetic, IVS below midventricular level thin and dyskinetic, inferolarteral severe HK, posterior AK, normal RV size and fxn, severe MR, mod TR, mild to mod AR 1. Post cardiac arrest torsades de pointes with underlying prolonged QT post Levaquin for E. coli/enterococcal UTI and then bradycardic/asystolic arrest 2. Acute hypoxic respiratory failure on mechanical ventilator 3. Acute on chronic systolic failure with underlying severe MR 4. CAD with NSTEMI - rise in troponin 5. Paroxysmal AF currently in sinus rhythm 6. HTN/HCVD 7. Disciitis and possible osteomyelitis of L3-4 with persistent MSSA bacteremia/ septic shock 8. GUZMAN due to hemodynamic alterations, hypervolemic hyponatremia, hypokalemia 9. Shock liver 10. History of BPH and obstructive uropathy 11. History of DVT post Eliquis PLAN: 1. Replete Mg to maintain Mg>2.5 with monitor for QT prolongation, avoid QT prolonging agents, K>4.5 2. Wean pressors to maintain MAP>65, troponins and LFTs have peaked 3. Diuresis as needed to keep even with monitor renal fxn and electrolytes 4. Nafcillin/Ertapanem per C&S, spine imaging when able, f/u surveillance cx so far clearing 5. Continue Plavix 75 qd and heparin gtt. Lisinopril 10 qd, carvedilol and Aldactone 25 qd held pending hemodynamic and renal fxn stabilization 6. GI prophylaxis, poor prognosis, awaiting family meeting for elucidation of GOC 7. Repeat echo reviewed, not significantly changed
[2016-11-17] MEDS: MORPHINE 100 MG in SODIUM CHLORIDE 98 ML IVPB SCH (14:30)
--- NOTE | 2016-11-17 14:36 | PN ---
Physical Exam: SUBJECTIVE: 81 year old male w/ staphylococcal sepsis and s/p 3 cardiac arrests with multiorgan failure. Pt is sedated and on levophed, versed, and dopamine. MAP has been >65. Pt is on Nafcillin and Ertapenem. Echo cannot rule out endocarditis. Pt had BM w/ FOBT positive stool yesterday. Pt is hyponatremic at 126 with a low Ca. OBJECTIVE: Vital Signs Period Temp Pulse Resp BP Sys/Roche Pulse Ox Last 24 Hr 98.0 F-99.2 F 81-110 10-18 69-140/47-80 99-100 GENERAL: The patient not awake, breathing on vent, not arousable HEAD: Normal with no signs of trauma. EYES: PERRL, extraocular movements unable to assess, sclera anicteric, conjunctiva clear. No ptosis. ENT: Ears normal, nares patent, oropharynx clear without exudates, moist mucous membranes. NECK: Trachea midline, full range of motion, supple. LUNGS: Breath sounds equal, clear to auscultation bilaterally HEART: irregular rate and rhythm, S1, S2 without murmur, rub or gallop. ABDOMEN: Soft, nontender, nondistended EXTREMITIES: 2+ pulses, cool extremities, not well perfused, no edema. NEUROLOGICAL: Unable to assess cranial nerves due to mental status PSYCH: Normal mood, normal affect. SKIN: edema noted around b/l hands, penis, and scrotum, no rashes Laboratory Results - last 24 hr 11/17/16 11/17/16 11/17/16 05:15 05:15 05:15 WBC 11.4 H RBC 4.30 Hgb 11.9 Hct 36.2 MCV 84.0 MCH 27.7 MCHC 33.0 RDW 15.8 Plt Count 210 D MPV 9.0 Neutrophils % Y Lymphocytes % Y Sodium 126 L Potassium 3.3 L Chloride 91 L Carbon Dioxide 18 L Anion Gap 17 H BUN 78 H Creatinine 3.8 H Random Glucose 94 D Lactic Acid 0.6 Calcium 5.9 L* Phosphorus 7.1 H Magnesium 2.5 H Active Medications Generic Name Dose Route Start Last Admin Trade Name Freq PRN Reason Stop Dose Admin Acetaminophen 650 mg 11/07/16 08:16 11/09/16 13:57 Tylenol - PO 650 mg Q4H PRN Administration FEVER OR PAIN Clopidogrel Bisulfate 75 mg 11/15/16 10:00 11/17/16 10:09 Plavix - NGT 75 mg DAILY MARILEE Administration Heparin Sodium (Porcine) 5,000 unit 11/16/16 22:00 11/17/16 10:08 Heparin - SQ 5,000 unit BID MARILEE Administration Nafcillin Sodium 2 gm/ 100 mls @ 100 mls/hr 11/09/16 10:00 11/17/16 14:05 Dextrose IVPB 100 mls/hr Q4H-IV MARILEE Administration Protocol Norepinephrine Bitartrate 8, 500 mls @ 18.75 mls/hr 11/09/16 23:30 11/17/16 02: 35 000 mcg/ Dextrose IV 43.12 mls/hr TITR MARILEE Administration Protocol 5 MCG/MIN Fentanyl 500 mcg/ Dextrose 100 mls @ 15 mls/hr 11/11/16 07:45 11/17/16 07:45 IJ Not Given TITR MARILEE 75 MCG/HR Ertapenem 0.5 gm/ Sodium 50 mls @ 100 mls/hr 11/11/16 10:00 11/17/16 10:08 Chloride IVPB 100 mls/hr DAILY MARILEE Administration Protocol Pantoprazole Sodium 100 mls @ 200 mls/hr 11/11/16 10:00 11/17/16 10:09 Protonix 40mg Ivpb (Pre-Docked) IVPB 200 mls/hr DAILY MARILEE Administration Dopamine HCl 400,000 mcg/ 260 mls @ 16.89 mls/hr 11/16/16 11:30 11/17/16 11:30 Sodium Chloride IVPB 23.65 mls/hr TITR MARILEE Administration Protocol 5 MCG/KG/MIN Morphine Sulfate 100 mg/ 100 mls @ 2 mls/hr 11/16/16 14:30 11/16/16 14:30 Sodium Chloride IVPB 2 mls/hr TITR MARILEE Administration Protocol 2 MG/HR Imaging: Echo (11/13): cannot exclude aortic valve vegetation, moderate aortic valve thickening, mild mitral annular calcification, mild mitral valve thickening, mild tricuspid regurgitation CXR (11/13): ET tube, OG tube, and right jugular line with bilateral pleural and pulmonary changes still exist CXR (11/15): No changes since CXR on 11/13 CXR (11/16): Some bibasilar atelectasis, no change since 11/15 CXR (11/17): Increased pulmonary markings and worse CXR compared to 11/16 ASSESSMENT/PLAN: 81 year old male with staphylococcal sepsis s/p 3 cardiac arrests with multiorgan failure on multiple pressors and antibiotics Neuro: patient currently not on sedation, but on - not alert or oriented x3 -still unarousable, has gag reflex -continue fentanyl and reassess mental status -pts renal function possibly lengthening sedating effect of versed, possible that it is still in circulation -include CT of head during the CT spine study to r/o intracranial pathology Cardiovascular: patient normotensive at 109/68 (MAP 79) on multiple pressors, s/ p 3 cardiac arrests - central line is on day #7, needs removal/replacement -dopamine was increased to 10mcgs overnight because MAP decreased to 45 - currently MAP is 73 -central line needs replacement due to risk of infection, call family to schedule a meeting on whether they want this procedure done or whether they'd like comfort measures. -Echo could not exclude aortic valve vegetation, patient too unstable for SWATHI to exclude -continue dopamine and levophed -d/c heparin due to acute GI bleed and elevated PTT -continue clopidogrel -AM CBC/CMP/Mag/Phos Pulmonary: patient intubated, breathing on vent - respiratory function works today, breathing mildly improved on CPAP setting -pulmonary status is stable off of the sedation -CXR worse than yesterday, more congestion noted -f/u AM CXR ID: patient with persistent staphylococcal sepsis possibly w/ endocarditis -Echo cannot exclude aortic valve vegetation, patient too unstable for SWATHI to exclude -continue ertapenem and nafcillin -as per ID, f/u with spine CT to r/o abscess and head CT for intracranial pathology after family meeting FEN: -worsening GUZMAN -potassium slightly low at 3.4 -pt with hyponatremia at 123, likely due to hypotonic fluids mixed with medications -continue nepro through OGT -measure magnesium, phosphorous tomorrow Proph: -pt off heparin -continue protonix 40mg Dispo: -Continue to monitor in ICU -speak to family about goals of care -palliative care is on the case -continue morphine 2mg Family meeting held at 2:00pm in the ICU with Dr. Sandhu, Dr. Galloway ( resident), Mary Martinez (medical student) and two brothers of the patient, one being Christiano Gonzalez. Additionally spoke to Ruby Gonzalez and Shannon Gonzalez over the phone. After a detailed discussion of the status of the patient, family agreed on comfort measures and withdrawal of care. They will return a call about precise time and date. Started on morphine 2mg qh1. Awaiting response from family. Problem List - Problems (1) Acute respiratory failure with hypoxia Code(s): J96.01 - ACUTE RESPIRATORY FAILURE WITH HYPOXIA (2) Bacteremia due to Staphylococcus Code(s): R78.81 - BACTEREMIA (3) Cardiac arrest Code(s): I46.9 - CARDIAC ARREST, CAUSE UNSPECIFIED Visit type - Emergency Visit Emergency Visit: No - New Patient This patient is new to me today: No - Critical Care Critical Care patient: Yes Total Critical Care Time (in minutes): 45 Critical Care Statement: The care of this patient involved high complexity decision making to prevent further life threatening deterioration of the patient 's condition and/or to evalute & treat vital organ system(s) failure or risk of failure.
[2016-11-17 15:28] LABS: PLATELET ESTIMATE ADEQUATE (NORMAL)
[2016-11-17] MEDS ORDERED: BENZOIN/ALOE VERA/STORAX/TOLU 58 ML BOTTLE ONE (17:11)
[2016-11-17] MEDS ORDERED: NOREPINEPHRINE BITARTRATE 4 MG/4 ML ML IV ONE (18:25)
--- NOTE | 2016-11-17 20:18 | PN ---
Teaching Attending Note Name of Resident: Marly Del Real ATTENDING PHYSICIAN STATEMENT I saw and evaluated the patient. I reviewed the resident's note and discussed the case with the resident. I agree with the resident's findings and plan as documented. SUBJECTIVE: Lying in bed in ICU . OBJECTIVE: Vital Signs Temperature 97.6 F 11/17/16 18:00 Pulse Rate 87 11/17/16 20:00 Respiratory Rate 12 11/17/16 20:00 Blood Pressure 103/60 11/17/16 20:00 O2 Sat by Pulse Oximetry (%) 97 11/17/16 09:40 CBCD WBC 11.4 K/mm3 (4.0-10.0) H 11/17/16 05:15 RBC 4.30 M/mm3 (4.00-5.60) 11/17/16 05:15 Hgb 11.9 GM/dL (11.7-16.9) 11/17/16 05:15 Hct 36.2 % (35.4-49) 11/17/16 05:15 MCV 84.0 fl (80-96) 11/17/16 05:15 MCHC 33.0 g/dl (32.0-35.9) 11/17/16 05:15 RDW 15.8 % (11.9-15.9) 11/17/16 05:15 Plt Count 210 K/MM3 (134-434) D 11/17/16 05:15 MPV 9.0 fl (7.5-11.1) 11/17/16 05:15 CMP Sodium 126 mmol/L (136-145) L 11/17/16 05:15 Potassium 3.3 mmol/L (3.5-5.1) L 11/17/16 05:15 Chloride 91 mmol/L (98-107) L 11/17/16 05:15 Carbon Dioxide 18 mmol/L (21-32) L 11/17/16 05:15 Anion Gap 17 (8-16) H 11/17/16 05:15 BUN 78 mg/dL (7-18) H 11/17/16 05:15 Creatinine 3.8 mg/dL (0.7-1.3) H 11/17/16 05:15 Creat Clearance w eGFR 14.04 (>60) 11/16/16 05:15 Random Glucose 94 mg/dL (74-106) D 11/17/16 05:15 Calcium 5.9 mg/dL (8.5-10.1) L* 11/17/16 05:15 Total Bilirubin 3.5 mg/dL (0.2-1.0) H 11/16/16 05:15 AST 26 U/L (15-37) 11/16/16 05:15 ALT 25 U/L (12-78) 11/16/16 05:15 Alkaline Phosphatase 53 U/L (45-117) 11/16/16 05:15 Total Protein 5.0 g/dl (6.4-8.2) L 11/16/16 05:15 Albumin 1.2 g/dl (3.4-5.0) L 11/16/16 05:15 CARDIAC ENZYMES Creatine Kinase 144 IU/L (39-308) 11/12/16 05:20 Troponin I 19.90 ng/ml (0.00-0.05) H* 11/12/16 05:20 Current Medications Generic Name Dose Route Start Last Admin Trade Name Pepe PRN Reason Stop Dose Admin Acetaminophen 650 mg 11/07/16 08:16 11/09/16 13:57 Tylenol - PO 650 mg Q4H PRN Administration FEVER OR PAIN Clopidogrel Bisulfate 75 mg 11/15/16 10:00 11/17/16 10:09 Plavix - NGT 75 mg DAILY MARILEE Administration Heparin Sodium (Porcine) 5,000 unit 11/16/16 22:00 11/17/16 10:08 Heparin - SQ 5,000 unit BID MARILEE Administration Nafcillin Sodium 2 gm/ 100 mls @ 100 mls/hr 11/09/16 10:00 11/17/16 18:33 Dextrose IVPB 100 mls/hr Q4H-IV MARILEE Administration Protocol Norepinephrine Bitartrate 8, 500 mls @ 18.75 mls/hr 11/09/16 23:30 11/17/16 18: 28 000 mcg/ Dextrose IV 45 mls/hr TITR MARILEE Administration Protocol 5 MCG/MIN Fentanyl 500 mcg/ Dextrose 100 mls @ 15 mls/hr 11/11/16 07:45 11/17/16 07:45 IJ Not Given TITR MARILEE 75 MCG/HR Ertapenem 0.5 gm/ Sodium 50 mls @ 100 mls/hr 11/11/16 10:00 11/17/16 10:08 Chloride IVPB 100 mls/hr DAILY MARILEE Administration Protocol Pantoprazole Sodium 100 mls @ 200 mls/hr 11/11/16 10:00 11/17/16 10:09 Protonix 40mg Ivpb (Pre-Docked) IVPB 200 mls/hr DAILY MARILEE Administration Dopamine HCl 400,000 mcg/ 260 mls @ 16.89 mls/hr 11/16/16 11:30 11/17/16 11:30 Sodium Chloride IVPB 23.65 mls/hr TITR MARILEE Administration Protocol 5 MCG/KG/MIN Morphine Sulfate 100 mg/ 100 mls @ 2 mls/hr 11/16/16 14:30 11/17/16 14:30 Sodium Chloride IVPB 2 mls/hr TITR MARILEE Administration Protocol 2 MG/HR Home Medications Medication Instructions Recorded NK [No Known Home Medication] 11/08/16 PE: per resident's note ASSESSMENT AND PLAN: 81 y/o man with h/o HTN, HLD, CVA, BPH with chronic indwelling foleyc atheter and h/o DVT who presented with back and neck pain . Hospitalization esd complicated by cardiac arrest x3 ( VF, Torsade [place], asystole ) . He was found to be bacteremic as well # Acute respiratory failure on the Vent. continue the managment By ICU team . No new changes. on Norepi drip,and dopamine drip, morphine drip # S/P Cardiac arrest, VF, Torsades and asystole. Prolonged QTc . cardiogenic Vs septic shock continue dopamine and NEpinephrine. further management per ICU Pt is on Nafcillin and Ertapenem. Echo cannot rule out endocarditis # NSTEMI # Acute systolic heart failure . # Severe sepsis with MSSA bacteremia. possible endocarditis continue IV antibiotic # Complicated UTI : MSSA and Citrobacter Freundii # GUZMAN : likely ATN # Discitis DVT Px: SCDs due to GI bleed
[2016-11-18] MEDS ORDERED: PT OWN MED DRAWER 7, Y5N ONE ×5 (01:22→22:02)
[2016-11-18] MEDS: NAFCILLIN - 2 GM in DEXTROSE 5%-WATER - 100 ML IVPB SCH ×6 (01:25→22:09)
[2016-11-18] MEDS ORDERED: NOREPINEPHRINE BITARTRATE 4 MG/4 ML ML IV ONE ×2 (02:09→21:52)
[2016-11-18 06:17] LABS: MCH 27.8 pg (25.7-33.7); MCHC 32.9 g/dl (32.0-35.9); MEAN CELL VOLUME 84.6 fl (80-96); MEAN PLT VOLUME 8.7 fl (7.5-11.1); PLATELET COUNT 264 K/MM3 (134-434); RDW 15.7 % (11.9-15.9); WHITE BLOOD COUNT 14.8 K/mm3 (4.0-10.0)
[2016-11-18 06:47] LABS: ANION GAP 16 (8-16); BILIRUBIN,TOTAL 3.1 mg/dL (0.2-1.0); CO2 17 mmol/L (21-32); CREATININE 3.6 mg/dL (0.7-1.3); GLUCOSE,RANDOM 118 mg/dL (74-106); MAGNESIUM 2.3 mg/dL (1.8-2.4); PHOSPHOROUS 7.2 mg/dL (2.5-4.9); SGOT/AST 22 U/L (15-37); SGPT/ALT 17 U/L (12-78)
[2016-11-18 06:48] LABS: ALK PHOS 51 U/L (45-117); TOT PROT 4.7 g/dl (6.4-8.2)
[2016-11-18 06:56] LABS: CALCIUM 6.2 mg/dL (8.5-10.1)
--- NOTE | 2016-11-18 07:21 | PN ---
Progress Note, Physician Chief Complaint: ID Notes reviewed Comfort care measures yet still on pressor support and intubated Antibiotics continue Interestingly blood cultures last draw finally no growth! - Current Medication List Current Medications: Active Medications Acetaminophen (Tylenol -) 650 mg PO Q4H PRN PRN Reason: FEVER OR PAIN Last Admin: 11/09/16 13:57 Dose: 650 mg Clopidogrel Bisulfate (Plavix -) 75 mg NGT DAILY MARILEE Last Admin: 11/17/16 10:09 Dose: 75 mg Heparin Sodium (Porcine) (Heparin -) 5,000 unit SQ BID MARILEE Last Admin: 11/17/16 22:55 Dose: 5,000 unit Nafcillin Sodium 2 gm/ (Dextrose) 100 mls @ 100 mls/hr IVPB Q4H-IV MARILEE PRN Reason: Protocol Last Admin: 11/18/16 06:11 Dose: 100 mls/hr Norepinephrine Bitartrate 8, (000 mcg/ Dextrose) 500 mls @ 18.75 mls/hr IV TITR MARILEE; 5 MCG/MIN PRN Reason: Protocol Last Admin: 11/17/16 20:00 Dose: 45 mls/hr Fentanyl 500 mcg/ Dextrose 100 mls @ 15 mls/hr IJ TITR MARILEE PRN Reason: 75 MCG/HR Last Admin: 11/17/16 07:45 Dose: Not Given Ertapenem 0.5 gm/ Sodium (Chloride) 50 mls @ 100 mls/hr IVPB DAILY MARILEE PRN Reason: Protocol Last Admin: 11/17/16 10:08 Dose: 100 mls/hr Pantoprazole Sodium (Protonix 40mg Ivpb (Pre-Docked)) 100 mls @ 200 mls/hr IVPB DAILY MARILEE Last Admin: 11/17/16 10:09 Dose: 200 mls/hr Dopamine HCl 400,000 mcg/ (Sodium Chloride) 260 mls @ 16.89 mls/hr IVPB TITR MARILEE; 5 MCG/KG/MIN PRN Reason: Protocol Last Titration: 11/17/16 20:00 Dose: 22.3 mcg/kg/min Morphine Sulfate 100 mg/ (Sodium Chloride) 100 mls @ 2 mls/hr IVPB TITR MARILEE; 2 MG/HR PRN Reason: Protocol Last Admin: 11/17/16 14:30 Dose: 2 mls/hr - Objective Vital Signs: Vital Signs Temperature 98.2 F 11/18/16 02:00 Pulse Rate 86 11/18/16 06:00 Respiratory Rate 12 11/18/16 06:20 Blood Pressure 85/50 11/18/16 06:00 O2 Sat by Pulse Oximetry (%) 99 11/18/16 00:20 Constitutional: Yes: Other (Intubated) HENT: Yes: Other (Et tube) Cardiovascular: Yes: Regular Rate and Rhythm, S1, S2. No: Murmur Respiratory: Yes: WNL, Regular, CTA Bilaterally. No: Rales, Rhonchi Gastrointestinal: Yes: WNL, Normal Bowel Sounds, Soft. No: Tenderness, Tenderness, Rebound Extremities: Yes: Cool Edema: Yes Labs: CBC, BMP 11/18/16 05:30 11/18/16 05:30 INR, PTT INR 1.66 (0.82-1.09) H 11/09/16 14:30 Problem List - Problems (1) Osteomyelitis Code(s): M86.9 - OSTEOMYELITIS, UNSPECIFIED Qualifiers: Osteomyelitis type: unspecified type Osteomyelitis location: other site Qualified Code(s): M86.9 - Osteomyelitis, unspecified (2) Bacteremia due to Staphylococcus Code(s): R78.81 - BACTEREMIA (3) Discitis Code(s): M46.40 - DISCITIS, UNSPECIFIED, SITE UNSPECIFIED Qualifiers: Spinal region: lumbar Qualified Code(s): M46.46 - Discitis, unspecified, lumbar region (4) Cardiac arrest due to other underlying condition Code(s): I46.8 - CARDIAC ARREST DUE TO OTHER UNDERLYING CONDITION (5) Staphylococcus aureus bacteremia Code(s): R78.81 - BACTEREMIA Assessment/Plan Microbiology 11/12/16 05:20 Blood - Peripheral Venous Blood Culture - Final Staphylococcus Aureus 11/12/16 05:20 Blood - Peripheral Venous Blood Culture - Final Staphylococcus Aureus 11/07/16 07:20 Blood - Peripheral Venous Blood Culture - Final Staphylococcus Aureus 11/07/16 07:20 Blood - Peripheral Venous Blood Culture - Final Staphylococcus Aureus 11/15/16 08:00 Blood - Peripheral Venous Blood Culture - Preliminary NO GROWTH OBTAINED AFTER 48 HOURS, INCUBATION TO CONTINUE FOR 3 DAYS. 11/15/16 08:00 Blood - Peripheral Venous Blood Culture - Preliminary NO GROWTH OBTAINED AFTER 48 HOURS, INCUBATION TO CONTINUE FOR 3 DAYS. Laboratory Tests 11/18/16 11/18/16 05:30 05:30 WBC 14.8 H Hgb 12.0 Plt Count 264 D Creat Clearance w eGFR 16.31 Assessment Multiorgan system failure MSSA bacteremia Sepsis syndrome S/P cardiac arrest Respiratory failure Acute renal failure L3 L4 vertebral osteomyelitis Plan Will continue current antibiotics for now pending final disposition on end of life care determination Repeat the blood cultures once again 38 minutes spend providing critical care analysis including seeing cultures and managing antibiotics Susan PETERSON
--- NOTE | 2016-11-18 08:37 | PN ---
Progress Note (short form) - Note Progress Note: Renal follow up for GUZMAN Pt seen and examined in the ICU on Vent, Dopamine/Levophed non-oliguric unresponsive, on Morphine gtt Vital Signs Temperature 98.2 F 11/18/16 02:00 Pulse Rate 82 11/18/16 08:00 Respiratory Rate 12 11/18/16 08:00 Blood Pressure 104/60 11/18/16 08:00 O2 Sat by Pulse Oximetry (%) 99 11/18/16 00:20 Intake & Output 11/15/16 11/16/16 11/17/16 11/18/16 23:59 23:59 23:59 23:59 Intake Total 3579 3043.0 2411.6 982.9 Output Total 1075 2430 1575 675 Balance 2504 613.0 836.6 307.9 Weight 185 lb 7 oz 191 lb 193 lb 1.999 oz 195 lb 12.328 oz Gen: Intubated via ET Tube CVS: RRR, No M/R Lungs: CTA, no rales, wheeze Abd: Obese, NT/ND Ext: Trace LE edema CBC, BMP 11/18/16 05:30 11/18/16 05:30 Laboratory Tests 11/18/16 05:30 Phosphorus 7.2 H Magnesium 2.3 Total Bilirubin 3.1 H Current Medications Acetaminophen (Tylenol -) 650 mg PO Q4H PRN PRN Reason: FEVER OR PAIN Last Admin: 11/09/16 13:57 Dose: 650 mg Clopidogrel Bisulfate (Plavix -) 75 mg NGT DAILY MARILEE Last Admin: 11/17/16 10:09 Dose: 75 mg Heparin Sodium (Porcine) (Heparin -) 5,000 unit SQ BID MARILEE Last Admin: 11/17/16 22:55 Dose: 5,000 unit Nafcillin Sodium 2 gm/ (Dextrose) 100 mls @ 100 mls/hr IVPB Q4H-IV MARILEE PRN Reason: Protocol Last Admin: 11/18/16 06:11 Dose: 100 mls/hr Norepinephrine Bitartrate 8, (000 mcg/ Dextrose) 500 mls @ 18.75 mls/hr IV TITR MARILEE; 5 MCG/MIN PRN Reason: Protocol Last Admin: 11/17/16 20:00 Dose: 45 mls/hr Ertapenem 0.5 gm/ Sodium (Chloride) 50 mls @ 100 mls/hr IVPB DAILY MARILEE PRN Reason: Protocol Last Admin: 11/17/16 10:08 Dose: 100 mls/hr Pantoprazole Sodium (Protonix 40mg Ivpb (Pre-Docked)) 100 mls @ 200 mls/hr IVPB DAILY MARILEE Last Admin: 11/17/16 10:09 Dose: 200 mls/hr Dopamine HCl 400,000 mcg/ (Sodium Chloride) 260 mls @ 16.89 mls/hr IVPB TITR MARILEE; 5 MCG/KG/MIN PRN Reason: Protocol Last Titration: 11/17/16 20:00 Dose: 22.3 mcg/kg/min Morphine Sulfate 100 mg/ (Sodium Chloride) 100 mls @ 2 mls/hr IVPB TITR MARILEE; 2 MG/HR PRN Reason: Protocol Last Admin: 11/17/16 14:30 Dose: 2 mls/hr A/P 81 year old gentleman with PMhx of Hypertension, P-Afib not on A/C, BPH, 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 #Non-oliguric acute renal failure in setting of Sepsis/Bactermia with Cardiac Arrest x 3 Renal function improving, urine output is good continue supportive care with MAP > 65, CVP 10-12 no indication for ME[employer] ATTEND[employer] on Nephro tube feeds #Hypervolemic Hypernatremia limit IVF infusions as much as possible all infusions should be in NS if possible #Hypokalemia supplament additinal KCL today #Hypocalcemia Corrected Ca is WNL #Cardiac Arrest/Torsades Cardiac follow up ICU Level care Respiratory support with Vent Strict monitoring of electrolytes #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 Continue Abx as per ID #Hyperphospahtemia start renvela TID via NGT Pt with guarded prognosis awaiting family decision regarding goals of are Devan Luo DO Problem List - Problems (1) Acute respiratory failure with hypoxia Code(s): J96.01 - ACUTE RESPIRATORY FAILURE WITH HYPOXIA (2) BPH (benign prostatic hyperplasia) Code(s): N40.0 - BENIGN PROSTATIC HYPERPLASIA WITHOUT LOWER URINRY TRACT SYMP (3) Bacteremia due to Staphylococcus Code(s): R78.81 - BACTEREMIA (4) HTN (hypertension) Code(s): I10 - ESSENTIAL (PRIMARY) HYPERTENSION Qualifiers: Hypertension type: essential hypertension Qualified Code(s): I10 - Essential (primary) hypertension (5) NSTEMI (non-ST elevated myocardial infarction) Code(s): I21.4 - NON-ST ELEVATION (NSTEMI) MYOCARDIAL INFARCTION (6) Cardiac arrest Code(s): I46.9 - CARDIAC ARREST, CAUSE UNSPECIFIED
[2016-11-18] MEDS ORDERED: DOPAMINE 400 MG/D5W - 250 ML IVPB ONE (09:08)
--- NOTE | 2016-11-18 09:42 | PN ---
Progress Note (short form) - Note Progress Note: SUBJECTIVE: Patient seen and examined in the ICU. No acute events overnight Pressor dependent. No improvement in overall condition. Family still deciding on GOC. Vital Signs Temp 98.2 F 11/18/16 02:00 Pulse 82 11/18/16 08:33 Resp 20 11/18/16 09:05 BP 106/60 11/18/16 08:33 Pulse Ox 100 11/18/16 09:05 Intake & Output 11/17/16 11/17/16 11/18/16 11:59 23:59 11:59 Intake Total 1120 1291.6 982.9 Output Total 500 1075 675 Balance 620 216.6 307.9 Weight 87.6 kg 88.8 kg Intake: IV 670 831.6 646.9 Levophed - 8,000 Mcg In 450 540 420 D5w - 492 ml @ 5 MCG/MIN 18.75 mls/hr IV TITR MARILEE Rx#:[id number] Intropin - 400,000 Mcg In 200 267.6 208 Normal Saline - 250 ml @ 5 MCG/KG/MIN 16.89 mls/ hr IVPB TITR MARILEE Rx#: [id number] Morphine Sulfate 100 mg 20 24 18.9 In Normal Saline - 98 ml @ 2 MG/HR 2 mls/hr IVPB TITR MARILEE Rx#:[id number] IVPB 200 100 336 Oral 0 Tube Feeding 200 240 Tube Irrigant 50 120 Output: Drainage 200 Flexi-seal 200 Urine 500 1075 475 Heart 500 1075 475 Other: Voiding Method Indwelling Catheter Indwelling Catheter Indwelling Catheter Bowel Movement Yes Yes # Bowel Movements 500 100 Weight Measurement Method [facility] Active Medications Acetaminophen (Tylenol -) 650 mg PO Q4H PRN PRN Reason: FEVER OR PAIN Last Admin: 11/09/16 13:57 Dose: 650 mg Clopidogrel Bisulfate (Plavix -) 75 mg NGT DAILY MARILEE Last Admin: 11/17/16 10:09 Dose: 75 mg Heparin Sodium (Porcine) (Heparin -) 5,000 unit SQ BID MARILEE Last Admin: 11/17/16 22:55 Dose: 5,000 unit Nafcillin Sodium 2 gm/ (Dextrose) 100 mls @ 100 mls/hr IVPB Q4H-IV MARILEE PRN Reason: Protocol Last Admin: 11/18/16 06:11 Dose: 100 mls/hr Norepinephrine Bitartrate 8, (000 mcg/ Dextrose) 500 mls @ 18.75 mls/hr IV TITR MARILEE; 5 MCG/MIN PRN Reason: Protocol Last Admin: 11/17/16 20:00 Dose: 45 mls/hr Ertapenem 0.5 gm/ Sodium (Chloride) 50 mls @ 100 mls/hr IVPB DAILY MARILEE PRN Reason: Protocol Last Admin: 11/17/16 10:08 Dose: 100 mls/hr Pantoprazole Sodium (Protonix 40mg Ivpb (Pre-Docked)) 100 mls @ 200 mls/hr IVPB DAILY MARILEE Last Admin: 11/17/16 10:09 Dose: 200 mls/hr Dopamine HCl 400,000 mcg/ (Sodium Chloride) 260 mls @ 16.89 mls/hr IVPB TITR MARILEE; 5 MCG/KG/MIN PRN Reason: Protocol Last Titration: 11/17/16 20:00 Dose: 22.3 mcg/kg/min Morphine Sulfate 100 mg/ (Sodium Chloride) 100 mls @ 2 mls/hr IVPB TITR MARILEE; 2 MG/HR PRN Reason: Protocol Last Admin: 11/17/16 14:30 Dose: 2 mls/hr Potassium Chloride (Potassium Chloride Oral Liquid) 40 meq GT Q1H MARILEE Stop: 11/18/16 09:46 Sevelamer Carbonate (Renvela Powder Packet -) 0.8 gm NGT TID MARILEE Sodium Bicarbonate (Sodium Bicarbonate -) 650 mg NGT BID MARILEE Gen: Intubated and sedated Heart: RRR, +systolic murmur Lung: decreased breath sounds at the bases Abd: soft, nontender Ext: no edema, cold to touch CBC, BMP 11/18/16 05:30 11/18/16 05:30 ASSESSMENT AND PLAN: s/p VFib Cardiopulmonary Arrest/Prolonged QT Acute NSTEMI/CAD/+Troponins Acute Respiratory Failure Acute on Chronic Systolic Heart Failure Severe Mitral Regurgitation Acute Kidney Injury UTI MSSA Bacteremia Osteomyelitis/Discitis Sepsis Lactic Acidosis - AC being held due to bleeding - beta malvin, statin - keep K >4.5, Mg >2.5 - minimize intake IVF per Renal - ABX per ID - monitor urine output, creatinine, no [employer] - continue ICU monitoring - Cont to discuss palliative care/expectations, would be appropriate to palliatively extubate Piyush Cowarts [facility] [id number]
[2016-11-18] MEDS: ERTAPENEM SODIUM 0.5 GM in SODIUM CHLORIDE 50 ML IVPB SCH (10:14)
[2016-11-18] MEDS: POTASSIUM CHLORIDE ORAL LIQUID 20 MEQ/15 ML GT SCH ×2 (10:14→11:44)
[2016-11-18] MEDS: CLOPIDOGREL BISULFATE 75 MG TABLET (FP) NGT SCH (10:14)
[2016-11-18] MEDS: SODIUM BICARBONATE 650 MG TABLET NGT SCH ×2 (10:15→22:09)
[2016-11-18] MEDS: PANTOPRAZOLE SODIUM 100 ML IVPB SCH (10:17)
[2016-11-18] MEDS: HEPARIN NA (PORCINE) 5,000 UNITS/ML 1ML VIAL SQ SCH ×2 (10:19→22:08)
[2016-11-18] MEDS: FENTANYL INJECTION 500 MCG in DEXTROSE 5%-WATER - 90 ML IJ SCH (10:21)
--- NOTE | 2016-11-18 13:03 | PN ---
Progress Note, Physician Chief Complaint: Events noted Remains intubated on mechanical ventilator Sedated and on multiple pressors No new events History of Present Illness: Patient was seen and examined in ICU. Mechanical ventilation. Chart was reviewed Remains on multiple pressors - sedated - Current Medication List Current Medications: Active Medications Acetaminophen (Tylenol -) 650 mg PO Q4H PRN PRN Reason: FEVER OR PAIN Last Admin: 11/09/16 13:57 Dose: 650 mg Clopidogrel Bisulfate (Plavix -) 75 mg NGT DAILY [facility]E Last Admin: 11/18/16 10:14 Dose: 75 mg Heparin Sodium (Porcine) (Heparin -) 5,000 unit SQ BID [facility]E Last Admin: 11/18/16 10:19 Dose: 5,000 unit Nafcillin Sodium 2 gm/ (Dextrose) 100 mls @ 100 mls/hr IVPB Q4H-IV [facility]E PRN Reason: Protocol Last Admin: 11/18/16 11:43 Dose: 100 mls/hr Norepinephrine Bitartrate 8, (000 mcg/ Dextrose) 500 mls @ 18.75 mls/hr IV TITR MAR[facility]E; 5 MCG/MIN PRN Reason: Protocol Last Titration: 11/18/16 11:34 Dose: 10 mcg/min Ertapenem 0.5 gm/ Sodium (Chloride) 50 mls @ 100 mls/hr IVPB DAILY [facility]E PRN Reason: Protocol Last Admin: 11/18/16 10:14 Dose: 100 mls/hr Pantoprazole Sodium (Protonix 40mg Ivpb (Pre-Docked)) 100 mls @ 200 mls/hr IVPB DAILY [facility] Last Admin: 11/18/16 10:17 Dose: 200 mls/hr Dopamine HCl 400,000 mcg/ (Sodium Chloride) 260 mls @ 16.89 mls/hr IVPB TITR [facility]RILEE; 5 MCG/KG/MIN PRN Reason: Protocol Last Titration: 11/17/16 20:00 Dose: 22.3 mcg/kg/min Morphine Sulfate 100 mg/ (Sodium Chloride) 100 mls @ 2 mls/hr IVPB TITR [facility]ILEE; 2 MG/HR PRN Reason: Protocol Last Admin: 11/17/16 14:30 Dose: 2 mls/hr Sevelamer Carbonate (Renvela Powder Packet -) 0.8 gm NGT TID [facility]E Sodium Bicarbonate (Sodium Bicarbonate -) 650 mg NGT BID [facility]E Last Admin: 11/18/16 10:15 Dose: 650 mg - Objective Vital Signs: Vital Signs Temperature 98.2 F 11/18/16 02:00 Pulse Rate 81 11/18/16 12:14 Respiratory Rate 20 11/18/16 12:14 Blood Pressure 113/63 11/18/16 12:14 O2 Sat by Pulse Oximetry (%) 100 11/18/16 12:18 Cardiovascular: Yes: Regular Rate and Rhythm, Murmur (2/6 SM), S1, S2 Respiratory: Yes: Diminished, Mechanically Ventilated Gastrointestinal: Yes: Soft. No: Tenderness Edema: No Labs: CBC, BMP 11/18/16 05:30 11/18/16 05:30 Problem List - Problems (1) Acute on chronic systolic ACC/AHA stage C congestive heart failure Code(s): I50.23 - ACUTE ON CHRONIC SYSTOLIC (CONGESTIVE) HEART FAILURE (2) Acute respiratory failure with hypoxia Code(s): J96.01 - ACUTE RESPIRATORY FAILURE WITH HYPOXIA (3) Bacteremia due to Staphylococcus Code(s): R78.81 - BACTEREMIA (4) Cardiac arrest Code(s): I46.9 - CARDIAC ARREST, CAUSE UNSPECIFIED (5) Coronary artery disease Code(s): I25.10 - ATHSCL HEART DISEASE OF [place] CORONARY ARTERY W/O ANG PCTRS Qualifiers: Coronary Disease-Associated Artery/Lesion type: [place] artery [place] vs. transplanted heart: [place] heart Associated angina: without angina Qualified Code(s): I25.10 - Atherosclerotic heart disease of [place] coronary artery without angina pectoris (6) Discitis Code(s): M46.40 - DISCITIS, UNSPECIFIED, SITE UNSPECIFIED Qualifiers: Spinal region: lumbar Qualified Code(s): M46.46 - Discitis, unspecified, lumbar region (7) HLD (hyperlipidemia) Code(s): E78.5 - HYPERLIPIDEMIA, UNSPECIFIED Qualifiers: Hyperlipidemia type: pure hypercholesterolemia Qualified Code(s): E78.00 - Pure hypercholesterolemia, unspecified; E78.0 - Pure hypercholesterolemia (8) HTN (hypertension) Code(s): I10 - ESSENTIAL (PRIMARY) HYPERTENSION Qualifiers: Hypertension type: essential hypertension Qualified Code(s): I10 - Essential (primary) hypertension (9) 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 Code(s): Z92.29 - PERSONAL HISTORY OF OTHER DRUG THERAPY (10) NSTEMI (non-ST elevated myocardial infarction) Code(s): I21.4 - NON-ST ELEVATION (NSTEMI) MYOCARDIAL INFARCTION (11) Osteomyelitis Code(s): M86.9 - OSTEOMYELITIS, UNSPECIFIED Qualifiers: Osteomyelitis type: unspecified type Osteomyelitis location: other site Qualified Code(s): M86.9 - Osteomyelitis, unspecified (12) Paroxysmal atrial fibrillation Code(s): I48.0 - PAROXYSMAL ATRIAL FIBRILLATION (13) Septic shock due to Gram positive bacteria Code(s): A41.89 - OTHER SPECIFIED SEPSIS R65.21 - SEVERE SEPSIS WITH SEPTIC SHOCK (14) Severe mitral regurgitation Code(s): I34.0 - NONRHEUMATIC MITRAL (VALVE) INSUFFICIENCY (15) Acute renal failure Code(s): N17.9 - ACUTE KIDNEY FAILURE, UNSPECIFIED Qualifiers: Acute renal failure type: unspecified Qualified Code(s): N17.9 - Acute kidney failure, unspecified (16) DVT (deep venous thrombosis) Code(s): I82.409 - ACUTE EMBOLISM AND THOMBOS UNSP DEEP VN UNSP LOWER EXTREMITY (17) Severe sepsis with acute organ dysfunction Code(s): A41.9 - SEPSIS, UNSPECIFIED ORGANISM R65.20 - SEVERE SEPSIS WITHOUT SEPTIC SHOCK Assessment/Plan 1. Post cardiac arrest torsades de pointes with underlying prolonged QT post Levaquin for E. coli/enterococcal UTI and then bradycardic/asystolic arrest 2. Acute hypoxic respiratory failure on mechanical ventilator 3. Acute on chronic systolic failure with underlying severe MR 4. CAD with NSTEMI - rise in troponin 5. Paroxysmal AF currently in sinus rhythm 6. HTN/HCVD 7. Disciitis and possible osteomyelitis of L3-4 with MSSA bacteremia/septic shock 8. GUZMAN due to hemodynamic alterations 9. Shock liver 10. History of BPH and obstructive uropathy 11. History of DVT post Eliquis PLAN: 1. Monitor Mg level and supplement as needed - monitor for QT prolongation, avoid QT prolonging agents and keep K>4.5 2. Wean pressors to maintain MAP>65. Trend troponins - coming down 3. IV diuresis as needed with monitor renal function and electrolytes 4. Continue antibiotics. 5. Continue Plavix and heparin drip. 6. GI prophylaxis 7. Await possible palliative care in view of poor prognosis Prognosis: Poor Further plans are to follow. Prakash Leigh MD
[2016-11-18] MEDS: SODIUM CHLORIDE IVPB SCH (13:30)
[2016-11-18] MEDS: DOPAMINE HCL IVPB SCH (13:30)
[2016-11-18] MEDS: SEVELAMER CARBONATE 0.8 GM POWDER PACKET NGT SCH ×2 (14:30→22:08)
[2016-11-18] MEDS: MORPHINE 100 MG in SODIUM CHLORIDE 98 ML IVPB SCH (17:30)
--- NOTE | 2016-11-18 22:41 | PN ---
Physical Exam: SUBJECTIVE: Patient seen and examined in ICU , intubated, on morphine , Dopamine and pressers continue. OBJECTIVE: Vital Signs Temperature 97.8 F 11/18/16 14:00 Pulse Rate 84 11/18/16 20:00 Respiratory Rate 12 11/18/16 20:45 Blood Pressure 122/54 11/18/16 20:00 O2 Sat by Pulse Oximetry (%) 98 11/18/16 19:48 GENERAL: intubated on morphine The patient is awake, alert, and fully oriented, in no acute distress. HEAD: Normal with no signs of trauma. EYES: sclera anicteric, conjunctiva clear. ENT: positive for ET tube NECK: Trachea midline, full range of motion, supple. LUNGS: intubated on morphine . HEART: Regular rate and rhythm, S1, S2 without murmur, rub or gallop. ABDOMEN: Soft, nontender, nondistended, normoactive bowel sounds, no guarding, no rebound, no hepatosplenomegaly, no masses. EXTREMITIES: 2+ pulses, warm, well-perfused, positiv e for edema Bl NEUROLOGICAL: doesn' follow any command . pinpoint pupils PSYCH: unable to access. SKIN: Warm, dry, no rashes or lesions noted Laboratory Results - last 24 hr 11/18/16 11/18/16 05:30 05:30 WBC 14.8 H RBC 4.33 Hgb 12.0 Hct 36.6 MCV 84.6 MCH 27.8 MCHC 32.9 RDW 15.7 Plt Count 264 D MPV 8.7 Sodium 127 L Potassium 3.7 Chloride 94 L Carbon Dioxide 17 L Anion Gap 16 BUN 79 H Creatinine 3.6 H Creat Clearance w eGFR 16.31 Random Glucose 118 H D Calcium 6.2 L* Phosphorus 7.2 H Magnesium 2.3 Total Bilirubin 3.1 H AST 22 ALT 17 D Alkaline Phosphatase 51 Total Protein 4.7 L Albumin 1.0 L Active Medications Generic Name Dose Route Start Last Admin Trade Name Freq PRN Reason Stop Dose Admin Acetaminophen 650 mg 11/07/16 08:16 11/09/16 13:57 Tylenol - PO 650 mg Q4H PRN Administration FEVER OR PAIN Clopidogrel Bisulfate 75 mg 11/15/16 10:00 11/18/16 10:14 Plavix - NGT 75 mg DAILY MARILEE Administration Heparin Sodium (Porcine) 5,000 unit 11/16/16 22:00 11/18/16 22:08 Heparin - SQ 5,000 unit BID MARILEE Administration Nafcillin Sodium 2 gm/ 100 mls @ 100 mls/hr 11/09/16 10:00 11/18/16 22:09 Dextrose IVPB 100 mls/hr Q4H-IV [facility]E Administration Protocol Norepinephrine Bitartrate 8, 500 mls @ 18.75 mls/hr 11/09/16 23:30 11/18/16 20: 00 000 mcg/ Dextrose IV 8 mcg/min TITR MARILEE Titration Protocol 5 MCG/MIN Ertapenem 0.5 gm/ Sodium 50 mls @ 100 mls/hr 11/11/16 10:00 11/18/16 10:14 Chloride IVPB 100 mls/hr DAILY [facility]E Administration Protocol Pantoprazole Sodium 100 mls @ 200 mls/hr 11/11/16 10:00 11/18/16 10:17 Protonix 40mg Ivpb (Pre-Docked) IVPB 200 mls/hr DAILY [facility]E Administration Dopamine HCl 400,000 mcg/ 260 mls @ 16.89 mls/hr 11/16/16 11:30 11/18/16 20:00 Sodium Chloride IVPB 7 mcg/kg/min TITR MAR[facility]E Titration Protocol 5 MCG/KG/MIN Morphine Sulfate 100 mg/ 100 mls @ 2 mls/hr 11/16/16 14:30 11/18/16 17:30 Sodium Chloride IVPB 2 mls/hr TITR MAR[facility]E Administration Protocol 2 MG/HR Sevelamer Carbonate 0.8 gm 11/18/16 14:00 11/18/16 22:08 Renvela Powder Packet - NGT 0.8 gm TID MARILEE Administration Sodium Bicarbonate 650 mg 11/18/16 10:00 11/18/16 22:09 Sodium Bicarbonate - NGT 650 mg BID MARILEE Administration ASSESSMENT/PLAN: 81 y/o man with h/o HTN, HLD, CVA, BPH with chronic indwelling foleyc atheter and h/o DVT who presented with back and neck pain . Hospitalization esd complicated by cardiac arrest x3 ( VF, Torsade [place], asystole ) . He was found to be bacteremic as well # Acute respiratory failure s/p intubation in ICU continue to monitor S/P Cardiac arrest, VF, Torsades and asystole. Prolonged QTc . cardiogenic Vs septic shock continue dopamine and NEpinephrine. further management per ICU Pt is on Nafcillin and Ertapenem. Echo cannot rule out endocarditis # NSTEMI # Acute systolic heart failure . # Severe sepsis with MSSA bacteremia. possible endocarditis continue IV antibiotic # Complicated UTI : MSSA and Citrobacter Freundii # GUZMAN : likely ATN # Discitis DVT Px: SCDs due to GI bleed Visit type - Emergency Visit Emergency Visit: Yes ED Registration Date: 11/07/16 Care time: The patient presented to the Emergency Department on the above date and was hospitalized for further evaluation of their emergent condition. - New Patient This patient is new to me today: No - Critical Care Critical Care patient: Yes Total Critical Care Time (in minutes): 35 Critical Care Statement: The care of this patient involved high complexity decision making to prevent further life threatening deterioration of the patient 's condition and/or to evalute & treat vital organ system(s) failure or risk of failure.
[2016-11-19] MEDS ORDERED: PT OWN MED DRAWER 7, Y5N ONE ×6 (01:18→21:35)
[2016-11-19] MEDS: NAFCILLIN - 2 GM in DEXTROSE 5%-WATER - 100 ML IVPB SCH ×2 (01:21→05:40)
[2016-11-19] MEDS: NOREPINEPHRINE BITARTRATE 8,000 MCG in DEXTROSE 5%-WATER - 492 ML IV SCH ×3 (01:23→22:55)
[2016-11-19] MEDS: SEVELAMER CARBONATE 0.8 GM POWDER PACKET NGT SCH ×3 (05:38→21:32)
--- NOTE | 2016-11-19 06:51 | PN ---
Progress Note, Physician Chief Complaint: ID Really no change Still pressor dependent and vent dependent Unable to wean off pressors - Current Medication List Current Medications: Active Medications Acetaminophen (Tylenol -) 650 mg PO Q4H PRN PRN Reason: FEVER OR PAIN Last Admin: 11/09/16 13:57 Dose: 650 mg Clopidogrel Bisulfate (Plavix -) 75 mg NGT DAILY [facility] Last Admin: 11/18/16 10:14 Dose: 75 mg Heparin Sodium (Porcine) (Heparin -) 5,000 unit SQ BID MARILEE Last Admin: 11/18/16 22:08 Dose: 5,000 unit Nafcillin Sodium 2 gm/ (Dextrose) 100 mls @ 100 mls/hr IVPB Q4H-IV [facility]E PRN Reason: Protocol Last Admin: 11/19/16 05:40 Dose: 100 mls/hr Norepinephrine Bitartrate 8, (000 mcg/ Dextrose) 500 mls @ 18.75 mls/hr IV TITR MARILEE; 5 MCG/MIN PRN Reason: Protocol Last Admin: 11/19/16 01:23 Dose: 30 mls/hr Ertapenem 0.5 gm/ Sodium (Chloride) 50 mls @ 100 mls/hr IVPB DAILY [facility]E PRN Reason: Protocol Last Admin: 11/18/16 10:14 Dose: 100 mls/hr Pantoprazole Sodium (Protonix 40mg Ivpb (Pre-Docked)) 100 mls @ 200 mls/hr IVPB DAILY [facility] Last Admin: 11/18/16 10:17 Dose: 200 mls/hr Dopamine HCl 400,000 mcg/ (Sodium Chloride) 260 mls @ 16.89 mls/hr IVPB TITR MARILEE; 5 MCG/KG/MIN PRN Reason: Protocol Last Titration: 11/18/16 20:00 Dose: 7 mcg/kg/min Morphine Sulfate 100 mg/ (Sodium Chloride) 100 mls @ 2 mls/hr IVPB TITR MARILEE; 2 MG/HR PRN Reason: Protocol Last Admin: 11/18/16 17:30 Dose: 2 mls/hr Sevelamer Carbonate (Renvela Powder Packet -) 0.8 gm NGT TID [facility] Last Admin: 11/19/16 05:38 Dose: 0.8 gm Sodium Bicarbonate (Sodium Bicarbonate -) 650 mg NGT BID [facility] Last Admin: 11/18/16 22:09 Dose: 650 mg - Objective Vital Signs: Vital Signs Temperature 97.8 F 11/18/16 14:00 Pulse Rate 103 H 11/19/16 06:00 Respiratory Rate 12 11/19/16 06:00 Blood Pressure 88/57 11/19/16 06:00 O2 Sat by Pulse Oximetry (%) 98 11/18/16 19:48 Constitutional: Yes: Other (Intubated) Cardiovascular: Yes: S1, S2 Respiratory: Yes: WNL, Regular, CTA Bilaterally Gastrointestinal: Yes: WNL, Normal Bowel Sounds, Soft. No: Tenderness Edema: Yes Labs: CBC, BMP 11/18/16 05:30 11/18/16 05:30 INR, PTT INR 1.66 (0.82-1.09) H 11/09/16 14:30 Problem List - Problems (1) Osteomyelitis Code(s): M86.9 - OSTEOMYELITIS, UNSPECIFIED Qualifiers: Osteomyelitis type: unspecified type Osteomyelitis location: other site Qualified Code(s): M86.9 - Osteomyelitis, unspecified (2) Bacteremia due to Staphylococcus Code(s): R78.81 - BACTEREMIA (3) Discitis Code(s): M46.40 - DISCITIS, UNSPECIFIED, SITE UNSPECIFIED Qualifiers: Spinal region: lumbar Qualified Code(s): M46.46 - Discitis, unspecified, lumbar region (4) Cardiac arrest due to other underlying condition Code(s): I46.8 - CARDIAC ARREST DUE TO OTHER UNDERLYING CONDITION (5) Staphylococcus aureus bacteremia Code(s): R78.81 - BACTEREMIA Assessment/Plan Microbiology 11/15/16 08:00 Blood - Peripheral Venous Blood Culture - Preliminary NO GROWTH OBTAINED AFTER 72 HOURS, INCUBATION TO CONTINUE FOR 2 DAYS. 11/15/16 08:00 Blood - Peripheral Venous Blood Culture - Preliminary NO GROWTH OBTAINED AFTER 72 HOURS, INCUBATION TO CONTINUE FOR 2 DAYS. Laboratory Tests 11/18/16 11/18/16 05:30 05:30 WBC 14.8 H Hgb 12.0 Plt Count 264 D BUN 79 H Creatinine 3.6 H Creat Clearance w eGFR 16.31 Assessment Sepsis syndrome MRSA bacteremia Acute renal failure S/P cardiac arrest L3 L4 vertebral ostemyelitis Plan Last set of blood cultures were no growth will repeat once more and repeat the sed rate and CRP for interest mostly to see if decreasing Prognosis remains poor Reculture sputum urine Susan PETERSON
--- NOTE | 2016-11-19 08:15 | PN ---
Progress Note (short form) - Note Progress Note: PULMONARY/CRITICAL CARE FOLLOW UP: Progress Note (short form) - Note Progress Note: SUBJECTIVE: Patient seen and examined in the ICU. 24 HOUR EVENTS: -Comfortable on MS drip -Remains on pressors - Dopa 7 and NE 6 Current Medications Acetaminophen (Tylenol -) 650 mg PO Q4H PRN PRN Reason: FEVER OR PAIN Last Admin: 11/09/16 13:57 Dose: 650 mg Clopidogrel Bisulfate (Plavix -) 75 mg NGT DAILY [facility] Last Admin: 11/18/16 10:14 Dose: 75 mg Heparin Sodium (Porcine) (Heparin -) 5,000 unit SQ BID [facility]E Last Admin: 11/18/16 22:08 Dose: 5,000 unit Nafcillin Sodium 2 gm/ (Dextrose) 100 mls @ 100 mls/hr IVPB Q4H-IV [facility]E PRN Reason: Protocol Last Admin: 11/19/16 05:40 Dose: 100 mls/hr Norepinephrine Bitartrate 8, (000 mcg/ Dextrose) 500 mls @ 18.75 mls/hr IV TITR MARILEE; 5 MCG/MIN PRN Reason: Protocol Last Admin: 11/19/16 01:23 Dose: 30 mls/hr Ertapenem 0.5 gm/ Sodium (Chloride) 50 mls @ 100 mls/hr IVPB DAILY [facility]E PRN Reason: Protocol Last Admin: 11/18/16 10:14 Dose: 100 mls/hr Pantoprazole Sodium (Protonix 40mg Ivpb (Pre-Docked)) 100 mls @ 200 mls/hr IVPB DAILY [facility] Last Admin: 11/18/16 10:17 Dose: 200 mls/hr Dopamine HCl 400,000 mcg/ (Sodium Chloride) 260 mls @ 16.89 mls/hr IVPB TITR MARILEE; 5 MCG/KG/MIN PRN Reason: Protocol Last Titration: 11/18/16 20:00 Dose: 7 mcg/kg/min Morphine Sulfate 100 mg/ (Sodium Chloride) 100 mls @ 2 mls/hr IVPB TITR MARILEE; 2 MG/HR PRN Reason: Protocol Last Admin: 11/18/16 17:30 Dose: 2 mls/hr Sevelamer Carbonate (Renvela Powder Packet -) 0.8 gm NGT TID [facility]ILEE Last Admin: 11/19/16 05:38 Dose: 0.8 gm Sodium Bicarbonate (Sodium Bicarbonate -) 650 mg NGT BID [facility] Last Admin: 11/18/16 22:09 Dose: 650 mg Vital Signs Temp 97.8 F 11/18/16 14:00 Pulse 68 11/19/16 07:00 Resp 12 11/19/16 07:54 BP 92/53 11/19/16 07:00 Pulse Ox 99 11/19/16 07:54 Intake & Output 11/18/16 11/19/16 11/19/16 18:59 06:59 18:59 Intake Total 1136 1209 Output Total 750 900 Balance 386 309 Weight 91 kg Intake: IV 549 Levophed - 8,000 Mcg In 292 D5w - 492 ml @ 5 MCG/MIN 18.75 mls/hr IV TITR [facility] Rx#:[id number] Intropin - 400,000 Mcg In 237 Normal Saline - 250 ml @ 5 MCG/KG/MIN 16.89 mls/ hr IVPB TITR [facility] Rx#: [id number] Morphine Sulfate 100 mg 20 In Normal Saline - 98 ml @ 2 MG/HR 2 mls/hr IVPB TITR [facility] Rx#:[id number] IVPB 876 300 Tube Feeding 180 240 Tube Irrigant 80 120 Output: Urine 750 900 Heart 750 900 Other: Voiding Method Indwelling Catheter Indwelling Catheter Indwelling Catheter Bowel Movement Yes Yes Weight Measurement Method Built in [facility] Gen: Intubated and sedated Heart: RRR, +systolic murmur Lung: decreased breath sounds at the bases Abd: soft, nontender Ext: no edema, cold to touch CBC, BMP 11/18/16 05:30 11/18/16 05:30 ASSESSMENT AND PLAN: s/p VFib Cardiopulmonary Arrest/Prolonged QT Acute NSTEMI/CAD/+Troponins Acute Respiratory Failure Acute on Chronic Systolic Heart Failure Severe Mitral Regurgitation Acute Kidney Injury UTI MSSA Bacteremia Osteomyelitis/Discitis Sepsis Lactic Acidosis - AC being held due to bleeding - beta malvin, statin - keep K >4.5, Mg >2.5 - minimize intake IVF per Renal - ABX per ID - monitor urine output, creatinine, 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
--- NOTE | 2016-11-19 09:00 | PN ---
Progress Note (short form) - Note Progress Note: Renal follow up for GUZMAN Pt seen and examined in the ICU remains itubated on vent unresponsive off sedation on 2 pressers UO 1225 in the last 24 hours Vital Signs Temperature 97.8 F 11/18/16 14:00 Pulse Rate 68 11/19/16 07:00 Respiratory Rate 12 11/19/16 07:54 Blood Pressure 92/53 11/19/16 07:00 O2 Sat by Pulse Oximetry (%) 99 11/19/16 07:54 Intake & Output 11/16/16 11/17/16 11/18/16 11/19/16 23:59 23:59 23:59 23:59 Intake Total 3043.0 2411.6 2218.9 1109 Output Total 2430 1575 1425 900 Balance 613.0 836.6 793.9 209 Weight 191 lb 193 lb 1.999 oz 195 lb 12.328 oz 200 lb 9.93 oz Gen: Intubated via ET Tube CVS: RRR, No M/R Lungs: CTA, no rales, wheeze Abd: Obese, NT/ND Ext: Trace LE edema CBC, BMP 11/18/16 05:30 11/18/16 05:30 Laboratory Tests 11/18/16 05:30 Calcium 6.2 L* Phosphorus 7.2 H Magnesium 2.3 Total Bilirubin 3.1 H Albumin 1.0 L Current Medications Acetaminophen (Tylenol -) 650 mg PO Q4H PRN PRN Reason: FEVER OR PAIN Last Admin: 11/09/16 13:57 Dose: 650 mg Clopidogrel Bisulfate (Plavix -) 75 mg NGT DAILY [facility] Last Admin: 11/18/16 10:14 Dose: 75 mg Heparin Sodium (Porcine) (Heparin -) 5,000 unit SQ BID [facility] Last Admin: 11/18/16 22:08 Dose: 5,000 unit Nafcillin Sodium 2 gm/ (Dextrose) 100 mls @ 100 mls/hr IVPB Q4H-IV [facility]E PRN Reason: Protocol Last Admin: 11/19/16 05:40 Dose: 100 mls/hr Norepinephrine Bitartrate 8, (000 mcg/ Dextrose) 500 mls @ 18.75 mls/hr IV TITR MARILEE; 5 MCG/MIN PRN Reason: Protocol Last Admin: 11/19/16 01:23 Dose: 30 mls/hr Ertapenem 0.5 gm/ Sodium (Chloride) 50 mls @ 100 mls/hr IVPB DAILY [facility] PRN Reason: Protocol Last Admin: 11/18/16 10:14 Dose: 100 mls/hr Pantoprazole Sodium (Protonix 40mg Ivpb (Pre-Docked)) 100 mls @ 200 mls/hr IVPB DAILY [facility] Last Admin: 11/18/16 10:17 Dose: 200 mls/hr Dopamine HCl 400,000 mcg/ (Sodium Chloride) 260 mls @ 16.89 mls/hr IVPB TITR MARILEE; 5 MCG/KG/MIN PRN Reason: Protocol Last Titration: 11/18/16 20:00 Dose: 7 mcg/kg/min Morphine Sulfate 100 mg/ (Sodium Chloride) 100 mls @ 2 mls/hr IVPB TITR MARILEE; 2 MG/HR PRN Reason: Protocol Last Admin: 11/18/16 17:30 Dose: 2 mls/hr Sevelamer Carbonate (Renvela Powder Packet -) 0.8 gm NGT TID [facility] Last Admin: 11/19/16 05:38 Dose: 0.8 gm Sodium Bicarbonate (Sodium Bicarbonate -) 650 mg NGT BID [facility] Last Admin: 11/18/16 22:09 Dose: 650 mg A/P 81 year old gentleman with PMhx of Hypertension, P-Afib not on A/C, BPH, 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 #Non-oliguric acute renal failure in setting of Sepsis/Bactermia with Cardiac Arrest x 3 Renal function improved pt is non oliguric continue supportive care no indication for DIVISION CHAIR at this time #Hypervolemic Hypernatremia limit IVF infusions as much as possible all infusions should be in NS if possible nafcillin changed to NS mixture (discussed with pharmacy this am) #Hypokalemia Goal K > 4.5 todays chem panel pending #Hypocalcemia Corrected Ca is WNL #Cardiac Arrest/Torsades Cardiac follow up ICU Level care Respiratory support with Vent Strict monitoring of electrolytes #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 Continue Abx as per ID #Hyperphospahtemia start renvela TID via NGT as pt is on tube feeds Pt with guarded prognosis awaiting family decision regarding goals of are Devan Luo DO Problem List - Problems (1) Acute respiratory failure with hypoxia Code(s): J96.01 - ACUTE RESPIRATORY FAILURE WITH HYPOXIA (2) BPH (benign prostatic hyperplasia) Code(s): N40.0 - BENIGN PROSTATIC HYPERPLASIA WITHOUT LOWER URINRY TRACT SYMP (3) Bacteremia due to Staphylococcus Code(s): R78.81 - BACTEREMIA (4) HTN (hypertension) Code(s): I10 - ESSENTIAL (PRIMARY) HYPERTENSION Qualifiers: Hypertension type: essential hypertension Qualified Code(s): I10 - Essential (primary) hypertension (5) NSTEMI (non-ST elevated myocardial infarction) Code(s): I21.4 - NON-ST ELEVATION (NSTEMI) MYOCARDIAL INFARCTION (6) Cardiac arrest Code(s): I46.9 - CARDIAC ARREST, CAUSE UNSPECIFIED
[2016-11-19 09:19] LABS: C-REACTIVE PROTEIN 16.1 MG/DL (0.00-0.3)
[2016-11-19] MEDS: HEPARIN NA (PORCINE) 5,000 UNITS/ML 1ML VIAL SQ SCH ×2 (09:39→21:32)
[2016-11-19] MEDS: PANTOPRAZOLE SODIUM 100 ML IVPB SCH (09:40)
[2016-11-19] MEDS: SODIUM BICARBONATE 650 MG TABLET NGT SCH ×2 (09:40→21:32)
[2016-11-19] MEDS: ERTAPENEM SODIUM 0.5 GM in SODIUM CHLORIDE 50 ML IVPB SCH (09:40)
[2016-11-19] MEDS: CLOPIDOGREL BISULFATE 75 MG TABLET (FP) NGT SCH (09:45)
[2016-11-19] MEDS: NAFCILLIN - 2 GM in SODIUM CHLORIDE 100 ML IVPB SCH ×4 (10:13→21:36)
[2016-11-19 10:47] LABS: ALK PHOS 53 U/L (45-117); ANION GAP 12 (8-16); CO2 20 mmol/L (21-32); CREATININE 3.4 mg/dL (0.7-1.3); GLUCOSE,RANDOM 127 mg/dL (74-106); PHOSPHOROUS 6.6 mg/dL (2.5-4.9); SGOT/AST 21 U/L (15-37); SGPT/ALT 15 U/L (12-78); TOT PROT 4.7 g/dl (6.4-8.2)
[2016-11-19 11:09] LABS: CALCIUM 6.9 mg/dL (8.5-10.1)
--- NOTE | 2016-11-19 12:18 | PN ---
Progress Note, Physician Chief Complaint: Events noted Remains intubated on mechanical ventilator Sedated and on multiple pressors (Dopamine and Levophed) No change History of Present Illness: Patient was seen and examined in ICU. Mechanical ventilation. Chart was reviewed Remains on multiple pressors - sedated Responds to pain - Current Medication List Current Medications: Active Medications Acetaminophen (Tylenol -) 650 mg PO Q4H PRN PRN Reason: FEVER OR PAIN Last Admin: 11/09/16 13:57 Dose: 650 mg Clopidogrel Bisulfate (Plavix -) 75 mg NGT DAILY MARILEE Last Admin: 11/19/16 09:45 Dose: 75 mg Heparin Sodium (Porcine) (Heparin -) 5,000 unit SQ BID [facility]E Last Admin: 11/19/16 09:39 Dose: 5,000 unit Norepinephrine Bitartrate 8, (000 mcg/ Dextrose) 500 mls @ 18.75 mls/hr IV TITR MARILEE; 5 MCG/MIN PRN Reason: Protocol Last Admin: 11/19/16 01:23 Dose: 30 mls/hr Ertapenem 0.5 gm/ Sodium (Chloride) 50 mls @ 100 mls/hr IVPB DAILY MAR[facility]E PRN Reason: Protocol Last Admin: 11/19/16 09:40 Dose: 100 mls/hr Pantoprazole Sodium (Protonix 40mg Ivpb (Pre-Docked)) 100 mls @ 200 mls/hr IVPB DAILY [facility]E Last Admin: 11/19/16 09:40 Dose: 200 mls/hr Dopamine HCl 400,000 mcg/ (Sodium Chloride) 260 mls @ 16.89 mls/hr IVPB TITR MARILEE; 5 MCG/KG/MIN PRN Reason: Protocol Last Titration: 11/18/16 20:00 Dose: 7 mcg/kg/min Morphine Sulfate 100 mg/ (Sodium Chloride) 100 mls @ 2 mls/hr IVPB TITR MARILEE; 2 MG/HR PRN Reason: Protocol Last Admin: 11/18/16 17:30 Dose: 2 mls/hr Nafcillin Sodium 2 gm/ Sodium (Chloride) 100 mls @ 100 mls/hr IVPB Q4H-IV MARILEE PRN Reason: Protocol Last Admin: 11/19/16 10:13 Dose: 100 mls/hr Sevelamer Carbonate (Renvela Powder Packet -) 0.8 gm NGT TID MAR[facility]E Last Admin: 11/19/16 05:38 Dose: 0.8 gm Sodium Bicarbonate (Sodium Bicarbonate -) 650 mg NGT BID MARILEE Last Admin: 11/19/16 09:40 Dose: 650 mg - Objective Vital Signs: Vital Signs Temperature 97.8 F 11/18/16 14:00 Pulse Rate 72 11/19/16 11:00 Respiratory Rate 12 11/19/16 11:50 Blood Pressure 95/54 11/19/16 11:00 O2 Sat by Pulse Oximetry (%) 99 11/19/16 07:54 Cardiovascular: Yes: Regular Rate and Rhythm, Murmur (SM), S1, S2 Respiratory: Yes: Diminished, Intubated, Mechanically Ventilated Gastrointestinal: Yes: Soft, Tenderness (Possibly to palpation) Edema: Yes Edema: LLE: Trace, RLE: Trace Labs: CBC, BMP 11/18/16 05:30 11/19/16 08:30 Problem List - Problems (1) Acute on chronic systolic ACC/AHA stage C congestive heart failure Code(s): I50.23 - ACUTE ON CHRONIC SYSTOLIC (CONGESTIVE) HEART FAILURE (2) Acute respiratory failure with hypoxia Code(s): J96.01 - ACUTE RESPIRATORY FAILURE WITH HYPOXIA (3) Bacteremia due to Staphylococcus Code(s): R78.81 - BACTEREMIA (4) Cardiac arrest Code(s): I46.9 - CARDIAC ARREST, CAUSE UNSPECIFIED (5) Coronary artery disease Code(s): I25.10 - ATHSCL HEART DISEASE OF [place] CORONARY ARTERY W/O ANG PCTRS Qualifiers: Coronary Disease-Associated Artery/Lesion type: [place] artery [place] vs. transplanted heart: [place] heart Associated angina: without angina Qualified Code(s): I25.10 - Atherosclerotic heart disease of [place] coronary artery without angina pectoris (6) Discitis Code(s): M46.40 - DISCITIS, UNSPECIFIED, SITE UNSPECIFIED Qualifiers: Spinal region: lumbar Qualified Code(s): M46.46 - Discitis, unspecified, lumbar region (7) HLD (hyperlipidemia) Code(s): E78.5 - HYPERLIPIDEMIA, UNSPECIFIED Qualifiers: Hyperlipidemia type: pure hypercholesterolemia Qualified Code(s): E78.00 - Pure hypercholesterolemia, unspecified; E78.0 - Pure hypercholesterolemia (8) HTN (hypertension) Code(s): I10 - ESSENTIAL (PRIMARY) HYPERTENSION Qualifiers: Hypertension type: essential hypertension Qualified Code(s): I10 - Essential (primary) hypertension (9) 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 Code(s): Z92.29 - PERSONAL HISTORY OF OTHER DRUG THERAPY (10) NSTEMI (non-ST elevated myocardial infarction) Code(s): I21.4 - NON-ST ELEVATION (NSTEMI) MYOCARDIAL INFARCTION (11) Osteomyelitis Code(s): M86.9 - OSTEOMYELITIS, UNSPECIFIED Qualifiers: Osteomyelitis type: unspecified type Osteomyelitis location: other site Qualified Code(s): M86.9 - Osteomyelitis, unspecified (12) Paroxysmal atrial fibrillation Code(s): I48.0 - PAROXYSMAL ATRIAL FIBRILLATION (13) Septic shock due to Gram positive bacteria Code(s): A41.89 - OTHER SPECIFIED SEPSIS R65.21 - SEVERE SEPSIS WITH SEPTIC SHOCK (14) Severe mitral regurgitation Code(s): I34.0 - NONRHEUMATIC MITRAL (VALVE) INSUFFICIENCY (15) Acute renal failure Code(s): N17.9 - ACUTE KIDNEY FAILURE, UNSPECIFIED Qualifiers: Acute renal failure type: unspecified Qualified Code(s): N17.9 - Acute kidney failure, unspecified (16) DVT (deep venous thrombosis) Code(s): I82.409 - ACUTE EMBOLISM AND THOMBOS UNSP DEEP VN UNSP LOWER EXTREMITY (17) Severe sepsis with acute organ dysfunction Code(s): A41.9 - SEPSIS, UNSPECIFIED ORGANISM R65.20 - SEVERE SEPSIS WITHOUT SEPTIC SHOCK Assessment/Plan 1. Post cardiac arrest torsades de pointes with underlying prolonged QT post Levaquin for E. coli/enterococcal UTI and then bradycardic/asystolic arrest 2. Acute hypoxic respiratory failure on mechanical ventilator 3. Acute on chronic systolic failure with underlying severe MR 4. CAD with NSTEMI - rise in troponin 5. Paroxysmal AF currently in sinus rhythm 6. HTN/HCVD 7. Disciitis and possible osteomyelitis of L3-4 with MSSA bacteremia/septic shock 8. GUZMAN due to hemodynamic alterations 9. Shock liver 10. History of BPH and obstructive uropathy 11. History of DVT post Eliquis PLAN: 1. Monitor Mg level and supplement as needed - monitor for QT prolongation, avoid QT prolonging agents and keep K>4.5 2. Wean pressors to maintain MAP>65. 3. IV diuresis as needed with monitor renal function and electrolytes 4. Continue antibiotics. 5. Continue Plavix and DVT prophylaxis 6. GI prophylaxis 7. Await possible palliative care in view of poor prognosis Prognosis: Poor Further plans are to follow. Prakash eLigh MD
[2016-11-19] MEDS ORDERED: NOREPINEPHRINE BITARTRATE 4 MG/4 ML ML IV ONE (15:33)
[2016-11-19] MEDS: MORPHINE 100 MG in SODIUM CHLORIDE 98 ML IVPB SCH (15:51)
[2016-11-19] MEDS: SODIUM CHLORIDE IVPB SCH (16:38)
[2016-11-19] MEDS: DOPAMINE HCL IVPB SCH (16:38)
--- NOTE | 2016-11-19 20:24 | PN ---
Progress Note (short form) - Note Progress Note: No new changes lying in bed , intubated on morphine drip. Vital Signs Temperature 97.5 F L 11/19/16 15:59 Pulse Rate 76 11/19/16 18:00 Respiratory Rate 12 11/19/16 19:28 Blood Pressure 118/66 11/19/16 18:00 O2 Sat by Pulse Oximetry (%) 99 11/19/16 07:54 GENERAL: intubated on morphine The patient is awake, alert, and fully oriented, in no acute distress. HEAD: Normal with no signs of trauma. EYES: sclera anicteric, conjunctiva clear. ENT: positive for ET tube NECK: Trachea midline, full range of motion, supple. LUNGS: intubated on morphine . HEART: Regular rate and rhythm, S1, S2 without murmur, rub or gallop. ABDOMEN: Soft, nontender, nondistended, normoactive bowel sounds, no guarding, no rebound, no hepatosplenomegaly, no masses. EXTREMITIES: 2+ pulses, warm, well-perfused, positiv e for edema Bl NEUROLOGICAL: doesn' follow any command . pinpoint pupils PSYCH: unable to access. SKIN: Warm, dry, no rashes or lesions noted CBCD WBC 14.8 K/mm3 (4.0-10.0) H 11/18/16 05:30 RBC 4.33 M/mm3 (4.00-5.60) 11/18/16 05:30 Hgb 12.0 GM/dL (11.7-16.9) 11/18/16 05:30 Hct 36.6 % (35.4-49) 11/18/16 05:30 MCV 84.6 fl (80-96) 11/18/16 05:30 MCHC 32.9 g/dl (32.0-35.9) 11/18/16 05:30 RDW 15.7 % (11.9-15.9) 11/18/16 05:30 Plt Count 264 K/MM3 (134-434) D 11/18/16 05:30 MPV 8.7 fl (7.5-11.1) 11/18/16 05:30 CMP Sodium 128 mmol/L (136-145) L 11/19/16 08:30 Potassium 3.9 mmol/L (3.5-5.1) 11/19/16 08:30 Chloride 96 mmol/L (98-107) L 11/19/16 08:30 Carbon Dioxide 20 mmol/L (21-32) L 11/19/16 08:30 Anion Gap 12 (8-16) 11/19/16 08:30 BUN 77 mg/dL (7-18) H 11/19/16 08:30 Creatinine 3.4 mg/dL (0.7-1.3) H 11/19/16 08:30 Creat Clearance w eGFR 17.43 (>60) 11/19/16 08:30 Random Glucose 127 mg/dL (74-106) H 11/19/16 08:30 Calcium 6.9 mg/dL (8.5-10.1) L* 11/19/16 08:30 Total Bilirubin 3.0 mg/dL (0.2-1.0) H 11/19/16 08:30 AST 21 U/L (15-37) 11/19/16 08:30 ALT 15 U/L (12-78) 11/19/16 08:30 Alkaline Phosphatase 53 U/L (45-117) 11/19/16 08:30 Total Protein 4.7 g/dl (6.4-8.2) L 11/19/16 08:30 Albumin 1.0 g/dl (3.4-5.0) L 11/19/16 08:30 CARDIAC ENZYMES Creatine Kinase 144 IU/L (39-308) 11/12/16 05:20 Troponin I 19.90 ng/ml (0.00-0.05) H* 11/12/16 05:20 Current Medications Generic Name Dose Route Start Last Admin Trade Name Freq PRN Reason Stop Dose Admin Acetaminophen 650 mg 11/07/16 08:16 11/09/16 13:57 Tylenol - PO 650 mg Q4H PRN Administration FEVER OR PAIN Clopidogrel Bisulfate 75 mg 11/15/16 10:00 11/19/16 09:45 Plavix - NGT 75 mg DAILY MARILEE Administration Heparin Sodium (Porcine) 5,000 unit 11/16/16 22:00 11/19/16 09:39 Heparin - SQ 5,000 unit BID MARILEE Administration Norepinephrine Bitartrate 8, 500 mls @ 18.75 mls/hr 11/09/16 23:30 11/19/16 15: 43 000 mcg/ Dextrose IV 22.5 mls/hr TITR MARILEE Administration Protocol 5 MCG/MIN Ertapenem 0.5 gm/ Sodium 50 mls @ 100 mls/hr 11/11/16 10:00 11/19/16 09:40 Chloride IVPB 100 mls/hr DAILY MAR[facility]E Administration Protocol Pantoprazole Sodium 100 mls @ 200 mls/hr 11/11/16 10:00 11/19/16 09:40 Protonix 40mg Ivpb (Pre-Docked) IVPB 200 mls/hr DAILY [facility]E Administration Dopamine HCl 400,000 mcg/ 260 mls @ 16.89 mls/hr 11/16/16 11:30 11/19/16 16:38 Sodium Chloride IVPB 23.3 mls/hr TITR MARILEE Administration Protocol 5 MCG/KG/MIN Morphine Sulfate 100 mg/ 100 mls @ 2 mls/hr 11/16/16 14:30 11/19/16 15:51 Sodium Chloride IVPB 2 mls/hr TITR MARILEE Administration Protocol 2 MG/HR Nafcillin Sodium 2 gm/ Sodium 100 mls @ 100 mls/hr 11/19/16 10:00 11/19/16 17: 03 Chloride IVPB 100 mls/hr Q4H-IV MAR[facility]E Administration Protocol Sevelamer Carbonate 0.8 gm 11/18/16 14:00 11/19/16 14:14 Renvela Powder Packet - NGT 0.8 gm TID MARILEE Administration Sodium Bicarbonate 650 mg 11/18/16 10:00 11/19/16 09:40 Sodium Bicarbonate - NGT 650 mg BID MARILEE Administration Home Medications Medication Instructions Recorded NK [No Known Home Medication] 11/08/16 A/P: 81 y/o man with h/o HTN, HLD, CVA, BPH with chronic indwelling foleyc atheter and h/o DVT who presented with back and neck pain . Hospitalization esd complicated by cardiac arrest x3 ( VF, Torsade [place], asystole ) . He was found to be bacteremic as well # Acute respiratory failure s/p intubation in ICU continue to monitor S/P Cardiac arrest, VF, Torsades and asystole. Prolonged QTc . cardiogenic Vs septic shock continue dopamine and NEpinephrine. further management per ICU, continue Morphine drip for now Pt is on Nafcillin and Ertapenem. Echo cannot rule out endocarditis # NSTEMI # Acute systolic heart failure . # Severe sepsis with MSSA bacteremia. possible endocarditis continue IV antibiotic # Complicated UTI : MSSA and Citrobacter Freundii # GUZMAN : likely ATN # Discitis DVT Px: SCDs due to GI bleed Visit type - Emergency Visit Emergency Visit: Yes ED Registration Date: 11/07/16 Care time: The patient presented to the Emergency Department on the above date and was hospitalized for further evaluation of their emergent condition. - New Patient This patient is new to me today: No - Critical Care Critical Care patient: No
[2016-11-20] MEDS ORDERED: PT OWN MED DRAWER 7, Y5N ONE ×3 (01:05→09:28)
[2016-11-20] MEDS ORDERED: NOREPINEPHRINE BITARTRATE 4 MG/4 ML ML IV ONE (01:05)
[2016-11-20] MEDS: NAFCILLIN - 2 GM in SODIUM CHLORIDE 100 ML IVPB SCH ×3 (03:00→09:36)
[2016-11-20] MEDS: SEVELAMER CARBONATE 0.8 GM POWDER PACKET NGT SCH (06:16)
--- NOTE | 2016-11-20 07:49 | PN ---
Physical Exam: SUBJECTIVE: Patient seen and examined this AM. Pt making involuntary movements when feet are touched, but not voluntarily responsive. As of 1pm today, the patient is on comfort care measures. He was extubated and off pressors. OBJECTIVE: Vital Signs Period Temp Pulse Resp BP Sys/Roche Pulse Ox Last 24 Hr 97 F-99 F 68-88 12-16 86-129/52-75 97-99 GENERAL: Intubated, unable to arouse HEENT: PERRLA, less JVD LUNGS: Intubated, anterior lung garcia clear HEART: RRR, S1, S2, no murmurs ABDOMEN: Soft, nondistended, hypoactive BS MSK: UE nonpitting edema, 2+ pulses, LE are cold to touch, 1+ dorsalis pedis, no edema - Edematous penile and scrotal region, no blood from huizar. Rectal tube w/ brown stool NEUROLOGICAL: Not arousable. No facial droop. PERRLA. Laboratory Results - last 24 hr 11/19/16 11/19/16 11/19/16 08:30 08:30 08:30 Sodium 128 L Cancelled Potassium 3.9 Cancelled Chloride 96 L Cancelled Carbon Dioxide 20 L Cancelled Anion Gap 12 Cancelled BUN 77 H Cancelled Creatinine 3.4 H Cancelled Creat Clearance w eGFR 17.43 Cancelled Random Glucose 127 H Cancelled Calcium 6.9 L* Cancelled Phosphorus 6.6 H Cancelled Total Bilirubin 3.0 H Cancelled AST 21 Cancelled ALT 15 Cancelled Alkaline Phosphatase 53 Cancelled C-Reactive Protein 16.1 H D Total Protein 4.7 L Cancelled Albumin 1.0 L Cancelled Active Medications Home Medication List Medication Instructions Recorded Confirmed Type NK [No Known Home Medication] 11/08/16 11/08/16 History Active Medications Generic Name Dose Route Start Last Admin Trade Name Freq PRN Reason Stop Dose Admin Acetaminophen 650 mg 11/07/16 08:16 11/09/16 13:57 Tylenol - PO 650 mg Q4H PRN Administration FEVER OR PAIN Morphine Sulfate 100 mg/ 100 mls @ 2 mls/hr 11/16/16 14:30 11/20/16 14:30 Sodium Chloride IVPB Not Given TITR MARILEE Protocol 2 MG/HR Lorazepam 1 mg 11/20/16 13:14 Ativan Injection - IVPUSH Q3H PRN ANXIETY ASSESSMENT/PLAN: Pt is an 81yo M with a history of HTN, HLD, Old CVA, BPH with chronic indwelling huizar, Hx of DVT who presented to the ER with neck and back pain + severe sepsis (tachy, WBC 13.9, + cultures, high LA). After the patient was transferred from the ER, he had three episodes of cardiac arrests with ACLS performance and ROSC, and is currently in the ICU on Comfort Care measures. # Post Cardiac Arrest w/ Vfib and Torsades - Pt is on comfort care measures - Extubated, off pressors - On morphine drip # Severe Sepsis w/ Persistent MSSA Bacteremia - D/c'd antibiotics # Severe Systolic CHF - EF 24% - D/c'd pressors # Disposition - Comfort care Visit type - Emergency Visit Emergency Visit: No - New Patient This patient is new to me today: No - Critical Care Critical Care patient: No
--- NOTE | 2016-11-20 08:17 | PN ---
Progress Note, Physician Chief Complaint: ID Nafcillin & Ertepenem ( synergy) Pressor dependent - Current Medication List Current Medications: Active Medications Acetaminophen (Tylenol -) 650 mg PO Q4H PRN PRN Reason: FEVER OR PAIN Last Admin: 11/09/16 13:57 Dose: 650 mg Clopidogrel Bisulfate (Plavix -) 75 mg NGT DAILY [facility] Last Admin: 11/19/16 09:45 Dose: 75 mg Heparin Sodium (Porcine) (Heparin -) 5,000 unit SQ BID MARILEE Last Admin: 11/19/16 21:32 Dose: 5,000 unit Norepinephrine Bitartrate 8, (000 mcg/ Dextrose) 500 mls @ 18.75 mls/hr IV TITR MARILEE; 5 MCG/MIN PRN Reason: Protocol Last Admin: 11/19/16 22:55 Dose: 22.5 mls/hr Ertapenem 0.5 gm/ Sodium (Chloride) 50 mls @ 100 mls/hr IVPB DAILY MARILEE PRN Reason: Protocol Last Admin: 11/19/16 09:40 Dose: 100 mls/hr Pantoprazole Sodium (Protonix 40mg Ivpb (Pre-Docked)) 100 mls @ 200 mls/hr IVPB DAILY [facility]E Last Admin: 11/19/16 09:40 Dose: 200 mls/hr Dopamine HCl 400,000 mcg/ (Sodium Chloride) 260 mls @ 16.89 mls/hr IVPB TITR MARILEE; 5 MCG/KG/MIN PRN Reason: Protocol Last Admin: 11/19/16 16:38 Dose: 23.3 mls/hr Morphine Sulfate 100 mg/ (Sodium Chloride) 100 mls @ 2 mls/hr IVPB TITR MARILEE; 2 MG/HR PRN Reason: Protocol Last Admin: 11/19/16 15:51 Dose: 2 mls/hr Nafcillin Sodium 2 gm/ Sodium (Chloride) 100 mls @ 100 mls/hr IVPB Q4H-IV MARILEE PRN Reason: Protocol Last Admin: 11/20/16 06:13 Dose: 100 mls/hr Sevelamer Carbonate (Renvela Powder Packet -) 0.8 gm NGT TID MARILEE Last Admin: 11/20/16 06:16 Dose: 0.8 gm Sodium Bicarbonate (Sodium Bicarbonate -) 650 mg NGT BID MARILEE Last Admin: 11/19/16 21:32 Dose: 650 mg - Objective Vital Signs: Vital Signs Temperature 99 F 11/20/16 02:00 Pulse Rate 85 11/20/16 07:00 Respiratory Rate 16 11/20/16 07:05 Blood Pressure 105/59 11/20/16 07:00 O2 Sat by Pulse Oximetry (%) 97 11/19/16 23:53 Extremities: Yes: Cool, Cyanosis Labs: CBC, BMP 11/18/16 05:30 11/19/16 08:30 INR, PTT INR 1.66 (0.82-1.09) H 11/09/16 14:30 Problem List - Problems (1) Osteomyelitis Code(s): M86.9 - OSTEOMYELITIS, UNSPECIFIED Qualifiers: Osteomyelitis type: unspecified type Osteomyelitis location: other site Qualified Code(s): M86.9 - Osteomyelitis, unspecified (2) Bacteremia due to Staphylococcus Code(s): R78.81 - BACTEREMIA (3) Discitis Code(s): M46.40 - DISCITIS, UNSPECIFIED, SITE UNSPECIFIED Qualifiers: Spinal region: lumbar Qualified Code(s): M46.46 - Discitis, unspecified, lumbar region (4) Cardiac arrest due to other underlying condition Code(s): I46.8 - CARDIAC ARREST DUE TO OTHER UNDERLYING CONDITION (5) Staphylococcus aureus bacteremia Code(s): R78.81 - BACTEREMIA Assessment/Plan Microbiology 11/15/16 08:00 Blood - Peripheral Venous Blood Culture - Preliminary NO GROWTH OBTAINED AFTER 96 HOURS, INCUBATION TO CONTINUE FOR 1 DAYS. 11/15/16 08:00 Blood - Peripheral Venous Blood Culture - Preliminary NO GROWTH OBTAINED AFTER 96 HOURS, INCUBATION TO CONTINUE FOR 1 DAYS. Laboratory Tests 11/18/16 11/19/16 05:30 08:30 WBC 14.8 H Hgb 12.0 Hct 36.6 Plt Count 264 D BUN 77 H Creatinine 3.4 H Creat Clearance w eGFR 17.43 C-Reactive Protein 16.1 H D Microbiology 11/15/16 08:00 Blood - Peripheral Venous Blood Culture - Preliminary NO GROWTH OBTAINED AFTER 96 HOURS, INCUBATION TO CONTINUE FOR 1 DAYS. 11/15/16 08:00 Blood - Peripheral Venous Blood Culture - Preliminary NO GROWTH OBTAINED AFTER 96 HOURS, INCUBATION TO CONTINUE FOR 1 DAYS. Assessment Sepsis syndrome MSSA bacteremia Possible endiocarditis L3 L4 vertebral osteomyelitis Cardiac arrest Respirator failure Plan Continue current therapy
[2016-11-20] MEDS: MORPHINE 100 MG in SODIUM CHLORIDE 98 ML IVPB SCH ×2 (09:10→14:30)
[2016-11-20] MEDS: HEPARIN NA (PORCINE) 5,000 UNITS/ML 1ML VIAL SQ SCH (09:14)
[2016-11-20] MEDS: PANTOPRAZOLE SODIUM 100 ML IVPB SCH (09:15)
[2016-11-20] MEDS: CLOPIDOGREL BISULFATE 75 MG TABLET (FP) NGT SCH (09:15)
[2016-11-20] MEDS: SODIUM BICARBONATE 650 MG TABLET NGT SCH (09:15)
--- NOTE | 2016-11-20 10:20 | PN ---
Progress Note (short form) - Note Progress Note: NEUROLOGY FOLLOW-UP: Events reviewed, Patient examined, and discussed with Dr. Sandhu. Apparently 2 brothers (with responsibility delegated from 3 sisters) are "going to make a decision" today. Patient remains on MS drip (2 mg/hr). No spontaneous respirations. Moves both legs to sternal pressure. Pupils 2mm and reactive. Corneal responses are present bilaterally Min EOM's to Doll's head. IMP: Exam shows evidence of brainstem function and narcotic effects. Suggest: Taper and D/C MS drip to determine highest level of responsiveness. Thank you very much, Ronald Brito MD
--- NOTE | 2016-11-20 10:52 | PN ---
Progress Note (short form) - Note Progress Note: Renal follow up for GUZMAN Pt seen and examined in the ICU intubated on 40% FiO2 on Morphine gtt On Pressers good urine output Vital Signs Temperature 94.6 F L 11/20/16 10:00 Pulse Rate 77 11/20/16 10:00 Respiratory Rate 12 11/20/16 10:00 Blood Pressure 91/54 11/20/16 10:00 O2 Sat by Pulse Oximetry (%) 96 11/20/16 10:32 Intake & Output 11/17/16 11/18/16 11/19/16 11/20/16 23:59 23:59 23:59 23:59 Intake Total 2411.6 2218.9 3039 300 Output Total 1575 1425 1500 1400 Balance 836.6 793.9 1539 -1100 Weight 193 lb 1.999 oz 195 lb 12.328 oz 200 lb 9.93 oz 195 lb 15.855 oz Gen: Intubated via ET Tube CVS: RRR, No M/R Lungs: CTA, no rales, wheeze Abd: Obese, NT/ND Ext: Trace LE edema CBC, BMP 11/18/16 05:30 11/19/16 08:30 Current Medications Acetaminophen (Tylenol -) 650 mg PO Q4H PRN PRN Reason: FEVER OR PAIN Last Admin: 11/09/16 13:57 Dose: 650 mg Clopidogrel Bisulfate (Plavix -) 75 mg NGT DAILY [facility] Last Admin: 11/20/16 09:15 Dose: 75 mg Heparin Sodium (Porcine) (Heparin -) 5,000 unit SQ BID [facility] Last Admin: 11/20/16 09:14 Dose: 5,000 unit Norepinephrine Bitartrate 8, (000 mcg/ Dextrose) 500 mls @ 18.75 mls/hr IV TITR MARILEE; 5 MCG/MIN PRN Reason: Protocol Last Admin: 11/19/16 22:55 Dose: 22.5 mls/hr Ertapenem 0.5 gm/ Sodium (Chloride) 50 mls @ 100 mls/hr IVPB DAILY MARILEE PRN Reason: Protocol Last Admin: 11/19/16 09:40 Dose: 100 mls/hr Pantoprazole Sodium (Protonix 40mg Ivpb (Pre-Docked)) 100 mls @ 200 mls/hr IVPB DAILY [facility] Last Admin: 11/20/16 09:15 Dose: 200 mls/hr Dopamine HCl 400,000 mcg/ (Sodium Chloride) 260 mls @ 16.89 mls/hr IVPB TITR MARILEE; 5 MCG/KG/MIN PRN Reason: Protocol Last Admin: 11/19/16 16:38 Dose: 23.3 mls/hr Morphine Sulfate 100 mg/ (Sodium Chloride) 100 mls @ 2 mls/hr IVPB TITR MARILEE; 2 MG/HR PRN Reason: Protocol Last Admin: 11/20/16 09:10 Dose: 2 mls/hr Nafcillin Sodium 2 gm/ Sodium (Chloride) 100 mls @ 100 mls/hr IVPB Q4H-IV MARILEE PRN Reason: Protocol Last Admin: 11/20/16 09:36 Dose: 100 mls/hr Sevelamer Carbonate (Renvela Powder Packet -) 0.8 gm NGT TID [facility] Last Admin: 11/20/16 06:16 Dose: 0.8 gm Sodium Bicarbonate (Sodium Bicarbonate -) 650 mg NGT BID [facility] Last Admin: 11/20/16 09:15 Dose: 650 mg A/P 81 year old gentleman with PMhx of Hypertension, P-Afib not on A/C, BPH, 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 #Non-oliguric acute renal failure in setting of Sepsis/Bactermia with Cardiac Arrest x 3 Renal function with gradual improvement and pt with good urine output Dose all meds for Cr Cl less then 15 #Hypervolemic Hypernatremia serum Na improving, likely due to improving urine output and self diuresis #Hypokalemia Goal K > 4.5 as per cardiology recs give KCL 40meq via GT x 1 #Hypocalcemia Corrected Ca is WNL #Cardiac Arrest/Torsades Cardiac follow up ICU Level care Respiratory support with Vent Strict monitoring of electrolytes #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 Continue Abx as per ID #Hyperphospahtemia continue renvela TID via NGT as pt is on tube feeds Devan Luo DO Problem List - Problems (1) Acute respiratory failure with hypoxia Code(s): J96.01 - ACUTE RESPIRATORY FAILURE WITH HYPOXIA (2) BPH (benign prostatic hyperplasia) Code(s): N40.0 - BENIGN PROSTATIC HYPERPLASIA WITHOUT LOWER URINRY TRACT SYMP (3) Bacteremia due to Staphylococcus Code(s): R78.81 - BACTEREMIA (4) HTN (hypertension) Code(s): I10 - ESSENTIAL (PRIMARY) HYPERTENSION Qualifiers: Hypertension type: essential hypertension Qualified Code(s): I10 - Essential (primary) hypertension (5) NSTEMI (non-ST elevated myocardial infarction) Code(s): I21.4 - NON-ST ELEVATION (NSTEMI) MYOCARDIAL INFARCTION (6) Cardiac arrest Code(s): I46.9 - CARDIAC ARREST, CAUSE UNSPECIFIED
[2016-11-20] MEDS ORDERED: POTASSIUM CHLORIDE ORAL LIQUID 20 MEQ/15 ML GT ONE (11:00)
[2016-11-20] MEDS: SODIUM CHLORIDE IVPB SCH (11:30)
[2016-11-20] MEDS: DOPAMINE HCL IVPB SCH (11:30)
[2016-11-20] MEDS: ERTAPENEM SODIUM 0.5 GM in SODIUM CHLORIDE 50 ML IVPB SCH (12:26)
--- NOTE | 2016-11-20 12:53 | PN ---
Teaching Attending Note Name of Resident: Eliel Sierra ATTENDING PHYSICIAN STATEMENT I saw and evaluated the patient. I reviewed the resident's note and discussed the case with the resident. I agree with the resident's findings and plan as documented. SUBJECTIVE: Patient seen and examined in the ICU. Remains intubated and sedated. Pressor dependent. Brother and family at the bedside. The entire family is in agreement that Manolo would not want to continue on his current course. No improvement in overall condition. They have requested that all medical interventions be stopped and that only comfort care be provided. I feel that this is appropriate given his current condition and the information that the family has provided about Manolo. Intake & Output 11/17/16 11/18/16 11/19/16 11/20/16 23:59 23:59 23:59 23:59 Intake Total 2411.6 2218.9 3039 550 Output Total 1575 1425 1500 1400 Balance 836.6 793.9 1539 -850 Weight 193 lb 1.999 oz 195 lb 12.328 oz 200 lb 9.93 oz 195 lb 15.855 oz Last Vital Signs Temp Pulse Resp BP Pulse Ox 96.0 F L 73 12 90/53 96 11/20/16 12:00 11/20/16 12:00 11/20/16 12:00 11/20/16 12:00 11/20/16 10:32 Active Medications Acetaminophen (Tylenol -) 650 mg PO Q4H PRN PRN Reason: FEVER OR PAIN Last Admin: 11/09/16 13:57 Dose: 650 mg Clopidogrel Bisulfate (Plavix -) 75 mg NGT DAILY MARILEE Last Admin: 11/20/16 09:15 Dose: 75 mg Heparin Sodium (Porcine) (Heparin -) 5,000 unit SQ BID MARILEE Last Admin: 11/20/16 09:14 Dose: 5,000 unit Norepinephrine Bitartrate 8, (000 mcg/ Dextrose) 500 mls @ 18.75 mls/hr IV TITR MARILEE; 5 MCG/MIN PRN Reason: Protocol Last Admin: 11/19/16 22:55 Dose: 22.5 mls/hr Ertapenem 0.5 gm/ Sodium (Chloride) 50 mls @ 100 mls/hr IVPB DAILY MARILEE PRN Reason: Protocol Last Admin: 11/20/16 12:26 Dose: 100 mls/hr Pantoprazole Sodium (Protonix 40mg Ivpb (Pre-Docked)) 100 mls @ 200 mls/hr IVPB DAILY MARILEE Last Admin: 11/20/16 09:15 Dose: 200 mls/hr Dopamine HCl 400,000 mcg/ (Sodium Chloride) 260 mls @ 16.89 mls/hr IVPB TITR MARILEE; 5 MCG/KG/MIN PRN Reason: Protocol Last Admin: 11/20/16 11:30 Dose: 23.65 mls/hr Morphine Sulfate 100 mg/ (Sodium Chloride) 100 mls @ 2 mls/hr IVPB TITR MARILEE; 2 MG/HR PRN Reason: Protocol Last Admin: 11/20/16 09:10 Dose: 2 mls/hr Nafcillin Sodium 2 gm/ Sodium (Chloride) 100 mls @ 100 mls/hr IVPB Q4H-IV MARILEE PRN Reason: Protocol Last Admin: 11/20/16 09:36 Dose: 100 mls/hr Sevelamer Carbonate (Renvela Powder Packet -) 0.8 gm NGT TID [facility] Last Admin: 11/20/16 06:16 Dose: 0.8 gm Sodium Bicarbonate (Sodium Bicarbonate -) 650 mg NGT BID MARILEE Last Admin: 11/20/16 09:15 Dose: 650 mg Gen: Intubated and sedated Heart: RRR, +systolic murmur Lung: decreased breath sounds at the bases Abd: soft, nontender Ext: no edema, cold to touch ASSESSMENT AND PLAN: s/p VFib Cardiopulmonary Arrest/Prolonged QT Acute NSTEMI/CAD/+Troponins Acute Respiratory Failure Acute on Chronic Systolic Heart Failure Severe Mitral Regurgitation Acute Kidney Injury UTI MSSA Bacteremia Osteomyelitis/Discitis Sepsis Lactic Acidosis For compassionate extubation Comfort measures only Dr Sandhu Critical care time spent in reviewing chart, evaluating patient and formulating plan 36 min
[2016-11-20] MEDS ORDERED: morphine CARPU-JECT 2 MG/1 ML DISP.SYRIN ONE (13:13)
[2016-11-20] MEDS ORDERED: morphine CARPU-JECT 4 MG/1 ML DISP.SYRIN IVPUSH ONE (13:13)
[2016-11-20] MEDS ORDERED: LORazepam 2 MG/ML SDV VIAL IVPUSH PRN (13:14)
--- NOTE | 2016-11-20 15:42 | PN ---
Physical Exam: SUBJECTIVE: Patient seen and examined. Patient is intubated and sedated. The family has agreed to a compassionate extubation and comfort care. OBJECTIVE: Vital Signs Period Temp Pulse Resp BP Sys/Roche Pulse Ox Last 24 Hr 94.6 F-99 F 68-88 12-16 54-129/38-75 96-100 GENERAL: intubated and sedated HEAD: Normal with no signs of trauma. EYES: PERRL, extraocular movements intact, sclera anicteric, conjunctiva clear. No ptosis. ENT: Ears normal, nares patent, oropharynx clear without exudates, moist mucous membranes. NECK: Trachea midline, full range of motion, supple. LUNGS: Breath sounds equal, clear to auscultation bilaterally, no wheezes, no crackles, no accessory muscle use. HEART: Regular rate and rhythm, S1, S2 without murmur, rub or gallop. ABDOMEN: Soft, nontender, nondistended, normoactive bowel sounds, no guarding, no rebound, no hepatosplenomegaly, no masses. EXTREMITIES: 2+ pulses, warm, well-perfused, no edema. NEUROLOGICAL: Cranial nerves II through XII grossly intact. Normal speech, gait not observed. PSYCH: Normal mood, normal affect. SKIN: Warm, dry, normal turgor, no rashes or lesions noted Active Medications Generic Name Dose Route Start Last Admin Trade Name Freq PRN Reason Stop Dose Admin Acetaminophen 650 mg 11/07/16 08:16 11/09/16 13:57 Tylenol - PO 650 mg Q4H PRN Administration FEVER OR PAIN Morphine Sulfate 100 mg/ 100 mls @ 2 mls/hr 11/16/16 14:30 11/20/16 09:10 Sodium Chloride IVPB 2 mls/hr TITR MARILEE Administration Protocol 2 MG/HR Lorazepam 1 mg 11/20/16 13:14 Ativan Injection - IVPUSH Q3H PRN ANXIETY ASSESSMENT/PLAN: 81 year old male with staphylococcal sepsis s/p 3 cardiac arrests with multiorgan failure. -Patient is for compassionate extubation; all treatment has been stopped except for comfort measures. Problem List - Problems (1) Acute on chronic systolic ACC/AHA stage C congestive heart failure Code(s): I50.23 - ACUTE ON CHRONIC SYSTOLIC (CONGESTIVE) HEART FAILURE (2) Bacteremia due to Staphylococcus Code(s): R78.81 - BACTEREMIA (3) Coronary artery disease Code(s): I25.10 - ATHSCL HEART DISEASE OF [place] CORONARY ARTERY W/O ANG PCTRS Qualifiers: Coronary Disease-Associated Artery/Lesion type: [place] artery [place] vs. transplanted heart: [place] heart Associated angina: without angina Qualified Code(s): I25.10 - Atherosclerotic heart disease of [place] coronary artery without angina pectoris (4) Discitis Code(s): M46.40 - DISCITIS, UNSPECIFIED, SITE UNSPECIFIED Qualifiers: Spinal region: lumbar Qualified Code(s): M46.46 - Discitis, unspecified, lumbar region (5) HLD (hyperlipidemia) Code(s): E78.5 - HYPERLIPIDEMIA, UNSPECIFIED Qualifiers: Hyperlipidemia type: pure hypercholesterolemia Qualified Code(s): E78.00 - Pure hypercholesterolemia, unspecified; E78.0 - Pure hypercholesterolemia (6) HTN (hypertension) Code(s): I10 - ESSENTIAL (PRIMARY) HYPERTENSION Qualifiers: Hypertension type: essential hypertension Qualified Code(s): I10 - Essential (primary) hypertension (7) Paroxysmal atrial fibrillation Code(s): I48.0 - PAROXYSMAL ATRIAL FIBRILLATION (8) Severe mitral regurgitation Code(s): I34.0 - NONRHEUMATIC MITRAL (VALVE) INSUFFICIENCY (9) Acute renal failure Code(s): N17.9 - ACUTE KIDNEY FAILURE, UNSPECIFIED Qualifiers: Acute renal failure type: unspecified Qualified Code(s): N17.9 - Acute kidney failure, unspecified Visit type - Emergency Visit Emergency Visit: Yes ED Registration Date: 11/07/16 Care time: The patient presented to the Emergency Department on the above date and was hospitalized for further evaluation of their emergent condition. - New Patient This patient is new to me today: No - Critical Care Critical Care patient: Yes Total Critical Care Time (in minutes): 35 Critical Care Statement: The care of this patient involved high complexity decision making to prevent further life threatening deterioration of the patient 's condition and/or to evalute & treat vital organ system(s) failure or risk of failure.
[2016-11-20 18:15] VITALS: TEMP 96.3
--- NOTE | 2016-11-20 18:17 | PN ---
Progress Note, Physician Chief Complaint: Events noted Remains intubated on mechanical ventilator Sedated and remains on Levophed No change History of Present Illness: Patient was seen and examined in ICU. Mechanical ventilation. Chart was reviewed Remains on pressor support - Current Medication List Current Medications: Active Medications Acetaminophen (Tylenol -) 650 mg PO Q4H PRN PRN Reason: FEVER OR PAIN Last Admin: 11/09/16 13:57 Dose: 650 mg Morphine Sulfate 100 mg/ (Sodium Chloride) 100 mls @ 2 mls/hr IVPB TITR MARILEE; 2 MG/HR PRN Reason: Protocol Last Admin: 11/20/16 14:30 Dose: Not Given Lorazepam (Ativan Injection -) 1 mg IVPUSH Q3H PRN PRN Reason: ANXIETY - Objective Vital Signs: Vital Signs Vital Signs 11/20/16 11/20/16 11/20/16 10:32 11:00 11:25 Temperature 95.9 F L Pulse Rate 74 Respiratory 12 12 Rate Blood Pressure 85/53 O2 Sat by Pulse 96 Oximetry (%) 11/20/16 11/20/16 11/20/16 12:00 13:00 14:00 Temperature 96.0 F L 96.2 F L 96.0 F L Pulse Rate 73 73 70 Respiratory 12 12 16 Rate Blood Pressure 90/53 85/53 54/38 O2 Sat by Pulse Oximetry (%) Cardiovascular: Yes: Regular Rate and Rhythm, S1, S2 Respiratory: Yes: Diminished, Intubated, Mechanically Ventilated Gastrointestinal: Yes: Soft Edema: No Labs: CBC, BMP 11/18/16 05:30 11/19/16 08:30 Problem List - Problems (1) Acute on chronic systolic ACC/AHA stage C congestive heart failure Code(s): I50.23 - ACUTE ON CHRONIC SYSTOLIC (CONGESTIVE) HEART FAILURE (2) Acute respiratory failure with hypoxia Code(s): J96.01 - ACUTE RESPIRATORY FAILURE WITH HYPOXIA (3) Bacteremia due to Staphylococcus Code(s): R78.81 - BACTEREMIA (4) Cardiac arrest Code(s): I46.9 - CARDIAC ARREST, CAUSE UNSPECIFIED (5) Coronary artery disease Code(s): I25.10 - ATHSCL HEART DISEASE OF [place] CORONARY ARTERY W/O ANG PCTRS Qualifiers: Coronary Disease-Associated Artery/Lesion type: [place] artery [place] vs. transplanted heart: [place] heart Associated angina: without angina Qualified Code(s): I25.10 - Atherosclerotic heart disease of [place] coronary artery without angina pectoris (6) Discitis Code(s): M46.40 - DISCITIS, UNSPECIFIED, SITE UNSPECIFIED Qualifiers: Spinal region: lumbar Qualified Code(s): M46.46 - Discitis, unspecified, lumbar region (7) HLD (hyperlipidemia) Code(s): E78.5 - HYPERLIPIDEMIA, UNSPECIFIED Qualifiers: Hyperlipidemia type: pure hypercholesterolemia Qualified Code(s): E78.00 - Pure hypercholesterolemia, unspecified; E78.0 - Pure hypercholesterolemia (8) HTN (hypertension) Code(s): I10 - ESSENTIAL (PRIMARY) HYPERTENSION Qualifiers: Hypertension type: essential hypertension Qualified Code(s): I10 - Essential (primary) hypertension (9) 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 Code(s): Z92.29 - PERSONAL HISTORY OF OTHER DRUG THERAPY (10) NSTEMI (non-ST elevated myocardial infarction) Code(s): I21.4 - NON-ST ELEVATION (NSTEMI) MYOCARDIAL INFARCTION (11) Osteomyelitis Code(s): M86.9 - OSTEOMYELITIS, UNSPECIFIED Qualifiers: Osteomyelitis type: unspecified type Osteomyelitis location: other site Qualified Code(s): M86.9 - Osteomyelitis, unspecified (12) Paroxysmal atrial fibrillation Code(s): I48.0 - PAROXYSMAL ATRIAL FIBRILLATION (13) Septic shock due to Gram positive bacteria Code(s): A41.89 - OTHER SPECIFIED SEPSIS R65.21 - SEVERE SEPSIS WITH SEPTIC SHOCK (14) Severe mitral regurgitation Code(s): I34.0 - NONRHEUMATIC MITRAL (VALVE) INSUFFICIENCY (15) Acute renal failure Code(s): N17.9 - ACUTE KIDNEY FAILURE, UNSPECIFIED Qualifiers: Acute renal failure type: unspecified Qualified Code(s): N17.9 - Acute kidney failure, unspecified (16) DVT (deep venous thrombosis) Code(s): I82.409 - ACUTE EMBOLISM AND THOMBOS UNSP DEEP VN UNSP LOWER EXTREMITY (17) Severe sepsis with acute organ dysfunction Code(s): A41.9 - SEPSIS, UNSPECIFIED ORGANISM R65.20 - SEVERE SEPSIS WITHOUT SEPTIC SHOCK Assessment/Plan 1. Post cardiac arrest torsades de pointes with underlying prolonged QT post Levaquin for E. coli/enterococcal UTI and then bradycardic/asystolic arrest 2. Acute hypoxic respiratory failure on mechanical ventilator 3. Acute on chronic systolic failure with underlying severe MR 4. CAD with NSTEMI - rise in troponin 5. Paroxysmal AF currently in sinus rhythm 6. HTN/HCVD 7. Disciitis and possible osteomyelitis of L3-4 with MSSA bacteremia/septic shock 8. GUZMAN due to hemodynamic alterations 9. Shock liver 10. History of BPH and obstructive uropathy 11. History of DVT PLAN: Supportive care - planned for terminal wean. Prognosis: Poor Prakash Leigh MD
--- NOTE | 2016-11-20 20:26 | PN ---
Teaching Attending Note Name of Resident: Marly Del Real ATTENDING PHYSICIAN STATEMENT I saw and evaluated the patient. I reviewed the resident's note and discussed the case with the resident. I agree with the resident's findings and plan as documented. SUBJECTIVE: Lying in Bed, extubated now OBJECTIVE: Vital Signs Temperature 96.3 F L 11/20/16 18:00 Pulse Rate 72 11/20/16 18:00 Respiratory Rate 18 11/20/16 18:00 Blood Pressure 51/40 11/20/16 18:00 O2 Sat by Pulse Oximetry (%) 96 11/20/16 10:32 CBCD WBC 14.8 K/mm3 (4.0-10.0) H 11/18/16 05:30 RBC 4.33 M/mm3 (4.00-5.60) 11/18/16 05:30 Hgb 12.0 GM/dL (11.7-16.9) 11/18/16 05:30 Hct 36.6 % (35.4-49) 11/18/16 05:30 MCV 84.6 fl (80-96) 11/18/16 05:30 MCHC 32.9 g/dl (32.0-35.9) 11/18/16 05:30 RDW 15.7 % (11.9-15.9) 11/18/16 05:30 Plt Count 264 K/MM3 (134-434) D 11/18/16 05:30 MPV 8.7 fl (7.5-11.1) 11/18/16 05:30 CMP Sodium 128 mmol/L (136-145) L 11/19/16 08:30 Potassium 3.9 mmol/L (3.5-5.1) 11/19/16 08:30 Chloride 96 mmol/L (98-107) L 11/19/16 08:30 Carbon Dioxide 20 mmol/L (21-32) L 11/19/16 08:30 Anion Gap 12 (8-16) 11/19/16 08:30 BUN 77 mg/dL (7-18) H 11/19/16 08:30 Creatinine 3.4 mg/dL (0.7-1.3) H 11/19/16 08:30 Creat Clearance w eGFR 17.43 (>60) 11/19/16 08:30 Random Glucose 127 mg/dL (74-106) H 11/19/16 08:30 Calcium 6.9 mg/dL (8.5-10.1) L* 11/19/16 08:30 Total Bilirubin 3.0 mg/dL (0.2-1.0) H 11/19/16 08:30 AST 21 U/L (15-37) 11/19/16 08:30 ALT 15 U/L (12-78) 11/19/16 08:30 Alkaline Phosphatase 53 U/L (45-117) 11/19/16 08:30 Total Protein 4.7 g/dl (6.4-8.2) L 11/19/16 08:30 Albumin 1.0 g/dl (3.4-5.0) L 11/19/16 08:30 CARDIAC ENZYMES Creatine Kinase 144 IU/L (39-308) 11/12/16 05:20 Troponin I 19.90 ng/ml (0.00-0.05) H* 11/12/16 05:20 Current Medications Generic Name Dose Route Start Last Admin Trade Name Freq PRN Reason Stop Dose Admin Acetaminophen 650 mg 11/07/16 08:16 11/09/16 13:57 Tylenol - PO 650 mg Q4H PRN Administration FEVER OR PAIN Morphine Sulfate 100 mg/ 100 mls @ 2 mls/hr 11/16/16 14:30 11/20/16 14:30 Sodium Chloride IVPB Not Given TITR MARILEE Protocol 2 MG/HR Lorazepam 1 mg 11/20/16 13:14 Ativan Injection - IVPUSH Q3H PRN ANXIETY ASSESSMENT AND PLAN: 81 y/o man with h/o HTN, HLD, CVA, BPH with chronic indwelling foleyc atheter and h/o DVT who presented with back and neck pain . Hospitalization esd complicated by cardiac arrest x3 ( VF, [place], asystole ) . He was found to be bacteremic as well # Acute respiratory failure s/p intubation in ICU , now extubated as per family request , comfort care is requested . s/p Nafcillin and Ertapenem. Echo cannot rule out endocarditis # NSTEMI # Acute systolic heart failure . # Severe sepsis with MSSA bacteremia. possible endocarditis continue IV antibiotic # Complicated UTI : MSSA and Citrobacter Freundii # GUZMAN : likely ATN # Discitis DVT Px: SCDs due to GI bleed
--- NOTE | 2016-11-20 21:08 | HOSP ---
Subjective - Review of Symptoms Subjective: Called by nurse to evaluate patient for examination. Patient exhibited no electrical activity on telemetry monitoring when entering the room. On physical exam, patient had no pulse, fixed and dilated pupils, absent breath sounds, no chest wall rise, absent gag and corneal reflexes. Primary team notified at 8:54pm Family was notified at 8:54pm Time of : 8:46pm on 11/20/2016 Physical Examination Vital Signs: Vital Signs Temperature 96.3 F L 11/20/16 18:00 Pulse Rate 72 11/20/16 18:00 Respiratory Rate 18 11/20/16 18:00 Blood Pressure 51/40 11/20/16 18:00 O2 Sat by Pulse Oximetry (%) 96 11/20/16 10:32 Labs: CBC, BMP 11/18/16 05:30 11/19/16 08:30 Visit type - Emergency Visit Emergency Visit: No - New Patient This patient is new to me today: No - Critical Care Critical Care patient: No
[2016-11-20 23:02] VITALS: BP 45/22; PULSE 40
--- NOTE | 2016-11-21 07:16 | DS ---
Physical Exam: SUBJECTIVE: Patient seen and examined this AM. Pt making involuntary movements when feet are touched, but not voluntarily responsive. As of 1pm today, the patient is on comfort care measures. He was extubated and off pressors. OBJECTIVE: Vital Signs Period Temp Pulse Resp BP Sys/Roche Pulse Ox Last 24 Hr 94.6 F-97.8 F 40-77 5-18 45-105/22-59 96-100 PHYSICAL EXAM GENERAL: Intubated, unable to arouse HEENT: PERRLA, less JVD LUNGS: Intubated, anterior lung garcia clear HEART: RRR, S1, S2, no murmurs ABDOMEN: Soft, nondistended, hypoactive BS MSK: UE nonpitting edema, 2+ pulses, LE are cold to touch, 1+ dorsalis pedis, no edema - Edematous penile and scrotal region, no blood from huizar. Rectal tube w/ brown stool NEUROLOGICAL: Not arousable. No facial droop. PERRLA. LABS Laboratory Last Values WBC 14.8 K/mm3 (4.0-10.0) H 11/18/16 05:30 RBC 4.33 M/mm3 (4.00-5.60) 11/18/16 05:30 Hgb 12.0 GM/dL (11.7-16.9) 11/18/16 05:30 Hct 36.6 % (35.4-49) 11/18/16 05:30 MCV 84.6 fl (80-96) 11/18/16 05:30 MCH 27.8 pg (25.7-33.7) 11/18/16 05:30 MCHC 32.9 g/dl (32.0-35.9) 11/18/16 05:30 RDW 15.7 % (11.9-15.9) 11/18/16 05:30 Plt Count 264 K/MM3 (134-434) D 11/18/16 05:30 MPV 8.7 fl (7.5-11.1) 11/18/16 05:30 Neutrophils % 79.0 % (42.8-82.8) 11/17/16 05:15 Lymphocytes % 13.0 % (8-40) D 11/17/16 05:15 Monocytes % 6.0 % (3.8-10.2) 11/17/16 05:15 Eosinophils % 1.0 % (0-4.5) 11/17/16 05:15 Basophils % 1.0 % (0-2.0) D 11/17/16 05:15 Metamyelocytes 1 % (0-2) D 11/12/16 05:20 Nucleated RBCs 1 % (0-0) H 11/12/16 05:20 Differential Comment Manual diff done 11/17/16 05:15 Reactive Lymphocytes 1 % (0-80) 11/12/16 05:20 Platelet Estimate Adequate (NORMAL) 11/17/16 05:15 ESR 65 mm/hr (0-20) H 11/16/16 05:15 INR 1.66 (0.82-1.09) H 11/09/16 14:30 PTT (Actin FS) 43.1 SECONDS (26.9-34.4) H D 11/15/16 05:30 D-Dimer Cancelled 11/07/16 10:00 Puncture Site Right radial 11/15/16 07:20 ABG pH 7.30 (7.35-7.45) L 11/15/16 07:20 ABG pCO2 at Pt Temp 34.1 mmHg (35-45) L 11/15/16 07:20 ABG pO2 at Pt Temp 179.0 mmHg (68-100) H* D 11/15/16 07:20 ABG HCO3 16.3 meq/L (22-26) L 11/15/16 07:20 ABG O2 Sat (Measured) 99.5 % (90-98.9) H 11/15/16 07:20 ABG O2 Content 19.2 % vol (15-22) 11/15/16 07:20 ABG Base Excess -8.7 meq/l (-2-2) L 11/15/16 07:20 Mannie Test Positive 11/15/16 07:20 O2 Delivery Device Mec.vent 11/15/16 07:20 Oxygen Flow Rate 60% 11/15/16 07:20 Vent Mode A/c 11/15/16 07:20 Vent Rate 12 11/15/16 07:20 Mechanical Rate Yes 11/15/16 07:20 PEEP 5.0 cmH2O 11/15/16 07:20 Pressure Support Vent 500 11/15/16 07:20 Sodium 128 mmol/L (136-145) L 11/19/16 08:30 Potassium 3.9 mmol/L (3.5-5.1) 11/19/16 08:30 Chloride 96 mmol/L (98-107) L 11/19/16 08:30 Carbon Dioxide 20 mmol/L (21-32) L 11/19/16 08:30 Anion Gap 12 (8-16) 11/19/16 08:30 BUN 77 mg/dL (7-18) H 11/19/16 08:30 Creatinine 3.4 mg/dL (0.7-1.3) H 11/19/16 08:30 Creat Clearance w eGFR 17.43 (>60) 11/19/16 08:30 POC Glucometer 100 UNITS (()) 11/07/16 09:11 Random Glucose 127 mg/dL (74-106) H 11/19/16 08:30 Serum Osmolality 283 mosm/kg (278-305) 11/15/16 05:30 Lactic Acid 0.6 mmol/L (0.4-2.0) 11/17/16 05:15 Calcium 6.9 mg/dL (8.5-10.1) L* 11/19/16 08:30 Phosphorus 6.6 mg/dL (2.5-4.9) H 11/19/16 08:30 Magnesium 2.3 mg/dL (1.8-2.4) 11/18/16 05:30 Total Bilirubin 3.0 mg/dL (0.2-1.0) H 11/19/16 08:30 Direct Bilirubin Cancelled 11/10/16 08:42 AST 21 U/L (15-37) 11/19/16 08:30 ALT 15 U/L (12-78) 11/19/16 08:30 Alkaline Phosphatase 53 U/L (45-117) 11/19/16 08:30 Creatine Kinase 144 IU/L (39-308) 11/12/16 05:20 Creatine Kinase Index 6.5 % (0.0-5.0) H* 11/11/16 11:00 CK-MB (CK-2) 16.516 ng/mL (0.5-3.6) H 11/11/16 11:00 CK-MB (CK-2) Rel Index Cancelled 11/08/16 06:00 Troponin I 19.90 ng/ml (0.00-0.05) H* 11/12/16 05:20 C-Reactive Protein 16.1 MG/DL (0.00-0.3) H D 11/19/16 08:30 Total Protein 4.7 g/dl (6.4-8.2) L 11/19/16 08:30 Albumin 1.0 g/dl (3.4-5.0) L 11/19/16 08:30 Prostate Specific Ag 12.20 ng/ml (0.0-4.0) H D 11/07/16 10:00 Urine Color Yellow 11/10/16 16:30 Urine Appearance Slcloudy 11/10/16 16:30 Urine pH 5.0 (5.0-8.0) 11/10/16 16:30 Ur Specific Tram 1.015 (1.005-1.025) 11/10/16 16:30 Urine Protein 1+ (NEGATIVE) H 11/10/16 16:30 Urine Glucose (UA) Negative (NEGATIVE) 11/10/16 16:30 Urine Ketones Negative (NEGATIVE) 11/10/16 16:30 Urine Blood 1+ (NEGATIVE) H 11/10/16 16:30 Urine Nitrite Negative (NEGATIVE) 11/10/16 16:30 Urine Bilirubin Negative (NEGATIVE) 11/10/16 16:30 Urine Urobilinogen Negative mg/dL (0.2-1.0) 11/10/16 16:30 Ur Leukocyte Esterase 2+ (NEGATIVE) H 11/10/16 16:30 Urine RBC 3 /hpf (0-3) 11/10/16 16:30 Urine WBC 74 /hpf (3-5) 11/10/16 16:30 Ur Epithelial Cells Rare /hpf (FEW) 11/10/16 16:30 Amorphous Urates Moderate /hpf (NONE SEEN) 11/10/16 16:30 Urine Bacteria Moderate /hpf (NONE SEEN) 11/10/16 16:30 Hyaline Casts 5 /lpf 11/10/16 16:30 Urine Mucus Rare 11/07/16 02:53 Urine Osmolality Cancelled 11/15/16 05:30 U Random Total Protein 168 mg/dl (5-11.9) H 11/09/16 11:00 Ur Random Sodium 30 MMOL/L 11/10/16 16:30 Ur Random Potassium 45.3 MMOL/L 11/09/16 11:00 Ur Random Chloride 21 MMOL/L 11/09/16 11:00 Ur Random Urea Nitrogn 380 mg/dL 11/10/16 16:30 Urine Creatinine 77.6 mg/dL (20-370) 11/10/16 16:30 Stool Occult Blood Positive (NEGATIVE) 11/14/16 17:30 Random Vancomycin 15.225 ug/ml 11/09/16 05:15 Opiates Screen Positive ng/ml (CVPNJG=067) 11/08/16 11:52 Methadone Screen Negative ng/ml (VYELCJ=715) 11/08/16 11:52 Barbiturate Screen Negative ng/ml (PSRBID=593) 11/08/16 11:52 Phencyclidine Screen Negative ng/ml (CUTOFF=25) 11/08/16 11:52 Ur Amphetamines Screen Negative ng/ml (DENTHS=192) 11/08/16 11:52 MDMA (Ecstasy) Screen Negative ng/ml (FNCNFQ=316) 11/08/16 11:52 Benzodiazepines Screen Positive ng/ml (FMZHPF=840) 11/08/16 11:52 Cocaine Screen Negative ng/ml (KBJTML=152) 11/08/16 11:52 U Marijuana (THC) Screen Negative ng/ml (CUTOFF=50) 11/08/16 11:52 Blood Type B POSITIVE 11/07/16 10:21 Antibody Screen Negative 11/07/16 10:00 HOSPITAL COURSE: Date of Admission:11/07/16 Date of Discharge: 11/21/16 Mr. Gonzalez is an 81yo M with a hx of HTN, HLD, Old CVA, BPH with indwelling huizar , hx of DVT who originally presented to the ER due to progressively worsening neck + back pain without neurological symptoms. On admission, he was found to be in severe sepsis with tachycardia, leukocytosis (13.9), positive blood cultures, and high lactic acid. He was given antibiotics in the ER. After the patient was transferred from the ER, he had three episodes of cardiac arrest with ACLS performance and ROSC. After the third arrest, the patient was intubated and placed on double pressors. # Post Cardiac Arrest w/ Vfib and Torsades - The patient had three cardiac arrests. Mg was given, Amniodarone was started. ACLS protocol followed. He was placed on Dopamine and Levophed drip to control MAP. He was intubated. The patient was unable to tolerate multiple trials of pressor weaning. Ultimately, the family wanted comfort measures. The patient was extubated on 11/20/16 and kept on a morphine drip. The on 11/20/16 and was pronounced at 8:46pm. 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 This could be due to progressive cardiomyopathy. The patient was pressor dependent, and would not tolerate pressor weaning. # NSTEMI - After the first cardiac arrest, the patient troponins peaked to [address] changes. The patient had been maintained on Plavix 75 and Heparin drip. The heparin drip was stopped due to supratherapeutic PTT. The patient was too unstable for a cardiac cath. # Severe Sepsis w/ Persistent MSSA Bacteremia - The patient had persistent MSSA bacteremia. A transthoracic echocardiogram could not rule out aortic vegetations. The patient was too unstable to have SWATHI performed. The patient was treated with Nafcillin IV 2g Q4 + Ertapenem IV 0.5g QD. The patients indwelling huizar was changed by the patients Urologist Dr. Flores on 11/11. # Osteomyelitis vs Discitis - CT scans showed signs of discitis vs osteomyelitis of the lumbar spine. An MRI with contrast was unable to be performed since the patients GFR dropped to <30, and risk of nephrogenic sclerosis was too high. Neurosurgery saw the patient and decided no surgical intervention would be necessary, and conservative management was best. The patient was placed on Morphine 2mg IVPush Q4PRN + Tylenol 650mg Q4 for pain control # GUZMAN rising BUN/Cr - The patients acute kidney injury is likely due to a mix of septic shock and cardiogenic hypoperfusion. The patient remained non-oliguric, with waxing and waning urine outputs. # Paroxysmal Afib - currently in Afib - The patient was placed on a heparin drip, with an echocardiogram showing no clots. The patients beta malvin was discontinued, and the patients heart rate was monitored with continuous cardiac monitoring. # BPH with obstructive uropathy - The patient has an enlarged prostate and has refused TURP in the past, which lead to the patient having an indwelling huizar. The huizar catheter was changed by the patients Urologist in the hospital. # Hx of femoral DVT - From the chart, patient had completed anticoagulation therapy. After the first arrest, there was concern for PE, and BLLE dopplers and CTA chest were negative for DVT and PE respectively. The patient eventually on 11/20 and was pronounced at 8:46pm. The family was made aware. Minutes to complete discharge: 55 Discharge Summary Reason For Visit: OSTEOMYELITIS - Instructions Diet, Activity, Other Instructions: PSA increased Referrals: Arnav Flores MD [Primary Care Provider] - Disposition: - Home Medications Comprehensive Discharge Medication List: Ambulatory Orders NK [No Known Home Medication] 11/08/16 This patient is new to me today: No Emergency Visit: No Critical Care patient: Yes Total Critical Care Time (in minutes): 40 Critical Care Statement: The care of this patient involved high complexity decision making to prevent further life threatening deterioration of the patient 's condition and/or to evalute & treat vital organ system(s) failure or risk of failure. - Discharge Referral Referred to [facility] No
== END 2016-11-20 20:46 | disposition expired | DRG 870 ==
LOC: JER 23:42 → JERBED 11-07 07:46 → J5S 11-07 09:04 → JICU 11-07 09:48
PROVIDERS: ADMIT Internal Medicine; ATTEND Internal Medicine
PROC: 5A1955Z Respiratory Ventilation, Greater than 96 Consecutive Hours (ICD-10-PCS; principal; 2016-11-07)
PROC: 0BH17EZ Insertion of Endotracheal Airway into Trachea, Via Natural or Artificial Opening (ICD-10-PCS; 2016-11-07)
PROC: 5A12012 Performance of Cardiac Output, Single, Manual (ICD-10-PCS; 2016-11-09)
DX: A41.9 Sepsis, unspecified organism (principal); R65.21 Severe sepsis with septic shock; J96.01 Acute respiratory failure with hypoxia; I50.23 Acute on chronic systolic (congestive) heart failure; K72.00 Acute and subacute hepatic failure without coma; N39.0 Urinary tract infection, site not specified; E87.2 Acidosis; M86.9 Osteomyelitis, unspecified; E87.0 Hyperosmolality and hypernatremia; E87.1 Hypo-osmolality and hyponatremia; I38 Endocarditis, valve unspecified; M46.26 Osteomyelitis of vertebra, lumbar region; I48.0 Paroxysmal atrial fibrillation; R57.0 Cardiogenic shock; I11.0 Hypertensive heart disease with heart failure; I34.0 Nonrheumatic mitral (valve) insufficiency; I25.10 Atherosclerotic heart disease of native coronary artery without angina pectoris; E87.6 Hypokalemia; E83.51 Hypocalcemia; E83.39 Other disorders of phosphorus metabolism; I46.9 Cardiac arrest, cause unspecified; I49.01 Ventricular fibrillation; Z87.891 Personal history of nicotine dependence; N40.1 Benign prostatic hyperplasia with lower urinary tract symptoms; R33.8 Other retention of urine; R00.1 Bradycardia, unspecified; E87.70 Fluid overload, unspecified; D72.829 Elevated white blood cell count, unspecified
CPT/HCPCS: 31500; 36415; 36600; 70450-TC; 71010-TC; 71260-TC; 72125-TC; 74176-TC; 76775-TC; 76856-TC; 80048; 80053; 80076; 80307; 81003; 81015; 82272; 82436; 82550; 82553; 82570; 82803; 83605; 83735; 83930; 84100; 84133; 84153; 84156; 84300; 84484; 84540; 85025; 85027; 85610; 85651; 85730; 86140; 86850; 86900; 86901; 87040; 87070; 87077; 87086; 87186; 87205; 93005; 93010; 93306-TC; 93970-TC; 94002; 97161-GP; 99283-25; G0480; J1250; J1644